=== PATIENT | male | born 1960 | race Caucasian/White ===

== ENCOUNTER → 2018-01-21 14:48 | Outpatient (CLI) | payer MEDICAID, SELFPAY ==
[2018-01-21 17:08] LABS: Absolute Lymphocyte Count 1.94 X10^3/ul (0.83-4.51); Absolute Neutrophil Count 9.3 X10^3/uL (2.0-7.7); Basophil# 0.05 X10^3/uL; Basophil% 0.4 % (0-1); Eosinophil# 0.21 X10^3/uL; Eosinophils% 1.7 % (0-5); Hematocrit 39.3 % (40-54); Hemoglobin 12.4 g/dl (13.0-16.5); Lymphocyte # 1.94 X10^3/ul (4.0); Lymphocyte % 15.5 % (19-41); Mean Corp Hgb Conc 31.6 g/gl (32-36); Mean Corpuscular Hgb 25.3 pg (27.0-32.0); Mean Corpuscular Volume 80.2 fL (80-94); Mean Platelet Vol. 8.8 fl (6.2-12.0); Monocyte# 0.94 X10^3/uL; Monocyte% 7.5 % (0-10); Neutrophil # 9.28 X10^3/uL (2.7-7.7); Neutrophil % 74.4 % (47-70); Platelet Count 360 K/mm3 (150-450); RBC Distribution Width CV 17.4 % (11.6-14.6); RBC Distribution Width SD 50.3 fl (35.1-43.9); White Blood Count 12.5 K/mm3 (4.4-11.0)
[2018-01-21 17:37] LABS: ALB/GLOB Ratio 0.6 RATIO (0.9-2.4); AST(SGOT) 20 U/L (15-37); Alanine Aminotransfer ALT/SGPT 22 U/L (16-61); Alkaline Phosphatase 111 U/L (45-117); Anion Gap 6 (5-15); BUN 19 mg/dL (7-18); BUN/Creat Ratio 19.3 RATIO (10-20); Calcium,Total 8.9 mg/dL (8.5-10.1); Chloride 101 mmol/L (98-107); Creatinine, Serum 0.99 mg/dL (0.70-1.30); EST Glomerular Filtration Rate 83 mL/min (>60); Est Glom Filt Rate - Afr Amer 100 mL/min (>60); Globulin 4.8 g/dL (2.2-4.2); Glucose 229 mg/dL (74-106); PSA,Total - Annual Screen 0.48 ng/mL (0.00-4.00); Potassium 4.3 mmol/L (3.5-5.1); Protein, Total 7.8 g/dL (6.4-8.2); Sodium Level 135 mmol/L (136-145); Thyroid Stim Hormone (TSH) 1.48 uIU/mL (0.358-3.74)
[2018-01-21 17:49] LABS: POSITIVE COUNT NO; POSITIVE DIFFERENTIAL NO; POSITIVE MORPHOLOGY NO
[2018-01-26 11:36] LABS: Hep C Antibodies <0.1 s/co ratio (0.0-0.9)
== END ==
PROVIDERS: Visit Provider Family Medicine Geriatric Medicine
DX: I10 Essential (primary) hypertension (principal); E11.9 Type 2 diabetes mellitus without complications; Z12.5 Encounter for screening for malignant neoplasm of prostate; Z13.89 Encounter for screening for other disorder
CPT/HCPCS: 36415; 80053; 84153; 84443; 85025; 86803; G0103

== ENCOUNTER → 2018-02-08 13:23 | Outpatient (CLI) | payer MEDICARE, SELFPAY ==
--- NOTE | 2018-02-08 13:30 | RAD_ITS ---
STUDY: X-RAY - CERVICAL SPINE REASON FOR EXAM: Male, 57 years old. Neck pain, chronic TECHNIQUE: 4 view(s) of the cervical spine were obtained. Limited evaluation of the lower cervical spine. COMPARISON: None FINDINGS: Normal anterior atlantoaxial articulation. Normal odontoid process. Normal cervical lordosis. There is multi-level endplate spondylosis. Normal disc space heights. The soft tissue structures are unremarkable. RAD/Cerv Spine 2 or 3 Views IMPRESSION: Mild degenerative changes Electronically Signed: Lee Pereira DO at 13:17 EDT Tel , Service support ,
== END ==
PROVIDERS: Family Provider Family Medicine Geriatric Medicine; PCP Family Medicine Geriatric Medicine; Referring Provider Anesthesiology Pain Medicine; Visit Provider Anesthesiology Pain Medicine
DX: M54.2 Cervicalgia (principal)
CPT/HCPCS: 72040

== ENCOUNTER 2018-03-08 12:51 | Outpatient (RCR) | payer MEDICARE, SELFPAY ==
[2018-03-08 14:06] VITALS: BP 133/75; PULSE 94; RESP 18; TEMP 37.2; BMI 49.1
--- NOTE | 2018-03-08 15:20 | PCM.WC.HP ---
(1) Skin ulcer of hand with fat layer exposed Status: Acute Current Visit: Yes Code(s): L98.492 - Non-pressure chronic ulcer of skin of other sites with fat layer exposed (2) Morbid obesity with BMI of 45.0-49.9, adult Status: Chronic Current Visit: Yes Code(s): E66.01 - Morbid (severe) obesity due to excess calories; Z68.42 - Body mass index (BMI) 45.0-49.9, adult (3) Diabetes mellitus Status: Chronic Current Visit: Yes Qualifiers: Diabetes mellitus type: type 2 Diabetes mellitus complication status: with neurologic complications Code(s): E11.9 - Type 2 diabetes mellitus without complications (4) Hypertension Status: Chronic Current Visit: No Code(s): I10 - Essential (primary) hypertension (5) Polyneuropathy Status: Chronic Current Visit: Yes Code(s): G62.9 - Polyneuropathy, unspecified (6) Debility Status: Chronic Current Visit: Yes Code(s): R53.81 - Other malaise (7) Hyperlipidemia Status: Chronic Current Visit: No Code(s): E78.5 - Hyperlipidemia, unspecified (8) 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 Current Visit: No Code(s): Z89.611 - Acquired absence of right leg above knee (9) Complete below knee amputation of left lower extremity Status: Chronic Current Visit: No Code(s): S88.112A - Complete traumatic amputation at level between knee and ankle, left lower leg, initial encounter (10) Burn Status: Acute Current Visit: Yes Code(s): T30.0 - Burn of unspecified body region, unspecified degree History of Present Illness Date of Service: 03/08/18 Chief Complaint: Ulcerations/wounds of the hands bilaterally History of Wound: This is a 57-year-old morbidly obese diabetic male with multiple medical problems. His pre-existing medical problems are detailed below. The patient presents with multiple wounds involving both hands. The wounds on the right hand are said to be related to pressure and friction from using his hands to mobilize his wheelchair. The wounds on the left hand are related to a recent burn sustained while cooking. The ulceration on the right hand involve the third and fourth digits. The jara on the left hand involve the fourth digit. The patient has recently been evaluated by his primary care physician, Dr. Lomeli, and has been treated with oral antibiotics, both Keflex and doxycycline, for a total of 10 days. He presents now for definitive management. Patient is limited to a wheelchair, having previously undergone a left below-knee amputation and a right above-knee amputation. He is also morbidly obese. He spends approximately 50% of his time in a motorized wheelchair, and the other 50% in his manual wheelchair, she uses primarily when at home. He typically wears a glove to protect his hands, but has developed ulcerations related to pressure/friction just within the last several weeks. 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 His history is negative for myocardial infarction, congestive heart failure, cerebrovascular accident, renal disease, pulmonary disease, and thyroid disease Surgical History: - - Patient has previously undergone tonsillectomy. A right above-knee imitation was performed in 2014 due to nonhealing and recalcitrant diabetic wounds. A left below-knee amputation was performed in 2012, also due to nonhealing and recalcitrant diabetic wounds. Allergies/Adverse Reactions: Allergies iodine Allergy (Verified 03/08/18 14:43) makes wound worse latex Allergy (Verified 03/08/18 14:43) Rash shellfish derived Allergy (Verified 03/08/18 14:43) Anaphylaxis Home Medications: Ambulatory Orders Medication Instructions Recorded Cyclobenzaprine [Flexeril] 5 mg PO TID 02/22/18 Dapagliflozin Propanediol [Farxiga] 10 mg PO DAILY 02/22/18 Gabapentin [Gralise] 600 mg PO TID 02/22/18 Ibuprofen 400 mg PO TID 02/22/18 Linagliptin [Tradjenta] 5 mg PO DAILY 02/22/18 Oxycodone [Oxyir] 5 mg PO TID 02/22/18 - Family History Paternal - - Patient's father in his 60s with a history of lung cancer. 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 His mother is alive, age 78, and suffers from diabetes mellitus and hypertension. Social History: Patient lives alone. He is single. He has retired from [employer]. He denies the use of alcohol or tobacco products. Lives: Alone Smoking Status: Never smoker Tobacco Use: Non-smoker Alcohol: None Drugs: None Review of Systems Constitutional: Denies: Chills, Fever, Weight Change Eyes: Denies: Pain, Vision Change HEENT: Denies: Difficulty Hearing, Difficulty Swallowing, Sinus Congestion Cardiovascular: Denies: Chest Pain, Palpitations Respiratory: Denies: Cough, Shortness of Breath Gastrointestinal: Denies: Diarrhea, Nausea, Vomiting Genitourinary: Denies: Dysuria, Hematuria Endocrine: Denies: Heat/ Cold Intolerance, Polydipsia, Polyuria Hematologic/ Lymphatic: Denies: Easy Bruising, Easy Bleeding - Physical Exam Vital Signs Temp Pulse Resp BP 98.9 F 94 18 133/75 H 03/08/18 14:06 03/08/18 14:06 03/08/18 14:06 03/08/18 14:06 General: Alert, Oriented x3, Cooperative, No apparent distress, Well developed, Well nourished, - - The patient is morbidly obese. HEENT: Atraumatic, PERRLA, EOMI, Normocephalic Oral: Moist Mucosa, No Gingival or Mucosal Lesions/ Ulcerations Neck: No JVD, Negative Carotid Bruits, Negative Hepatojugular Reflux, No Nodes, No Nuchal Rigidity, Trachea Midline Lungs: Clear to auscultation, Normal air movement, No rhonchi, No wheeze, No rales Cardiovascular: Regular rate, Regular Rhythm, Normal S1, Normal S2, No murmurs Abdomen: Soft, Non Tender, Non-Distended, Obese Extremities: No clubbing, No cyanosis, No edema, No Calf Tenderness, - - A left below-knee amputation is noted, as well as a right above-knee amputation. Amputation stumps are well-healed. The patient has multiple wounds and ulcerations of his hands, the locations of which are documented elsewhere, as well as the dimensions. There is no sign of infection or cellulitis. The ulcerations, particularly on the right hand, demonstrate significant callus formation. There is a moderate amount of bioburden. Skin: No rashes Wound Measurements and Assessment WC - Nurse 1 - General Ulcer Measurement Start: 03/08/18 14:06 Freq: Status: Active Protocol: Activity Type Activity Date Activity User E-Sign Co-Sign Detail Recorded Client Recorded Date Recorded By Document 03/08/18 14:06 DV [id number] 03/08/18 14:33 DV 03/08/18 14:06 Wound Center Nurse 1 [Ulcer Assessment] #4 R Ring Finger -Current Size (cm) - Length 0.5 -Current Size (cm) - Width 1 -Current Size (cm) - Depth 0.1 -Total Square Cm 0.5 -Photo Taken Yes -Classification - Thickness Full Thickness without Exposed Support Structure -Exudate Amt Small (1-33%) -Exudate Type Serosanguineous -Wound Margin Thickened -Granulation Amt Small (1-33%) -Granulation Quality [place] -Necrosis Amt Small (1-33%) -Necrotic Tissue Type Adherent Slough -Structure Exposed N/A -Texture (Negar-wound Skin Appearance) Callus Scarring -Moisture (Negar-wound Skin Appearance Maceration ) -Color (Negar-wound Skin Appearance) No Abnormality Erythema -Temperature (Negar-wound Skin No Abnormality Appearance) (Pt Warm) -Tenderness on Palpation (Negar-wound No Skin Appearance) -Ulcer Cleansing Wound Cleanser -Foul Odor after Cleansing No -Anesthetic Used 4% Lidocaine Solution #3 R Middle Finger lat -Current Size (cm) - Length 0.5 -Current Size (cm) - Width 1 -Current Size (cm) - Depth 0.1 -Total Square Cm 0.5 -Photo Taken Yes -Exudate Amt None Present (0 %) -Wound Margin Thickened -Granulation Amt Large (67-100%) -Granulation Quality Pale [place] -Necrosis Amt Small (1-33%) -Necrotic Tissue Type Adherent Slough -Structure Exposed N/A -Texture (Negar-wound Skin Appearance) Callus -Moisture (Negar-wound Skin Appearance Dry/Scaly ) -Color (Negar-wound Skin Appearance) No Abnormality -Temperature (Negar-wound Skin No Abnormality Appearance) (Pt Warm) -Tenderness on Palpation (Negar-wound No Skin Appearance) -Ulcer Cleansing Wound Cleanser -Foul Odor after Cleansing No -Anesthetic Used 4% Lidocaine Solution #2 R Middle Finger -Current Size (cm) - Length 0.2 -Current Size (cm) - Width 0.2 -Current Size (cm) - Depth 0.1 -Total Square Cm 0.04 -Photo Taken Yes -Classification - Thickness Unclassifiable (Eschar Covered ) -Exudate Amt None Present (0 %) -Wound Margin Thickened -Granulation Amt None Present (0 %) -Necrotic Tissue Type Eschar -Texture (Negar-wound Skin Appearance) Callus -Moisture (Negar-wound Skin Appearance Dry/Scaly ) -Color (Negar-wound Skin Appearance) No Abnormality -Temperature (Negar-wound Skin No Abnormality Appearance) (Pt Warm) -Tenderness on Palpation (Negar-wound No Skin Appearance) -Ulcer Cleansing Wound Cleanser -Foul Odor after Cleansing No -Anesthetic Used 4% Lidocaine Solution #1 L Hand Ring finger -Current Size (cm) - Length 0.2 -Current Size (cm) - Width 0.2 -Current Size (cm) - Depth 0.2 -Total Square Cm 0.04 -Photo Taken Yes -Classification - Thickness Unclassifiable (Eschar Covered ) -Exudate Amt None Present (0 %) -Wound Margin Distinct, Outline Attached -Granulation Amt None Present (0 %) -Necrosis Amt Small (1-33%) -Necrotic Tissue Type Eschar -Structure Exposed N/A -Texture (Negar-wound Skin Appearance) Callus Scarring -Moisture (Negar-wound Skin Appearance Dry/Scaly ) -Color (Negar-wound Skin Appearance) No Abnormality -Temperature (Negar-wound Skin No Abnormality Appearance) (Pt Warm) -Tenderness on Palpation (Negar-wound No Skin Appearance) -Ulcer Cleansing Wound Cleanser -Foul Odor after Cleansing No -Anesthetic Used 4% Lidocaine Solution WC - Nurse 2 - General Ulcer CM Notes Start: 03/08/18 14:06 Freq: Status: Active Protocol: Activity Type Activity Date Activity User E-Sign Co-Sign Detail Recorded Client Recorded Date Recorded By Document 03/08/18 14:51 DV [id number] 03/08/18 15:12 DV 03/08/18 14:51 Wound Center Nurse 2 [Procedure/Treatment] #4 R Ring Finger -Time 14:57 -Correct Patient Yes -Correct Side, Site, Position Yes -Correct Procedure Yes -Procedure Performed Yes -Type of Procedure Debridement -Clinical Debridement Subcutaneous -Post Debridement Size (cm) - Length 1.0 -Post Debridement Size (cm) - Width 1.0 -Post Debridement Size (cm) - Depth 0.2 -Total Square Cm 1.00 -Wound/Ulcer Outcome Not Healed -Ulcer Cleansing Rinsed/ Irrigated with Saline -Foul Odor after Cleansing No -Bioengineered Tissue No -Bleeding Controlled with Pressure -Treatment Response Procedure Tolerated Well #3 R Middle Finger lat -Time 15:01 -Correct Patient Yes -Correct Side, Site, Position Yes -Correct Procedure Yes -Procedure Performed Yes -Type of Procedure Debridement -Clinical Debridement Subcutaneous -Post Debridement Size (cm) - Length 0.5 -Post Debridement Size (cm) - Width 1.1 -Post Debridement Size (cm) - Depth 0.2 -Total Square Cm 0.55 -Wound/Ulcer Outcome Not Healed -Ulcer Cleansing Rinsed/ Irrigated with Saline -Foul Odor after Cleansing No -Bioengineered Tissue No -Bleeding Controlled with Pressure -Treatment Response Procedure Tolerated Well #2 R Middle Finger -Time 15:01 -Correct Patient Yes -Correct Side, Site, Position Yes -Correct Procedure Yes -Procedure Performed Yes -Type of Procedure Debridement -Clinical Debridement Subcutaneous -Post Debridement Size (cm) - Length 0.3 -Post Debridement Size (cm) - Width 0.5 -Post Debridement Size (cm) - Depth 0.1 -Total Square Cm 0.15 -Wound/Ulcer Outcome Not Healed -Ulcer Cleansing Rinsed/ Irrigated with Saline -Foul Odor after Cleansing No -Bioengineered Tissue No -Bleeding Controlled with Pressure -Treatment Response Procedure Tolerated Well #1 L Hand Ring finger -Time 15:01 -Correct Patient Yes -Correct Side, Site, Position Yes -Correct Procedure Yes -Procedure Performed Yes -Type of Procedure Debridement -Clinical Debridement Subcutaneous -Post Debridement Size (cm) - Length 0.3 -Post Debridement Size (cm) - Width 0.3 -Post Debridement Size (cm) - Depth 0.2 -Total Square Cm 0.09 -Wound/Ulcer Outcome Not Healed -Ulcer Cleansing Rinsed/ Irrigated with Saline -Foul Odor after Cleansing No -Bioengineered Tissue No -Bleeding Controlled with Pressure -Treatment Response Procedure Tolerated Well [See Physician Procedure note for Specifics] Pain Scale: 0-10 Numeric [Pain] -Is Patient Pain Free? Yes Neurological: Cranial nerves II-XII grossly intact, Neuro grossly intact Psych/Mental Status: Normal Affect, Appropriate, Alert and oriented to time, place, person, mood and affect Debridement Note Post-Debridement Measurements/Treatment WC - Nurse 2 - General Ulcer CM Notes Start: 03/08/18 14:06 Freq: Status: Active Protocol: Activity Type Activity Date Activity User E-Sign Co-Sign Detail Recorded Client Recorded Date Recorded By Document 03/08/18 14:51 DV [id number] 03/08/18 15:12 DV 03/08/18 14:51 Wound Center Nurse 2 #4 R Ring Finger -Time 14:57 -Correct Patient Yes -Correct Side, Site, Position Yes -Correct Procedure Yes -Procedure Performed Yes -Type of Procedure Debridement -Clinical Debridement Subcutaneous -Post Debridement Size (cm) - Length 1.0 -Post Debridement Size (cm) - Width 1.0 -Post Debridement Size (cm) - Depth 0.2 -Total Square Cm 1.00 -Wound/Ulcer Outcome Not Healed -Ulcer Cleansing Rinsed/ Irrigated with Saline -Foul Odor after Cleansing No -Bioengineered Tissue No -Bleeding Controlled with Pressure -Treatment Response Procedure Tolerated Well #3 R Middle Finger lat -Time 15:01 -Correct Patient Yes -Correct Side, Site, Position Yes -Correct Procedure Yes -Procedure Performed Yes -Type of Procedure Debridement -Clinical Debridement Subcutaneous -Post Debridement Size (cm) - Length 0.5 -Post Debridement Size (cm) - Width 1.1 -Post Debridement Size (cm) - Depth 0.2 -Total Square Cm 0.55 -Wound/Ulcer Outcome Not Healed -Ulcer Cleansing Rinsed/ Irrigated with Saline -Foul Odor after Cleansing No -Bioengineered Tissue No -Bleeding Controlled with Pressure -Treatment Response Procedure Tolerated Well #2 R Middle Finger -Time 15:01 -Correct Patient Yes -Correct Side, Site, Position Yes -Correct Procedure Yes -Procedure Performed Yes -Type of Procedure Debridement -Clinical Debridement Subcutaneous -Post Debridement Size (cm) - Length 0.3 -Post Debridement Size (cm) - Width 0.5 -Post Debridement Size (cm) - Depth 0.1 -Total Square Cm 0.15 -Wound/Ulcer Outcome Not Healed -Ulcer Cleansing Rinsed/ Irrigated with Saline -Foul Odor after Cleansing No -Bioengineered Tissue No -Bleeding Controlled with Pressure -Treatment Response Procedure Tolerated Well #1 L Hand Ring finger -Time 15:01 -Correct Patient Yes -Correct Side, Site, Position Yes -Correct Procedure Yes -Procedure Performed Yes -Type of Procedure Debridement -Clinical Debridement Subcutaneous -Post Debridement Size (cm) - Length 0.3 -Post Debridement Size (cm) - Width 0.3 -Post Debridement Size (cm) - Depth 0.2 -Total Square Cm 0.09 -Wound/Ulcer Outcome Not Healed -Ulcer Cleansing Rinsed/ Irrigated with Saline -Foul Odor after Cleansing No -Bioengineered Tissue No -Bleeding Controlled with Pressure -Treatment Response Procedure Tolerated Well Pain Scale: 0-10 Numeric Is Patient Pain Free? Yes Laterality: Right - Third and fourth digits Type of Debridement: Excisional debridement Anesthesia Used: 5% Lidocaine Gel Depth: Down to and including healthy tissue, in the subcutaneous layer Percentage of wound debrided: 100 Instrument Used: 7mm curette, - - 1 millimeter curette Severity: Fat Layer Exposed Amount of bleeding with debridement: Mild Bleeding Controlled with: Compression and gauze Patient tolerated procedure well - Additional Wound Laterality: Left - Fourth digit Type of Debridement: Excisional debridement Anesthesia Used: 5% Lidocaine Gel Depth: Down to and including healthy tissue, in the subcutaneous layer Percentage of wound debrided: 100 Instrument Used: 7mm curette Severity: Fat Layer Exposed Amount of bleeding with debridement: Mild Bleeding Controlled with: Compression and gauze Patient tolerated procedure: Patient tolerated procedure well Assessment/Plan Active Problems Skin ulcer of hand with fat layer exposed (Acute) Morbid obesity with BMI of 45.0-49.9, adult (Chronic) Diabetes mellitus (Chronic) Polyneuropathy (Chronic) Debility (Chronic) Burn (Acute) Assessment: This is a 57-year-old morbidly obese diabetic male with multiple wounds/ulcerations on his hands. The ulcerations on the right third and fourth digits, related to pressure and friction from contacting the wheel of his wheelchair. The wounds on the left hand appear related to recent jara he sustained while cooking. Patient has multiple medical problems, which have been detailed above. Recent laboratory results have been obtained, with results as follows: Sodium 135, potassium 4.3, chloride 101, BUN 19, creatinine 0.99, glucose 229, calcium 8.9, AST 20, ALT 22, total bilirubin 0.20, alkaline phosphatase 111, total protein 7.8, albumin 3.0, white blood count 12.5, hemoglobin 12.4, hematocrit 39.3, platelets 360,000. Despite the fact that the patient is diabetic, arterial insufficiency in the upper extremities is not likely, and assessment of arterial status is not anticipated. Plan: We are to implement the use of collagen hydrogel topically to each of the wounds on both hands. This should serve as a healing agent, and will likely soften up the the significant amount of callus which is noted involving many of the patient's ulcerations/wounds. Offloading measures are to be implemented. The patient has been advised to wear gloves to avoid the pressure and friction which he encounters while moving his wheelchair. Patient has been advised to optimize his glycemic control, and to collaborate with his primary care physician in this regard. Weight loss has been recommended. Optimizing his nutritional intake is also been advised. Patient is to return in 1 week for reassessment. Influenza vaccine was not administered today. The patient is not a smoker. Patient weighs 323 pounds. He stands 5 feet 8 inches tall. His BMI is 49.1. Weight loss has been recommended, in collaboration with his primary care physician has been advised.
== END 2018-03-12 23:59 ==
LOC: WC 12:51
PROVIDERS: Family Provider Family Medicine Geriatric Medicine; PCP Family Medicine Geriatric Medicine; Visit Provider Surgery
DX: E11.622 Type 2 diabetes mellitus with other skin ulcer (principal); L98.492 Non-pressure chronic ulcer of skin of other sites with fat layer exposed; E66.01 Morbid (severe) obesity due to excess calories; Z68.42 Body mass index [BMI] 45.0-49.9, adult; E11.42 Type 2 diabetes mellitus with diabetic polyneuropathy; I10 Essential (primary) hypertension; E78.5 Hyperlipidemia, unspecified; Z89.611 Acquired absence of right leg above knee; T23.002A Burn of unspecified degree of left hand, unspecified site, initial encounter; X08.8XXA Exposure to other specified smoke, fire and flames, initial encounter; Y93.G3 Activity, cooking and baking; Z79.899 Other long term (current) drug therapy
CPT/HCPCS: 11042; 99213; G0463

== ENCOUNTER 2018-04-12 14:00 | Outpatient (RCR) | payer MEDICARE, SELFPAY ==
[2018-03-13 02:09] VITALS: BP 133/75; PULSE 94; RESP 18; TEMP 37.2
[2018-03-15 13:33] VITALS: BP 156/73; PULSE 97; RESP 18; TEMP 36.1; BMI 49.1
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
[2018-03-22 14:24] VITALS: BP 123/72; PULSE 93; RESP 18; TEMP 35.5; BMI 49.1
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
[2018-03-29 14:49] VITALS: BP 122/72; PULSE 88; RESP 18; TEMP 37.1; BMI 49.1
[2018-03-30 11:09] VITALS: BP 128/68; PULSE 90; RESP 18; TEMP 36.4; BMI 49.1
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
[2018-04-12 13:54] VITALS: BP 123/63; PULSE 100; RESP 16; TEMP 34.9; BMI 49.1
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
== END 2018-04-12 23:59 ==
LOC: WC 14:00
PROVIDERS: Family Provider Family Medicine Geriatric Medicine; PCP Family Medicine Geriatric Medicine; Visit Provider Surgery
DX: E11.622 Type 2 diabetes mellitus with other skin ulcer (principal); T23.032A Burn of unspecified degree of multiple left fingers (nail), not including thumb, initial encounter; E11.40 Type 2 diabetes mellitus with diabetic neuropathy, unspecified; L98.492 Non-pressure chronic ulcer of skin of other sites with fat layer exposed; E66.01 Morbid (severe) obesity due to excess calories; Z68.42 Body mass index [BMI] 45.0-49.9, adult; Z71.3 Dietary counseling and surveillance; I10 Essential (primary) hypertension; E78.5 Hyperlipidemia, unspecified; Z89.611 Acquired absence of right leg above knee; Z89.512 Acquired absence of left leg below knee; X08.8XXA Exposure to other specified smoke, fire and flames, initial encounter; Y93.G3 Activity, cooking and baking; L84 Corns and callosities; L89.893 Pressure ulcer of other site, stage 3
CPT/HCPCS: 11042

== ENCOUNTER → 2018-04-27 12:05 | Outpatient (CLI) | payer MEDICARE, SELFPAY ==
[2018-04-26 14:07] VITALS: BMI 49.1
[2018-04-27 17:19] LABS: Absolute Lymphocyte Count 2.06 X10^3/ul (0.83-4.51); Absolute Neutrophil Count 7.4 X10^3/uL (2.0-7.7); Basophil# 0.04 X10^3/uL; Basophil% 0.4 % (0-1); Eosinophil# 0.16 X10^3/uL; Eosinophils% 1.6 % (0-5); Hematocrit 46.3 % (40-54); Hemoglobin 14.6 g/dl (13.0-16.5); Lymphocyte # 2.06 X10^3/ul (4.0); Mean Corp Hgb Conc 31.5 g/gl (32-36); Mean Corpuscular Hgb 26.2 pg (27.0-32.0); Mean Platelet Vol. 9.6 fl (6.2-12.0); Monocyte# 0.69 X10^3/uL; Monocyte% 6.7 % (0-10); Neutrophil # 7.35 X10^3/uL (2.7-7.7); Neutrophil % 71.1 % (47-70); Platelet Count 302 K/mm3 (150-450); RBC Distribution Width CV 17.5 % (11.6-14.6); RBC Distribution Width SD 52.4 fl (35.1-43.9); Red Blood Count 5.58 M/mm3 (4.6-6.2); White Blood Count 10.3 K/mm3 (4.4-11.0)
[2018-04-27 17:23] LABS: POSITIVE COUNT NO; POSITIVE DIFFERENTIAL NO; POSITIVE MORPHOLOGY NO
[2018-04-27 17:43] LABS: ALB/GLOB Ratio 0.8 RATIO (0.9-2.4); AST(SGOT) 17 U/L (15-37); Alanine Aminotransfer ALT/SGPT 23 U/L (16-61); Albumin, Serum 3.2 g/dL (3.2-5.0); Alkaline Phosphatase 118 U/L (45-117); Anion Gap 10 (5-15); BUN 24 mg/dL (7-18); BUN/Creat Ratio 24.6 RATIO (10-20); Calcium,Total 9.3 mg/dL (8.5-10.1); Chloride 100 mmol/L (98-107); Cholesterol 108 mg/dL (200); Creatinine, Serum 0.97 mg/dL (0.70-1.30); EST Glomerular Filtration Rate 84 mL/min (>60); Est Glom Filt Rate - Afr Amer 102 mL/min (>60); Globulin 4.1 g/dL (2.2-4.2); Glucose 297 mg/dL (74-106); High Density Lipoprotein 28 mg/dL; Potassium 4.6 mmol/L (3.5-5.1); Protein, Total 7.3 g/dL (6.4-8.2); Sodium Level 136 mmol/L (136-145); Thyroid Stim Hormone (TSH) 3.09 uIU/mL (0.358-3.74); Triglycerides 244 mg/dL; Very Low Density Lipoprotein 49 mg/dL (5-40)
== END ==
PROVIDERS: Family Provider Family Medicine Geriatric Medicine; PCP Family Medicine Geriatric Medicine; Visit Provider Family Medicine Geriatric Medicine
DX: E11.9 Type 2 diabetes mellitus without complications (principal); R53.83 Other fatigue
CPT/HCPCS: 36415; 80053; 80061; 84443; 85025

== ENCOUNTER 2018-05-11 10:00 | Outpatient (RCR) | payer MEDICARE, SELFPAY ==
[2018-04-13 01:24] VITALS: BP 123/63; PULSE 100; RESP 16; TEMP 34.9
[2018-04-19 13:47] VITALS: BP 114/70; PULSE 92; RESP 16; TEMP 36.9; BMI 49.1
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
[2018-04-26 14:07] VITALS: BP 127/69; PULSE 90; RESP 16; TEMP 35.1; BMI 49.1
[2018-05-11 09:47] VITALS: BP 123/80; PULSE 106; RESP 20; TEMP 36.1; BMI 49.1
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
== END 2018-05-13 23:59 ==
LOC: WC 10:00
PROVIDERS: Family Provider Family Medicine Geriatric Medicine; PCP Family Medicine Geriatric Medicine; Visit Provider Surgery
DX: E11.622 Type 2 diabetes mellitus with other skin ulcer (principal); L89.893 Pressure ulcer of other site, stage 3; E66.01 Morbid (severe) obesity due to excess calories; Z68.42 Body mass index [BMI] 45.0-49.9, adult; Z71.3 Dietary counseling and surveillance; E78.5 Hyperlipidemia, unspecified; Z89.611 Acquired absence of right leg above knee; I10 Essential (primary) hypertension; E11.42 Type 2 diabetes mellitus with diabetic polyneuropathy; Z79.899 Other long term (current) drug therapy
CPT/HCPCS: 11042; 99212; G0463

== ENCOUNTER 2018-06-07 14:30 | Outpatient (RCR) | payer MEDICARE, MEDICAID, SELFPAY ==
[2018-05-14 01:27] VITALS: BP 123/80; PULSE 106; RESP 20; TEMP 36.1
[2018-05-24 13:42] VITALS: BP 123/75; PULSE 70; RESP 18; TEMP 36.2; BMI 49.1
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
[2018-06-07 13:58] VITALS: BP 115/62; PULSE 90; RESP 18; TEMP 36.3; BMI 49.1
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
== END 2018-06-10 23:59 ==
LOC: WC 14:30
PROVIDERS: Family Provider Family Medicine Geriatric Medicine; PCP Family Medicine Geriatric Medicine; Visit Provider Surgery
DX: E11.622 Type 2 diabetes mellitus with other skin ulcer (principal); L89.893 Pressure ulcer of other site, stage 3; E66.01 Morbid (severe) obesity due to excess calories; Z68.42 Body mass index [BMI] 45.0-49.9, adult; Z71.3 Dietary counseling and surveillance; E78.5 Hyperlipidemia, unspecified; Z89.611 Acquired absence of right leg above knee; I10 Essential (primary) hypertension; E11.42 Type 2 diabetes mellitus with diabetic polyneuropathy; Z79.899 Other long term (current) drug therapy
CPT/HCPCS: 11042; 97597

== ENCOUNTER 2018-06-28 13:31 | Outpatient (RCR) | payer MEDICARE, SELFPAY ==
[2018-06-11 01:09] VITALS: BP 115/62; PULSE 90; RESP 18; TEMP 36.3
[2018-06-28 13:53] VITALS: BP 119/64; PULSE 84; RESP 18; TEMP 36.6; BMI 49.1
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
== END 2018-07-11 23:59 ==
LOC: WC 13:31
PROVIDERS: Family Provider Family Medicine Geriatric Medicine; PCP Family Medicine Geriatric Medicine; Visit Provider Surgery
DX: Z09 Encounter for follow-up examination after completed treatment for conditions other than malignant neoplasm (principal); E66.01 Morbid (severe) obesity due to excess calories; Z68.42 Body mass index [BMI] 45.0-49.9, adult; Z71.3 Dietary counseling and surveillance; I10 Essential (primary) hypertension; E11.42 Type 2 diabetes mellitus with diabetic polyneuropathy; E78.5 Hyperlipidemia, unspecified; Z89.611 Acquired absence of right leg above knee; Z79.899 Other long term (current) drug therapy
CPT/HCPCS: 99212; G0463

== ENCOUNTER → 2018-07-23 | Outpatient (CLI) | payer MEDICARE, SELFPAY ==
[2018-06-28 13:53] VITALS: BMI 49.1
[2018-07-23 11:36] LABS: Absolute Lymphocyte Count 1.95 X10^3/ul (0.83-4.51); Absolute Neutrophil Count 8.3 X10^3/uL (2.0-7.7); Basophil# 0.05 X10^3/uL; Basophil% 0.5 % (0-1); Eosinophil# 0.19 X10^3/uL; Eosinophils% 1.7 % (0-5); Hematocrit 45.5 % (40-54); Hemoglobin 14.5 g/dl (13.0-16.5); Lymphocyte # 1.95 X10^3/ul (4.0); Lymphocyte % 17.6 % (19-41); Mean Corp Hgb Conc 31.9 g/gl (32-36); Mean Corpuscular Hgb 27.1 pg (27.0-32.0); Mean Corpuscular Volume 84.9 fL (80-94); Mean Platelet Vol. 9.4 fl (6.2-12.0); Monocyte# 0.62 X10^3/uL; Monocyte% 5.6 % (0-10); Neutrophil # 8.25 X10^3/uL (2.7-7.7); Neutrophil % 74.2 % (47-70); POSITIVE COUNT NO; POSITIVE DIFFERENTIAL NO; POSITIVE MORPHOLOGY NO; Platelet Count 243 K/mm3 (150-450); RBC Distribution Width CV 16.4 % (11.6-14.6); RBC Distribution Width SD 51.4 fl (35.1-43.9); Red Blood Count 5.36 M/mm3 (4.6-6.2); White Blood Count 11.1 K/mm3 (4.4-11.0)
[2018-07-23 11:42] LABS: ALB/GLOB Ratio 0.8 RATIO (0.9-2.4); AST(SGOT) 19 U/L (15-37); Alanine Aminotransfer ALT/SGPT 24 U/L (16-61); Albumin, Serum 3.2 g/dL (3.2-5.0); Alkaline Phosphatase 108 U/L (45-117); Anion Gap 8 (5-15); BUN 22 mg/dL (7-18); BUN/Creat Ratio 24.4 RATIO (10-20); Calcium,Total 9.2 mg/dL (8.5-10.1); Chloride 101 mmol/L (98-107); Cholesterol 95 mg/dL (200); EST Glomerular Filtration Rate 92 mL/min (>60); Est Glom Filt Rate - Afr Amer 111 mL/min (>60); Globulin 3.9 g/dL (2.2-4.2); Glucose 247 mg/dL (74-106); High Density Lipoprotein 29 mg/dL; Potassium 4.4 mmol/L (3.5-5.1); Protein, Total 7.1 g/dL (6.4-8.2); Sodium Level 138 mmol/L (136-145); Thyroid Stim Hormone (TSH) 2.76 uIU/mL (0.358-3.74); Triglycerides 152 mg/dL; Very Low Density Lipoprotein 30 mg/dL (5-40)
== END | disposition home or self-care (01) ==
LOC: POLAB3 10:48
PROVIDERS: Family Provider Family Medicine Geriatric Medicine; PCP Family Medicine Geriatric Medicine; Visit Provider Family Medicine Geriatric Medicine
DX: E11.9 Type 2 diabetes mellitus without complications (principal); E78.5 Hyperlipidemia, unspecified; I10 Essential (primary) hypertension
CPT/HCPCS: 36415; 80053; 80061; 84443; 85025

== ENCOUNTER → 2018-10-21 | Outpatient (CLI) | payer MEDICARE, MEDICAID, SELFPAY ==
[2018-10-21 17:28] LABS: Absolute Neutrophil Count 8.7 X10^3/uL (2.0-7.7); Basophil# 0.04 X10^3/uL; Basophil% 0.4 % (0-1); Eosinophil# 0.19 X10^3/uL; Eosinophils% 1.7 % (0-5); Hematocrit 45.9 % (40-54); Hemoglobin 14.4 g/dl (13.0-16.5); Lymphocyte % 14.3 % (19-41); Mean Corp Hgb Conc 31.4 g/gl (32-36); Mean Corpuscular Hgb 26.4 pg (27.0-32.0); Mean Corpuscular Volume 84.2 fL (80-94); Mean Platelet Vol. 9.8 fl (6.2-12.0); Monocyte# 0.57 X10^3/uL; Monocyte% 5.1 % (0-10); Neutrophil # 8.72 X10^3/uL (2.7-7.7); Neutrophil % 78.1 % (47-70); Platelet Count 297 K/mm3 (150-450); RBC Distribution Width CV 16.6 % (11.6-14.6); RBC Distribution Width SD 51.2 fl (35.1-43.9); Red Blood Count 5.45 M/mm3 (4.6-6.2); White Blood Count 11.2 K/mm3 (4.4-11.0)
[2018-10-21 17:47] LABS: Vitamin D,25 Hydroxy 30.2 ng/mL (29.95-100.01)
[2018-10-21 17:54] LABS: POSITIVE COUNT NO; POSITIVE DIFFERENTIAL NO; POSITIVE MORPHOLOGY NO
[2018-10-21 18:03] LABS: ALB/GLOB Ratio 0.8 RATIO (0.9-2.4); AST(SGOT) 19 U/L (15-37); Alanine Aminotransfer ALT/SGPT 24 U/L (16-61); Albumin, Serum 3.2 g/dL (3.2-5.0); Alkaline Phosphatase 107 U/L (45-117); Anion Gap 10 (5-15); BUN 23 mg/dL (7-18); BUN/Creat Ratio 25.8 RATIO (10-20); Calcium,Total 8.9 mg/dL (8.5-10.1); Chloride 102 mmol/L (98-107); Cholesterol 110 mg/dL (200); Creatinine, Serum 0.89 mg/dL (0.70-1.30); EST Glomerular Filtration Rate 93 mL/min (>60); Est Glom Filt Rate - Afr Amer 113 mL/min (>60); Globulin 3.8 g/dL (2.2-4.2); Glucose 268 mg/dL (74-106); High Density Lipoprotein 31 mg/dL; Potassium 4.3 mmol/L (3.5-5.1); Sodium Level 138 mmol/L (136-145); Triglycerides 242 mg/dL; Very Low Density Lipoprotein 48 mg/dL (5-40)
== END | disposition home or self-care (01) ==
LOC: POLAB3 13:09
PROVIDERS: Family Provider Family Medicine Geriatric Medicine; PCP Family Medicine Geriatric Medicine; Visit Provider Family Medicine Geriatric Medicine
DX: E55.9 Vitamin D deficiency, unspecified (principal); E11.40 Type 2 diabetes mellitus with diabetic neuropathy, unspecified; E78.5 Hyperlipidemia, unspecified; I10 Essential (primary) hypertension
CPT/HCPCS: 36415; 80053; 80061; 82306; 84443; 85025

== ENCOUNTER 2019-01-09 17:45 | Emergency (ER) | payer MEDICARE, MEDICAID, SELFPAY ==
[2019-01-09 17:46] VITALS: BP 125/70; PULSE 100; RESP 17; TEMP 36.8; O2SAT 99; BMI 45.6
--- NOTE | 2019-01-09 18:40 | RAD_ITS ---
STUDY: X-RAY - LEFT FEMUR REASON FOR STUDY: Male, 58 years old. Leg pain TECHNIQUE: 4 view(s) of the femur. COMPARISON: None. FINDINGS: Normal visualized femur. Normal visualized soft tissue structure. RAD/Femur Min 2 Views IMPRESSION: Normal x-ray examination of the femur. Electronically Signed: Lee Pereira DO at 19:15 EDT Tel , Service support ,
--- NOTE | 2019-01-09 19:24 | ED.VISSUMM ---
- ER Visit Summary Date of Service: 01/09/19 Chief Complaint: Fall History of Present Illness: The patient is a 58 M who presents after a fall that occurred today. Patient was in his wheelchair and driving out to his car. Patient hit a pothole and fell out of his wheelchair. Patient landed on his left side. Patient states the pain is localized to his left thigh and left elbow. Patient denies any head injury or loss of consciousness. Patient denies any paresthesias or weakness. Patient denies any other injuries. Patient states his last tetanus is up-to-date. Physical Examination: Vital signs are stable. Patient afebrile. Patient is in no acute distress. Musculoskeletal exam revealed abrasions over the left knee and left elbow. There is no active bleeding noted. There is full range of motion of the left elbow. There is minimal tenderness. There is no bony crepitance or step-off. There is tenderness over the left mid to proximal thigh. There is no edema or ecchymosis. There is no deformity noted. There are or sensory deficits noted. Test Results: X-rays of the left femur were obtained. There is no acute fracture. These were interpreted by the radiologist and myself. Emergency Department Course and Treatment: Patient was given a dose of Parkton here. Patient was given a prescription for a short course of Parkton. Patient was instructed to use ice to the area. Patient was instructed to use bacitracin dressings to his abrasions. Patient was instructed to follow-up with his primary care physician in 3 to 5 days. Patient understood and was agreeable with the plan. All questions were answered. Disposition: Discharge home Impression: 1. Left thigh contusion 2. Multiple abrasions This note was generated with [employer] dictation software. It may contain incorrect words, spelling, and punctuation that were not noted in review of the chart prior to signing ED Disposition - Plan for ED Patient: Disposition: Home or Assisted Living Diagnosis: Contusion of left thigh, initial encounter, Multiple abrasions Instructions: CONTUSION, Lower Extremity, Abrasion Prescriptions: Hydrocodone Bitart/Apap 5-325 [Parkton 5MG-325MG] 1 tab PO Q6H PRN PRN 2 Days #5 tab PRN Reason: Pain Prescription Printed Referrals: Kelechi Lomeli Chi, MD [Primary Care Provider] - 3-5 Days
[2019-01-09 19:40] VITALS: BP 122/72; PULSE 98; RESP 18; O2SAT 97
[2019-01-09] MEDS: HYDROcodone Bitartrate/Apap 5/325 Tablet PO (19:43)
== END 2019-01-09 19:54 | disposition home or self-care (01) ==
PROVIDERS: Emergency Provider Emergency Medicine; Family Provider Family Medicine Geriatric Medicine; PCP Family Medicine Geriatric Medicine
DX: S70.12XA Contusion of left thigh, initial encounter (principal); S80.212A Abrasion, left knee, initial encounter; S50.312A Abrasion of left elbow, initial encounter; E66.9 Obesity, unspecified; E11.9 Type 2 diabetes mellitus without complications; Z99.3 Dependence on wheelchair; W05.0XXA Fall from non-moving wheelchair, initial encounter; Y93.89 Activity, other specified; Y92.008 Other place in unspecified non-institutional (private) residence as the place of occurrence of the external cause; Y99.8 Other external cause status
CPT/HCPCS: 73552; 99283

== ENCOUNTER → 2019-01-24 | Outpatient (CLI) | payer MEDICARE, MEDICAID, SELFPAY ==
[2019-01-09 17:46] VITALS: BMI 45.6
[2019-01-24 16:57] LABS: Absolute Lymphocyte Count 2.08 X10^3/uL (0.83-4.51); Absolute Neutrophil Count 7.9 X10^3/uL (2.0-7.7); Basophil# 0.07 X10^3/uL; Basophil% 0.6 % (0-1); Eosinophil# 0.25 X10^3/uL; Eosinophils% 2.2 % (0-5); Hematocrit 42.3 % (40-54); Hemoglobin 12.8 g/dL (13.0-16.5); Lymphocyte # 2.08 X10^3/ul (4.0); Lymphocyte % 18.7 % (19-41); Mean Corp Hgb Conc 30.3 g/dL (32-36); Mean Corpuscular Hgb 27.1 pg (27.0-32.0); Mean Corpuscular Volume 89.4 fL (80-94); Mean Platelet Vol. 9.1 fl (6.2-12.0); Monocyte# 0.74 X10^3/uL; Monocyte% 6.7 % (0-10); NRBC Flagged by Analyzer 0 % (0-5); Neutrophil % 71.1 % (47-70); Platelet Count 340 K/mm3 (150-450); RBC Distribution Width CV 17.3 % (11.6-14.6); RBC Distribution Width SD 55.6 fl (35.1-43.9); Red Blood Count 4.73 M/mm3 (4.6-6.2); White Blood Count 11.1 K/mm3 (4.4-11.0)
[2019-01-24 17:13] LABS: ALB/GLOB Ratio 0.8 RATIO (0.9-2.4); AST(SGOT) 22 U/L (15-37); Alanine Aminotransfer ALT/SGPT 23 U/L (16-61); Albumin, Serum 3.3 g/dL (3.2-5.0); Alkaline Phosphatase 119 U/L (45-117); Anion Gap 8 (5-15); BUN 25 mg/dL (7-18); BUN/Creat Ratio 29.2 RATIO (10-20); Calcium,Total 9.1 mg/dL (8.5-10.1); Chloride 103 mmol/L (98-107); Cholesterol 110 mg/dL (200); Creatinine, Serum 0.86 mg/dL (0.70-1.30); EST Glomerular Filtration Rate 97 mL/min (>60); Est Glom Filt Rate - Afr Amer 118 mL/min (>60); Glucose 169 mg/dL (74-106); High Density Lipoprotein 32 mg/dL; PSA,Total - Annual Screen 0.42 ng/mL (0.00-4.00); Potassium 4.6 mmol/L (3.5-5.1); Protein, Total 7.3 g/dL (6.4-8.2); Sodium Level 140 mmol/L (136-145); Thyroid Stim Hormone (TSH) 3.36 uIU/mL (0.358-3.74); Triglycerides 159 mg/dL; Very Low Density Lipoprotein 32 mg/dL (5-40)
[2019-01-24 17:27] LABS: Vitamin D,25 Hydroxy 31.8 ng/mL (29.95-100.01)
== END | disposition home or self-care (01) ==
LOC: POLAB3 13:00
PROVIDERS: Family Provider Family Medicine Geriatric Medicine; PCP Family Medicine Geriatric Medicine; Visit Provider Family Medicine Geriatric Medicine
DX: E11.40 Type 2 diabetes mellitus with diabetic neuropathy, unspecified (principal); E55.9 Vitamin D deficiency, unspecified; E78.5 Hyperlipidemia, unspecified; I10 Essential (primary) hypertension; Z12.5 Encounter for screening for malignant neoplasm of prostate
CPT/HCPCS: 80053; 80061; 82306; 84153; 84443; 85025; G0103

== ENCOUNTER → 2019-01-25 | Outpatient (CLI) | payer MEDICARE, MEDICAID, SELFPAY ==
[2019-01-09 17:46] VITALS: BMI 45.6
[2019-01-25 14:11] LABS: Microalbumin,Random Urine 33.3 mg/L (NO RANGE EST.)
== END | disposition home or self-care (01) ==
LOC: LABSPEC 13:16
PROVIDERS: Family Provider Family Medicine Geriatric Medicine; PCP Family Medicine Geriatric Medicine; Referring Provider Family Medicine Geriatric Medicine; Visit Provider Family Medicine Geriatric Medicine
DX: E11.9 Type 2 diabetes mellitus without complications (principal)
CPT/HCPCS: 82043

== ENCOUNTER → 2019-02-25 | Outpatient (CLI) | payer MEDICARE, MEDICAID, SELFPAY ==
--- NOTE | 2019-02-25 09:32 | RAD_ITS ---
STUDY: X-RAY - LEFT SHOULDER REASON FOR EXAM: Male, 58 years old. Left shoulder pain. TECHNIQUE: 4 view(s) of the shoulder. COMPARISON: None. FINDINGS: There is moderate degenerative arthrosis of the glenohumeral articulation. There is degenerative arthrosis of the acromioclavicular joint without inferior osseous spur formation. Normal acromion. Narrowing of the space between the acromion and humeral head may indicate chronic rotator cuff disease. Normal humeral head and visualized proximal humerus. The soft tissue structures are unremarkable. There is no demonstrated fracture. Normal visualized pulmonary apex. RAD/Shoulder min 2 Views IMPRESSION: Degenerative disease as described above. Electronically Signed: Kim Moses MD at 1:06 EST , Service support ,
== END | disposition home or self-care (01) ==
LOC: RAD 09:29
PROVIDERS: Family Provider Family Medicine Geriatric Medicine; PCP Family Medicine Geriatric Medicine; Referring Provider Family Medicine Geriatric Medicine; Visit Provider Family Medicine Geriatric Medicine
DX: M25.512 Pain in left shoulder (principal)
CPT/HCPCS: 73030

== ENCOUNTER 2019-07-19 13:00 | Outpatient (RCR) | payer MEDICARE, MEDICAID, SELFPAY ==
--- NOTE | 2019-06-07 13:31 | HP.PTEVAL ---
Patient's Visit Information ALIYA SANDOVAL is a 59 year old M referred to Physical Therapy by Kelechi Lomeli MD with a diagnosis of RCS. Date of Evaluation: 06/07/19 Physical Therapist: Juan Cabrera, YOGESHT, OCS, CSCS - Visit Plan Frequency: 2x /Week Duration: 4-6 Weeks Plan: 2x/week for 6 weeks for. 1. gait with wh walker including trasnfers and standing balance with decreasing support. R knee locked to start. 2. utilize gym machines for postural, upper body and core strength and work toward I in gym with list when able. Stretch hip flexors. - Subjective Findings: Had PT at home from [email or web address]. Worked with him for a year and now nothing in a couple months. Got B prosthetics refitted a year ago and has been working on walking. Wants to keep progressing. Wants to use legs more and get to the point where he does not use walker. Has power chair today. Has manual chair that he uses 50+% of time. Kenny brought him here today. 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 Had charcot in L foot and wounds just got worse adn worse 5 yrs ago. Is a diabetic and controlling it well. Has some L shoulder pain that never gets rest because his arms are his mobility. L shoulder pain 8/10 with more exertion. Mostl days have some pain 1-2/10 if not over exerting. Has been painful since December after falling out of WC hitting a pothole. X rays at the time were negative. May need an MRI if doesn't improve btu wants to avoid surgery as his arms get hime around. [facility] [place] on his own for a year and 4 months with a ramp. Live alone. Dresses and bathes and bathroom by himself. Home health aid helps him put his legs on. Wears them 2-3 days per week for a couple hours and uses WC other days. 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 Working on overall arm strength. may join gym if able. Uses slide b0ard to get in and out of car himself. Can get WC in car himself. Wants to come with legs on at least once per week for PT. Hobbies includecomputer adn reading,not employed. Has hospital bed at home. Has shower seat that he transfers himself. Does not walk on own. Working on shoulder arms back and cuff with wellness trainer at home. - Pain L shoulder Pain Intensity (Out of 10): 2 Pain Intensity Range: 2, 8 - Objective R AKA, L BKA, R knee locked today. Has walked unlockd in past but not ready currently as he has not walked in two months. Transfer to stand from Min A for balance and two UE on walker. Stand to sit with B UE on walker and tends to plop. Stand at walker mod I, Can take L arm off for 5 seconds easily but R arm is 0-3 seconds. Both arms off walker for a quick moment only as he loses balance. Ambulate with walker today with B prosthesis, short L step length 3 inches and R step length 6 inches, labored but mod I to CGA today for 16 feet then needed to sit due to fatigue. Posture is hynched over appearing to have tightness in hip flexors and feet staying in front of hips. Trasnfer to mat via stand at walker mod I, sit to supine slow but I, supine to sit with Min A, Lies flat without pain, tightness apparent in B adductors and hip flexors. Ue AROM WNL, has some pain L shoulder elevation end range. strength L shoulder elevation 4- painful, ext rotation 4- painful, R 4 , IR 4+ B without pain. Biceps and triceps 5/5 without pain. - L ext rotaion lag test, - sulcus, - HK and neer slightly on L nad tneder moderately in L supra insert. L BKA hip flexor to neutral ext only, abd to 15 degrees adn feels tight. Knee strength 4-/5 HS and quads. Pt is large and oveerweight but handles himself well functionally considering. Power WC present today and I in its use, has manual WC not present today. trasnfers via standing today. - Goals Goal 1:: Pain in L shoulder 0-3/10 at worst due to improved strength adn mobility. Goal Time Frame: 4-6 Weeks Goal 2:: Pt able to ambulate 60 feet with walker mod I consistently Goal Time Frame: 4-6 Weeks Goal 3:: Pt isra to stadn at walker without UE 30 seconds consistently and I. Goal Time Frame: 4-6 Weeks Goal 4:: Pt I in appropriate gym based exercises for posture, RC, coree strength Goal Time Frame: 4-6 Weeks - Rehabilitation Potential Physical Therapy Diagnosis: L RCS with shoulder pain and limited mobility contributing to this condition. Rehabilitation Potential: Fair - Anticipated Interventions Patient/Client Instruction: Educate patient on: Condition, Plan of Care For the Purpose of:: To decrease pain, To improve muscle performance and motor function, To increase tolerance to activity/condition/position, To improve ability of physical actions for home/community/work/leisure Therapeutic Exercise to Include: Strength training, Balance training, Postural training, Flexibilty training, Gait and locomotor training, Neuromotor development, Passive ROM, Dynamic Lumbar Stabilization For the Purpose of:: To decrease pain, To improve muscle performance and motor function, To increase tolerance to activity/condition/position, To improve ability of physical actions for home/community/work/leisure Thank you for the opportunity to evaluate your patient. For Medicare and Medicare HMO plans, please review the plan of care and approve it. It will need to be FAXED BACK to us at [phone] for Medicare purposes. For Medicare only, by signing this I certify the plan of care. Please let me know if there are questions or concerns regarding this plan of care. Physician Signature: Date:
--- NOTE | 2019-10-26 11:20 | HP.PT.NRP ---
ALIYA SANDOVAL was seen in my office for initial evaluation on 06/07/19. The following Plan of Care was established for this patient: Initial Frequency: 2x /Week Initial Duration: 4-6 Weeks Patient/Client Instruction: Educate patient on: Condition, Plan of Care For the Purpose of:: To decrease pain, To improve muscle performance and motor function, To increase tolerance to activity/condition/position, To improve ability of physical actions for home/community/work/leisure Therapeutic Exercise to Include: Strength training, Balance training, Postural training, Flexibilty training, Gait and locomotor training, Neuromotor development, Passive ROM, Dynamic Lumbar Stabilization For the Purpose of:: To decrease pain, To improve muscle performance and motor function, To increase tolerance to activity/condition/position, To improve ability of physical actions for home/community/work/leisure This patient was last seen in our office 07/19/19. Pertinent comments regarding their Physical therapy will appear below: Pt seen 7 visits of POC but neglected to schedule or attend any further visits. at this point, it has been over 3 months and I will discontinue due to nonattendance. At this point I will be discontinuing this patient from physical therapy. I would be happy to see this patient again in the future if found appropriate by the physician. Thank you! Juan Cabrera, DPT, OCS, CSCS
== END 2019-07-19 19:00 | disposition home or self-care (01) ==
LOC: PT 13:00
PROVIDERS: PCP Family Medicine Geriatric Medicine; Referring Provider Family Medicine Geriatric Medicine; Visit Provider Family Medicine Geriatric Medicine
DX: M75.100 Unspecified rotator cuff tear or rupture of unspecified shoulder, not specified as traumatic (principal)
CPT/HCPCS: 97110; 97163; 97530

== ENCOUNTER → 2019-07-26 13:34 | Outpatient (CLI) | payer MEDICARE, MEDICAID, SELFPAY ==
[2019-07-26 16:38] LABS: Absolute Lymphocyte Count 1.95 X10^3/uL (0.83-4.51); Absolute Neutrophil Count 6.8 X10^3/uL (2.0-7.7); Basophil# 0.05 X10^3/uL; Basophil% 0.5 % (0-1); Eosinophil# 0.18 X10^3/uL; Eosinophils% 1.8 % (0-5); Hematocrit 48.1 % (40-54); Hemoglobin 14.6 g/dL (13.0-16.5); Lymphocyte # 1.95 X10^3/ul (4.0); Mean Corp Hgb Conc 30.4 g/dL (32-36); Mean Corpuscular Hgb 26.6 pg (27.0-32.0); Mean Corpuscular Volume 87.8 fL (80-94); Mean Platelet Vol. 9.2 fl (6.2-12.0); Monocyte# 0.75 X10^3/uL; Monocyte% 7.7 % (0-10); NRBC Flagged by Analyzer 0 % (0-5); Neutrophil # 6.75 X10^3/uL (2.7-7.7); Neutrophil % 69.4 % (47-70); Platelet Count 280 K/mm3 (150-450); RBC Distribution Width CV 15.5 % (11.6-14.6); RBC Distribution Width SD 49.5 fl (35.1-43.9); Red Blood Count 5.48 M/mm3 (4.6-6.2); White Blood Count 9.7 K/mm3 (4.4-11.0)
[2019-07-26 16:58] LABS: Vitamin D,25 Hydroxy 30.9 ng/mL
[2019-07-26 17:03] LABS: ALB/GLOB Ratio 0.9 RATIO (0.9-2.4); AST(SGOT) 16 U/L (15-37); Alanine Aminotransfer ALT/SGPT 21 U/L (16-61); Albumin, Serum 3.3 g/dL (3.2-5.0); Alkaline Phosphatase 97 U/L (45-117); Anion Gap 8 (5-15); BUN 23 mg/dL (7-18); BUN/Creat Ratio 24.1 RATIO (10-20); Calcium,Total 8.9 mg/dL (8.5-10.1); Chloride 99 mmol/L (98-107); Cholesterol 185 mg/dL (200); Creatinine, Serum 0.96 mg/dL (0.70-1.30); EST Glomerular Filtration Rate 86 mL/min (>60); Est Glom Filt Rate - Afr Amer 104 mL/min (>60); Globulin 3.8 g/dL (2.2-4.2); Glucose 188 mg/dL (74-106); High Density Lipoprotein 34 mg/dL; Potassium 4.1 mmol/L (3.5-5.1); Protein, Total 7.1 g/dL (6.4-8.2); Sodium Level 135 mmol/L (136-145); Thyroid Stim Hormone (TSH) 2.97 uIU/mL (0.358-3.74); Triglycerides 246 mg/dL; Very Low Density Lipoprotein 49 mg/dL (5-40)
== END ==
PROVIDERS: PCP Family Medicine Geriatric Medicine; Visit Provider Family Medicine Geriatric Medicine
DX: I10 Essential (primary) hypertension (principal); E55.9 Vitamin D deficiency, unspecified; E78.5 Hyperlipidemia, unspecified
CPT/HCPCS: 36415; 80053; 80061; 82306; 84443; 85025

== ENCOUNTER → 2020-02-07 14:21 | Outpatient (CLI) | payer MEDICARE, MEDICAID, SELFPAY ==
[2020-02-07 16:21] LABS: Absolute Lymphocyte Count 1.71 X10^3/uL (0.83-4.51); Absolute Neutrophil Count 7.3 X10^3/uL (2.0-7.7); Basophil# 0.04 X10^3/uL; Basophil% 0.4 % (0-1); Eosinophil# 0.14 X10^3/uL; Eosinophils% 1.4 % (0-5); Hematocrit 45.6 % (40-54); Hemoglobin 14.2 g/dL (13.0-16.5); Lymphocyte # 1.71 X10^3/ul (4.0); Lymphocyte % 17.2 % (19-41); Mean Corp Hgb Conc 31.1 g/dL (32-36); Mean Corpuscular Volume 86.7 fL (80-94); Mean Platelet Vol. 9.7 fl (6.2-12.0); Monocyte# 0.68 X10^3/uL; Monocyte% 6.8 % (0-10); NRBC Flagged by Analyzer 0 % (0-5); Neutrophil % 73.5 % (47-70); Platelet Count 272 K/mm3 (150-450); RBC Distribution Width CV 16.2 % (11.6-14.6); Red Blood Count 5.26 M/mm3 (4.6-6.2); White Blood Count 9.9 K/mm3 (4.4-11.0)
[2020-02-07 16:37] LABS: Vitamin D,25 Hydroxy 25.4 ng/mL
[2020-02-07 16:46] LABS: ALB/GLOB Ratio 0.8 RATIO (0.9-2.4); AST(SGOT) 13 U/L (15-37); Alanine Aminotransfer ALT/SGPT 23 U/L (16-61); Alkaline Phosphatase 102 U/L (45-117); Anion Gap 8 (5-15); BUN 23 mg/dL (7-18); BUN/Creat Ratio 27.8 RATIO (10-20); Calcium,Total 9.2 mg/dL (8.5-10.1); Chloride 105 mmol/L (98-107); Creatinine, Serum 0.83 mg/dL (0.70-1.30); EST Glomerular Filtration Rate 101 mL/min (>60); Est Glom Filt Rate - Afr Amer 122 mL/min (>60); Globulin 3.9 g/dL (2.2-4.2); Glucose 200 mg/dL (74-106); PSA,Total - Annual Screen 0.44 ng/mL (0.00-4.00); Potassium 4.2 mmol/L (3.5-5.1); Protein, Total 6.9 g/dL (6.4-8.2); Sodium Level 137 mmol/L (136-145); Thyroid Stim Hormone (TSH) 1.99 uIU/mL (0.358-3.74)
== END ==
PROVIDERS: PCP Family Medicine Geriatric Medicine; Visit Provider Family Medicine Geriatric Medicine
DX: E11.9 Type 2 diabetes mellitus without complications (principal); E55.9 Vitamin D deficiency, unspecified; I10 Essential (primary) hypertension; Z12.5 Encounter for screening for malignant neoplasm of prostate
CPT/HCPCS: 36415; 80053; 82306; 84153; 84443; 85025; G0103

== ENCOUNTER → 2020-07-27 15:54 | Outpatient (CLI) | payer MEDICARE, MEDICAID, SELFPAY | PROVIDERS: PCP Family Medicine Geriatric Medicine; Referring Provider Family Medicine Geriatric Medicine; Visit Provider Family Medicine Geriatric Medicine | DX: R68.83 Chills (without fever) (principal) | CPT/HCPCS: 87635; C9803; U0002 ==

== ENCOUNTER → 2020-08-07 13:21 | Outpatient (CLI) | payer MEDICARE, MEDICAID, SELFPAY ==
[2020-08-07 15:22] LABS: Absolute Lymphocyte Count 1.92 X10^3/uL (0.83-4.51); Absolute Neutrophil Count 8.3 X10^3/uL (2.0-7.7); Basophil# 0.05 X10^3/uL; Basophil% 0.5 % (0-1); Eosinophil# 0.09 X10^3/uL; Eosinophils% 0.8 % (0-5); Hematocrit 48.1 % (40-54); Lymphocyte # 1.92 X10^3/ul (0.83-4.51); Lymphocyte % 17.5 % (19-41); Mean Corp Hgb Conc 31.2 g/dL (32-36); Mean Corpuscular Hgb 27.2 pg (27.0-32.0); Mean Corpuscular Volume 87.3 fL (80-94); Mean Platelet Vol. 9.6 fl (6.2-12.0); Monocyte# 0.59 X10^3/uL; Monocyte% 5.4 % (0-10); NRBC Flagged by Analyzer 0 % (0-5); Neutrophil # 8.28 X10^3/uL (2.7-7.7); Neutrophil % 75.3 % (47-70); Platelet Count 280 K/mm3 (150-450); RBC Distribution Width CV 17.1 % (11.6-14.6); RBC Distribution Width SD 53.9 fl (35.1-43.9); Red Blood Count 5.51 M/mm3 (4.6-6.2)
[2020-08-07 15:33] LABS: Vitamin D,25 Hydroxy 23.5 ng/mL
[2020-08-07 15:45] LABS: ALB/GLOB Ratio 0.8 RATIO (0.9-2.4); AST(SGOT) 20 U/L (15-37); Alanine Aminotransfer ALT/SGPT 27 U/L (16-61); Albumin, Serum 3.3 g/dL (3.2-5.0); Alkaline Phosphatase 78 U/L (45-117); Anion Gap 5 (5-15); BUN 25 mg/dL (7-18); BUN/Creat Ratio 25.2 RATIO (10-20); Calcium,Total 9.2 mg/dL (8.5-10.1); Chloride 105 mmol/L (98-107); Creatinine, Serum 0.99 mg/dL (0.70-1.30); EST Glomerular Filtration Rate 82 mL/min (>60); Est Glom Filt Rate - Afr Amer 99 mL/min (>60); Globulin 3.9 g/dL (2.2-4.2); Glucose 202 mg/dL (74-106); Potassium 4.3 mmol/L (3.5-5.1); Protein, Total 7.2 g/dL (6.4-8.2); Sodium Level 138 mmol/L (136-145); Thyroid Stim Hormone (TSH) 2.11 uIU/mL (0.358-3.74)
== END ==
PROVIDERS: PCP Family Medicine Geriatric Medicine; Visit Provider Family Medicine Geriatric Medicine
DX: E11.9 Type 2 diabetes mellitus without complications (principal); E55.9 Vitamin D deficiency, unspecified; I10 Essential (primary) hypertension
CPT/HCPCS: 36415; 80053; 82306; 84443; 85025

== ENCOUNTER → 2021-02-07 13:36 | Outpatient (CLI) | payer MEDICARE, MEDICAID, SELFPAY ==
[2021-02-07 16:43] LABS: Absolute Lymphocyte Count 2.02 X10^3/uL (0.83-4.51); Absolute Neutrophil Count 7.5 X10^3/uL (2.0-7.7); Basophil# 0.06 X10^3/uL; Basophil% 0.6 % (0-1); Eosinophil# 0.14 X10^3/uL; Eosinophils% 1.3 % (0-5); Hematocrit 46.5 % (40-54); Hemoglobin 14.5 g/dL (13.0-16.5); Lymphocyte # 2.02 X10^3/ul (0.83-4.51); Lymphocyte % 19.3 % (19-41); Mean Corp Hgb Conc 31.2 g/dL (32-36); Mean Corpuscular Hgb 26.8 pg (27.0-32.0); Mean Platelet Vol. 9.4 fl (6.2-12.0); Monocyte# 0.64 X10^3/uL; Monocyte% 6.1 % (0-10); NRBC Flagged by Analyzer 0 % (0-5); Neutrophil # 7.54 X10^3/uL (2.7-7.7); Neutrophil % 72.2 % (47-70); Platelet Count 311 K/mm3 (150-450); RBC Distribution Width CV 15.3 % (11.6-14.6); RBC Distribution Width SD 48.1 fl (35.1-43.9); Red Blood Count 5.41 M/mm3 (4.6-6.2); White Blood Count 10.5 K/mm3 (4.4-11.0)
[2021-02-07 17:11] LABS: AST(SGOT) 13 U/L (15-37); Alanine Aminotransfer ALT/SGPT 22 U/L (16-61); Albumin, Serum 3.2 g/dL (3.2-5.0); Alkaline Phosphatase 97 U/L (45-117); Anion Gap 7 (5-15); BUN 23 mg/dL (7-18); BUN/Creat Ratio 26.4 RATIO (10-20); Calcium,Total 9.1 mg/dL (8.5-10.1); Chloride 102 mmol/L (98-107); Creatinine, Serum 0.87 mg/dL (0.70-1.30); EST Glomerular Filtration Rate 95 mL/min (>60); Est Glom Filt Rate - Afr Amer 115 mL/min (>60); Globulin 3.3 g/dL (2.2-4.2); Glucose 120 mg/dL (74-106); PSA,Total - Annual Screen 0.53 ng/mL (0.00-4.00); Potassium 4.7 mmol/L (3.5-5.1); Protein, Total 6.5 g/dL (6.4-8.2); Sodium Level 138 mmol/L (136-145); Thyroid Stim Hormone (TSH) 2.16 uIU/mL (0.358-3.74)
== END ==
PROVIDERS: PCP Family Medicine Geriatric Medicine; Visit Provider Family Medicine Geriatric Medicine
DX: E11.9 Type 2 diabetes mellitus without complications (principal); E55.9 Vitamin D deficiency, unspecified; I10 Essential (primary) hypertension; Z12.5 Encounter for screening for malignant neoplasm of prostate
CPT/HCPCS: 36415; 80053; 82306; 84153; 84443; 85025; G0103

== ENCOUNTER → 2021-08-14 | Outpatient (CLI) | payer MEDICARE, MEDICAID, SELFPAY ==
[2021-08-14 15:45] LABS: Absolute Lymphocyte Count 1.81 X10^3/uL (0.83-4.51); Absolute Neutrophil Count 7.2 X10^3/uL (2.0-7.7); Basophil# 0.05 X10^3/uL; Basophil% 0.5 % (0-1); Eosinophil# 0.14 X10^3/uL; Eosinophils% 1.4 % (0-5); Hematocrit 41.7 % (40-54); Hemoglobin 13.5 g/dL (13.0-16.5); Lymphocyte # 1.81 X10^3/ul (0.83-4.51); Lymphocyte % 18.1 % (19-41); Mean Corp Hgb Conc 32.4 g/dL (32-36); Mean Corpuscular Hgb 28.1 pg (27.0-32.0); Mean Corpuscular Volume 86.7 fL (80-94); Mean Platelet Vol. 10.3 fl (6.2-12.0); Monocyte# 0.73 X10^3/uL; Monocyte% 7.3 % (0-10); NRBC Flagged by Analyzer 0 % (0-5); Neutrophil # 7.22 X10^3/uL (2.7-7.7); Neutrophil % 72.4 % (47-70); Platelet Count 271 K/mm3 (150-450); RBC Distribution Width CV 15.7 % (11.6-14.6); RBC Distribution Width SD 49.7 fl (35.1-43.9); Red Blood Count 4.81 M/mm3 (4.6-6.2)
[2021-08-14 16:11] LABS: Vitamin D,25 Hydroxy 29.8 ng/mL
[2021-08-14 16:19] LABS: ALB/GLOB Ratio 0.8 RATIO (0.9-2.4); AST(SGOT) 18 U/L (15-37); Alanine Aminotransfer ALT/SGPT 27 U/L (16-61); Albumin, Serum 3.1 g/dL (3.2-5.0); Alkaline Phosphatase 97 U/L (45-117); Anion Gap 5 (5-15); BUN 24 mg/dL (7-18); BUN/Creat Ratio 30.5 RATIO (10-20); Calcium,Total 9.4 mg/dL (8.5-10.1); Chloride 106 mmol/L (98-107); Creatinine, Serum 0.79 mg/dL (0.70-1.30); EST Glomerular Filtration Rate 106 mL/min (>60); Est Glom Filt Rate - Afr Amer 129 mL/min (>60); Globulin 3.7 g/dL (2.2-4.2); Glucose 142 mg/dL (74-106); Potassium 4.4 mmol/L (3.5-5.1); Protein, Total 6.8 g/dL (6.4-8.2); Sodium Level 139 mmol/L (136-145); Thyroid Stim Hormone (TSH) 2.43 uIU/mL (0.358-3.74)
== END | disposition home or self-care (01) ==
LOC: POLAB3 15:02
PROVIDERS: PCP Family Medicine Geriatric Medicine; Visit Provider Family Medicine Geriatric Medicine
DX: I10 Essential (primary) hypertension (principal); E11.9 Type 2 diabetes mellitus without complications; E55.9 Vitamin D deficiency, unspecified
CPT/HCPCS: 36415; 80053; 82306; 84443; 85025

== ENCOUNTER → 2022-02-12 | Outpatient (CLI) | payer MEDICARE, MEDICAID, SELFPAY ==
[2022-02-12 17:16] LABS: Absolute Lymphocyte Count 1.67 X10^3/uL (0.83-4.51); Absolute Neutrophil Count 8.1 X10^3/uL (2.0-7.7); Basophil# 0.05 X10^3/uL; Basophil% 0.5 % (0-1); Eosinophil# 0.16 X10^3/uL; Eosinophils% 1.5 % (0-5); Hematocrit 46.8 % (40-54); Hemoglobin 15.3 g/dL (13.0-16.5); Lymphocyte # 1.67 X10^3/ul (0.83-4.51); Lymphocyte % 15.4 % (19-41); Mean Corp Hgb Conc 32.7 g/dL (32-36); Mean Corpuscular Volume 88.6 fL (80-94); Monocyte# 0.78 X10^3/uL; Monocyte% 7.2 % (0-10); NRBC Flagged by Analyzer 0 % (0-5); Neutrophil % 74.9 % (47-70); POSITIVE COUNT YES; Platelet Count 283 K/mm3 (150-450); RBC Distribution Width CV 15.2 % (11.6-14.6); RBC Distribution Width SD 49.3 fl (35.1-43.9); Red Blood Count 5.28 M/mm3 (4.6-6.2); White Blood Count 10.8 K/mm3 (4.4-11.0)
[2022-02-12 17:21] LABS: Differential Indicated SCAN CRITERIA MET
[2022-02-12 17:26] LABS: Vitamin D,25 Hydroxy 28.9 ng/mL
[2022-02-12 17:35] LABS: Differential Comment SCANNED
[2022-02-12 17:37] LABS: ALB/GLOB Ratio 0.7 RATIO (0.9-2.4); AST(SGOT) 16 U/L (15-37); Alanine Aminotransfer ALT/SGPT 26 U/L (16-61); Albumin, Serum 3.2 g/dL (3.2-5.0); Alkaline Phosphatase 90 U/L (45-117); Anion Gap 7 (5-15); BUN 21 mg/dL (7-18); BUN/Creat Ratio 23.3 RATIO (10-20); Calcium,Total 9.4 mg/dL (8.5-10.1); Chloride 99 mmol/L (98-107); EST Glomerular Filtration Rate 91 mL/min (>60); Est Glom Filt Rate - Afr Amer 110 mL/min (>60); Globulin 4.5 g/dL (2.2-4.2); Glucose 167 mg/dL (74-106); PSA,Total - Annual Screen 0.44 ng/mL (0.00-4.00); Potassium 4.2 mmol/L (3.5-5.1); Protein, Total 7.7 g/dL (6.4-8.2); Sodium Level 136 mmol/L (136-145); Uric Acid 5.7 mg/dL (3.5-7.2)
== END | disposition home or self-care (01) ==
LOC: POLAB3 13:05
PROVIDERS: PCP Family Medicine Geriatric Medicine; Visit Provider Family Medicine Geriatric Medicine
DX: M10.9 Gout, unspecified (principal); E55.9 Vitamin D deficiency, unspecified; R53.83 Other fatigue; Z12.5 Encounter for screening for malignant neoplasm of prostate
CPT/HCPCS: 36415; 80053; 82306; 84153; 84443; 84550; 85025; G0103

== ENCOUNTER 2022-07-08 11:27 | Outpatient (RCR) | payer MEDICARE, MEDICAID, SELFPAY ==
--- NOTE | 2022-07-08 12:22 | HP.PTEVAL_ITS ---
Patient's Visit Information ALIYA SANDOVAL is a 62 year old M referred to Physical Therapy by Dr. Kelechi Lomeli MD with a diagnosis of DM. Date of Evaluation: 07/08/22 Physical Therapist: Halie Bruner DPT - Visit Plan Frequency: 1x/Week Duration: 1 Week Plan: Powered Mobility - Subjective Patient reports that he has had his current w/c over 5 years and its a power chair- has tilt in in space but not recline. He has a manual w/c that he only uses if his power chair is charging. He is able to minimally propel himself. He has been w/c bound for about 8 years. He lost his limbs secondary to an injury that got an infection on the left with Charcot with surgery and then had an amputation and then another infection with revision- then went back to work- got a prosthetic- revision it did not fit correct- then ended up having issues with the right side and lost it 6 months later. He lives alone- he does most of his ADL's- he does qualify for home health aide but does not have one currently but is looking to have someone come in. He does most of his grocery shopping in the power chair- he can drive himself in his power chair to/from the grocery store. He does not have a vehicle that his power chair goes in currently. Live s in a single story apartment with a ramp to enter. He uses a 3 in 1 for commode and shower chair. He has prosthesis for both lower extremities but does not use them. Does have sensation- does have a history of pressure sores. Does not currently have one. He has gone to wound clinic for pressure sore healing. He reports challenged with weigh shifting and w/c push ups due to his weight. He does report pain in his arms. He has OA in his neck and shoulders and neuropathy in both hands. Worst: 05/23 Agg: weather, excessive activity. Eases: laying down. Best: 04/22. Does have N/T in his hands to the wrist and laterally on bilateral shoulders. Work: does not work. Was 5'8 prior to amputation- approx 305#. He has not had any falls, He has a hospital bed at home- he uses the bed height to transfer into his chair. He uses a slide board to perform car transfers. Kitchen: normal counter height- when mixing uses the sink due to being lower- ADA accessible knobs so not reaching over hot burners- front loading washer/dryer. Hand Held shower and shower chair. Pain: Shoulder: 2/10 Equal. Hips: 3/10 Left>right. Neck: 3/10. Back: no painPMHx: DM, Left BKA 2013, Right AKA 2014 Meds: pioglitazone and trigenta - Objective Posture: FH, RS- can correct but does not maintain- no scoliosis or pelvic inequity but does report OA (no back pain). Gait: does not ambulate. ROM: Cervical Spine: WFL in all planes but does report discomfort- Right hand dominate: Left: Shoulder: WNL but does have pain above 90 degrees Elbow/Wrist/Hand: WFL, Right: WNL but does have pain above 90 degrees Elbow/Wrist/Hand: WNL with the exception of Right Trigger Finger in Ring Finger. Trunk: WFL, Hip: WFL, Left Knee: 40 degrees from neutral with ER at the hip. Right: WFL. Strength: Underwear Trimmer Strength: Left: 40/50/45 Right: 50/60/60. Elbow: 4+/5, Shoulder: Extn: 4+/5, Flexion: 4/5, Abd: 4/5, IR/ER at neutral: 4+/5 bilateral. Core: fair minus, Hip: 4+/5 throughout bilateral Left Knee: 4+/5. Sensation: Diminished in bilateral UE and LE: Right:3.84 Left Hand: nothing above 6.65 - Rehabilitation Potential Physical Therapy Diagnosis: Patient has bilateral LE amputations and requires power mobility for functional mobility Rehabilitation Potential: Good - Anticipated Interventions Thank you for the opportunity to evaluate your patient. For Medicare and Medicare HMO plans, please review the plan of care and approve it. It will need to be FAXED BACK to us at [phone] for Medicare purposes. For Medicare only, by signing this I certify the plan of care. Please let me know if there are questions or concerns regarding this plan of care. Physician Si gnature: Date:
--- NOTE | 2022-10-27 11:54 | HP.PTDCSUM ---
Discharge Summary D/C summary: It has been my pleasure to treat ALIYA SANDOVAL referred by Dr. Kelechi Lomeli MD, with the diagnosis of DM for a total of 1 visit(s). Discharge Date: Please see the following information for a summary of their discharge status. Plan Plan: Powered Mobility D/C Information d/c sentence: If there are questions or concerns regarding this patient's physical therapy, please feel free to call me at [phone]. Thank you for the referral of this patient. Sincerely, YOGESH RiversT
== END 2022-07-08 19:00 | disposition home or self-care (01) ==
LOC: PT 11:27
PROVIDERS: PCP Family Medicine Geriatric Medicine; Referring Provider Family Medicine Geriatric Medicine; Visit Provider Family Medicine Geriatric Medicine
DX: Z89.512 Acquired absence of left leg below knee (principal); Z89.611 Acquired absence of right leg above knee; E11.65 Type 2 diabetes mellitus with hyperglycemia; Z47.89 Encounter for other orthopedic aftercare
CPT/HCPCS: 97162

== ENCOUNTER → 2022-08-20 | Outpatient (CLI) | payer MEDICARE, MEDICAID, SELFPAY ==
[2022-08-20 17:26] LABS: Absolute Lymphocyte Count 1.65 X10^3/uL (0.83-4.51); Absolute Neutrophil Count 7.9 X10^3/uL (2.0-7.7); Basophil# 0.07 X10^3/uL; Basophil% 0.7 % (0-1); Eosinophil# 0.13 X10^3/uL; Eosinophils% 1.2 % (0-5); Hematocrit 47.5 % (40-54); Hemoglobin 14.6 g/dL (13.0-16.5); Lymphocyte # 1.65 X10^3/ul (0.83-4.51); Lymphocyte % 15.7 % (19-41); Mean Corp Hgb Conc 30.7 g/dL (32-36); Mean Corpuscular Hgb 27.8 pg (27.0-32.0); Mean Corpuscular Volume 90.3 fL (80-94); Monocyte# 0.76 X10^3/uL; Monocyte% 7.2 % (0-10); NRBC Flagged by Analyzer 0 % (0-5); Neutrophil # 7.85 X10^3/uL (2.7-7.7); Neutrophil % 74.6 % (47-70); Platelet Count 266 K/mm3 (150-450); Red Blood Count 5.26 M/mm3 (4.6-6.2); White Blood Count 10.5 K/mm3 (4.4-11.0)
[2022-08-20 17:59] LABS: ALB/GLOB Ratio 0.9 RATIO (0.9-2.4); AST(SGOT) 13 U/L (15-37); Alanine Aminotransfer ALT/SGPT 21 U/L (16-61); Albumin, Serum 3.1 g/dL (3.2-5.0); Alkaline Phosphatase 79 U/L (45-117); Anion Gap 7 (5-15); BUN 29 mg/dL (7-18); BUN/Creat Ratio 36.7 RATIO (10-20); Chloride 107 mmol/L (98-107); Cholesterol 172 mg/dL (200); Creatinine, Serum 0.79 mg/dL (0.70-1.30); EST Glomerular Filtration Rate 106 mL/min (>60); Est Glom Filt Rate - Afr Amer 128 mL/min (>60); Globulin 3.5 g/dL (2.2-4.2); Glucose 252 mg/dL (74-106); High Density Lipoprotein 32 mg/dL; Potassium 4.4 mmol/L (3.5-5.1); Protein, Total 6.6 g/dL (6.4-8.2); Sodium Level 140 mmol/L (136-145); Thyroid Stim Hormone (TSH) 2.97 uIU/mL (0.358-3.74); Triglycerides 194 mg/dL; Very Low Density Lipoprotein 39 mg/dL (5-40)
== END | disposition home or self-care (01) ==
LOC: POLAB3 13:41
PROVIDERS: PCP Family Medicine Geriatric Medicine; Visit Provider Family Medicine Geriatric Medicine
DX: E11.65 Type 2 diabetes mellitus with hyperglycemia (principal); I10 Essential (primary) hypertension
CPT/HCPCS: 36415; 80053; 80061; 84443; 85025

== ENCOUNTER → 2023-02-18 | Outpatient (CLI) | payer MEDICARE, MEDICAID, SELFPAY ==
[2023-02-18 13:35] LABS: Mucous, Urine 0 SEEN /hpf (<or=2+); Squamous Epithelial Cells - UA 0 SEEN /hpf (0-5)
[2023-02-18 13:49] LABS: Absolute Neutrophil Count 6.3 X10^3/uL (2.0-7.7); Basophil# 0.07 X10^3/uL; Basophil% 0.8 % (0-1); Eosinophil# 0.16 X10^3/uL; Eosinophils% 1.8 % (0-5); Hematocrit 47.5 % (40-54); Hemoglobin 14.7 g/dL (13.0-16.5); Lymphocyte % 19.9 % (19-41); Mean Corp Hgb Conc 30.9 g/dL (32-36); Mean Corpuscular Hgb 27.6 pg (27.0-32.0); Mean Corpuscular Volume 89.3 fL (80-94); Mean Platelet Vol. 9.6 fl (6.2-12.0); Monocyte# 0.66 X10^3/uL; Monocyte% 7.3 % (0-10); NRBC Flagged by Analyzer 0 % (0-5); Neutrophil # 6.31 X10^3/uL (2.7-7.7); Neutrophil % 69.8 % (47-70); Platelet Count 277 K/mm3 (150-450); RBC Distribution Width CV 15.8 % (11.6-14.6); RBC Distribution Width SD 51.3 fl (35.1-43.9); Red Blood Count 5.32 M/mm3 (4.6-6.2)
[2023-02-18 13:59] LABS: Color, Urine Yellow (Yellow); Glucose, Dipstick 1000 mg/dl (Normal); Ketone-Dipstick Negative (Negative); Leukocyte Esterase-Dipstick 500 /ul (Negative); Nitrite-Dipstick Positive (Negative); Occult Blood-Urine 50 /ul (Negative); Protein-Dipstick 100 mg/dl (Negative); Specific Gravity, Urine 1.015 (1.002-1.030); Urine Bilirubin Dipstick Negative (Negative); Urine Clarity Cloudy (Clear); Urine Urobilinogen Normal (Normal)
[2023-02-18 14:12] LABS: Bacteria 2+ /hpf (None Seen); Red Blood Cells-Urine 0-5 SEEN /hpf (0-5); White Blood Cells >100 SEEN /hpf (0-5)
[2023-02-18 14:23] LABS: Microalbumin,Random Urine 73.6 mg/L (NO RANGE EST.)
[2023-02-18 14:33] LABS: ALB/GLOB Ratio 0.9 RATIO (0.9-2.4); AST(SGOT) 12 U/L (15-37); Alanine Aminotransfer ALT/SGPT 19 U/L (16-61); Albumin, Serum 3.2 g/dL (3.2-5.0); Alkaline Phosphatase 84 U/L (45-117); Anion Gap 4 (5-15); BUN 18 mg/dL (7-18); BUN/Creat Ratio 21.2 RATIO (10-20); Calcium,Total 9.2 mg/dL (8.5-10.1); Chloride 101 mmol/L (98-107); Cholesterol 195 mg/dL (200); Creatinine, Serum 0.85 mg/dL (0.70-1.30); EST Glomerular Filtration Rate 97 mL/min (>60); Est Glom Filt Rate - Afr Amer 117 mL/min (>60); Globulin 3.7 g/dL (2.2-4.2); Glucose 235 mg/dL (74-106); High Density Lipoprotein 39 mg/dL; Potassium 4.3 mmol/L (3.5-5.1); Protein, Total 6.9 g/dL (6.4-8.2); Sodium Level 135 mmol/L (136-145); Thyroid Stim Hormone (TSH) 2.67 uIU/mL (0.358-3.74); Triglycerides 223 mg/dL; Very Low Density Lipoprotein 45 mg/dL (5-40)
[2023-02-18 14:41] LABS: Hemoglobin A1c 9.5 % (3.8-5.6)
== END | disposition home or self-care (01) ==
LOC: POLAB3 12:58
PROVIDERS: PCP Family Medicine Geriatric Medicine; Visit Provider Family Medicine Geriatric Medicine
DX: E11.65 Type 2 diabetes mellitus with hyperglycemia (principal); I10 Essential (primary) hypertension; E78.5 Hyperlipidemia, unspecified; N39.0 Urinary tract infection, site not specified; Z12.5 Encounter for screening for malignant neoplasm of prostate
CPT/HCPCS: 36415; 80053; 80061; 81001; 82043; 83036; 84153; 84443; 85025; 87077; 87086; 87088; 87186; G0103

== ENCOUNTER → 2023-02-25 | Outpatient (CLI) | payer MEDICARE, MEDICAID, SELFPAY ==
--- NOTE | 2023-02-25 11:51 | US_ITS ---
STUDY: SUPERFICIAL ULTRASOUND - SCALP REASON FOR EXAM: Male, 62 years old. follicular cyst of the skin and subq tissue, head TECHNIQUE: A superficial ultrasound was performed with real-time and static shah-scale imaging. COMPARISON: None. FINDINGS: Multiple longitudinal and transverse ultrasound images of the metal slitter films demonstrate a discrete solid or cystic mass or lymphadenopathy. US/Head/Neck Soft Tissue IMPRESSION: Normal scalp. Electronically Signed: Burak Hauser MD at 22:53 EST ,
== END | disposition home or self-care (01) ==
LOC: US 11:48
PROVIDERS: PCP Family Medicine Geriatric Medicine; Referring Provider Family Medicine Geriatric Medicine; Visit Provider Family Medicine Geriatric Medicine
DX: L72.9 Follicular cyst of the skin and subcutaneous tissue, unspecified (principal)
CPT/HCPCS: 76536

== ENCOUNTER → 2023-05-27 | Outpatient (CLI) | payer MEDICARE, MEDICAID, SELFPAY ==
--- OUTSIDE RECORDS SUMMARY | 2023-05-27 12:46 | XMS RPT_ITS | CCD ---
Author Name Unknown Address [address] [place] [address] Organization [facility] Care Team Providers Care Wool Hat Flanger Name Role Phone MUSA DU Unavailable Unavailable Juan Daniel, Yulissa Unavailable Unavailable Juan Daniel, Yulissa Unavailable Unavailable PROVIDER, UNKNOWN Unavailable Unavailable Juan Daniel, Encinal Unavailable Unavailable Juan Daniel, Yulissa Unavailable Unavailable Juan Daniel, Encinal Unavailable Unavailable PROVIDER, UNKNOWN Unavailable Unavailable Juan Daniel, Yulissa Unavailable Unavailable Juan Daniel, Encinal Unavailable Unavailable PROVIDER, UNKNOWN Unavailable Unavailable Juan Daniel, Encinal Unavailable Unavailable Andra, Matt Unavailable Unavailable Juan Daniel, Encinal Unavailable Unavailable Juan Daniel, Yulissa Unavailable Unavailable Andra, Matt Unavailable Unavailable Juan Daniel, Yulissa Unavailable Unavailable Juan Daniel, Yulissa Unavailable Unavailable Problems Active Problems Problem Classification Problem Date Documented Da te Episodic/Chronic Diabetes mellitus with complications (2 sources) Type 2 diabetes mellitus with diabetic neuropathy, unspecified; Translations: [Type 2 diabetes mellitus with diabetic neuropathy, unsp] Onset: 03-04-2017 Diabetes mellitus without complication (2 sources) Type 2 diabetes mellitus without complications; Translations: [Type 2 diabetes mellitus without complications] Onset: 04-28-2017 Chronic Osteoarthritis (4 sources) Unspecified osteoarthritis, unspecified site; Translations: [Unilateral primary osteoarthritis, left knee] Onset: 03-04-2017 Chronic Other bone disease and musculoskeletal deformities (6 sources) Acquired absence of left leg below knee; Translations: [Acquired absence of right leg below knee] Onset: 03-04-2017 Chronic Other nervous system disorders (2 sources) Chronic pain syndrome; Translations: [Chronic pain syndrome] Onset: 04-28-2017 Chronic Other nutritional; endocrine; and metabolic disorders (2 sources) Obesity, unspecified; Translations: [Obesity, unspecified] Onset: 04-28-2017 Chronic Unclassified (2 sources) Body mass index (BMI) 50-59.9 , adult; Translations: [Body mass index (BMI) 50-59.9 , adult] Onset: 04-28-2017 Chronic Unclassified (2 sources) Drug induced constipation; Translations: [Drug induced constipation] Onset: 04-28-2017 Past or Other Problems Problem Classification Problem Date Documented Da te Episodic/Chronic Allergic reactions (8 sources) Allergy to seafood; Translations: [Latex allergy status] Onset: 04-28-2017 Episodic Complications of surgical procedures or medical care (2 sources) Dehiscence of amputation stump; Translations: [Dehiscence of amputation stump] Onset: 04-28-2017 Episodic Deficiency and other anemia (2 sources) Anemia, unspecified; Translations: [Anemia, unspecified] Onset: 04-28-2017 Episodic Joint disorders and dislocations; trauma-related (2 sources) Other tear of medial meniscus, current injury, left knee, initial encounter; Translations: [Oth tear of medial meniscus, current injury, left knee, init] Onset: 03-04-2017 Episodic Open wounds of extremities (2 sources) Unspecified open wound, left lower leg, initial encounter; Translations: [Unspecified open wound, left lower leg, initial encounter] Onset: 03-04-2017 Episodic Results Test Name Value Interpretation Reference Range Facil ity Encounters Encounter Date Encounter Type Care Provider Facility Start: 04-28-2017 Ambulatory [facility] Start: 04-23-2017 Ambulatory [facility]USA [facility] Start: 04-21-2017 Ambulatory [facility] Start: 03-04-2017 Ambulatory Matt Silverman [facility] Start: 03-02-2017 Ambulatory [facility] Start: 02-27-2017 Ambulatory Matt Silverman [facility] Payers Date Payer Category Payer Policy ID Medicare Private Health Insurance Summary Purpose Family History No Family History Records FoundNo Family History Records FoundNo Family History Records Found Advance Directives No Advanced Directives Records FoundNo Advanced Directives Records FoundNo Advanced Directives Records Found Additional Source Comments (unrecognized sect ion and content) No Status Records FoundNo Status Records FoundNo Status Records Found INFORMATION SOURCE (unrecogn ized section and content) DATE CREATED AUTHOR AUTHOR'S ORGANIZ ATION 10/06/2017 [facility] DATE CREATED AUTHOR AUTHOR'S ORGANIZ ATION 03/08/2019 [facility] veronique [place] FOR RECORDS PERTAINING TO PATIENTS WHO ARE OR HAVE BEEN ENROLLED IN A CHEMICAL DEPENDENCY/SUBSTANCEABUSE PROGRAM, SOME INFORMATION MAY BE OMITTED. This clinical summary was aggregated from multiple sources. Caution should be exercised in using it in the provision of clinical care. This summary normalizes information from multiple sources, and as a consequence, information in this document may materially change the coding, format and clinical context of patient data. In addition, data may be omitted in some cases. CLINICAL DECISIONS SHOULD BE BASED ON THE PRIMARY CLINICAL RECORDS. [facility] [employer] [facility]. provides no warranty or guarantee of the accuracy or completeness of information in this document.
[2023-05-27 13:12] LABS: Absolute Lymphocyte Count 1.82 X10^3/uL (0.83-4.51); Absolute Neutrophil Count 7.9 X10^3/uL (2.0-7.7); Basophil# 0.07 X10^3/uL; Basophil% 0.7 % (0-1); Eosinophils% 1.9 % (0-5); Hematocrit 47.9 % (40-54); Lymphocyte # 1.82 X10^3/ul (0.83-4.51); Lymphocyte % 16.9 % (19-41); Mean Corp Hgb Conc 31.3 g/dL (32-36); Mean Corpuscular Hgb 27.6 pg (27.0-32.0); Mean Corpuscular Volume 88.2 fL (80-94); Monocyte# 0.68 X10^3/uL; Monocyte% 6.3 % (0-10); NRBC Flagged by Analyzer 0 % (0-5); Neutrophil # 7.91 X10^3/uL (2.7-7.7); Neutrophil % 73.6 % (47-70); Platelet Count 279 K/mm3 (150-450); RBC Distribution Width CV 14.9 % (11.6-14.6); Red Blood Count 5.43 M/mm3 (4.6-6.2); White Blood Count 10.7 K/mm3 (4.4-11.0)
[2023-05-27 13:55] LABS: ALB/GLOB Ratio 0.8 RATIO (0.9-2.4); AST(SGOT) 22 U/L (15-37); Alanine Aminotransfer ALT/SGPT 24 U/L (16-61); Albumin, Serum 3.1 g/dL (3.2-5.0); Alkaline Phosphatase 89 U/L (45-117); Anion Gap 5 (5-15); BUN 19 mg/dL (7-18); BUN/Creat Ratio 22.4 RATIO (10-20); Calcium,Total 9.3 mg/dL (8.5-10.1); Chloride 103 mmol/L (98-107); Cholesterol 183 mg/dL (200); Creatinine, Serum 0.85 mg/dL (0.70-1.30); EST Glomerular Filtration Rate 97 mL/min (>60); Est Glom Filt Rate - Afr Amer 117 mL/min (>60); Globulin 3.7 g/dL (2.2-4.2); Glucose 274 mg/dL (74-106); High Density Lipoprotein 37 mg/dL; Potassium 4.5 mmol/L (3.5-5.1); Protein, Total 6.8 g/dL (6.4-8.2); Sodium Level 138 mmol/L (136-145); Thyroid Stim Hormone (TSH) 2.87 uIU/mL (0.358-3.74); Triglycerides 252 mg/dL; Very Low Density Lipoprotein 50 mg/dL (5-40)
[2023-05-27 17:22] LABS: Hemoglobin A1c 9.9 % (3.8-5.6)
== END | disposition home or self-care (01) ==
LOC: LAB 12:34
PROVIDERS: PCP Family Medicine Geriatric Medicine; Referring Provider Family Medicine Geriatric Medicine; Visit Provider Family Medicine Geriatric Medicine
DX: E11.65 Type 2 diabetes mellitus with hyperglycemia (principal); I10 Essential (primary) hypertension; E78.5 Hyperlipidemia, unspecified
CPT/HCPCS: 36415; 80053; 80061; 83036; 84443; 85025

== ENCOUNTER → 2023-08-17 | Outpatient (CLI) | payer MEDICARE, MEDICAID, SELFPAY ==
[2023-08-17 16:54] LABS: Absolute Lymphocyte Count 2.09 X10^3/uL (0.83-4.51); Absolute Neutrophil Count 8.8 X10^3/uL (2.0-7.7); Basophil# 0.07 X10^3/uL; Basophil% 0.6 % (0-1); Eosinophil# 0.18 X10^3/uL; Eosinophils% 1.5 % (0-5); Hemoglobin 15.4 g/dL (13.0-16.5); Lymphocyte # 2.09 X10^3/ul (0.83-4.51); Lymphocyte % 17.5 % (19-41); Mean Corp Hgb Conc 32.1 g/dL (32-36); Mean Corpuscular Hgb 27.2 pg (27.0-32.0); Mean Corpuscular Volume 84.8 fL (80-94); Mean Platelet Vol. 9.3 fl (6.2-12.0); Monocyte# 0.78 X10^3/uL; Monocyte% 6.5 % (0-10); NRBC Flagged by Analyzer 0 % (0-5); Neutrophil # 8.79 X10^3/uL (2.7-7.7); Neutrophil % 73.4 % (47-70); Platelet Count 255 K/mm3 (150-450); RBC Distribution Width CV 14.4 % (11.6-14.6); RBC Distribution Width SD 44.5 fl (35.1-43.9); Red Blood Count 5.66 M/mm3 (4.6-6.2)
[2023-08-17 17:25] LABS: Hemoglobin A1c 9.7 % (3.8-5.6)
[2023-08-17 17:27] LABS: ALB/GLOB Ratio 0.9 RATIO (0.9-2.4); AST(SGOT) 14 U/L (15-37); Alanine Aminotransfer ALT/SGPT 23 U/L (16-61); Albumin, Serum 3.2 g/dL (3.2-5.0); Alkaline Phosphatase 95 U/L (45-117); Anion Gap 6 (5-15); BUN 19 mg/dL (7-18); BUN/Creat Ratio 26.1 RATIO (10-20); Calcium,Total 9.3 mg/dL (8.5-10.1); Chloride 100 mmol/L (98-107); Cholesterol 190 mg/dL (200); Creatinine, Serum 0.73 mg/dL (0.70-1.30); EST Glomerular Filtration Rate 116 mL/min (>60); Est Glom Filt Rate - Afr Amer 140 mL/min (>60); Globulin 3.6 g/dL (2.2-4.2); Glucose 306 mg/dL (74-106); High Density Lipoprotein 38 mg/dL; Potassium 4.2 mmol/L (3.5-5.1); Protein, Total 6.8 g/dL (6.4-8.2); Sodium Level 132 mmol/L (136-145); Thyroid Stim Hormone (TSH) 2.47 uIU/mL (0.358-3.74); Triglycerides 208 mg/dL; Very Low Density Lipoprotein 42 mg/dL (5-40)
== END | disposition home or self-care (01) ==
LOC: LAB 16:09
PROVIDERS: PCP Family Medicine Geriatric Medicine; Referring Provider Family Medicine Geriatric Medicine; Visit Provider Family Medicine Geriatric Medicine
DX: E78.5 Hyperlipidemia, unspecified (principal); E11.65 Type 2 diabetes mellitus with hyperglycemia; I10 Essential (primary) hypertension
CPT/HCPCS: 36415; 80053; 80061; 83036; 84443; 85025

== ENCOUNTER → 2023-08-28 | Outpatient (CLI) | payer MEDICARE, MEDICAID, SELFPAY ==
--- NOTE | 2023-08-28 12:39 | CT_ITS ---
STUDY: CT ABDOMEN AND PELVIS WITH CONTRAST REASON FOR EXAM: Male, 63 years old. ABDOMINAL PAIN. Diarrhea and constipation. RADIATION DOSAGE (If Supplied By Facility): CTDIvol = ( 22.28 ) mGy, DLP = ( 2038.18 ) mGycm TECHNIQUE: Transaxial images were obtained from the dome of the diaphragm to the symphysis pubis with oral contrast. Oral and amp;amp; IV Readi-CAT and amp;amp; 100mL Isovue-300 was administered. Sagittal and coronal images were reconstructed. Individualized dose optimization techniques were used for this CT. COMPARISON: None. FINDINGS: Elevation of the left hemidiaphragm. Coronary artery calcification. Normal liver. Multiple small gallstones are seen along the dependent portion of the gallbladder lumen. Normal spleen. Normal pancreas. Normal bilateral adrenal glands. Nonobstructive bilateral intrarenal calculi. One centimeters cyst in the posterior midportion of the left kidney. Normal visualized stomach. Normal small intestine. There are scattered colonic diverticula consistent with diverticulosis. The appendix is visualized and appears normal. There is scattered atherosclerotic calcification of the abdominal aorta, without a demonstrated aneurysm. Normal inferior vena cava. Normal retroperitoneum. Normal urinary bladder. Small bilateral benign-appearing inguinal lymph nodes. There are diffuse degenerative changes of the visualized lumbar spine. CT/Abdomen/Pelvis WITH Contrast IMPRESSION: Multiple small gallstones layering in the dependent portion of the gallbladder lumen. Nonobstructive bilateral intrarenal calculi. Electronically Signed: Brandan Norton MD at 14:34 EDT ,
== END | disposition home or self-care (01) ==
PROVIDERS: PCP Family Medicine Geriatric Medicine; Referring Provider Family Medicine Geriatric Medicine; Visit Provider Family Medicine Geriatric Medicine
DX: R10.9 Unspecified abdominal pain (principal)
CPT/HCPCS: 74177; Q9967

== ENCOUNTER → 2023-11-10 | Outpatient (CLI) | payer MEDICARE, MEDICAID, SELFPAY ==
[2023-11-10 12:12] LABS: Absolute Neutrophil Count 7.4 X10^3/uL (2.0-7.7); Basophil# 0.08 X10^3/uL; Basophil% 0.8 % (0-1); Eosinophil# 0.14 X10^3/uL; Eosinophils% 1.4 % (0-5); Hematocrit 48.2 % (40-54); Hemoglobin 15.3 g/dL (13.0-16.5); Lymphocyte % 19.3 % (19-41); Mean Corp Hgb Conc 31.7 g/dL (32-36); Mean Corpuscular Hgb 26.7 pg (27.0-32.0); Mean Corpuscular Volume 84.1 fL (80-94); Mean Platelet Vol. 9.2 fl (6.2-12.0); Monocyte# 0.67 X10^3/uL; Monocyte% 6.5 % (0-10); NRBC Flagged by Analyzer 0 % (0-5); Neutrophil # 7.41 X10^3/uL (2.7-7.7); Neutrophil % 71.3 % (47-70); Platelet Count 298 K/mm3 (150-450); RBC Distribution Width CV 14.4 % (11.6-14.6); RBC Distribution Width SD 43.8 fl (35.1-43.9); Red Blood Count 5.73 M/mm3 (4.6-6.2); White Blood Count 10.4 K/mm3 (4.4-11.0)
[2023-11-10 12:46] LABS: ALB/GLOB Ratio 0.8 RATIO (0.9-2.4); AST(SGOT) 14 U/L (15-37); Alanine Aminotransfer ALT/SGPT 15 U/L (16-61); Alkaline Phosphatase 94 U/L (45-117); Anion Gap 7 (5-15); BUN 15 mg/dL (7-18); BUN/Creat Ratio 16.1 RATIO (10-20); Calcium,Total 9.3 mg/dL (8.5-10.1); Chloride 97 mmol/L (98-107); Cholesterol 189 mg/dL (200); Creatinine, Serum 0.93 mg/dL (0.70-1.30); EST Glomerular Filtration Rate 87 mL/min (>60); Est Glom Filt Rate - Afr Amer 105 mL/min (>60); Globulin 3.7 g/dL (2.2-4.2); Glucose 341 mg/dL (74-106); High Density Lipoprotein 37 mg/dL; Potassium 4.3 mmol/L (3.5-5.1); Protein, Total 6.7 g/dL (6.4-8.2); Sodium Level 134 mmol/L (136-145); Thyroid Stim Hormone (TSH) 2.12 uIU/mL (0.358-3.74); Triglycerides 185 mg/dL; Very Low Density Lipoprotein 37 mg/dL (5-40)
[2023-11-10 13:51] LABS: Hemoglobin A1c 11.6 % (3.8-5.6)
== END | disposition home or self-care (01) ==
LOC: POLAB3 11:26
PROVIDERS: PCP Family Medicine Geriatric Medicine; Visit Provider Family Medicine Geriatric Medicine
DX: I10 Essential (primary) hypertension (principal); E11.65 Type 2 diabetes mellitus with hyperglycemia; E78.5 Hyperlipidemia, unspecified
CPT/HCPCS: 36415; 80053; 80061; 83036; 84443; 85025

== ENCOUNTER 2024-02-22 10:16 | Outpatient (CLI) | payer MEDICARE, MEDICAID, SELFPAY ==
[2024-02-22 10:19] LABS: Mucous, Urine 0 SEEN /hpf (<or=2+); Red Blood Cells-Urine 0 SEEN /hpf (0-5); Squamous Epithelial Cells - UA 0 SEEN /hpf (0-5); White Blood Cells 0 SEEN /hpf (0-5)
[2024-02-22 11:09] LABS: Color, Urine Yellow (Yellow); Glucose, Dipstick 1000 mg/dl (Normal); Ketone-Dipstick Negative (Negative); Leukocyte Esterase-Dipstick Negative /ul (Negative); Nitrite-Dipstick Negative (Negative); Occult Blood-Urine Negative /ul (Negative); Protein-Dipstick Negative (Negative); Specific Gravity, Urine 1.015 (1.002-1.030); Urine Bilirubin Dipstick Negative (Negative); Urine Clarity Clear (Clear); Urine Urobilinogen Normal (Normal)
[2024-02-22 11:14] LABS: Bacteria 3+ /hpf (None Seen)
[2024-02-22 16:51] LABS: Microalbumin,Random Urine 10.3 mg/L (NO RANGE EST.)
[2024-02-22 17:23] LABS: ALB/GLOB Ratio 0.9 RATIO (0.9-2.4); AST(SGOT) 14 U/L (15-37); Alanine Aminotransfer ALT/SGPT 15 U/L (16-61); Albumin, Serum 3.2 g/dL (3.2-5.0); Alkaline Phosphatase 94 U/L (45-117); Anion Gap 9 (5-15); BUN 15 mg/dL (7-18); BUN/Creat Ratio 19.9 RATIO (10-20); Calcium,Total 9.5 mg/dL (8.5-10.1); Chloride 99 mmol/L (98-107); Cholesterol 198 mg/dL (200); Creatinine, Serum 0.76 mg/dL (0.70-1.30); EST Glomerular Filtration Rate 111 mL/min (>60); Est Glom Filt Rate - Afr Amer 134 mL/min (>60); Globulin 3.7 g/dL (2.2-4.2); Glucose 287 mg/dL (74-106); High Density Lipoprotein 36 mg/dL; Potassium 4.7 mmol/L (3.5-5.1); Protein, Total 6.9 g/dL (6.4-8.2); Sodium Level 134 mmol/L (136-145); Triglycerides 183 mg/dL; Very Low Density Lipoprotein 37 mg/dL (5-40)
== END 2024-02-22 23:59 | disposition home or self-care (01) ==
LOC: POLAB3 10:17
PROVIDERS: PCP Family Medicine Geriatric Medicine; Visit Provider Family Medicine Geriatric Medicine
DX: N39.0 Urinary tract infection, site not specified (principal); E11.65 Type 2 diabetes mellitus with hyperglycemia; Z12.5 Encounter for screening for malignant neoplasm of prostate; E78.5 Hyperlipidemia, unspecified; I10 Essential (primary) hypertension
CPT/HCPCS: 36415; 80053; 80061; 81001; 82043; 84153; 84443; 87077; 87086; 87088; 87186; G0103

== ENCOUNTER → 2024-02-23 | Outpatient (CLI) | payer MEDICARE, MEDICAID, SELFPAY ==
[2024-02-23 15:06] LABS: Absolute Neutrophil Count 7.5 X10^3/uL (2.0-7.7); Basophil# 0.08 X10^3/uL; Basophil% 0.7 % (0-1); Eosinophil# 0.09 X10^3/uL; Eosinophils% 0.8 % (0-5); Hemoglobin 15.6 g/dL (13.0-16.5); Lymphocyte % 20.4 % (19-41); Mean Corp Hgb Conc 32.5 g/dL (32-36); Mean Corpuscular Hgb 27.2 pg (27.0-32.0); Mean Corpuscular Volume 83.8 fL (80-94); Mean Platelet Vol. 9.1 fl (6.2-12.0); Monocyte# 0.82 X10^3/uL; Monocyte% 7.6 % (0-10); NRBC Flagged by Analyzer 0 % (0-5); Neutrophil # 7.54 X10^3/uL (2.7-7.7); Platelet Count 294 K/mm3 (150-450); RBC Distribution Width CV 14.6 % (11.6-14.6); RBC Distribution Width SD 44.3 fl (35.1-43.9); Red Blood Count 5.73 M/mm3 (4.6-6.2); White Blood Count 10.8 K/mm3 (4.4-11.0)
[2024-02-23 17:29] LABS: Hemoglobin A1c 11.4 % (3.8-5.6)
== END | disposition home or self-care (01) ==
LOC: POLAB3 14:32
PROVIDERS: PCP Family Medicine Geriatric Medicine; Visit Provider Family Medicine Geriatric Medicine
DX: E11.65 Type 2 diabetes mellitus with hyperglycemia (principal); I10 Essential (primary) hypertension; E78.5 Hyperlipidemia, unspecified
CPT/HCPCS: 83036; 85025

== ENCOUNTER → 2024-06-06 | Outpatient (CLI) | payer MEDICARE, MEDICAID, SELFPAY | END | disposition home or self-care (01) | PROVIDERS: PCP Family Medicine Geriatric Medicine; Referring Provider Family Medicine Geriatric Medicine; Visit Provider Family Medicine Geriatric Medicine | DX: E11.65 Type 2 diabetes mellitus with hyperglycemia (principal); E03.9 Hypothyroidism, unspecified | CPT/HCPCS: 36415; 82533; 84443 ==

== ENCOUNTER → 2024-07-07 | Outpatient (CLI) | payer MEDICARE, MEDICAID, SELFPAY ==
[2024-07-07 09:52] LABS: Absolute Lymphocyte Count 1.63 X10^3/uL (0.83-4.51); Absolute Neutrophil Count 7.2 X10^3/uL (2.0-7.7); Basophil# 0.06 X10^3/uL; Basophil% 0.6 % (0-1); Eosinophil# 0.04 X10^3/uL; Eosinophils% 0.4 % (0-5); Hematocrit 48.3 % (40-54); Hemoglobin 16.1 g/dL (13.0-16.5); Lymphocyte # 1.63 X10^3/ul (0.83-4.51); Lymphocyte % 17.5 % (19-41); Mean Corp Hgb Conc 33.3 g/dL (32-36); Mean Corpuscular Hgb 27.7 pg (27.0-32.0); Mean Corpuscular Volume 83.1 fL (80-94); Mean Platelet Vol. 9.1 fl (6.2-12.0); Monocyte# 0.34 X10^3/uL; Monocyte% 3.6 % (0-10); NRBC Flagged by Analyzer 0 % (0-5); Neutrophil % 77.3 % (47-70); Platelet Count 295 K/mm3 (150-450); RBC Distribution Width CV 14.6 % (11.6-14.6); RBC Distribution Width SD 44.4 fl (35.1-43.9); Red Blood Count 5.81 M/mm3 (4.6-6.2); White Blood Count 9.3 K/mm3 (4.4-11.0)
[2024-07-07 10:26] LABS: CORTISOL AM 2.13 ug/dL (6.02-18.40); Cholesterol 211 mg/dL (<=200); High Density Lipoprotein 40 mg/dL; Low Density Lipoprotein Calc. 139 mg/dL; Triglycerides 161 mg/dL; Very Low Density Lipoprotein 32 mg/dL (5-40); cholesterol:hdl ratio screen 5.25
[2024-07-07 10:56] LABS: Hemoglobin A1c 11.6 % (<=5.6)
[2024-07-07 21:00] LABS: ALB/GLOB Ratio 1.5 RATIO (0.9-2.4); AST(SGOT) 15 U/L (<=37); Alanine Aminotransfer ALT/SGPT 12 U/L (<=46); Alkaline Phosphatase 100 U/L (40-129); Anion Gap 12 (5-15); BUN 15 mg/dL (4-19); BUN/Creat Ratio 17.2 RATIO (10-20); Calcium,Total 9.6 mg/dL (7.6-11.0); Carbon Dioxide 25.4 mmol/L (21.0-32.0); Chloride 97 mmol/L (98-108); Creatinine, Serum 0.84 mg/dL (0.70-1.20); EST Glomerular Filtration Rate 97 (>60); Globulin 2.8 g/dL (2.2-4.2); Glucose 340 mg/dL (70-99); Potassium 4.7 mmol/L (3.3-5.1); Protein, Total 6.7 g/dL (5.9-8.4); Sodium Level 134 mmol/L (133-145); Total Bilirubin 0.36 mg/dL (0.00-1.30)
== END | disposition home or self-care (01) ==
LOC: POLAB3 09:04
PROVIDERS: PCP Family Medicine Geriatric Medicine; Visit Provider Family Medicine Geriatric Medicine
DX: I10 Essential (primary) hypertension (principal); E11.65 Type 2 diabetes mellitus with hyperglycemia; E78.5 Hyperlipidemia, unspecified
CPT/HCPCS: 36415; 80053; 80061; 82533; 83036; 84443; 85025

== ENCOUNTER → 2024-07-15 | Outpatient (CLI) | payer MEDICARE, MEDICAID, SELFPAY ==
[2024-07-15 10:24] LABS: CORTISOL AM 1.18 ug/dL (6.02-18.40)
[2024-07-17 14:07] LABS: Adrenocorticotropic Hormone 5.8 pg/mL (7.2-63.3); DHEA Sulfate 73.3 ug/dL (48.9-344.2)
== END | disposition home or self-care (01) ==
PROVIDERS: PCP Family Medicine Geriatric Medicine; Referring Provider Family Medicine Geriatric Medicine; Visit Provider Family Medicine Geriatric Medicine
DX: E24.9 Cushing's syndrome, unspecified (principal)
CPT/HCPCS: 36415; 82024; 82533; 82627; 82626

== ENCOUNTER → 2024-08-24 | Outpatient (CLI) | payer MEDICARE, MEDICAID, SELFPAY ==
--- NOTE | 2024-08-24 10:00 | MRI_ITS ---
PROCEDURE: MRI ABD WITH AND W/O CONTRAST 08/24/2024 REASON FOR EXAM: BILAT ADRENAL ADENOMAS TECHNIQUE: MRI of the upper abdomen without and with intravenous gadolinium-based contrast. Multiplanar and multisequence images were obtained. CONTRAST: Clariscan 28 mL IV. COMPARISON: CT abdomen and pelvis August 28, 2023 FINDINGS: Liver: Liver is normal morphology and signal intensity. Normal enhancement. Hepatic vasculature is patent. Biliary: Normal gallbladder and bile ducts. Pancreas: Normal. Main pancreatic duct is normal. Spleen: Normal. Adrenals: Adrenal glands are very thin bilaterally consistent with atrophy. Unchanged appearance from last year's CT. No nodules are identified. Kidneys: Small 13 mm posterior left renal cortical cyst, benign. Kidneys are otherwise unremarkable. Peritoneum / Retroperitoneum: Unremarkable. Lymph Nodes: No adenopathy Major Vessels: Retroaortic left renal vein, normal variation. Normal abdominal aorta and IVC. Bones: Mild chronic L2 vertebral fracture, unchanged. No focal marrow lesion. MRI/MRI Abd WITH and W/O Contrast IMPRESSION: No adrenal nodule/mass. Mild adrenal atrophy bilaterally, unchanged from 2023. Reading Location: [facility]
== END | disposition home or self-care (01) ==
LOC: MRI 09:42
PROVIDERS: PCP Family Medicine Geriatric Medicine; Referring Provider Family Medicine Geriatric Medicine; Visit Provider Family Medicine Geriatric Medicine
DX: D35.01 Benign neoplasm of right adrenal gland (principal)
CPT/HCPCS: 74183; A9575; A4216

== ENCOUNTER → 2024-09-07 | Outpatient (CLI) | payer MEDICARE, MEDICAID, SELFPAY ==
[2024-09-07 13:39] LABS: Anion Gap 12 (5-15); BUN 18 mg/dL (4-19); BUN/Creat Ratio 21.9 RATIO (10-20); Calcium,Total 9.5 mg/dL (7.6-11.0); Carbon Dioxide 27.4 mmol/L (21.0-32.0); Chloride 97 mmol/L (98-108); EST Glomerular Filtration Rate 99 (>60); Glucose 275 mg/dL (70-99); Potassium 4.7 mmol/L (3.3-5.1); Sodium Level 136 mmol/L (133-145)
== END | disposition home or self-care (01) ==
LOC: LAB 10:59
PROVIDERS: PCP Family Medicine Geriatric Medicine; Referring Provider Family Medicine Geriatric Medicine; Visit Provider Family Medicine Geriatric Medicine
DX: I10 Essential (primary) hypertension (principal)
CPT/HCPCS: 36415; 80048

== ENCOUNTER → 2024-10-03 | Outpatient (CLI) | payer MEDICARE, MEDICAID, SELFPAY ==
[2024-10-03 10:14] LABS: Absolute Lymphocyte Count 1.99 X10^3/uL (0.83-4.51); Absolute Neutrophil Count 4.3 X10^3/uL (2.0-7.7); Basophil# 0.06 X10^3/uL; Basophil% 0.8 % (0-1); Eosinophils% 2.8 % (0-5); Hematocrit 48.6 % (40-54); Hemoglobin 15.7 g/dL (13.0-16.5); Lymphocyte # 1.99 X10^3/ul (0.83-4.51); Lymphocyte % 27.7 % (19-41); Mean Corp Hgb Conc 32.3 g/dL (32-36); Mean Corpuscular Hgb 28.6 pg (27.0-32.0); Mean Corpuscular Volume 88.5 fL (80-94); Mean Platelet Vol. 10.1 fl (6.2-12.0); Monocyte# 0.57 X10^3/uL; Monocyte% 7.9 % (0-10); NRBC Flagged by Analyzer 0 % (0-5); Neutrophil # 4.33 X10^3/uL (2.7-7.7); Neutrophil % 60.4 % (47-70); Platelet Count 274 K/mm3 (150-450); RBC Distribution Width CV 15.6 % (11.6-14.6); RBC Distribution Width SD 50.6 fl (35.1-43.9); Red Blood Count 5.49 M/mm3 (4.6-6.2); White Blood Count 7.2 K/mm3 (4.4-11.0)
[2024-10-03 11:10] LABS: ALB/GLOB Ratio 1.4 RATIO (0.9-2.4); AST(SGOT) 13 U/L (<=37); Alanine Aminotransfer ALT/SGPT 11 U/L (<=46); Albumin, Serum 3.7 g/dL (3.4-4.8); Alkaline Phosphatase 70 U/L (40-129); Anion Gap 10 (5-15); BUN 21 mg/dL (4-19); BUN/Creat Ratio 25.7 RATIO (10-20); Calcium,Total 9.4 mg/dL (7.6-11.0); Chloride 99 mmol/L (98-108); Cholesterol 195 mg/dL (<=200); Creatinine, Serum 0.81 mg/dL (0.70-1.20); EST Glomerular Filtration Rate 98 (>60); Globulin 2.7 g/dL (2.2-4.2); Glucose 254 mg/dL (70-99); High Density Lipoprotein 30 mg/dL; Low Density Lipoprotein Calc. 127 mg/dL; Potassium 4.8 mmol/L (3.3-5.1); Protein, Total 6.4 g/dL (5.9-8.4); Sodium Level 137 mmol/L (133-145); Total Bilirubin 0.41 mg/dL (0.00-1.30); Triglycerides 193 mg/dL; Very Low Density Lipoprotein 39 mg/dL (5-40); cholesterol:hdl ratio screen 6.59
[2024-10-03 11:16] LABS: Hemoglobin A1c 11.1 % (<=5.6)
--- OUTSIDE RECORDS SUMMARY | 2024-10-03 19:48 | XMS RPT_ITS | CCD ---
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 [address] [place], [place], [address] Calculated very low density lipoprotein (VLDL) cholesterol measurementOrdered By: Kelechi Lomeli on 07-07-2024 Calculated very low density lipoprotein (VLDL) cholesterol measurement 32 mg/dL - [facility] VLDL Cholesterol 32 mg/dL [facility] Carbon dioxide, total [Moles /volume] in Central venous bloodOrdered By: Kelechi Lomeli on 07-07-2024 CO2 [Moles/Vol] 25.4 mmol/L Normal 21.0-32.0 [facility] Comment on above: Performed By: #### L 509.6001, L3300.1000, L3410.9998, L3300.1500 #### [facility] [address] [place], [place], [address] Chloride assayOrdered By: Balaji Lomeli on 07-07-2024 Chloride [Moles/Vol] 97 mmol/L Low 98-108 [facility] Comment on above: Performed By: #### L 509.6001, L3300.1000, L3410.9998, L3300.1500 #### [facility] [address] [place], [address] Comprehensive Metabolic Prof ilon 07-07-2024 ALK PHOS 100 U/L Normal 40-129 [facility] Comment on above: Performed By: #### L 509.6001, L3300.1000, L3410.9998, L3300.1500 #### [facility] [address] [place], [address] BUN/CRE 17.2 RATIO Normal 10-20 [facility] Comment on above: Performed By: #### L 509.6001, L3300.1000, L3410.9998, L3300.1500 #### [facility] [address] [place], [address] GAP 12 Normal 5-15 [facility] Comment on above: Performed By: #### L 509.6001, L3300.1000, L3410.9998, L3300.1500 #### [facility] [address] [place], [place], [id number] T PROT 6.7 g/dL Normal 5.9-8.4 [facility] Comment on above: Performed By: #### L 509.6001, L3300.1000, L3410.9998, L3300.1500 #### [facility] [address] [place], [address] Comprehensive Metabolic Prof ilOrdered By: Kelechi Lomeli on 07-07-2024 AST [Catalytic activity/Vol] 15 U/L Normal <=37 [facility] Comment on above: Performed By: #### L 509.6001, L3300.1000, L3410.9998, L3300.1500 #### [facility] [address] [place], [address] Eosinophil percentageOrdered By: Keelchi Lomeli on 07-07-2024 Eosinophils/100 WBC (Bld) 0.4 % 0-5 [facility] Erythrocyte distribution wid th ratioOrdered By: Kelechi Lomeli on 07-07-2024 Erythrocyte distribution width (RBC) [Ratio] 14.6 % 11.6-14.6 [facility] Erythrocyte distribution wid th standard deviationOrdered By: Kelechi Lomeli on 07-07-2024 Erythrocyte distribution width (RBC) [Entitic vol] 44.4 fL High 35.1-43.9 [facility] Erythrocyte distribution width (RBC) [Ratio] 44.4 fl High 35.1-43.9 [facility] GFR/1.73 sq M.predicted oliver g non-blacks MDRD (S/P/Bld) [Vol rate/Area]Ordered By: Kelechi Lomeli on 07-07-2024 Estimated GFR (MDRD) Non-Af Amer 97 >60 [facility] Comment on above: mL/min/1.73m2 CKD-EP I Creatinine Equation (2020) Glomerular filtration rate ( GFR) estimation/1.73 sq m using serum, plasma, or whole bOrdered By: Kelechi Lomeli on 07-07-2024 GFR/1.73 sq M.predicted among non-blacks MDRD (S/P/Bld) [Vol rate/Area] 97 mL/min/{1.73_m2} Normal >60 [facility] Comment on above: mL/min/1.73m2 CKD-EP I Creatinine Equation (2020) Result Comment: mL/m in/1.73m2 CKD-EPI Creatinine Equation (2020) Performed By: #### L 509.6001, L3300.1000, L3410.9998, L3300.1500 #### [facility] [address] [place], [address] Hematocrit Auto (Bld) [Volum e fraction]Ordered By: Kelechi Lomeli on 07-07-2024 Hematocrit (Bld) [Volume fraction] 48.3 % 40-54 [facility] Hemoglobin A1con 07-07-2024 HbA1c (Bld) [Mass fraction] 11.6 % Normal <=5.6 [facility] Comment on above: Performed By: #### L 509.6001, L3300.1000, L3410.9998, L3300.1500 #### [facility] [address] [place], [address] Hemoglobin A1c percentageOrd ered By: Kelechi Lomeli on 07-07-2024 HbA1c (Bld) [Mass fraction] 11.6 % >5.7 [facility] Hemoglobin measurementOrdere d By: Kelechi Lomeli on 07-07-2024 Hemoglobin (Bld) [Mass/Vol] 16.1 g/dL 13.0-16.5 [facility] Immature granulocytes/100 WB C Auto (Bld)Ordered By: Kelechi Lomeli on 07-07-2024 Immature granulocytes/100 WBC (Bld) 0.600 % 0.0-0.9 [facility] Comment on above: IG% - Immature Granu locytes (promyelocytes, myelocytes and metamyelocytes) > 1% indicates that a LEFT SHIFT is Present. L509.6001on 07-07-2024 CORTISOL 2.13 ug/dL Low 6.02-18.40 [facility] Comment on above: Performed By: #### L 509.6001, L3300.1000, L3410.9998, L3300.1500 #### [facility] [address] [place], [place], [address] LDL calc ser/plasOrdered By: Kelechi Lomeli on 07-07-2024 Cholesterol in LDL [Mass/Vol] 139 mg/dL [facility] Comment on above: Cdiyywneoa=800-461 m g/dL & Higher Ssiq=727 mg/dL or greater LDL Cholesterol, Calculated 139 mg/dL [facility] Comment on above: Cjwjjfgngl=377-659 m g/dL & Higher Wsot=934 mg/dL or greater Lipid Profileon 07-07-2024 CHOL:HDL 5.25 Normal [facility] Comment on above: Performed By: #### L 509.6001, L3300.1000, L3410.9998, L3300.1500 #### [facility] [address] [place], [place], [address] Cholesterol [Mass/Vol] 211 mg/dL High <=200 [facility] Comment on above: Result Comment: Chol esterol level, Desirable <200 mg/dL Borderline high cholesterol 200-239 mg/dL High cholesterol >=240 mg/dL Recommendations of the NCEP Adult Treatment Panel for the following risk-cutoff thresholds for the [place] population. Performed By: #### L 509.6001, L3300.1000, L3410.9998, L3300.1500 #### [facility] [address] [place], [place], [address] Cholesterol in HDL [Mass/Vol] 40 mg/dL Normal [facility] Comment on above: Result Comment: Deandra onal Cholesterol Education Program (NCEP) guidelines: <40 mg/dL: Low HDL-cholesterol (major risk factor for CHD) >= 60 mg/dL: High HDL-cholesterol (negative risk factor for CHD) HDL-cholesterol is affected by a number of factors, e.g. smoking, exercise, hormones, sex and age. Performed By: #### L 509.6001, L3300.1000, L3410.9998, L3300.1500 #### [facility] [address] [place], [address] Cholesterol in LDL [Mass/Vol] 139 mg/dL Normal [facility] Comment on above: Result Comment: Bord tyzvfq=120-457 mg/dL Higher Jnnk=170 mg/dL or greater Performed By: #### L 509.6001, L3300.1000, L3410.9998, L3300.1500 #### [facility] [address] [place], [address] Cholesterol in VLDL [Mass/Vol] 32 mg/dL Normal 5-40 [facility] Comment on above: Performed By: #### L 509.6001, L3300.1000, L3410.9998, L3300.1500 #### [facility] [address] [place], [address] Triglyceride [Mass/Vol] 161 mg/dL Normal [facility] Comment on above: Result Comment: The drugs N-Acetylcysteine and Metamizole may falsely depress this assay. Normal range: <150 mg/dL Borderline High: 150-199 mg/dL High: 200-499 mg/dL Very High: >500 mg/dL Performed By: #### L 509.6001, L3300.1000, L3410.9998, L3300.1500 #### [facility] [address] [place], [address] Lymphocytes Auto (Unsp spec) [#/Vol]Ordered By: Kelechi Lomeli on 07-07-2024 Lymphocytes (Bld) [#/Vol] 1.63 10*3/uL 0.83-4.5 1 [facility] Lymphocytes/100 WBC Auto (Un sp spec)Ordered By: Kelechi Lomeli on 07-07-2024 Lymphocytes/100 WBC (Bld) 17.5 % Low 19-41 [facility] MCV (mean corpuscular volume ) determinationOrdered By: Kelechi Lomeli on 07-07-2024 MCV (RBC) [Entitic vol] 83.1 fL 80-94 [facility] Mean corpuscular hemoglobin (MCH) determinationOrdered By: Kelechi Lomeli on 07-07-2024 MCH (RBC) [Entitic mass] 27.7 pg 27.0-32.0 [facility] Mean corpuscular hemoglobin concentration (MCHC) determinationOrdered By: Kelechi Lomeli on 07-07-2024 MCHC (RBC) [Mass/Vol] 33.3 g/dL 32-36 [facility] Mean platelet volume determi nationOrdered By: Kelechi Lomeli on 07-07-2024 Platelet mean volume (Bld) [Entitic vol] 9.1 fL 6.2-12.0 [facility] Monocyte percentageOrdered B y: Kelechi Lomeli on 07-07-2024 Monocytes/100 WBC (Bld) 3.6 % 0-10 [facility] Neutrophil percentageOrdered By: Kelechi Lomeli on 07-07-2024 Neutrophils/100 WBC (Bld) 77.3 % High 47-70 [facility] No Panel InformationOrdered By: Kelechi Lomeli on 07-07-2024 Cortisol AM Sample 2.13 ug/dL Low 6.02-18.40 [facility] Nucleated red blood cell per centageOrdered By: Kelechi Lomeli on 07-07-2024 Nucleated RBC/100 WBC (Bld) [Ratio] 0 % 0-5 [facility] Platelet countOrdered By: Balaji Lomeli on 07-07-2024 Platelets (Bld) [#/Vol] 295 10*3/uL 150-450 [facility] Potassium measurement (mass/ volume)Ordered By: Kelechi Lomeli on 07-07-2024 Potassium (Unsp spec) [Mass/Vol] 4.7 mmol/L 3.3-5.1 [facility] Potassium [Moles/Vol] 4.7 mmol/L Normal 3.3-5.1 [facility] Comment on above: Performed By: #### L 509.6001, L3300.1000, L3410.9998, L3300.1500 #### [facility] [address] [place], [address] RBC Auto (Bld) [#/Vol]Ordere d By: Kelechi Lomeli on 07-07-2024 RBC (Bld) [#/Vol] 5.81 10*6/uL 4.6-6.2 [facility] Screening total cholesterol/ high density lipoprotein (HDL) cholesterol ratioOrdered By: Kelechi Lomeli on 07-07-2024 Cholesterol.total/Choleste rol in HDL [Mass ratio] 5.25 {ratio} [facility] Serum creatinine measurement (mass/volume)Ordered By: Kelechi Lomeli on 07-07-2024 Creatinine [Mass/Vol] 0.84 mg/dL Normal 0.70-1.20 [facility] Comment on above: Performed By: #### L 509.6001, L3300.1000, L3410.9998, L3300.1500 #### [facility] [address] [place], [address] Serum globulin measurementOr dered By: Kelechi Lomeil on 07-07-2024 Globulin (S) [Mass/Vol] 2.8 g/dL Normal 2.2-4.2 [facility] Comment on above: Performed By: #### L 509.6001, L3300.1000, L3410.9998, L3300.1500 #### [facility] [address] [place], [address] Serum glucose measurement (m ass/volume)Ordered By: Kelechi Lomeli on 07-07-2024 Glucose [Mass/Vol] 340 mg/dL High 70-99 [facility] Comment on above: Performed By: #### L 509.6001, L3300.1000, L3410.9998, L3300.1500 #### [facility] [address] [place], [address] Serum or plasma alanine peres otransferase (ALT) measurementOrdered By: Kelechi Lomeli on 07-07-2024 ALT [Catalytic activity/Vol] 12 U/L Normal <=46 [facility] Comment on above: Performed By: #### L 509.6001, L3300.1000, L3410.9998, L3300.1500 #### [facility] [address] [place], [place], [id number] (444) Serum or plasma albumin rosibel urement (mass/volume)Ordered By: Kelechi Lomeli on 07-07-2024 Albumin [Mass/Vol] 4.0 g/dL Normal 3.4-4.8 [facility] Comment on above: Performed By: #### L 509.6001, L3300.1000, L3410.9998, L3300.1500 #### [facility] [address] [place], [address] Serum or plasma albumin/glob ulin mass ratioOrdered By: Kelechi Lomeli on 07-07-2024 Albumin/Globulin [Mass ratio] 1.5 {ratio} Normal 0.9-2.4 [facility] Comment on above: Performed By: #### L 509.6001, L3300.1000, L3410.9998, L3300.1500 #### [facility] [address] [place], [address] Serum or plasma alkaline shoshana sphatase measurementOrdered By: Kelechi Lomeli on 07-07-2024 ALP [Catalytic activity/Vol] 100 U/L 40-129 [facility] Serum or plasma calcium rosibel urement (mass/volume)Ordered By: Kelechi Lomeli on 07-07-2024 Calcium [Mass/Vol] 9.6 mg/dL Normal 7.6-11.0 [facility] Comment on above: Performed By: #### L 509.6001, L3300.1000, L3410.9998, L3300.1500 #### [facility] [address] [place], [place], [id number] (240) Serum or plasma cholesterol in HDL measurement (mass/volume)Ordered By: Kelechi Lomeli on 07-07-2024 Cholesterol in HDL [Mass/Vol] 40 mg/dL >40 [facility] Comment on above: National Cholesterol Education Program (NCEP) guidelines:<40 mg/dL: Low HDL-cholesterol (major risk factor for CHD)>= 60 mg/dL: High HDL-cholesterol (negative risk factor for CHD)HDL-cholesterol is affected by a number of factors, e.g. smoking, exercise, hormones, sex and age. Serum or plasma cholesterol measurement (mass/volume)Ordered By: Kelechi Lomeli on 07-07-2024 Cholesterol [Mass/Vol] 211 mg/dL High <201 [facility] Comment on above: Cholesterol level, D esirable <200 mg/dLBorderline high cholesterol 200-239 mg/dLHigh cholesterol >=240 mg/dLRecommendations of the NCEP Adult Treatment Panel for the following risk-cutoff thresholds for the [place] population. Serum or plasma urea nitroge n measurement (mass/volume)Ordered By: Kelechi Lomeli on 07-07-2024 Urea nitrogen [Mass/Vol] 15 mg/dL Normal 4-19 [facility] Comment on above: Performed By: #### L 509.6001, L3300.1000, L3410.9998, L3300.1500 #### [facility] [address] [place], [place], [id number] Sodium levelOrdered By: Kelechi Lomeli on 07-07-2024 Sodium [Moles/Vol] 134 mmol/L Normal 133-145 [facility] Comment on above: Performed By: #### L 509.6001, L3300.1000, L3410.9998, L3300.1500 #### [facility] [address] [place], [place], [address] TSH DL <= 0.005 mIU/L QnOrde red By: Kelechi Lomeli on 07-07-2024 Thyroid Stimulating Hormone (TSH) 2.860 uIU/mL 0.300-4.200 [facility] TSH Qn 2.860 uIU/mL 0.300-4.200 [facility] Thyroid Stim Hormone (TSH)on 07-07-2024 TSH 2.860 uIU/mL Normal 0.300-4.200 [facility] Comment on above: Performed By: #### L 509.6001, L3300.1000, L3410.9998, L3300.1500 #### [facility] [address] [place], [place], [address] Total proteinOrdered By: Kelechi Lomeli on 07-07-2024 Protein [Mass/Vol] 6.7 g/dL 5.9-8.4 [facility] Triglycerides measurementOrd ered By: Kelechi Lomeli on 07-07-2024 Triglyceride [Mass/Vol] 161 mg/dL <199 [facility] Comment on above: The drugs N-Acetylcy steine and Metamizole may falsely depress this assay. Normal range: <150 mg/dLBorderline High: 150-199 mg/dLHigh: 200-499 mg/dLVery High: >500 mg/dL White blood cell (WBC) count Ordered By: Kelechi Lomeli on 07-07-2024 WBC (Bld) [#/Vol] 9.3 10*3/uL 4.4-11.0 [facility] CORTISOL SERUMon 06-06-2024 CORTISOL 1.70 ug/dL Low 3.44-22.45 [facility] Comment on above: Result Comment: Adul t (AM) 5.27 - 22.45 ug/dL Adult (PM) 3.44 - 16.76 ug/dL Performed By: #### L 509.6001, L3300.1000, L3410.9998, L3300.1500 #### [facility] [address] [place], [place], [address] Cortisol [Mass/Vol]Ordered B y: Kelechi Lomeli on 06-06-2024 Cortisol 1.70 ug/dL Low 3.44-22.45 [facility] Comment on above: Adult (AM) 5.27 - 22 .45 ug/dL Adult (PM) 3.44 - 16.76 ug/dL Serum or plasma cortisol loli surement (mass/volume)Ordered By: Kelechi Lomeli on 06-06-2024 Cortisol [Mass/Vol] 1.70 ug/dL Low 3.44-22.45 [facility] Comment on above: Adult (AM) 5.27 - 22 .45 ug/dL Adult (PM) 3.44 - 16.76 ug/dL Serum or plasma thyroid stim ulating hormone (TSH) measurement (units/volume)Ordered By: Kelechi Lomeli on 06-06-2024 TSH Qn 2.550 uIU/mL 0.358-3.740 [facility] TSH QnOrdered By: Kelechi Lomeli o n 06-06-2024 Thyroid Stimulating Hormone (TSH) 2.550 uIU/mL 0.358-3.740 [facility] Thyroid Stim Hormone (TSH)on 06-06-2024 TSH 2.550 uIU/mL Normal 0.358-3.740 [facility] Comment on above: Performed By: #### L 509.6001, L3300.1000, L3410.9998, L3300.1500 #### [facility] [address] [place], [address] Urine Cultureon 02-24-2024 [facility] Enterobacter cloacae complex [place] Count >100,000 Klebsiella oxytoca Klebsiella oxytoca Enterobacter cloacae complex: REACTION ceFAZolin Islt BRETT >=64 R Cefepime Islt BRETT <=0.12 Ciprofloxacin Islt BRETT <=0.25 S Gentamicin Islt BRETT <=1 S Imipenem Islt BRETT 0.5 S levoFLOXacin Islt BRETT 1 I Nitrofurantoin Islt BRETT 32 S Tobramycin Islt BRETT <=1 S TMP SMX Islt BRETT <=20 S Klebsiella oxytoca: REACTION Ampicillin Islt BRETT >=32 R Ampicillin+Sulbac Islt BRETT 8 ceFAZolin Islt BRETT >=64 R Cefepime Islt BRETT <=0.12 S Ciprofloxacin Islt BRETT <=0.25 S B-Lactamase Extended Susc Islt NEG Gentamicin Islt BRETT <=1 S Imipenem Islt BRETT <=0.25 S levoFLOXacin Islt BRETT 0.25 S Nitrofurantoin Islt BRETT 64 I Tobramycin Islt BRETT <=1 S TMP SMX Islt BRETT <=20 S Normal [facility] Comment on above: Performed By: #### L 509.6001, L3300.1000, L3410.9998, L3300.1500 #### [facility] [address] [place], [address] Absolute neutrophil countOrd ered By: Kelechi Lomeli on 02-23-2024 Neutrophils (Bld) [#/Vol] 7.5 10*3/uL 2.0-7.7 [facility] Basophil percentageOrdered B y: Kelechi Lomeli on 02-23-2024 Basophils/100 WBC (Bld) 0.7 % 0-1 [facility] CBC W/Diff, Automatedon 02-11-2023 Absolute Lymph 2.20 X10 3/uL Normal 0.83-4.51 [facility] Comment on above: Performed By: #### L 509.6001, L3300.1000, L3410.9998, L3300.1500 #### [facility] [address] [place], [address] Absolute Neut 7.5 X10 3/uL Normal 2.0-7.7 [facility] Comment on above: Performed By: #### L 509.6001, L3300.1000, L3410.9998, L3300.1500 #### [facility] [address] [place], [address] Basophils/100 WBC (Bld) 0.7 % Normal 0-1 [facility] Comment on above: Performed By: #### L 509.6001, L3300.1000, L3410.9998, L3300.1500 #### [facility] [address] [place], [address] Eosinophils/100 WBC (Bld) 0.8 % Normal 0-5 [facility] Comment on above: Performed By: #### L 509.6001, L3300.1000, L3410.9998, L3300.1500 #### [facility] [address] [place], [address] Erythrocyte distribution width (RBC) [Ratio] 14.6 % Normal 11.6-14.6 [facility] Comment on above: Performed By: #### L 509.6001, L3300.1000, L3410.9998, L3300.1500 #### [facility] [address] [place], [address] Hematocrit (Bld) [Volume fraction] 48.0 % Normal 40-54 [facility] Comment on above: Performed By: #### L 509.6001, L3300.1000, L3410.9998, L3300.1500 #### [facility] [address] [place], [address] Hemoglobin (Bld) [Mass/Vol] 15.6 g/dL Normal 13.0-16.5 [facility] Comment on above: Performed By: #### L 509.6001, L3300.1000, L3410.9998, L3300.1500 #### [facility] [address] [place], [address] IG% 0.500 Normal 0.0-0.9 [facility] Comment on above: Result Comment: IG% - Immature Granulocytes (promyelocytes, myelocytes and metamyelocytes) > 1% indicates that a LEFT SHIFT is Present. Performed By: #### L 509.6001, L3300.1000, L3410.9998, L3300.1500 #### [facility] [address] [place], [address] Lymphocytes/100 WBC (Bld) 20.4 % Normal 19-41 [facility] Comment on above: Performed By: #### L 509.6001, L3300.1000, L3410.9998, L3300.1500 #### [facility] [address] [place], [address] MCH (RBC) [Entitic mass] 27.2 pg Normal 27.0-32.0 [facility] Comment on above: Performed By: #### L 509.6001, L3300.1000, L3410.9998, L3300.1500 #### [facility] [address] [place], [address] MCHC (RBC) [Mass/Vol] 32.5 g/dL Normal 32-36 [facility] Comment on above: Performed By: #### L 509.6001, L3300.1000, L3410.9998, L3300.1500 #### [facility] [address] [place], [address] MCV (RBC) [Entitic vol] 83.8 fL Normal 80-94 [facility] Comment on above: Performed By: #### L 509.6001, L3300.1000, L3410.9998, L3300.1500 #### [facility] [address] [place], [address] Monocytes/100 WBC (Bld) 7.6 % Normal 0-10 [facility] Comment on above: Performed By: #### L 509.6001, L3300.1000, L3410.9998, L3300.1500 #### [facility] [address] [place], [address] Neutrophils/100 WBC (Bld) 70.0 % Normal 47-70 [facility] Comment on above: Performed By: #### L 509.6001, L3300.1000, L3410.9998, L3300.1500 #### [facility] [address] [place], [address] Nucleated RBC (Bld) [#/Vol] 0 10*3/uL Normal 0-5 [facility] Comment on above: Performed By: #### L 509.6001, L3300.1000, L3410.9998, L3300.1500 #### [facility] [address] [place], [address] Platelet mean volume (Bld) [Entitic vol] 9.1 fL Normal 6.2-12.0 [facility] Comment on above: Performed By: #### L 509.6001, L3300.1000, L3410.9998, L3300.1500 #### [facility] [address] [place], [address] Platelets (Bld) [#/Vol] 294 10*3/uL Normal 150-450 [facility] Comment on above: Performed By: #### L 509.6001, L3300.1000, L3410.9998, L3300.1500 #### [facility] [address] [place], [address] RBC (Bld) [#/Vol] 5.73 10*6/uL Normal 4.6-6.2 [facility] Comment on above: Performed By: #### L 509.6001, L3300.1000, L3410.9998, L3300.1500 #### [facility] [address] [place], [address] RDW SD 44.3 fl High 35.1-43.9 [facility] Comment on above: Performed By: #### L 509.6001, L3300.1000, L3410.9998, L3300.1500 #### [facility] [address] [place], [address] WBC (Bld) [#/Vol] 10.8 10*3/uL Normal 4.4-11.0 [facility] Comment on above: Performed By: #### L 509.6001, L3300.1000, L3410.9998, L3300.1500 #### [facility] [address] [place], [address] Eosinophil percentageOrdered By: Kelechi Lomeli on 02-23-2024 Eosinophils/100 WBC (Bld) 0.8 % 0-5 [facility] Erythrocyte distribution wid th ratioOrdered By: Kelechi Lomeli on 02-23-2024 Erythrocyte distribution width (RBC) [Ratio] 14.6 % 11.6-14.6 [facility] Erythrocyte distribution wid th standard deviationOrdered By: Kelechi Lomeli on 02-23-2024 Erythrocyte distribution width (RBC) [Entitic vol] 44.3 fL High 35.1-43.9 [facility] Hematocrit Auto (Bld) [Volum e fraction]Ordered By: Kelechi Lomeli on 02-23-2024 Hematocrit (Bld) [Volume fraction] 48.0 % 40-54 [facility] Hemoglobin A1con 02-23-2024 HbA1c (Bld) [Mass fraction] 11.4 % High 3.8-5.6 [facility] Comment on above: Result Comment: Norm al < 5.7 % Prediabetic 5.7 - 6.4 % Diabetic >or= 6.5 % Please note range changes. Performed By: #### L 509.6001, L3300.1000, L3410.9998, L3300.1500 #### [facility] [address] [place], [address] Hemoglobin A1c percentageOrd ered By: Kelechi Lomeli on 02-23-2024 HbA1c (Bld) [Mass fraction] 11.4 % High 3.8-5.6 [facility] Comment on above: Normal < 5.7 % Predi abetic 5.7 - 6.4 % Diabetic >or= 6.5 % Please note range changes. Hemoglobin measurementOrdere d By: Kelechi Lomeli on 02-23-2024 Hemoglobin (Bld) [Mass/Vol] 15.6 g/dL 13.0-16.5 [facility] Immature granulocytes/100 WB C Auto (Bld)Ordered By: Kelechi Lomeli on 02-23-2024 Immature granulocytes/100 WBC (Bld) 0.500 % 0.0-0.9 [facility] Comment on above: IG% - Immature Granu locytes (promyelocytes, myelocytes and metamyelocytes) > 1% indicates that a LEFT SHIFT is Present. Lymphocytes Auto (Unsp spec) [#/Vol]Ordered By: Kelechi Lomeli on 02-23-2024 Lymphocytes (Bld) [#/Vol] 2.20 10*3/uL 0.83-4.5 1 [facility] Lymphocytes/100 WBC Auto (Un sp spec)Ordered By: Kelechi Lomeli on 02-23-2024 Lymphocytes/100 WBC (Bld) 20.4 % 19-41 [facility] MCV (mean corpuscular volume ) determinationOrdered By: Kelechi Lomeli on 02-23-2024 MCV (RBC) [Entitic vol] 83.8 fL 80-94 [facility] Mean corpuscular hemoglobin (MCH) determinationOrdered By: Kelechi Lomeli on 02-23-2024 MCH (RBC) [Entitic mass] 27.2 pg 27.0-32.0 [facility] Mean corpuscular hemoglobin concentration (MCHC) determinationOrdered By: Kelechi Lomeli on 02-23-2024 MCHC (RBC) [Mass/Vol] 32.5 g/dL 32-36 [facility] Mean platelet volume determi nationOrdered By: Kelechi Lomeli on 02-23-2024 Platelet mean volume (Bld) [Entitic vol] 9.1 fL 6.2-12.0 [facility] Monocyte percentageOrdered B y: Kelechi Lomeli on 02-23-2024 Monocytes/100 WBC (Bld) 7.6 % 0-10 [facility] Neutrophil percentageOrdered By: Kelechi Lomeli on 02-23-2024 Neutrophils/100 WBC (Bld) 70.0 % 47-70 [facility] Nucleated red blood cell per centageOrdered By: Kelechi Lomeli on 02-23-2024 Nucleated RBC/100 WBC (Bld) [Ratio] 0 % 0-5 [facility] Platelet countOrdered By: Balaji Lomeli on 02-23-2024 Platelets (Bld) [#/Vol] 294 10*3/uL 150-450 [facility] RBC Auto (Bld) [#/Vol]Ordere d By: Kelechi Lomeli on 02-23-2024 RBC (Bld) [#/Vol] 5.73 10*6/uL 4.6-6.2 [facility] White blood cell (WBC) count Ordered By: Kelechi Lomeli on 02-23-2024 WBC (Bld) [#/Vol] 10.8 10*3/uL 4.4-11.0 [facility] Albumin to globulin ratioOrd ered By: Kelechi Lomeli on 02-22-2024 Albumin/Globulin [Mass ratio] 0.9 {ratio} 0.9-2.4 [facility] Bilirubin Test strip Ql (U)O rdered By: Kelechi Lomeli on 02-22-2024 Bilirubin Ql (U) Negative Negative [facility] Bilirubin, totalOrdered By: Kelechi Lomeli on 02-22-2024 Bilirubin [Mass/Vol] 0.40 mg/dL 0.20-1.00 [facility] Comment on above: For patients on eltr ombopag therapy, use of Dimension [place] TBIL is not recommended. Blood urea nitrogen (BUN)/cr eatinine ratioOrdered By: Kelechi Lomeli on 02-22-2024 Urea nitrogen/Creatinine [Mass ratio] 19.9 mg/mg 10-20 [facility] Carbon dioxide measurementOr dered By: Kelechi Lomeli on 02-22-2024 CO2 [Moles/Vol] 27.0 mmol/L 21.0-32.0 [facility] Chloride measurementOrdered By: Kelechi Lomeli on 02-22-2024 Chloride [Moles/Vol] 99 mmol/L 98-107 [facility] Comprehensive Metabolic Prof ilon 02-22-2024 Albumin [Mass/Vol] 3.2 g/dL Normal 3.2-5.0 [facility] Comment on above: Performed By: #### L 509.6001, L3300.1000, L3410.9998, L3300.1500 #### [facility] [address] [place], [address] Albumin/Globulin [Mass ratio] 0.9 {ratio} Normal 0.9-2.4 [facility] Comment on above: Performed By: #### L 509.6001, L3300.1000, L3410.9998, L3300.1500 #### [facility] [address] [place], [address] ALK P 94 U/L Normal 45-117 [facility] Comment on above: Performed By: #### L 509.6001, L3300.1000, L3410.9998, L3300.1500 #### [facility] [address] [place], [address] ALT [Catalytic activity/Vol] 15 U/L Low 16-61 [facility] Comment on above: Performed By: #### L 509.6001, L3300.1000, L3410.9998, L3300.1500 #### [facility] [address] [place], [address] AST [Catalytic activity/Vol] 14 U/L Low 15-37 [facility] Comment on above: Performed By: #### L 509.6001, L3300.1000, L3410.9998, L3300.1500 #### [facility] [address] [place], [address] Bilirubin [Mass/Vol] 0.40 mg/dL Normal 0.20-1.00 [facility] Comment on above: Result Comment: For patients on eltrombopag therapy, use of Dim[place] TBIL is not recommended. Performed By: #### L 509.6001, L3300.1000, L3410.9998, L3300.1500 #### [facility] [address] [place], [address] BUN/CRE 19.9 RATIO Normal 10-20 [facility] Comment on above: Performed By: #### L 509.6001, L3300.1000, L3410.9998, L3300.1500 #### [facility] [address] [place], [address] CA,Total 9.5 mg/dL Normal 8.5-10.1 [facility] Comment on above: Performed By: #### L 509.6001, L3300.1000, L3410.9998, L3300.1500 #### [facility] [address] [place], [address] Chloride [Moles/Vol] 99 mmol/L Normal 98-107 [facility] Comment on above: Performed By: #### L 509.6001, L3300.1000, L3410.9998, L3300.1500 #### [facility] [address] [place], [address] CO2 [Moles/Vol] 27.0 mmol/L Normal 21.0-32.0 [facility] Comment on above: Performed By: #### L 509.6001, L3300.1000, L3410.9998, L3300.1500 #### [facility] [address] [place], [address] Creatinine [Mass/Vol] 0.76 mg/dL Normal 0.70-1.30 [facility] Comment on above: Result Comment: The validity of the calculated GFR GFRAA in patients over 70 years has not been determined. Clinical correlation is essential. Performed By: #### L 509.6001, L3300.1000, L3410.9998, L3300.1500 #### [facility] [address] [place], [address] EST GFR - AA 134 mL/min Normal >60 [facility] Comment on above: Result Comment: Afri can Vincentian GFR Calc Performed By: #### L 509.6001, L3300.1000, L3410.9998, L3300.1500 #### [facility] [address] [place], [address] GAP 9 Normal 5-15 [facility] Comment on above: Performed By: #### L 509.6001, L3300.1000, L3410.9998, L3300.1500 #### [facility] [address] [place], [address] GFR/1.73 sq M.predicted among non-blacks MDRD (S/P/Bld) [Vol rate/Area] 111 mL/min/{1.73_m2} Normal >60 [facility] Comment on above: Result Comment: Non- GFR Calc Performed By: #### L 509.6001, L3300.1000, L3410.9998, L3300.1500 #### [facility] [address] [place], [address] Globulin (S) [Mass/Vol] 3.7 g/dL Normal 2.2-4.2 [facility] Comment on above: Performed By: #### L 509.6001, L3300.1000, L3410.9998, L3300.1500 #### [facility] [address] [place], [address] Glucose [Mass/Vol] 287 mg/dL High 74-106 [facility] Comment on above: Result Comment: Gluc ose result greater than or equal to 200 mg/dL suggests DIABETES MELLITUS per A.D.A. criteria. Performed By: #### L 509.6001, L3300.1000, L3410.9998, L3300.1500 #### [facility] [address] [place], [address] Potassium [Moles/Vol] 4.7 mmol/L Normal 3.5-5.1 [facility] Comment on above: Performed By: #### L 509.6001, L3300.1000, L3410.9998, L3300.1500 #### [facility] [address] [place], [address] Sodium [Moles/Vol] 134 mmol/L Low 136-145 [facility] Comment on above: Performed By: #### L 509.6001, L3300.1000, L3410.9998, L3300.1500 #### [facility] [address] [place], [address] T PROT 6.9 g/dL Normal 6.4-8.2 [facility] Comment on above: Performed By: #### L 509.6001, L3300.1000, L3410.9998, L3300.1500 #### [facility] [address] [place], [address] Urea nitrogen [Mass/Vol] 15 mg/dL Normal 7-18 [facility] Comment on above: Performed By: #### L 509.6001, L3300.1000, L3410.9998, L3300.1500 #### [facility] [address] [place], [address] Epithelial cells.squamous LM Ql (Urine sed)Ordered By: Kelechi Lomeli on 02-22-2024 Epithelial cells.squamous LM.HPF (Urine sed) [#/Area] 0 /[HPF] 0-5 [facility] Estimated glomerular filtrat ion rate (GFR) AmericanOrdered By: Kelechi Lomeli on 02-22-2024 Estimated GFR (MDRD) Amer 134 mL/min >60 [facility] Comment on above: GFR Calc Glomerular filtration rate ( GFR) estimationOrdered By: Kelechi Lomeli on 02-22-2024 Estimated GFR (MDRD) Non-Af Amer 111 mL/min >60 [facility] Comment on above: Non- GFR Calc Glucose Ql (U)Ordered By: Balaji Lomeli on 02-22-2024 Glucose (U) [Mass/Vol] 1000 mg/dL High Normal [facility] Glucose measurementOrdered B y: Kelechi Lomeli on 02-22-2024 Glucose [Mass/Vol] 287 mg/dL High 74-106 [facility] Comment on above: Glucose result great er than or equal to 200 mg/dLsuggests DIABETES MELLITUS per A.D.A. criteria. High density lipoprotein (HD L) measurementOrdered By: Kelechi Lomeli on 02-22-2024 Cholesterol in HDL [Mass/Vol] 36 mg/dL Low >40 [facility] Comment on above: The drugs N-Acetylcy steine and Metamizole may falsely depress this assay. Reference Range HDL <40 mg/dL Low HDL Cholesterol HDL >or= 60 mg/dL High HDL Cholesterol Ketones Test strip Ql (U)Ord ered By: Kelechi Lomeli on 02-22-2024 Ketones Ql (U) Negative Negative [facility] - Chemistry and C hemistry - challengeOrdered By: Kelechi Lomeli on 02-22-2024 AST [Catalytic activity/Vol] 14 U/L Low 15-37 [facility] Lipid Profileon 02-22-2024 Cholesterol [Mass/Vol] 198 mg/dL Normal 200 [facility] Comment on above: Result Comment: <200 mg/dL Desirable 200-240 mg/dL Borderline >240 mg/dL High Risk Performed By: #### L 509.6001, L3300.1000, L3410.9998, L3300.1500 #### [facility] [address] [place], [address] Cholesterol in HDL [Mass/Vol] 36 mg/dL Low [facility] Comment on above: Result Comment: The drugs N-Acetylcysteine and Metamizole may falsely depress this assay. Reference Range HDL <40 mg/dL Low HDL Cholesterol HDL >or= 60 mg/dL High HDL Cholesterol Performed By: #### L 509.6001, L3300.1000, L3410.9998, L3300.1500 #### [facility] [address] [place], [address] Cholesterol in LDL [Mass/Vol] 125 mg/dL Normal 0-130 [facility] Comment on above: Performed By: #### L 509.6001, L3300.1000, L3410.9998, L3300.1500 #### [facility] [address] [place], [address] Cholesterol in VLDL [Mass/Vol] 37 mg/dL Normal 5-40 [facility] Comment on above: Performed By: #### L 509.6001, L3300.1000, L3410.9998, L3300.1500 #### [facility] [address] [place], [address] Triglyceride [Mass/Vol] 183 mg/dL Normal [facility] Comment on above: Result Comment: The drugs N-Acetylcysteine and Metamizole may falsely depress this assay. Serum Triglycerides Reference Interval Normal <150 mg/dL Borderline high 150 - 199 mg/dL High 200 - 499 mg/dL Very High > or = 500 mg/dL Performed By: #### L 509.6001, L3300.1000, L3410.9998, L3300.1500 #### [facility] [address] [place], [address] Low density lipoprotein (LDL ) cholesterol measurementOrdered By: Kelechi Lomeli on 02-22-2024 Cholesterol in LDL [Mass/Vol] 125 mg/dL 0-130 [facility] Microalbumin,Random Urineon 02-22-2024 MICROALBUMIN,UR 10.3 mg/L Normal NO RANGE EST. [facility] Comment on above: Order Comment: N Performed By: #### L 509.6001, L3300.1000, L3410.9998, L3300.1500 #### [facility] [address] [place], [place], [address] Microscopic analysis of urin e for red blood cells (RBC)Ordered By: Kelechi Lomeli on 02-22-2024 Urine RBC 0 SEEN /hpf 0-5 [facility] Mucus LM Ql (Urine sed)Order ed By: Kelechi Lomeli on 02-22-2024 Mucus Ql (Urine sed) 0 SEEN /hpf [facility] Nitrite Test strip Ql (U)Ord ered By: Kelechi Lomeli on 02-22-2024 Nitrite Ql (U) Negative Negative [facility] PSA,Total - Annual Screenon 02-22-2024 PSA,TOT SCREEN 0.30 ng/mL Normal 0.00-4.00 [facility] Comment on above: Result Comment: This test was performed using the TPSA assay method for the [employer] chemistry system. Values obtained with different assay methods cannot be used interchangably. When changing PSA assays in the course of monitoring a patient, additional sequential testing should be carried out to confirm baseline values. Performed By: #### L 509.6001, L3300.1000, L3410.9998, L3300.1500 #### [facility] [address] [place], [place], [address] Potassium measurementOrdered By: Kelechi Lomeli on 02-22-2024 Potassium [Moles/Vol] 4.7 mmol/L 3.5-5.1 [facility] Protein Test strip Ql (U)Ord ered By: Kelechi Lomeli on 02-22-2024 Protein Ql (U) Negative Negative [facility] Random urine microalbumin me asurementOrdered By: Kelechi Lomeli on 02-22-2024 Urine Random Microalbumin 10.3 mg/L NO RANGE EST. [facility] Screening prostate specific antigen (PSA) measurementOrdered By: Kelechi Lomeli on 02-22-2024 Prostate Specific Antigen Screen 0.30 ng/mL 0.00-4.00 [facility] Comment on above: This test was perfor med using the TPSA assay method for the[employer] chemistry system. Values obtained with differentassay methods cannot be used interchangably.When changing PSA assays in the course of monitoring apatient, additional sequential testing should be carriedout to confirm baseline values. Serum anion gap measurementO rdered By: Kelechi Lomeli on 02-22-2024 Anion gap [Moles/Vol] 9 mmol/L 5-15 [facility] Serum globulin measurementOr dered By: Kelechi Lomeli 02-22-2024 Globulin (S) [Mass/Vol] 3.7 g/dL 2.2-4.2 [facility] Serum or plasma alanine peres otransferase (ALT) measurementOrdered By: Kelechi Lomeli 02-22-2024 ALT [Catalytic activity/Vol] 15 U/L Low 16-61 [facility] Serum or plasma albumin rosibel urement (mass/volume)Ordered By: Kelechi Lomeli 02-22-2024 Albumin [Mass/Vol] 3.2 g/dL 3.2-5.0 [facility] Serum or plasma alkaline shoshana sphatase measurementOrdered By: Kelechi Lomeli 02-22-2024 ALP [Catalytic activity/Vol] 94 U/L 45-117 [facility] Serum or plasma calcium rosibel urement (mass/volume)Ordered By: Kelechi Lomeli 02-22-2024 Calcium [Mass/Vol] 9.5 mg/dL 8.5-10.1 [facility] Serum or plasma cholesterol measurement (mass/volume)Ordered By: Kelechi Loemli 02-22-2024 Cholesterol [Mass/Vol] 198 mg/dL <200 [facility] Comment on above: <200 mg/dL Desirable 200-240 mg/dL Borderline >240 mg/dL High Risk Serum or plasma creatinine m easurement (mass/volume)Ordered By: Kelechi Lomeli 02-22-2024 Creatinine [Mass/Vol] 0.76 mg/dL 0.70-1.30 [facility] Comment on above: The validity of the calculated GFR & GFRAA in patients over 70 years has not been determined. Clinical correlation is essential. Serum or plasma urea nitroge n measurement (mass/volume)Ordered By: Kelechi Lomeli on 02-22-2024 Urea nitrogen [Mass/Vol] 15 mg/dL 7-18 [facility] Sodium levelOrdered By: Kelechi Lomeli on 02-22-2024 Sodium [Moles/Vol] 134 mmol/L Low 136-145 [facility] TSH QnOrdered By: Kelechi Lomeli o n 02-22-2024 Thyroid Stimulating Hormone (TSH) 3.750 uIU/mL High 0.358-3.740 [facility] Thyroid Stim Hormone (TSH)on 02-22-2024 TSH 3.750 uIU/mL High 0.358-3.740 [facility] Comment on above: Performed By: #### L 509.6001, L3300.1000, L3410.9998, L3300.1500 #### [facility] [address] [place], [address] Total proteinOrdered By: Kelechi Lomeli on 02-22-2024 Protein [Mass/Vol] 6.9 g/dL 6.4-8.2 [facility] Triglycerides measurementOrd ered By: Kelechi Lomeli on 02-22-2024 Triglyceride [Mass/Vol] 183 mg/dL <199 [facility] Comment on above: The drugs N-Acetylcy steine and Metamizole may falsely depress this assay.Serum Triglycerides Reference Interval Normal <150 mg/dL Borderline high 150 - 199 mg/dL High 200 - 499 mg/dL Very High > or = 500 mg/dL Urinalysis, Completeon 02-21 BACTERIA 3+ /hpf Normal None Seen [facility] Comment on above: Order Comment: Urine , Random Performed By: #### L 509.6001, L3300.1000, L3410.9998, L3300.1500 #### [facility] [address] [place], [address] EPI,SQUAMOUS 0 SEEN Normal 0-5 [facility] Comment on above: Order Comment: Urine , Random Performed By: #### L 509.6001, L3300.1000, L3410.9998, L3300.1500 #### [facility] [address] [place], [address] Mucus Ql (Urine sed) 0 SEEN Normal [facility] Comment on above: Order Comment: Urine , Random Performed By: #### L 509.6001, L3300.1000, L3410.9998, L3300.1500 #### [facility] [address] [place], [address] RBC 0 SEEN Normal 0-5 [facility] Comment on above: Order Comment: Urine , Random Performed By: #### L 509.6001, L3300.1000, L3410.9998, L3300.1500 #### [facility] [address] [place], [address] WBC 0 SEEN Normal 0-5 [facility] Comment on above: Order Comment: Urine , Random Performed By: #### L 509.6001, L3300.1000, L3410.9998, L3300.1500 #### [facility] [address] [place], [address] Urine blood detectionOrdered By: Kelechi Lomeli on 02-22-2024 Urine Occult Blood Negative Negative [facility] Urine clarityOrdered By: Kelechi Lomeli on 02-22-2024 Clarity (U) Clear Clear [facility] Urine color determinationOrd ered By: Kelechi Lomeli on 02-22-2024 Color (U) Yellow Yellow [facility] Urine cultureOrdered By: Kelechi Lomeli on 02-22-2024 Bacteria identified Cx Nom (U) Enterobacter cloacae complex Abnormal [facility] Bacteria identified Cx Nom (U) Klebsiella oxytoca Abnormal [facility] Urine leukocyte esterase det ection by dipstickOrdered By: Kelechi Lomeli on 02-22-2024 Leukocyte esterase Test strip Ql (U) Negative Negative [facility] Urine pHOrdered By: Kelechi Lomeli on 02-22-2024 pH (U) 6.0 [pH] 5.0 - 8.0 [facility] Urine sediment bacteria coun t by microscopy (number/high power field)Ordered By: Kelechi Lomeli on 02-22-2024 Bacteria LM.HPF (Urine sed) [#/Area] 3 /[HPF] None Seen [facility] Urine specific gravity measu rementOrdered By: Kelechi Lomeli on 02-22-2024 Specific gravity (U) [Rel density] 1.015 1.002-1.030 [facility] Urobilinogen Ql (U)Ordered B y: Kelechi Lomeli on 02-22-2024 Urine Urobilinogen Normal mg/dl Normal [facility] Very low density lipoprotein (VLDL) cholesterol measurementOrdered By: Kelechi Bakerok on 02-22-2024 VLDL Cholesterol 37 mg/dL 5-40 [facility] White blood cell countOrdere d By: Kelechi Lomeli on 02-22-2024 Urine WBC 0 SEEN /hpf 0-5 [facility] CBC W/Diff, Automatedon 07-3 Absolute Lymph 2.00 X10 3/uL Normal 0.83-4.51 [facility] Comment on above: Performed By: #### L 501.9985, L100.0100, L501.9520, L500.4050, L500.4100 #### [facility] [address] [facility] [address] Absolute Neut 7.4 X10 3/uL Normal 2.0-7.7 [facility] Comment on above: Performed By: #### L 501.9985, L100.0100, L501.9520, L500.4050, L500.4100 #### [facility] [address] [place], [address] Basophils/100 WBC (Bld) 0.8 % Normal 0-1 [facility] Comment on above: Performed By: #### L 501.9985, L100.0100, L501.9520, L500.4050, L500.4100 #### [facility] [address] [place], [address] Eosinophils/100 WBC (Bld) 1.4 % Normal 0-5 [facility] Comment on above: Performed By: #### L 501.9985, L100.0100, L501.9520, L500.4050, L500.4100 #### [facility] [address] [place], [address] Erythrocyte distribution width (RBC) [Ratio] 14.4 % Normal 11.6-14.6 [facility] Comment on above: Performed By: #### L 501.9985, L100.0100, L501.9520, L500.4050, L500.4100 #### [facility] [address] [place], [address] Hematocrit (Bld) [Volume fraction] 48.2 % Normal 40-54 [facility] Comment on above: Performed By: #### L 501.9985, L100.0100, L501.9520, L500.4050, L500.4100 #### [facility] [address] [place], [address] Hemoglobin (Bld) [Mass/Vol] 15.3 g/dL Normal 13.0-16.5 [facility] Comment on above: Performed By: #### L 501.9985, L100.0100, L501.9520, L500.4050, L500.4100 #### [facility] [address] [place], [address] IG% 0.700 Normal 0.0-0.9 [facility] Comment on above: Result Comment: IG% - Immature Granulocytes (promyelocytes, myelocytes and metamyelocytes) > 1% indicates that a LEFT SHIFT is Present. Performed By: #### L 501.9985, L100.0100, L501.9520, L500.4050, L500.4100 #### [facility] [address] [place], [address] Lymphocytes/100 WBC (Bld) 19.3 % Normal 19-41 [facility] Comment on above: Performed By: #### L 501.9985, L100.0100, L501.9520, L500.4050, L500.4100 #### [facility] [address] [place], [address] MCH (RBC) [Entitic mass] 26.7 pg Low 27.0-32.0 [facility] Comment on above: Performed By: #### L 501.9985, L100.0100, L501.9520, L500.4050, L500.4100 #### [facility] [address] [place], [address] MCHC (RBC) [Mass/Vol] 31.7 g/dL Low 32-36 [facility] Comment on above: Performed By: #### L 501.9985, L100.0100, L501.9520, L500.4050, L500.4100 #### [facility] [address] [place], [address] MCV (RBC) [Entitic vol] 84.1 fL Normal 80-94 [facility] Comment on above: Performed By: #### L 501.9985, L100.0100, L501.9520, L500.4050, L500.4100 #### [facility] [address] [place], [address] Monocytes/100 WBC (Bld) 6.5 % Normal 0-10 [facility] Comment on above: Performed By: #### L 501.9985, L100.0100, L501.9520, L500.4050, L500.4100 #### [facility] [address] [place], [address] Neutrophils/100 WBC (Bld) 71.3 % High 47-70 [facility] Comment on above: Performed By: #### L 501.9985, L100.0100, L501.9520, L500.4050, L500.4100 #### [facility] [address] [place], [address] Nucleated RBC (Bld) [#/Vol] 0 10*3/uL Normal 0-5 [facility] Comment on above: Performed By: #### L 501.9985, L100.0100, L501.9520, L500.4050, L500.4100 #### [facility] [address] [place], [address] Platelet mean volume (Bld) [Entitic vol] 9.2 fL Normal 6.2-12.0 [facility] Comment on above: Performed By: #### L 501.9985, L100.0100, L501.9520, L500.4050, L500.4100 #### [facility] [address] [place], [address] Platelets (Bld) [#/Vol] 298 10*3/uL Normal 150-450 [facility] Comment on above: Performed By: #### L 501.9985, L100.0100, L501.9520, L500.4050, L500.4100 #### [facility] [address] [place], [address] RBC (Bld) [#/Vol] 5.73 10*6/uL Normal 4.6-6.2 [facility] Comment on above: Performed By: #### L [id number], L100.0100, L501.9520, L500.4050, L500.4100 #### [facility] [address] [place], [address] RDW SD 43.8 fl Normal 35.1-43.9 [facility] Comment on above: Performed By: #### L [id number], L100.0100, L501.9520, L500.4050, L500.4100 #### [facility] [address] [place], [address] WBC (Bld) [#/Vol] 10.4 10*3/uL Normal 4.4-11.0 [facility] Comment on above: Performed By: #### L [id number], L100.0100, L501.9520, L500.4050, L500.4100 #### [facility] [address] [place], [address] Comprehensive Metabolic Prof ilon 11-10-2023 Albumin [Mass/Vol] 3.0 g/dL Low 3.2-5.0 [facility] Comment on above: Performed By: #### L [id number], L100.0100, L501.9520, L500.4050, L500.4100 #### [facility] [address] [place], [address] Albumin/Globulin [Mass ratio] 0.8 {ratio} Low 0.9-2.4 [facility] Comment on above: Performed By: #### L 501.9985, L100.0100, L501.9520, L500.4050, L500.4100 #### [facility] [address] [place], [address] ALK P 94 U/L Normal 45-117 [facility] Comment on above: Performed By: #### L [id number], L100.0100, L501.9520, L500.4050, L500.4100 #### [facility] [address] [place], [address] ALT [Catalytic activity/Vol] 15 U/L Low 16-61 [facility] Comment on above: Performed By: #### L [id number], L100.0100, L501.9520, L500.4050, L500.4100 #### [facility] [address] [place], [address] AST [Catalytic activity/Vol] 14 U/L Low 15-37 [facility] Comment on above: Performed By: #### L 501.9985, L100.0100, L501.9520, L500.4050, L500.4100 #### [facility] [address] [place], [address] Bilirubin [Mass/Vol] 0.50 mg/dL Normal 0.20-1.00 [facility] Comment on above: Result Comment: For patients on eltrombopag therapy, use of Dimension [place] TBIL is not recommended. Performed By: #### L 501.9985, L100.0100, L501.9520, L500.4050, L500.4100 #### [facility] [address] [place], [address] BUN/CRE 16.1 RATIO Normal 10-20 [facility] Comment on above: Performed By: #### L 501.9985, L100.0100, L501.9520, L500.4050, L500.4100 #### [facility] [address] [place], [address] CA,Total 9.3 mg/dL Normal 8.5-10.1 [facility] Comment on above: Performed By: #### L 501.9985, L100.0100, L501.9520, L500.4050, L500.4100 #### [facility] [address] [place], [address] Chloride [Moles/Vol] 97 mmol/L Low 98-107 [facility] Comment on above: Performed By: #### L [id number], L100.0100, L501.9520, L500.4050, L500.4100 #### [facility] [address] [place], [address] CO2 [Moles/Vol] 30.0 mmol/L Normal 21.0-32.0 [facility] Comment on above: Performed By: #### L [id number], L100.0100, L501.9520, L500.4050, L500.4100 #### [facility] [address] [place], [address] Creatinine [Mass/Vol] 0.93 mg/dL Normal 0.70-1.30 [facility] Comment on above: Result Comment: The validity of the calculated GFR GFRAA in patients over 70 years has not been determined. Clinical correlation is essential. Performed By: #### L 501.9985, L100.0100, L501.9520, L500.4050, L500.4100 #### [facility] [address] [place], [address] EST GFR - AA 105 mL/min Normal >60 [facility] Comment on above: Result Comment: Afri can Vincentian GFR Calc Performed By: #### L [id number], L100.0100, L501.9520, L500.4050, L500.4100 #### [facility] [address] [place], [address] GAP 7 Normal 5-15 [facility] Comment on above: Performed By: #### L 501.9985, L100.0100, L501.9520, L500.4050, L500.4100 #### [facility] [address] [place], [address] GFR/1.73 sq M.predicted among non-blacks MDRD (S/P/Bld) [Vol rate/Area] 87 mL/min/{1.73_m2} Normal >60 [facility] Comment on above: Result Comment: Non- GFR Calc Performed By: #### L 501.9985, L100.0100, L501.9520, L500.4050, L500.4100 #### [facility] [address] [place], [address] Globulin (S) [Mass/Vol] 3.7 g/dL Normal 2.2-4.2 [facility] Comment on above: Performed By: #### L [id number], L100.0100, L501.9520, L500.4050, L500.4100 #### [facility] [address] [place], [address] Glucose [Mass/Vol] 341 mg/dL High 74-106 [facility] Comment on above: Result Comment: Gluc ose result greater than or equal to 200 mg/dL suggests DIABETES MELLITUS per A.D.A. criteria. Performed By: #### L 501.9985, L100.0100, L501.9520, L500.4050, L500.4100 #### [facility] [address] [place], [address] Potassium [Moles/Vol] 4.3 mmol/L Normal 3.5-5.1 [facility] Comment on above: Performed By: #### L 501.9985, L100.0100, L501.9520, L500.4050, L500.4100 #### [facility] [address] [place], [address] Sodium [Moles/Vol] 134 mmol/L Low 136-145 [facility] Comment on above: Performed By: #### L [id number], L100.0100, L501.9520, L500.4050, L500.4100 #### [facility] [address] [place], [address] T PROT 6.7 g/dL Normal 6.4-8.2 [facility] Comment on above: Performed By: #### L 501.9985, L100.0100, L501.9520, L500.4050, L500.4100 #### [facility] [address] [place], [address] Urea nitrogen [Mass/Vol] 15 mg/dL Normal 7-18 [facility] Comment on above: Performed By: #### L 501.9985, L100.0100, L501.9520, L500.4050, L500.4100 #### [facility] [address] [place], [address] Hemoglobin A1con 11-10-2023 HbA1c (Bld) [Mass fraction] 11.6 % High 3.8-5.6 [facility] Comment on above: Result Comment: Norm al < 5.7 % Prediabetic 5.7 - 6.4 % Diabetic >or= 6.5 % Please note range changes. Performed By: #### L 501.9985, L100.0100, L501.9520, L500.4050, L500.4100 #### [facility] [address] [place], [address] Lipid Profileon 11-10-2023 Cholesterol [Mass/Vol] 189 mg/dL Normal 200 [facility] Comment on above: Result Comment: <200 mg/dL Desirable 200-240 mg/dL Borderline >240 mg/dL High Risk Performed By: #### L 501.9985, L100.0100, L501.9520, L500.4050, L500.4100 #### [facility] [address] [place], [address] Cholesterol in HDL [Mass/Vol] 37 mg/dL Low [facility] Comment on above: Result Comment: The drugs N-Acetylcysteine and Metamizole may falsely depress this assay. Reference Range HDL <40 mg/dL Low HDL Cholesterol HDL >or= 60 mg/dL High HDL Cholesterol Performed By: #### L [id number], L100.0100, L501.9520, L500.4050, L500.4100 #### [facility] [address] [place], [address] Cholesterol in LDL [Mass/Vol] 115 mg/dL Normal 0-130 [facility] Comment on above: Performed By: #### L [id number], L100.0100, L501.9520, L500.4050, L500.4100 #### [facility] [address] [place], [address] Cholesterol in VLDL [Mass/Vol] 37 mg/dL Normal 5-40 [facility] Comment on above: Performed By: #### L [id number], L100.0100, L501.9520, L500.4050, L500.4100 #### [facility] [address] [place], [address] Triglyceride [Mass/Vol] 185 mg/dL Normal [facility] Comment on above: Result Comment: The drugs N-Acetylcysteine and Metamizole may falsely depress this assay. Serum Triglycerides Reference Interval Normal <150 mg/dL Borderline high 150 - 199 mg/dL High 200 - 499 mg/dL Very High > or = 500 mg/dL Performed By: #### L [id number], L100.0100, L501.9520, L500.4050, L500.4100 #### [facility] [address] [place], [address] Thyroid Stim Hormone (TSH)on 11-10-2023 TSH 2.12 uIU/mL Normal 0.358-3.74 [facility] Comment on above: Performed By: #### L [id number], L100.0100, L501.9520, L500.4050, L500.4100 #### [facility] [address] [place], [address] Absolute lymphocyte countOrd ered By: Kelechi Lomeli on 08-17-2023 Lymphocytes Auto (Unsp spec) [#/Vol] 2.09 10*3/uL 0.83-4.51 [facility] Automated lymphocyte count a s percentage of total leukocytesOrdered By: Kelechi Lomeli on 08-17-2023 Lymphocytes/100 WBC Auto (Unsp spec) 17.5 % 19-41 [facility] Basophil percentageOrdered B y: Kelechi Lomeli on 08-17-2023 Basophils/100 WBC (Bld) 0.6 % 0-1 [facility] Bilirubin [Mass/Vol] 0.30 mg/dL 0.20-1.00 [facility] Comment on above: For patients on eltr ombopag therapy, use of Dimension [place] TBIL is not recommended. Chloride [Moles/Vol] 100 mmol/L 98-107 [facility] Cholesterol [Mass/Vol] 190 mg/dL <200 [facility] Comment on above: <200 mg/dL Desirable 200-240 mg/dL Borderline >240 mg/dL High Risk Eosinophils/100 WBC (Bld) 1.5 % 0-5 [facility] Glucose [Mass/Vol] 306 mg/dL 74-106 [facility] Comment on above: Glucose result great er than or equal to 200 mg/dLsuggests DIABETES MELLITUS per A.D.A. criteria. Hemoglobin (Bld) [Mass/Vol] 15.4 g/dL 13.0-16.5 [facility] Monocytes/100 WBC (Bld) 6.5 % 0-10 [facility] Neutrophils (Bld) [#/Vol] 8.8 10*3/uL 2.0-7.7 [facility] Neutrophils/100 WBC (Bld) 73.4 % 47-70 [facility] Potassium [Moles/Vol] 4.2 mmol/L 3.5-5.1 [facility] Protein [Mass/Vol] 6.8 g/dL 6.4-8.2 [facility] Sodium [Moles/Vol] 132 mmol/L 136-145 [facility] Triglyceride [Mass/Vol] 208 mg/dL <199 [facility] Comment on above: The drugs N-Acetylcy steine and Metamizole may falsely depress this assay.Serum Triglycerides Reference Interval Normal <150 mg/dL Borderline high 150 - 199 mg/dL High 200 - 499 mg/dL Very High > or = 500 mg/dL WBC (Bld) [#/Vol] 12.0 10*3/uL 4.4-11.0 [facility] Determination of erythrocyte mean corpuscular volume (MCV)Ordered By: Kelechi Armani on 08-17-2023 MCV (RBC) [Entitic vol] 84.8 fL 80-94 [facility] Erythrocyte distribution wid th ratioOrdered By: [facility] on 08-17-2023 Erythrocyte distribution width (RBC) [Ratio] 14.4 % 11.6-14.6 [facility] Erythrocyte distribution wid th standard deviationOrdered By: [facility] on 08-17-2023 Erythrocyte distribution width (RBC) [Entitic vol] 44.5 fL 35.1-43.9 [facility] Hematocrit Auto (Bld) [Volum e fraction]Ordered By: [facility] on 08-17-2023 Hematocrit (Bld) [Volume fraction] 48.0 % 40-54 [facility] Immature granulocytes/100 WB C Auto (Bld)Ordered By: [facility] on 08-17-2023 Immature granulocytes/100 WBC (Bld) 0.500 % 0.0-0.9 [facility] Comment on above: IG% - Immature Granu locytes (promyelocytes, myelocytes and metamyelocytes) > 1% indicates that a LEFT SHIFT is Present. Laboratory - Chemistry and C hemistry - challengeOrdered By: [facility] on 08-17-2023 Albumin/Globulin [Mass ratio] 0.9 {ratio} 0.9-2.4 [facility] ALP [Catalytic activity/Vol] 95 U/L 45-117 [facility] ALT [Catalytic activity/Vol] 23 U/L 16-61 [facility] Cholesterol in HDL [Mass/Vol] 38 mg/dL >40 [facility] Comment on above: The drugs N-Acetylcy steine and Metamizole may falsely depress this assay. Reference Range HDL <40 mg/dL Low HDL Cholesterol HDL >or= 60 mg/dL High HDL Cholesterol Cholesterol in LDL [Mass/Vol] 110 mg/dL 0-130 [facility] CO2 [Moles/Vol] 26.0 mmol/L 21.0-32.0 [facility] Globulin (S) [Mass/Vol] 3.6 g/dL 2.2-4.2 [facility] Urea nitrogen/Creatinine [Mass ratio] 26.1 mg/mg 10-20 [facility] - Hematology and Cell countsOrdered By: Kelechi Lomeli on 08-17-2023 MCH (RBC) [Entitic mass] 27.2 pg 27.0-32.0 [facility] MCHC (RBC) [Mass/Vol] 32.1 g/dL 32-36 [facility] Nucleated RBC/100 WBC (Bld) [Ratio] 0 % 0-5 [facility] Platelet mean volume (Bld) [Entitic vol] 9.3 fL 6.2-12.0 [facility] Platelets (Bld) [#/Vol] 255 10*3/uL 150-450 [facility] No Panel InformationOrdered By: Kelechi Lomeli on 08-17-2023 Estimated GFR (MDRD) Amer 140 mL/min >60 [facility] Comment on above: GFR Calc Estimated GFR (MDRD) Non-Af Amer 116 mL/min >60 [facility] Comment on above: Non- GFR Calc VLDL Cholesterol 42 mg/dL 5-40 [facility] RBC Auto (Bld) [#/Vol]Ordere d By: Kelechi Lomeli on 08-17-2023 RBC (Bld) [#/Vol] 5.66 10*6/uL 4.6-6.2 [facility] Serum or plasma calcium rosibel urement (mass/volume)Ordered By: Kelechi Lomeli on 08-17-2023 Calcium [Mass/Vol] 9.3 mg/dL 8.5-10.1 [facility] Serum or plasma creatinine m easurement (mass/volume)Ordered By: Kelechi Lomeli on 08-17-2023 Creatinine [Mass/Vol] 0.73 mg/dL 0.70-1.30 [facility] Comment on above: The validity of the calculated GFR & GFRAA in patients over 70 years has not been determined. Clinical correlation is essential. Serum or plasma thyroid stim ulating hormone (TSH) measurement (units/volume)Ordered By: Kelechi Lomeli on 08-17-2023 TSH Qn 2.47 uIU/mL 0.358-3.74 [facility] Serum or plasma urea nitroge n measurement (mass/volume)Ordered By: Kelechi Lomeli on 08-17-2023 Urea nitrogen [Mass/Vol] 19 mg/dL 7-18 [facility] Thin prep Papanicolaou smear with manual screeningOrdered By: Kelechi Lomeli on 08-17-2023 Thin prep Papanicolaou smear with manual screening 3.2 g/dL 3.2-5.0 [facility] Thin prep Papanicolaou smear with manual screening 14 U/L 15-37 [facility] Thin prep Papanicolaou smear with manual screening 6 5-15 [facility] Whole blood hemoglobin A1c/t otal hemoglobin ratio (mass fraction)Ordered By: Kelechi Lomeli on 08-17-2023 HbA1c (Bld) [Mass fraction] 9.7 % 3.8-5.6 [facility] Comment on above: Normal < 5.7 % Predi abetic 5.7 - 6.4 % Diabetic >or= 6.5 % Please note range changes. Absolute lymphocyte countOrd ered By: Kelechi Lomeli on 05-27-2023 Lymphocytes Auto (Unsp spec) [#/Vol] 1.82 10*3/uL 0.83-4.51 [facility] Automated lymphocyte count a s percentage of total leukocytesOrdered By: Kelechi Lomeli on 05-27-2023 Lymphocytes/100 WBC Auto (Unsp spec) 16.9 % 19-41 [facility] Basophil percentageOrdered B y: Kelechi Armani on 05-27-2023 Basophils/100 WBC (Bld) 0.7 % 0-1 [facility] Bilirubin [Mass/Vol] 0.30 mg/dL 0.20-1.00 [facility] Comment on above: For patients on eltr ombopag therapy, use of Dimension [place] TBIL is not recommended. Chloride [Moles/Vol] 103 mmol/L 98-107 [facility] Cholesterol [Mass/Vol] 183 mg/dL <200 [facility] Comment on above: <200 mg/dL Desirable 200-240 mg/dL Borderline >240 mg/dL High Risk Eosinophils/100 WBC (Bld) 1.9 % 0-5 [facility] Glucose [Mass/Vol] 274 mg/dL 74-106 [facility] Comment on above: Glucose result great er than or equal to 200 mg/dLsuggests DIABETES MELLITUS per A.D.A. criteria. Hemoglobin (Bld) [Mass/Vol] 15.0 g/dL 13.0-16.5 [facility] Monocytes/100 WBC (Bld) 6.3 % 0-10 [facility] Neutrophils (Bld) [#/Vol] 7.9 10*3/uL 2.0-7.7 [facility] Neutrophils/100 WBC (Bld) 73.6 % 47-70 [facility] Potassium [Moles/Vol] 4.5 mmol/L 3.5-5.1 [facility] Protein [Mass/Vol] 6.8 g/dL 6.4-8.2 [facility] Sodium [Moles/Vol] 138 mmol/L 136-145 [facility] Triglyceride [Mass/Vol] 252 mg/dL <199 [facility] Comment on above: The drugs N-Acetylcy steine and Metamizole may falsely depress this assay.Serum Triglycerides Reference Interval Normal <150 mg/dL Borderline high 150 - 199 mg/dL High 200 - 499 mg/dL Very High > or = 500 mg/dL WBC (Bld) [#/Vol] 10.7 10*3/uL 4.4-11.0 [facility] Determination of erythrocyte mean corpuscular volume (MCV)Ordered By: Kelechi Lomeli on 05-27-2023 MCV (RBC) [Entitic vol] 88.2 fL 80-94 [facility] Erythrocyte distribution wid th ratioOrdered By: Kelechi Armani on 05-27-2023 Erythrocyte distribution width (RBC) [Ratio] 14.9 % 11.6-14.6 [facility] Erythrocyte distribution wid th standard deviationOrdered By: Kelechi Lomeli on 05-27-2023 Erythrocyte distribution width (RBC) [Entitic vol] 48.0 fL 35.1-43.9 [facility] Hematocrit Auto (Bld) [Volum e fraction]Ordered By: Kelechi Lomeli on 05-27-2023 Hematocrit (Bld) [Volume fraction] 47.9 % 40-54 [facility] Immature granulocytes/100 WB C Auto (Bld)Ordered By: Kelechi Lomeli on 05-27-2023 Immature granulocytes/100 WBC (Bld) 0.600 % 0.0-0.9 [facility] Comment on above: IG% - Immature Granu locytes (promyelocytes, myelocytes and metamyelocytes) > 1% indicates that a LEFT SHIFT is Present. Laboratory - Chemistry and C hemistry - challengeOrdered By: Kelechi Lomeli on 05-27-2023 Albumin/Globulin [Mass ratio] 0.8 {ratio} 0.9-2.4 [facility] ALP [Catalytic activity/Vol] 89 U/L 45-117 [facility] ALT [Catalytic activity/Vol] 24 U/L 16-61 [facility] Cholesterol in HDL [Mass/Vol] 37 mg/dL >40 [facility] Comment on above: The drugs N-Acetylcy steine and Metamizole may falsely depress this assay. Reference Range HDL <40 mg/dL Low HDL Cholesterol HDL >or= 60 mg/dL High HDL Cholesterol Cholesterol in LDL [Mass/Vol] 96 mg/dL 0-130 [facility] CO2 [Moles/Vol] 30.0 mmol/L 21.0-32.0 [facility] Globulin (S) [Mass/Vol] 3.7 g/dL 2.2-4.2 [facility] Urea nitrogen/Creatinine [Mass ratio] 22.4 mg/mg 10-20 [facility] - Hematology and Cell countsOrdered By: Kelechi Lomeli on 05-27-2023 MCH (RBC) [Entitic mass] 27.6 pg 27.0-32.0 [facility] MCHC (RBC) [Mass/Vol] 31.3 g/dL 32-36 [facility] Nucleated RBC/100 WBC (Bld) [Ratio] 0 % 0-5 [facility] Platelet mean volume (Bld) [Entitic vol] 9.0 fL 6.2-12.0 [facility] Platelets (Bld) [#/Vol] 279 10*3/uL 150-450 [facility] No Panel InformationOrdered By: Kelechi Lomeli on 05-27-2023 Estimated GFR (MDRD) Amer 117 mL/min >60 [facility] Comment on above: GFR Calc Estimated GFR (MDRD) Non-Af Amer 97 mL/min >60 [facility] Comment on above: Non- GFR Calc VLDL Cholesterol 50 mg/dL 5-40 [facility] RBC Auto (Bld) [#/Vol]Ordere d By: Kelechi Lomeli on 05-27-2023 RBC (Bld) [#/Vol] 5.43 10*6/uL 4.6-6.2 [facility] Serum or plasma calcium rosibel urement (mass/volume)Ordered By: Kelechi Lomeli on 05-27-2023 Calcium [Mass/Vol] 9.3 mg/dL 8.5-10.1 [facility] Serum or plasma creatinine m easurement (mass/volume)Ordered By: Kelechi Lomeli on 05-27-2023 Creatinine [Mass/Vol] 0.85 mg/dL 0.70-1.30 [facility] Comment on above: The validity of the calculated GFR & GFRAA in patients over 70 years has not been determined. Clinical correlation is essential. Serum or plasma thyroid stim ulating hormone (TSH) measurement (units/volume)Ordered By: Kelechi Lomeli on 05-27-2023 TSH Qn 2.87 uIU/mL 0.358-3.74 [facility] Serum or plasma urea nitroge n measurement (mass/volume)Ordered By: Kelechi Lomeli on 05-27-2023 Urea nitrogen [Mass/Vol] 19 mg/dL 7-18 [facility] Thin prep Papanicolaou smear with manual screeningOrdered By: Kelechi Lomeli on 05-27-2023 Thin prep Papanicolaou smear with manual screening 3.1 g/dL 3.2-5.0 [facility] Thin prep Papanicolaou smear with manual screening 22 U/L 15-37 [facility] Thin prep Papanicolaou smear with manual screening 5 5-15 [facility] Whole blood hemoglobin A1c/t otal hemoglobin ratio (mass fraction)Ordered By: Kelechi Lomeli on 05-27-2023 HbA1c (Bld) [Mass fraction] 9.9 % 3.8-5.6 [facility] Comment on above: Normal < 5.7 % Predi abetic 5.7 - 6.4 % Diabetic >or= 6.5 % Please note range changes. Absolute lymphocyte countOrd ered By: Kelechi Lomeli on 02-18-2023 Lymphocytes Auto (Unsp spec) [#/Vol] 1.80 10*3/uL 0.83-4.51 [facility] Basophil percentageOrdered B y: Kelechi Lomeli on 02-18-2023 Basophil percentage >100 SEEN /hpf 0-5 [facility] Comment on above: Microscopic field is filled. Other elements may be obscured. Basophils/100 WBC (Bld) 0.8 % 0-1 [facility] Bilirubin [Mass/Vol] 0.30 mg/dL 0.20-1.00 [facility] Comment on above: For patients on eltr ombopag therapy, use of Dimension [place] TBIL is not recommended. Chloride [Moles/Vol] 101 mmol/L 98-107 [facility] Cholesterol [Mass/Vol] 195 mg/dL <200 [facility] Comment on above: <200 mg/dL Desirable 200-240 mg/dL Borderline >240 mg/dL High Risk Eosinophils/100 WBC (Bld) 1.8 % 0-5 [facility] Glucose [Mass/Vol] 235 mg/dL 74-106 [facility] Comment on above: Glucose result great er than or equal to 200 mg/dLsuggests DIABETES MELLITUS per A.D.A. criteria. Neutrophils (Bld) [#/Vol] 6.3 10*3/uL 2.0-7.7 [facility] Neutrophils/100 WBC (Bld) 69.8 % 47-70 [facility] Potassium [Moles/Vol] 4.3 mmol/L 3.5-5.1 [facility] Protein [Mass/Vol] 6.9 g/dL 6.4-8.2 [facility] Sodium [Moles/Vol] 135 mmol/L 136-145 [facility] Triglyceride [Mass/Vol] 223 mg/dL <199 [facility] Comment on above: The drugs N-Acetylcy steine and Metamizole may falsely depress this assay.Serum Triglycerides Reference Interval Normal <150 mg/dL Borderline high 150 - 199 mg/dL High 200 - 499 mg/dL Very High > or = 500 mg/dL WBC (Bld) [#/Vol] 9.0 10*3/uL 4.4-11.0 [facility] Bilirubin Test strip Ql (U)O rdered By: Kelechi Lomeli on 02-18-2023 Bilirubin Ql (U) Negative Negative [facility] Blood erythrocytes count (nu mber/volume)Ordered By: Kelechi Lomeli on 02-18-2023 RBC (Bld) [#/Vol] 5.32 10*6/uL 4.6-6.2 [facility] Blood hemoglobin measurement (mass/volume)Ordered By: Kelechi Lomeli on 02-18-2023 Hemoglobin (Bld) [Mass/Vol] 14.7 g/dL 13.0-16.5 [facility] Blood lymphocytes/100 leukoc ytesOrdered By: Kelechi Lomeli on 02-18-2023 Lymphocytes/100 WBC (Bld) 19.9 % 19-41 [facility] Blood monocytes/100 leukocyt esOrdered By: Kelechi Lomeli on 02-18-2023 Monocytes/100 WBC (Bld) 7.3 % 0-10 [facility] Blood platelet mean volumeOr dered By: Kelechi Lomeli on 02-18-2023 Platelet mean volume (Bld) [Entitic vol] 9.6 fL 6.2-12.0 [facility] Culture, urineOrdered By: Balaji Lomeli on 02-18-2023 Bacteria identified Cx Nom (U) Escherichia coli [facility] Determination of erythrocyte mean corpuscular volume (MCV)Ordered By: Kelechi Lomeli on 02-18-2023 MCV (RBC) [Entitic vol] 89.3 fL 80-94 [facility] Hematocrit Auto (Bld) [Volum e fraction]Ordered By: Kelechi Lomeli on 02-18-2023 Hematocrit (Bld) [Volume fraction] 47.5 % 40-54 [facility] Ketones Test strip Ql (U)Ord ered By: Kelechi Lomeli on 02-18-2023 Ketones Ql (U) Negative Negative [facility] - Chemistry and C hemistry - challengeOrdered By: Kelechi Lomeli on 02-18-2023 ALP [Catalytic activity/Vol] 84 U/L 45-117 [facility] ALT [Catalytic activity/Vol] 19 U/L 16-61 [facility] CO2 [Moles/Vol] 30.0 mmol/L 21.0-32.0 [facility] Globulin (S) [Mass/Vol] 3.7 g/dL 2.2-4.2 [facility] Urea nitrogen/Creatinine [Mass ratio] 21.2 mg/mg 10-20 [facility] - Hematology and Cell countsOrdered By: Kelechi Lomeli on 02-18-2023 Erythrocyte distribution width (RBC) [Entitic vol] 51.3 fL 35.1-43.9 [facility] Erythrocyte distribution width (RBC) [Ratio] 15.8 % 11.6-14.6 [facility] Immature granulocytes/100 WBC (Bld) 0.400 % 0.0-0.9 [facility] Comment on above: IG% - Immature Granu locytes (promyelocytes, myelocytes and metamyelocytes) > 1% indicates that a LEFT SHIFT is Present. MCH (RBC) [Entitic mass] 27.6 pg 27.0-32.0 [facility] Nucleated RBC/100 WBC (Bld) [Ratio] 0 % 0-5 [facility] MCHC Auto (RBC) [Mass/Vol]Or dered By: Kelechi Lomeli on 02-18-2023 MCHC (RBC) [Mass/Vol] 30.9 g/dL 32-36 [facility] Mucus LM Ql (Urine sed)Order ed By: Kelechi Lomeli on 02-18-2023 Mucus Ql (Urine sed) 0 SEEN /hpf [facility] Nitrite Test strip Ql (U)Ord ered By: Kelechi Lomeli 02-18-2023 Nitrite Ql (U) Positive Negative [facility] No Panel InformationOrdered By: Kelechi Lomeli on 02-18-2023 Estimated GFR (MDRD) Amer 117 mL/min >60 [facility] Comment on above: GFR Calc Estimated GFR (MDRD) Non-Af Amer 97 mL/min >60 [facility] Comment on above: Non- GFR Calc Prostate Specific Antigen Screen 0.80 ng/mL 0.00-4.00 [facility] Comment on above: This test was perfor med using the TPSA assay method for the[employer] chemistry system. Values obtained with differentassay methods cannot be used interchangably.When changing PSA assays in the course of monitoring apatient, additional sequential testing should be carriedout to confirm baseline values. Thyroid Stimulating Hormone (TSH) 2.67 uIU/mL 0.358-3.74 [facility] Platelets bldOrdered By: Kelechi Lomeli on 02-18-2023 Platelets (Bld) [#/Vol] 277 10*3/uL 150-450 [facility] Protein Test strip Ql (U)Ord ered By: Kelechi Lomeli on 02-18-2023 Protein Ql (U) 100 mg/dl Negative [facility] Serum or plasma albumin rosibel urement (mass/volume)Ordered By: Kelechi Lomeli on 02-18-2023 Albumin [Mass/Vol] 3.2 g/dL 3.2-5.0 [facility] Serum or plasma albumin/glob ulin mass ratioOrdered By: Kelechi Lomeli on 02-18-2023 Albumin/Globulin [Mass ratio] 0.9 {ratio} 0.9-2.4 [facility] Serum or plasma calcium rosibel urement (mass/volume)Ordered By: eKlechi Lomeli 02-18-2023 Calcium [Mass/Vol] 9.2 mg/dL 8.5-10.1 [facility] Serum or plasma cholesterol in HDL measurement (mass/volume)Ordered By: Kelechi Lomeli 02-18-2023 Cholesterol in HDL [Mass/Vol] 39 mg/dL >40 [facility] Comment on above: The drugs N-Acetylcy steine and Metamizole may falsely depress this assay. Reference Range HDL <40 mg/dL Low HDL Cholesterol HDL >or= 60 mg/dL High HDL Cholesterol Serum or plasma cholesterol in VLDL measurement (mass/volume)Ordered By: Kelechi Lomeli 02-18-2023 Cholesterol in VLDL [Mass/Vol] 45 mg/dL 5-40 [facility] Serum or plasma creatinine m easurement (mass/volume)Ordered By: Kelechi Lomeli 02-18-2023 Creatinine [Mass/Vol] 0.85 mg/dL 0.70-1.30 [facility] Comment on above: The validity of the calculated GFR & GFRAA in patients over 70 years has not been determined. Clinical correlation is essential. Serum or plasma low density lipoprotein (LDL) cholesterol measurement (mass/volume)Ordered By: Kelechi Lomeli 02-18-2023 Cholesterol in LDL [Mass/Vol] 111 mg/dL 0-130 [facility] Serum or plasma urea nitroge n measurement (mass/volume)Ordered By: Kelechi Lomeli 02-18-2023 Urea nitrogen [Mass/Vol] 18 mg/dL 7-18 [facility] Squamous epithelial cells de tection in urine sediment by light microscopyOrdered By: Kelechi Lomeli on 02-18-2023 Epithelial cells.squamous LM Ql (Urine sed) 0 SEEN /hpf 0-5 [facility] Thin prep Papanicolaou smear with manual screeningOrdered By: Kelechi Lomeli on 02-18-2023 Thin prep Papanicolaou smear with manual screening 12 U/L 15-37 [facility] Thin prep Papanicolaou smear with manual screening 4 5-15 [facility] Thin prep Papanicolaou smear with manual screening 73.6 mg/L NO RANGE EST. [facility] Urine blood detectionOrdered By: Kelechi Lomeli on 02-18-2023 RBC Ql (U) 50 /ul Negative [facility] RBC Ql (U) 0-5 SEEN /hpf 0-5 [facility] Urine clarityOrdered By: Kelechi Lomeli on 02-18-2023 Clarity (U) Cloudy Clear [facility] Urine color determinationOrd ered By: Kelechi Lomeli on 02-18-2023 Color (U) Yellow Yellow [facility] Urine glucose detectionOrder ed By: Kelechi Lomeli on 02-18-2023 Glucose Ql (U) 1000 mg/dl Normal [facility] Urine leukocyte esterase det ection by dipstickOrdered By: Kelechi Lomeli on 02-18-2023 Leukocyte esterase Test strip Ql (U) 500 /ul Negative [facility] Urine pHOrdered By: Kelechi Lomeli on 02-18-2023 pH (U) 6.0 [pH] 5.0 - 8.0 [facility] Urine sediment bacteria coun t by microscopy (number/high power field)Ordered By: Kelechi Lomeli on 02-18-2023 Bacteria LM.HPF (Urine sed) [#/Area] 2 /[HPF] None Seen [facility] Urine specific gravity measu rementOrdered By: Kelechi Lomeli on 02-18-2023 Specific gravity (U) [Rel density] 1.015 1.002-1.030 [facility] Urobilinogen Auto test strip Ql (U)Ordered By: Kelechi Lomeli on 02-18-2023 Urobilinogen Ql (U) Normal mg/dl Normal [facility] Whole blood hemoglobin A1c/t otal hemoglobin ratio (mass fraction)Ordered By: Kelechi Lomeli on 02-18-2023 HbA1c (Bld) [Mass fraction] 9.5 % 3.8-5.6 [facility] Comment on above: Normal < 5.7 % Predi abetic 5.7 - 6.4 % Diabetic >or= 6.5 % Please note range changes. Absolute lymphocyte countOrd ered By: Dr. Lomeli on 08-20-2022 Lymphocytes Auto (Unsp spec) [#/Vol] 1.65 10*3/uL 0.83-4.51 [facility] Basophil percentageOrdered B y: Dr. Lomeli on 08-20-2022 Basophils/100 WBC (Bld) 0.7 % 0-1 [facility] Bilirubin [Mass/Vol] 0.20 mg/dL 0.20-1.00 [facility] Comment on above: For patients on eltr ombopag therapy, use of Dimension [place] TBIL is not recommended. Chloride [Moles/Vol] 107 mmol/L 98-107 [facility] Cholesterol [Mass/Vol] 172 mg/dL <200 [facility] Comment on above: <200 mg/dL Desirable 200-240 mg/dL Borderline >240 mg/dL High Risk Eosinophils/100 WBC (Bld) 1.2 % 0-5 [facility] Glucose [Mass/Vol] 252 mg/dL 74-106 [facility] Comment on above: Glucose result great er than or equal to 200 mg/dLsuggests DIABETES MELLITUS per A.D.A. criteria. Neutrophils (Bld) [#/Vol] 7.9 10*3/uL 2.0-7.7 [facility] Neutrophils/100 WBC (Bld) 74.6 % 47-70 [facility] Potassium [Moles/Vol] 4.4 mmol/L 3.5-5.1 [facility] Protein [Mass/Vol] 6.6 g/dL 6.4-8.2 [facility] Sodium [Moles/Vol] 140 mmol/L 136-145 [facility] Triglyceride [Mass/Vol] 194 mg/dL <199 [facility] Comment on above: The drugs N-Acetylcy steine and Metamizole may falsely depress this assay.Serum Triglycerides Reference Interval Normal <150 mg/dL Borderline high 150 - 199 mg/dL High 200 - 499 mg/dL Very High > or = 500 mg/dL WBC (Bld) [#/Vol] 10.5 10*3/uL 4.4-11.0 [facility] Blood erythrocytes count (nu mber/volume)Ordered By: Dr. Lomeli on 08-20-2022 RBC (Bld) [#/Vol] 5.26 10*6/uL 4.6-6.2 [facility] Blood hemoglobin measurement (mass/volume)Ordered By: Dr. Lomeli on 08-20-2022 Hemoglobin (Bld) [Mass/Vol] 14.6 g/dL 13.0-16.5 [facility] Blood lymphocytes/100 leukoc ytesOrdered By: Dr. Lomeli on 08-20-2022 Lymphocytes/100 WBC (Bld) 15.7 % 19-41 [facility] Blood monocytes/100 leukocyt esOrdered By: Dr. Lomeli on 08-20-2022 Monocytes/100 WBC (Bld) 7.2 % 0-10 [facility] Blood platelet mean volumeOr dered By: Dr. Lomeli on 08-20-2022 Platelet mean volume (Bld) [Entitic vol] 10.0 fL 6.2-12.0 [facility] Determination of erythrocyte mean corpuscular volume (MCV)Ordered By: Dr. Lomeli on 08-20-2022 MCV (RBC) [Entitic vol] 90.3 fL 80-94 [facility] Hematocrit Auto (Bld) [Volum e fraction]Ordered By: Dr. Lomeli on 08-20-2022 Hematocrit (Bld) [Volume fraction] 47.5 % 40-54 [facility] Laboratory - Chemistry and C hemistry - challengeOrdered By: Dr. Lomeli on 08-20-2022 ALP [Catalytic activity/Vol] 79 U/L 45-117 [facility] ALT [Catalytic activity/Vol] 21 U/L 16-61 [facility] CO2 [Moles/Vol] 26.0 mmol/L 21.0-32.0 [facility] Globulin (S) [Mass/Vol] 3.5 g/dL 2.2-4.2 [facility] Urea nitrogen/Creatinine [Mass ratio] 36.7 mg/mg 10-20 [facility] Laboratory - Hematology and Cell countsOrdered By: Dr. Lomeli on 08-20-2022 Erythrocyte distribution width (RBC) [Entitic vol] 50.0 fL 35.1-43.9 [facility] Erythrocyte distribution width (RBC) [Ratio] 15.0 % 11.6-14.6 [facility] Immature granulocytes/100 WBC (Bld) 0.600 % 0.0-0.9 [facility] Comment on above: IG% - Immature Granu locytes (promyelocytes, myelocytes and metamyelocytes) > 1% indicates that a LEFT SHIFT is Present. MCH (RBC) [Entitic mass] 27.8 pg 27.0-32.0 [facility] Nucleated RBC/100 WBC (Bld) [Ratio] 0 % 0-5 [facility] MCHC Auto (RBC) [Mass/Vol]Or dered By: Dr. Lomeli on 08-20-2022 MCHC (RBC) [Mass/Vol] 30.7 g/dL 32-36 [facility] No Panel InformationOrdered By: Dr. Lomeli on 08-20-2022 Estimated GFR (MDRD) Amer 128 mL/min >60 [facility] Comment on above: GFR Calc Estimated GFR (MDRD) Non-Af Amer 106 mL/min >60 [facility] Comment on above: Non- GFR Calc Thyroid Stimulating Hormone (TSH) 2.97 uIU/mL 0.358-3.74 [facility] Platelets bldOrdered By: Dr. Lomeli on 08-20-2022 Platelets (Bld) [#/Vol] 266 10*3/uL 150-450 [facility] Serum or plasma albumin rosibel urement (mass/volume)Ordered By: Dr. Lomeli on 08-20-2022 Albumin [Mass/Vol] 3.1 g/dL 3.2-5.0 [facility] Serum or plasma albumin/glob ulin mass ratioOrdered By: Dr. Lomeli on 08-20-2022 Albumin/Globulin [Mass ratio] 0.9 {ratio} 0.9-2.4 [facility] Serum or plasma calcium rosibel urement (mass/volume)Ordered By: Dr. Lomeli on 08-20-2022 Calcium [Mass/Vol] 9.0 mg/dL 8.5-10.1 [facility] Serum or plasma cholesterol in HDL measurement (mass/volume)Ordered By: Dr. Lomeli on 08-20-2022 Cholesterol in HDL [Mass/Vol] 32 mg/dL >40 [facility] Comment on above: The drugs N-Acetylcy steine and Metamizole may falsely depress this assay. Reference Range HDL <40 mg/dL Low HDL Cholesterol HDL >or= 60 mg/dL High HDL Cholesterol Serum or plasma cholesterol in VLDL measurement (mass/volume)Ordered By: Dr. Lomeli on 08-20-2022 Cholesterol in VLDL [Mass/Vol] 39 mg/dL 5-40 [facility] Serum or plasma creatinine m easurement (mass/volume)Ordered By: Dr. Lomeli on 08-20-2022 Creatinine [Mass/Vol] 0.79 mg/dL 0.70-1.30 [facility] Comment on above: The validity of the calculated GFR & GFRAA in patients over 70 years has not been determined. Clinical correlation is essential. Serum or plasma low density lipoprotein (LDL) cholesterol measurement (mass/volume)Ordered By: Dr. Lomeli on 08-20-2022 Cholesterol in LDL [Mass/Vol] 101 mg/dL 0-130 [facility] Serum or plasma urea nitroge n measurement (mass/volume)Ordered By: Dr. Lomeli on 08-20-2022 Urea nitrogen [Mass/Vol] 29 mg/dL 7-18 [facility] Thin prep Papanicolaou smear with manual screeningOrdered By: Dr. Lomeli on 08-20-2022 Thin prep Papanicolaou smear with manual screening 13 U/L 15-37 [facility] Thin prep Papanicolaou smear with manual screening 7 5-15 [facility] Absolute lymphocyte counton 02-12-2022 Lymphocytes Auto (Unsp spec) [#/Vol] 1.67 10*3/uL 0.83-4.51 [facility] Work Phone: Basophil percentageon 2021 Basophils/100 WBC (Bld) 0.5 % 0-1 [facility] Work Phone: Bilirubin [Mass/Vol] 0.40 mg/dL 0.20-1.00 [facility] Work Phone: Comment on above: For patients on eltr ombopag therapy, use of Dim[employer] [place] TBIL is not recommended. Chloride [Moles/Vol] 99 mmol/L 98-107 [facility] Work Phone: Eosinophils/100 WBC (Bld) 1.5 % 0-5 [facility] Work Phone: Glucose [Mass/Vol] 167 mg/dL 74-106 [facility] Work Phone: Comment on above: Fasting Glucose resu lt greater than or equal to 126 mg/dL suggests DIABETES MELLITUS per A.D.A. criteria. Neutrophils (Bld) [#/Vol] 8.1 10*3/uL 2.0-7.7 [facility] Work Phone: Neutrophils/100 WBC (Bld) 74.9 % 47-70 [facility] Work Phone: Potassium [Moles/Vol] 4.2 mmol/L 3.5-5.1 [facility] Work Phone: Protein [Mass/Vol] 7.7 g/dL 6.4-8.2 [facility] Work Phone: Sodium [Moles/Vol] 136 mmol/L 136-145 [facility] Work Phone: WBC (Bld) [#/Vol] 10.8 10*3/uL 4.4-11.0 [facility] Work Phone: Blood erythrocytes count (nu mber/volume)on 02-12-2022 RBC (Bld) [#/Vol] 5.28 10*6/uL 4.6-6.2 [facility] Work Phone: Blood hemoglobin measurement (mass/volume)on 02-12-2022 Hemoglobin (Bld) [Mass/Vol] 15.3 g/dL 13.0-16.5 [facility] Work Phone: Blood lymphocytes/100 leukoc yteson 02-12-2022 Lymphocytes/100 WBC (Bld) 15.4 % 19-41 [facility] Work Phone: Blood manual differential co mment interpretation (narrative result)on 02-12-2022 Manual differential comment Jorge (Bld) [Interp] [facility] Work [facility]: [phone] Blood monocytes/100 leukocyt eson 02-12-2022 Monocytes/100 WBC (Bld) 7.2 % 0-10 [facility] Work Phone: Blood platelet mean volumeon 02-12-2022 Platelet mean volume (Bld) [Entitic vol] 10.0 fL 6.2-12.0 [facility] Work Phone: Determination of erythrocyte mean corpuscular volume (MCV)on 02-12-2022 MCV (RBC) [Entitic vol] 88.6 fL 80-94 [facility] Work Phone: Hematocrit Auto (Bld) [Volum e fraction]on 02-12-2022 Hematocrit (Bld) [Volume fraction] 46.8 % 40-54 [facility] Work Phone: Laboratory - Chemistry and C hemistry - challengeon 02-12-2022 ALP [Catalytic activity/Vol] 90 U/L 45-117 [facility] Work Phone: ALT [Catalytic activity/Vol] 26 U/L 16-61 [facility] Work Phone: CO2 [Moles/Vol] 30.0 mmol/L 21.0-32.0 [facility] Work Phone: Globulin (S) [Mass/Vol] 4.5 g/dL 2.2-4.2 [facility] Work Phone: Urea nitrogen/Creatinine [Mass ratio] 23.3 mg/mg 10-20 [facility] Work Phone: Laboratory - Hematology and Cell countson 02-12-2022 Erythrocyte distribution width (RBC) [Entitic vol] 49.3 fL 35.1-43.9 [facility] Work Phone: Erythrocyte distribution width (RBC) [Ratio] 15.2 % 11.6-14.6 [facility] Work Phone: [phone] Immature granulocytes/100 WBC (Bld) 0.500 % 0.0-0.9 [facility] Work Phone: Comment on above: IG% - Immature Granu locytes (promyelocytes, myelocytes and metamyelocytes) > 1% indicates that a LEFT SHIFT is Present. MCH (RBC) [Entitic mass] 29.0 pg 27.0-32.0 [facility] Work Phone: Nucleated RBC/100 WBC (Bld) [Ratio] 0 % 0-5 [facility] Work Phone: [phone] MCHC Auto (RBC) [Mass/Vol]on 02-12-2022 MCHC (RBC) [Mass/Vol] 32.7 g/dL 32-36 [facility] Work Phone: No Panel Informationon 02-12 Estimated GFR (MDRD) Amer 110 mL/min >60 [facility] Work Phone: [phone] Comment on above: GFR Calc Estimated GFR (MDRD) Non-Af Amer 91 mL/min >60 [facility] Work Phone: Comment on above: Non- GFR Calc Prostate Specific Antigen Screen 0.44 ng/mL 0.00-4.00 [facility] Work Phone: [phone] Comment on above: This test was perfor med using the TPSA assay method for the[employer] [facility] [employer] system. Values obtained with differentassay methods cannot be used interchangably.When changing PSA assays in the course of monitoring apatient, additional sequential testing should be carriedout to confirm baseline values. Thyroid Stimulating Hormone (TSH) 3.60 uIU/mL 0.358-3.74 [facility] Work Phone: Vitamin D 25-Hydroxy 28.9 ng/mL [facility] Work Phone: [phone] Comment on above: Vitamin D 25(OH) Sta tus Range Deficiency <20 ng/mL (50nmol/L) Insufficiency 20 - 30 ng/mL (50 - 75 nmol/L) Sufficiency 30 - 100 ng/mL (75 - 250 nmol/L) Toxicity >100 ng/mL (>250 nmol/L) Platelets bldon 02-12-2022 Platelets (Bld) [#/Vol] 283 10*3/uL 150-450 [facility] Work Phone: Serum or plasma albumin rosibel urement (mass/volume)on 02-12-2022 Albumin [Mass/Vol] 3.2 g/dL 3.2-5.0 [facility] Work Phone: Serum or plasma albumin/glob ulin mass ratioon 02-12-2022 Albumin/Globulin [Mass ratio] 0.7 {ratio} 0.9-2.4 [facility] Work Phone: Serum or plasma calcium rosibel urement (mass/volume)on 02-12-2022 Calcium [Mass/Vol] 9.4 mg/dL 8.5-10.1 [facility] Work Phone: Serum or plasma creatinine m easurement (mass/volume)on 02-12-2022 Creatinine [Mass/Vol] 0.90 mg/dL 0.70-1.30 [facility] Work Phone: Comment on above: The validity of the calculated GFR & GFRAA in patients over 70 years has not been determined. Clinical correlation is essential. Serum or plasma urea nitroge n measurement (mass/volume)on 02-12-2022 Urea nitrogen [Mass/Vol] 21 mg/dL 7-18 [facility] Work Phone: Serum or plasma uric acid me asurement (mass/volume)on 02-12-2022 Urate [Mass/Vol] 5.7 mg/dL 3.5-7.2 [facility] Work Phone: Comment on above: The drugs N-Acetylcy steine and Metamizole may falsely depress this assay. Thin prep Papanicolaou smear with manual screeningon 02-12-2022 Thin prep Papanicolaou smear with manual screening 16 U/L 15-37 [facility] Work Phone: Thin prep Papanicolaou smear with manual screening 7 5-15 [facility] Work Phone: Absolute lymphocyte counton 08-14-2021 Lymphocytes Auto (Unsp spec) [#/Vol] 1.81 10*3/uL 0.83-4.51 [facility] Work Phone: Basophil percentageon 2021 Basophils/100 WBC (Bld) 0.5 % 0-1 [facility] Work Phone: Bilirubin [Mass/Vol] 0.30 mg/dL 0.20-1.00 [facility] Work Phone: Comment on above: For patients on eltr ombopag therapy, use of [employer] [place] TBIL is not recommended. Chloride [Moles/Vol] 106 mmol/L 98-107 [facility] Work Phone: Eosinophils/100 WBC (Bld) 1.4 % 0-5 [facility] Work Phone: Glucose [Mass/Vol] 142 mg/dL 74-106 [facility] Work Phone: Comment on above: Fasting Glucose resu lt greater than or equal to 126 mg/dL suggests DIABETES MELLITUS per A.D.A. criteria. Neutrophils (Bld) [#/Vol] 7.2 10*3/uL 2.0-7.7 [facility] Work Phone: Neutrophils/100 WBC (Bld) 72.4 % 47-70 [facility] Work Phone: Potassium [Moles/Vol] 4.4 mmol/L 3.5-5.1 [facility] Work Phone: Comment on above: Slight Hemolysis, Re sult may be falsely increased. Protein [Mass/Vol] 6.8 g/dL 6.4-8.2 [facility] Work Phone: Sodium [Moles/Vol] 139 mmol/L 136-145 [facility] Work Phone: WBC (Bld) [#/Vol] 10.0 10*3/uL 4.4-11.0 [facility] Work Phone: [phone] Blood erythrocytes count (nu mber/volume)on 08-14-2021 RBC (Bld) [#/Vol] 4.81 10*6/uL 4.6-6.2 [facility] Work Phone: [phone] Blood hemoglobin measurement (mass/volume)on 08-14-2021 Hemoglobin (Bld) [Mass/Vol] 13.5 g/dL 13.0-16.5 [facility] Work Phone: Blood lymphocytes/100 leukoc yteson 08-14-2021 Lymphocytes/100 WBC (Bld) 18.1 % 19-41 [facility] Work Phone: [phone] Blood monocytes/100 leukocyt eson 08-14-2021 Monocytes/100 WBC (Bld) 7.3 % 0-10 [facility] Work Phone: [phone] Blood platelet mean volumeon 08-14-2021 Platelet mean volume (Bld) [Entitic vol] 10.3 fL 6.2-12.0 [facility] Work Phone: Determination of erythrocyte mean corpuscular volume (MCV)on 08-14-2021 MCV (RBC) [Entitic vol] 86.7 fL 80-94 [facility] Work Phone: [phone] Hematocrit Auto (Bld) [Volum e fraction]on 08-14-2021 Hematocrit (Bld) [Volume fraction] 41.7 % 40-54 [facility] Work Phone: Laboratory - Chemistry and C hemistry - challengeon 08-14-2021 ALP [Catalytic activity/Vol] 97 U/L 45-117 [facility] Work Phone: ALT [Catalytic activity/Vol] 27 U/L 16-61 [facility] Work Phone: [phone] CO2 [Moles/Vol] 28.0 mmol/L 21.0-32.0 [facility] Work Phone: [phone] Globulin (S) [Mass/Vol] 3.7 g/dL 2.2-4.2 [facility] Work Phone: [phone] Urea nitrogen/Creatinine [Mass ratio] 30.5 mg/mg 10-20 [facility] Work Phone: [phone] Laboratory - Hematology and Cell countson 08-14-2021 Erythrocyte distribution width (RBC) [Entitic vol] 49.7 fL 35.1-43.9 [facility] Work Phone: [phone] Erythrocyte distribution width (RBC) [Ratio] 15.7 % 11.6-14.6 [facility] Work Phone: [phone] Immature granulocytes/100 WBC (Bld) 0.300 % 0.0-0.9 [facility] Work Phone: [phone] Comment on above: IG% - Immature Granu locytes (promyelocytes, myelocytes and metamyelocytes) > 1% indicates that a LEFT SHIFT is Present. MCH (RBC) [Entitic mass] 28.1 pg 27.0-32.0 [facility] Work Phone: [phone] Nucleated RBC/100 WBC (Bld) [Ratio] 0 % 0-5 [facility] Work Phone: [phone] MCHC Auto (RBC) [Mass/Vol]on 08-14-2021 MCHC (RBC) [Mass/Vol] 32.4 g/dL 32-36 [facility] Work Phone: [phone] Panel Informationon 08-14 Estimated GFR (MDRD) Amer 129 mL/min >60 [facility] Work Phone: [phone] Comment on above: GFR Calc Estimated GFR (MDRD) Non-Af Amer 106 mL/min >60 [facility] Work Phone: [phone] Comment on above: Non- GFR Calc Thyroid Stimulating Hormone (TSH) 2.43 uIU/mL 0.358-3.74 [facility] Work Phone: [phone] Vitamin D 25-Hydroxy 29.8 ng/mL [facility] Work Phone: Comment on above: Vitamin D 25(OH) Sta tus Range Deficiency <20 ng/mL (50nmol/L) Insufficiency 20 - 30 ng/mL (50 - 75 nmol/L) Sufficiency 30 - 100 ng/mL (75 - 250 nmol/L) Toxicity >100 ng/mL (>250 nmol/L) Platelets bldon 08-14-2021 Platelets (Bld) [#/Vol] 271 10*3/uL 150-450 [facility] Work Phone: Serum or plasma albumin rosibel urement (mass/volume)on 08-14-2021 Albumin [Mass/Vol] 3.1 g/dL 3.2-5.0 [facility] Work Phone: Serum or plasma albumin/glob ulin mass ratioon 08-14-2021 Albumin/Globulin [Mass ratio] 0.8 {ratio} 0.9-2.4 [facility] Work Phone: Serum or plasma calcium rosibel urement (mass/volume)on 08-14-2021 Calcium [Mass/Vol] 9.4 mg/dL 8.5-10.1 [facility] Work Phone: Serum or plasma creatinine m easurement (mass/volume)on 08-14-2021 Creatinine [Mass/Vol] 0.79 mg/dL 0.70-1.30 [facility] Work Phone: Comment on above: The validity of the calculated GFR & GFRAA in patients over 70 years has not been determined. Clinical correlation is essential. Serum or plasma urea nitroge n measurement (mass/volume)on 08-14-2021 Urea nitrogen [Mass/Vol] 24 mg/dL 7-18 [facility] Work Phone: Thin prep Papanicolaou smear with manual screeningon 08-14-2021 Thin prep Papanicolaou smear with manual screening 18 U/L 15-37 [facility] Work Phone: Comment on above: Slight Hemolysis, Re sult may be falsely increased. Thin prep Papanicolaou smear with manual screening 5 5-15 [facility] Work Phone: OTARon 02-21-2019 [facility] Occupational Therapy On the Road Driving Assessment Therapy Diagnosis: Rank Code Description Date of Onset 1 E11.40 Type 2 diabetes mellitus with diabetic 02/28/2019 neuropathy, unspecified 2 Z89.611 Acquired absence of right leg above knee 02/28/2019 3 Z89.512 Acquired absence of left leg below knee 02/28/2019 4 R26.8 Other abnormalities of gait and mobility 02/28/2019 Initial Evaluation Date: 02/17/19 Evaluators: Cosnuelo Fernandez, OT/L, CDRS, CDI/PD Type of Vehicle: [employer]. Assistive Equipment: Sure Pre Press Manager push/rock hand controls mounted for use with LUE; spinner knob steering device mounted at about 2 o'clock for use with RUE (his vehicle will likely require gas/brake pedal block due to requiring fully mechanical hand controls due to the age of his vehicle) Route: Heavy Traffic (40-45mph, multi lanes ). Did minimal driving in multiple robin area due to first time he had driven with hand controls for a total of [address] Conditions: clear Weather Conditions: cloudy Medical Diagnosis: TYPE 2 DIABETES MELLITUS WITH DIABETIC NEUROPATHY, R AKA, L BKA Demographics: Age: 58Y Gender: Male OBJECTIVE / OCCUPATIONAL PERFORMANCE Stationary Assessment - Driving Range Ratings Skills Transfer In and Out Average Load Mobility Device Not tested Fasten Seatbelt Average Secondary Controls Average Primary Controls Average Accel/Decelerate Average Braking Average Backing up Not tested Serpentine Curves Average Figure 8 Not tested Maneuverability Not tested [facility] PATIENT NAME: ALIYA SANDOVAL [address] MEDICAL REC #: [id number] [place] [address] ADMIT DATE: SERVICE DATE: 02/21/19 Occupational Therapy Assessment ATTENDING KEYLA: Kristen Lomeli He was able to transfer into the cement truck driver evaluation vehicle and later out of the same with minimal assist for sliding board placement although while in power wheelchair this date and would be using manual wheelchair that he has if driving on own. He was able to fasten the seat belt on his own but did mention he may need to get seat belt affiliate marketing manager for own vehicle. Light (25mph) - Moderate Traffic(35mph) Ratings Skills Straight Aways Average Right Turns Average Left Turns Average Uses Turn Signals Average Stopsigns/Right away Average Speed Control Average 3 Point Turn/Backing Not tested Signs/Markings Average Curves/[place] Average Un/Protected Traffic Lights LTurn Average On Red Lights Traffic Lights RTurn Average Following Distance Average Yielding R Away Average VisualScan/Mirrors Average Driving/Parking Shopping Parking Lot Average Pulling into Traffic Average no problems observed while he was able to demonstrate appropriate use of hand controls while using them for the first time while no significant concerns observed Heavy Traffic (40 - 45 mph Multi-lanes) Ratings Skills Speed Control Average Robin Usage Average Changing Lanes Average Checking Blind Spots Average Space Cushion Average L Turns Above Challenge Average did minimal driving in heavy traffic areas but no concerns observed with same Highway (55 mph) [facility] PATIENT NAME: ALIYA SANDOVAL [address] MEDICAL REC #: [id number] [place] [address] ADMIT DATE: SERVICE DATE: 02/21/19 Occupational Therapy Assessment ATTENDING KEYLA: Kristen Lomeli did not complete General Analysis Ratings Skills Follow Directions Average Atten/Concentration Average Anticipation Average Road Courtesy Average Safety Awareness Average Judgment Average Confidence Average he was able to follow demonstrated and verbal instructions well while having not problems doing novice driving using hand controls for first time Perception of Driving Performance: He indicated that he feels that he can eventually gain comfort and confidence using the hand controls with ongoing practice. Psychosocial: Within normal limits Interventions: Cloth Packer Training: refer to information in this report Education: The patient's preferred learning method is: Explanation, Demonstration Barriers to Learning: Mobility Learning Needs: Plan of care. Safety. Functional activities/mobility. Equipment. Education Provided: Plan of care. Safety issues and interventions. Use of adaptive devices. Supervision requirements. Car transfers. Driving. Safety. Equipment. Home exercise/activity plan. Audience: Patient. Mode: Explanation. Printed material provided. Response: Applied knowledge. Verbalized understanding. Demonstrated skill. Needs practice. ASSESSMENT Support Structure: Support structure is fair. Friend and family members willing to assist patient. Indicated that he does have a friend who would be willing to assist him with supervised driving. Response to Evaluation: The session was tolerated well, as evidenced by: no complaints or concerns observed or reported [facility] PATIENT NAME: ALIYA SANDOVAL [address] MEDICAL REC #: [id number] [place] [address] ADMIT DATE: SERVICE DATE: 02/21/19 Occupational Therapy Assessment ATTENDING KEYLA: Kristen Lomeli PLAN Necessity: Patient does not require outpatient therapy in order to return to premorbid environment (or reside in new living environment). Patient does not require outpatient therapy in order to reduce Activities of Daily Living or Instrumental Activities of Daily Living assistance to a premorbid level. This therapist is recommending that Gilberto can pursue obtainining his adaptive driving equipment and begin supervised practice to work towards his license exam as must demonstrate competency using [facility] for [facility]. Will need to get current license transferred to [place] from [facility]. The patient has been instructed to contact the clinic if any questions or problems should arise. Visit Number: Today's visit is number 1 Services: Total Billed: 45 minutes (Timed: 45, Untimed: 0) 45.00 Timed: [68030] Cloth Packer Training EA 15 min. 0.00 Untimed: [77829] OT-EVALUATION MOD COMPLEX Annotated by: CONSUELO FERNANDEZ: Date of service was 02/21/19 and not 02/17/19. Signed by: CONSUELO JIM, OT/L, CDRS, CDI/PD 02/28/2019 08:31:01 [facility] PATIENT NAME: ALIYA SANDOVAL [address] MEDICAL REC #: [id number] [place] [address] ADMIT DATE: SERVICE DATE: 02/21/19 Occupational Therapy Assessment ATTENDING PHY: Kristen Lomeli [facility] OT Assessment Report [facility] OTAR Occupational Therapy Performance Skills Evaluation Therapy Diagnosis: Rank Code Description Date of Onset 1 E11.40 Type 2 diabetes mellitus with diabetic 02/28/2019 neuropathy, unspecified 2 Z89.611 Acquired absence of right leg above knee 02/28/2019 3 Z89.512 Acquired absence of left leg below knee 02/28/2019 4 R26.8 Other abnormalities of gait and mobility 02/28/2019 Initial Evaluation Date: 02/17/19 Referring Clinician: Kristen Lomeli Medical Diagnosis: TYPE 2 DIABETES MELLITUS WITH DIABETIC NEUROPATHY, R AKA, L BKA Date of Onset: L BKA 2012 with revision 04/30; 07/26/14 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 Past Medical History: type 2 diabetes mellitus, elevated cholesterol, obesity Current Medications: Gabapentin, ibuprofen, Farxiga, Pioglitazone, Trajenta, Atorvastatin Demographics: Age: 58Y Gender: Male Primary Language: Slovak Preferred Language: Slovak OCCUPATIONAL PROFILE AND HISTORY Basic ADLs: he is able to complete all self care on his own Instrumental ADLs: he does have home health aide 2x/week to help with home management tasks while he is able to do day to day tasks on his own with additional time and adjustment to wheelchair issues as not functionally ambulating at this time; manages own finances and medications Work/Leisure/Educati on: he completed college and 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 Time Since Last Driven: 07/26/14 Cloth Packer's License Expiration Date: 05/25/21 State of: [place]; no restrictions while needs to get licensed transferred as [place] resident now Type of Vehicle: 2000 [employer] Type of Insurance: [employer] Type of Driving Anticipated: Local Daytime [facility] PATIENT NAME: ALIYA SANDOVAL [address] MEDICAL REC #: [id number] [place] [address] ADMIT DATE: SERVICE DATE: 02/21/19 Occupational Therapy Assessment ATTENDING KEYLA: Kristen Lomeli Nighttime Hightway Reason for Driving is: [place] Work Social/Leisure Home management History of Accidents: Patient does not have a history of accidents. Traffic Violations: Patient has traffic violations. speeding ticket about 10 years ago Patient Report: Gilberto is looking forward to being able to return to driving in the future while has been practicing the transfer into/out of his vehicle using sliding board and taking apart/putting his manual wheelchair in/out car. Patient/Caregiver Goals: Patient's functional goals: to be able to provide for own transportation needs Pain: Patient currently without complaints of pain. Social History: Marital Status: single Children: Patient has no children. Employment Status: disability Recreational Activities/Hobbies: did not discuss same Self-reported Quality of Life: At present time, patient reports having a very good quality of life/health status. OBJECTIVE / OCCUPATIONAL PERFORMANCE General Observation: Gilberto was pleasant and cooperative throughout session while appearing to have very appropriate insight and awareness into his current level of function and obstacles. He shared that he is continuing to have PT 2x/week at home while working on donning BLE prosthesis which he is still unable to do on his own in addition to walking while able to do about 35 feet on own with walker and PT nearby. He is hoping that he will be able to do more functional walking in the future but aware that this may not always be achievable so insightful about needing to use wheelchair in the community. Visual/Perceptual Screening: Correctve Lenses: Patient wears corrective lenses. Date of Last Eye Exam: 2 months ago with new glasses orders while current glasses about 1 year old (goes yearly for eye exam) Reading Skills: Higher level. Stereo - Optical Test: Far Acuity: 20/ 30 (with glasses on) Glare far acuity R-20/20-1, L-20/50; functional for R eye contrast sensitivity while L eye just under normal range; functional for color and stereo depth perception, B peripheral/nasal visual campos (he indicated L eye deficits related to diabetes as well as has the start of cataracts in B eyes) Oculomotor Skills: LEFT EYE RANGE OF MOTION: Left eye has full range of motion RIGHT EYE RANGE OF MOTION: Right eye has full range of motion BOTH EYE RANGE OF MOTION: Both eyes have full range of motion [facility] PATIENT NAME: ALIYA SANDOVAL [address] MEDICAL REC #: [id number] [place] [address] ADMIT DATE: SERVICE DATE: 02/21/19 Occupational Therapy Assessment ATTENDING PHY: Kristen Lomeli DIPLOPIA ON GAZE TO: Superior CONVERGENCE: Normal (6-8) LEFT FIELD SACCADES: Direct Fixation RIGHT FIELD SACCADES: Direct Fixation PURSUITS: Sustained Fixation VISUAL SCANNING: . Motor Free Visual Perception Test: Raw Score: 32 /36. Processing Time: 2.7 seconds. Norms: 50 - 69, 3.0 - 5.4 sec. COGNITION Screening Orientation: No impairment detected (5/5 correct orientation reponses). Attention: [place] making test Part B: 53 seconds - intact attention. Safety/Judgment/Prob esha Solving: No impairment detected (identifies 3/3 appropriate solutions for emergency responses). Memory: score of 2 on Short Blessed Cognitive screen which is in normal to minimally impaired range Also noted during the evaluation: Only able to recall 4 digits forward for auditory attention skills Physical Assessment Range of Motion: Within functional limits. Other than as limited by BLE amputations; also has contracture of R middle digit due to arthritis. Strength: Within functional limits. 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 Sensation: Impaired. Reports numbness in L hand as well as phantom pain and neuropathy in BLE's Coordination: Impaired. Limited due to BLE amputations in addition to for fine motor skills as related to B hand atrophy Rapid Alternating Movement: Impaired. Unable to do with BLE's Sitting Balance: Within functional limits. Head/Neck Control: Within functional limits. Endurance: Within functional limits. He indicated that he feels he has adequate endurance related to being at wheelchair level while remains limited for ambulation endurance. Mobility: Within functional limits. Independent with mobility from wheelchair level including when in power wheelchair which he brought this date and per his report using manual wheelchair which is lightweight and that he can take apart/put together. Hand Dominance: Right. Handicap Placard: Patient does not have a handicap placard. Is interested in obtaining one. [facility] PATIENT NAME: ALIYA SANDOVAL [address] MEDICAL REC #: [id number] [place] [address] ADMIT DATE: SERVICE DATE: 02/21/19 Occupational Therapy Assessment ATTENDING PHY: Kristen Lomeli Road Sign Recognition/Rules of Driving: Not Tested. No need to complete same based on his level of function. Simulated Reaction - Braking Distance (Norms 60 ft): Reaction Distance: Average = N/A ft. Not tested. Did not test due to not having access to the hand controls expected for him for simulator. Projected Adaptive Equipment Needs: Sure Pre Press Manager push/rock hand controls for L hand use and spinner knob for R hand use. Psychosocial: Within normal limits Interventions: Evaluation HIGH Complexity Self Care/Home Management: refer to details in this report Pain Reassessment: No pain at onset or during treatment, which does not warrant reassessment. Education: The patient's preferred learning method is: Explanation Barriers to Learning: Mobility Learning Needs: Plan of care. Safety. Functional activities/mobility. Equipment. Education Provided: Plan of care. Safety issues and interventions. Use of adaptive devices. Car transfers. Driving. Safety. Audience: Patient. Mode: Explanation. Response: Applied knowledge. Verbalized understanding. Demonstrated skill. ASSESSMENT Support Structure: Support structure is fair. Friend and family members willing to assist patient. Has his parents who live in [place] [facility] and brother in [place] however limited in support they can provide. Does also have some friends he feel will assist with supervised driving practice. Response to Evaluation: The session was tolerated well, as evidenced by: no complaints or concerns observed or reported PLAN Necessity: Patient requires outpatient therapy in order to reduce Activities of Daily Living or Instrumental Activities of Daily Living assistance to a premorbid level. Patient requires occupational therapy plan in order to function in community. In order to complete the functional task portion of this assessment. [facility] PATIENT NAME: ALIYA SANDOVAL [address] MEDICAL REC #: [id number] [place] [address] ADMIT DATE: SERVICE DATE: 02/21/19 Occupational Therapy Assessment ATTENDING KEYLA: Kristen Lomeli The patient has been instructed to contact the clinic if any questions or problems should arise. Visit Number: Today's visit is number 1 Services: Total Billed: 90 minutes (Timed: 30, Untimed: 60) 30.00 Timed: [18756] ADL-HOME MANAGEMENT EA 15 MIN 60.00 Untimed: [99137] OT-EVALUATION HIGH COMPLEX Annotated by: CONSUELO FERNANDEZ: Date of service was 02/21/19 and not 02/17/19. Signed by: CONSUELO FERNANDEZ, OT/Lester, CDRS, CDI/PD 02/28/2019 07:53:45 [facility] PATIENT NAME: ALIYA SANDOVAL [address] MEDICAL REC #: [id number] [place] [address] ADMIT DATE: SERVICE DATE: 02/21/19 Occupational Therapy Assessment ATTENDING KEYLA: Kristen Lomeli [facility] NICHOLAS Occupational Therapy Community Mobility and IADL Report Performance Skills Evaluation Date: 02/21/[address] D[address] Assessment: 02/21/19 Demographics: Age: 58Y Gender: Male Summary of Results: (see attached report(s) for details) Strengths: Gilberto is able to complete all self care on his own and has home PT as well as home health aide 2x/week to assist with therapy gains and home management tasks respectively; he is very motivated to gain his independence with functional community mobility skills in an effort to enable him to participate in additional activities on his own while obtaining vehicle recently that he has been practicing getting into/out of including with his manual wheelchair; he has a good driving history; clinically he demonstrated functional vision while improved with glasses on despite his current license not indicating they are necessary, oculomotor skills, visual perceptual skills, cognition other than as noted below, physical skills needed for driving using adaptive equipment (i.e. mechanical hand controls); during the behind the wheel portion, he demonstrated functional performance while driving with hand controls for the first time including on public road ways and demonstrated excellent potential to gain competence using the same. 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 with this beginning 07/26/14 which is when he drove last due to the various rehab he had to undergo; he is currently unable to jc prostheses on his own although is working on the same for eventual maximal independence with doing this to achieve independence with functional ambulation; he has not gotten his [place] license transferred to [place] which is necessary before any of the process can be started regarding medical case section/self reporting need for hand controls/taking license exam to prove competence with same; clinically he demonstrated decreased L eye glare far acuity while he self reported issues related to diabetes and vision, decreased auditory attention skills, 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 Recommendations: On the road driving assessment. Gilberto will be required to take and pass the [facility] license exam using mechanical hand controls in the future in order to show competence and gain restriction on his license. Patient may resume driving with the following recommendations: Physician approval. Dr. Lomeli should continue to monitor Gilberto's overall medical status and assure that he maintains his current level of function for ongoing [facility] PATIENT NAME: ALIYA SANDOVAL [address] MEDICAL REC #: [id number] [place] [address] ADMIT DATE: SERVICE DATE: 02/21/19 Occupational Therapy Assessment ATTENDING KEYLA: Kristen Lomeli pursuit of safe operation of motor vehicle. If future concerns arise, recommend that he be seen at that time for reassessment of his skills. Restrictions. 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 must maintain monitoring of blood glucose levels as appropriate and indicated by physician); avoid driving when extreme weather conditions. Practice. Supervised practice should be completed once he obtains his mechanical hand controls for a minimum of 20 hours prior to license exam so that he can gain confidence and competence in preparation for exam. He indicated that he has a friend who is willing and able to provide this supervision. This therapist will provide him with information regarding safe driving skills, crash avoidance, and tips for monitoring his driving skills for reference. Vehicle and Equipment Needs: 1.) Sure Pre Press Manager push/rock hand controls (mechanical version) mounted for use with L hand including for easy access to turn signal indicator and with auto lock feature to allow for other drivers; 2.) Spinner knob steering device mounted at about 2 o'clock for use with R hand; 3.) Gas/brake pedal block which is removable to allow for other drivers (this will be necessary if he eventually would be ambulatory and driving when he has his prosthesis on). Additional Comments: Based on Gilberto's overall performance on this assessment, this therapist feels confident that he is ready to pursue obtaining the adaptive equipment indicated in this report, begin supervised practice using the same to get ready for his license exam using the same. This therapist will provide ongoing support and assist as needed including letting [facility] know of his need for driving adaptation once he has practice with his hand controls for some time as well as after he gets his [place] drivers licensed formally transferred to [place]. Date: 02/28/19 Occupational Therapist/Cloth Packer Bulk System Operator signature Please Note: The results and recommendations included in the Cloth Packer Evaluation Report are based on the patient's performance during the period of the evaluation and should not be relied on as absolute predictors of future performance. The conclusions and recommendations in this report are based, in part, upon the medical information available at the time. 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 If the patient's physical and mental status remains the same as during the evaluation period, the recommendations in the report should be considered valid for 6 months. Beyond that time, a re - evaluation may be necessary. [facility] PATIENT NAME: ALIYA SANDOVAL [address] MEDICAL REC #: [id number] [place] [address] ADMIT DATE: SERVICE DATE: 02/21/19 Occupational Therapy Assessment ATTENDING PHY: Kristen Lomeli Signed by: NATANAEL MCLAUGHLIN CDRS, MAMI/PD 02/28/2019 09:01:59 [facility] PATIENT NAME: ALIYA SANDOVAL [address] MEDICAL REC #: [id number] [place] [address] ADMIT DATE: SERVICE DATE: 02/21/19 Occupational Therapy Assessment ATTENDING PHY: Kristen Lomeli Normal [facility] JOSÉ MIGUELwilliams 02-17-2019 OT Occupational Therapy Outpatient Missed Visit Note The patient did not attend the therapy appointment on 02/17/19 at 1300. Reason: Personal transportation issue Future Appointment: The patient has additional appointments. Signed by: NATANAEL MCLAUGHLIN CDRS, MAMI02/17/2019 14:36:13 [facility] PATIENT NAME: ALIYA SANDOVAL [address] MEDICAL REC #: [id number] [place] [address] ADMIT DATE: SERVICE DATE: 02/17/19 Occupational Therapy Progress Note ATTENDING PHY: Kristen Lomeli [facility] OT Progress Note [facility] OTPN Occupational Therapy Outpatient Missed Visit Note The patient did not attend the therapy appointment on 02/17/19 at 1500. Reason: Personal transportation issue Future Appointment: The patient has additional appointments. Signed by: CONSUELO FERNANDEZ, OT/Lester, CDRS, CDI/PD 02/17/2019 14:36:55 [facility] PATIENT NAME: ALIYA SANDOVAL [address] MEDICAL REC #: [id number] [place] [address] ADMIT DATE: SERVICE DATE: 02/17/19 Occupational Therapy Progress Note ATTENDING PHY: Kristen Lomeli [facility] MRI Low Ext Non Jt w/ + w/o Contraston 03-04-2017 MRI Low Ext Non Jt w/ + w/o Contrast Patient Name: ALIYA SANDOVAL MRI Exam Date/Time 03/04/2017 09:36:45 EST Exam MRI Low Ext Non Jt w/ + w/o Contrast Ordering Physician DELGADO CROFT Accession Number [id number] CPT4 Codes 78441 () Reason For Exam abcess of leg left, wound, s81.802a,neuropahty, type 2 diabetis Report Exam Type: MRI Low Ext Non Jt w/ + w/o Contrast Exam Date and Time: 03/04/2017 9:36 AM EST Demographics: Gender: Male; Age: 56 years Indication: An abscess left leg, wound, diabetes; Comparison: None available TECHNIQUE: MRI of the left leg was performed with and without intravenous gadolinium contrast in multiple planes (20 mL MultiHance) FINDINGS: There are surgical changes related to amputation of the left proximal tibial and fibular diaphyses. There is susceptibility from multiple maria esther at the amputation stump. There is no evidence of marrow edema or T1 marrow replacement to suggest underlying osteomyelitis near the stump. Susceptibility from skin maria esther causes artifact within the bone marrow. There is skin thickening at this stump compatible with scarring. Within the limitations of artifact from the skin maria esther, there is no rim-enhancing fluid collection at the stomach. No remains a fluid collection elsewhere within the left thigh or maintain leg. No evidence of muscular strain. The neurovascular bundle is within normal limits. There is expected atrophy of the remaining posterior and anterior compartments of the left leg. There is atrophy of muscle bulk in the quadriceps compartment and normal muscle bulk of the hamstrings. Oblique undersurface tear of the body and posterior horn of the medial meniscus. Moderate extrusion. Tricompartmental osteoarthritis. IMPRESSION: 1. Surgical changes of below the knee amputation. No evidence of osteomyelitis or fluid collection at the surgical stump. 2. Expected atrophy of the musculature in the remaining left leg and in the distal quadriceps of the left thigh. 3. Oblique undersurface tear of the body and posterior horn of the medial meniscus. 4. Tricompartmental osteoarthritis of the left knee. Report Dictated on Final Dictated: 03/04/2017 10:26 am Dictating Physician: MD FREDERICK NEIL Signed Date and Time: 03/04/2017 10:38 am Signed by: MD FREDERICK NEIL Transcribed Date and Time: 03/04/2017 10:26 Normal [facility] Encounters Encounter Date Encounter Type Care Provider Facility Start: 09-07-2024 End: 09-07-[address] Kelechi Lomeli MD Work Phone: [facility] Work Phone: Start: 09-07-2024 End: 09-07-[address] Kelechi Lomeli MD -Laboratory Work Phone: Start: 09-07-2024 End: 09-07-2024 ambulatory Kelechi Lomeli Facility:[facility] Start: 08-24-2024 End: 08-24-[address] Kelechi Lomeli MD Work Phone: [facility] Work Phone: Start: 08-24-2024 End: 08-24-[address] Kelechi Lomeli MD -[facility] Work Phone: Start: 08-24-2024 End: 08-24-2024 ambulatory Kelechi Gordy Lomeli Facility:[facility] Start: 07-15-2024 End: 07-15-[address] Kelechi Lomeli MD Work Phone: [facility] Work Phone: Start: 07-15-2024 End: 07-15-[address] Kelechi Lomeli MD -Laboratory, Specimen Work Phone: Start: 07-15-2024 End: 07-15-2024 ambulatory Kelechi Gordy Bakerok Facility:[facility] Start: 07-07-2024 End: 07-07-[address] Kelechi Lomeli MD Work Phone: [facility] Work Phone: Start: 07-07-2024 End: 07-07-[address] Kelechi Lomeli MD -Laboratory, Phy Office 3rd Flr Start: 07-07-2024 End: 07-07-2024 ambulatory Kelechi Bakerok Facility:[facility] Start: 06-06-2024 End: 06-06-[address] Kelechi Lomeli MD Work Phone: [facility] Work Phone: Start: 06-06-2024 End: 06-06-[address] Kelechi Lomeli MD -Laboratory Work Phone: Start: 06-06-2024 End: 06-06-2024 ambulatory Kelechi Lomeli Facility:[facility] Start: 02-23-2024 End: 02-23-[address] Kelechi Lomeli MD -Laboratory, Phy Office 3rd Flr Start: 02-22-2024 End: 02-22-[address] Kelechi Lomeli MD -Laboratory, Phy Office 3rd Flr Start: 02-22-2024 End: 02-23-2024 ambulatory [facility] Facility:[facility] Start: 11-10-2023 End: 11-10-2023 ambulatory [facility] Facility:[facility] Start: 08-17-2023 End: 08-17-2023 ambulatory [facility] Work Phone: Start: 08-17-2023 End: 08-17-2023 Patient encounter procedure [facility]-Laboratory Work Phone: Start: 05-27-2023 End: 05-27-2023 ambulatory [facility] Work Phone: Start: 05-27-2023 End: 05-27-2023 Patient encounter procedure [facility]-Laboratory Work Phone: Start: 02-25-2023 End: 02-25-2023 Patient encounter procedure [facility]-Ultrasound, [facility] Work Phone: Start: 02-18-2023 End: 02-18-2023 ambulatory [facility] Work Phone: Start: 02-18-2023 End: 02-18-2023 Patient encounter procedure [facility]-Laboratory, Phy Office 3rd Flr Start: 08-20-2022 End: 08-20-2022 ambulatory [facility] Work Phone: Start: 08-20-2022 End: 08-20-2022 Patient encounter procedure [facility]-Laboratory, Phy Office 3rd Flr Start: 07-08-2022 End: 07-08-2022 ambulatory [facility] Work Phone: Start: 07-08-2022 End: 07-08-2022 Discharged Recurring [facility]-Physical Therapy Work Phone: Start: 07-08-2022 Registered Rec[facility]ring [facility]-Physical Therapy Start: 02-12-2022 End: 02-12-2022 ambulatory [facility] Work Phone: Start: 02-12-2022 End: 02-12-2022 Patient encounter procedure [facility]-Laboratory, Phy Office 3rd Flr Start: 08-14-2021 End: 08-14-2021 Patient encounter procedure [facility]-Laboratory, Phy Office 3rd Flr Start: 04-28-2017 Ambulatory [facility] Start: 04-23-2017 Ambulatory [facility] Start: 04-21-2017 Ambulatory [facility] Start: 03-04-2017 Ambulatory [facility] Start: 03-02-2017 Ambulatory UNKNOWN PROVIDER [facility] Start: 02-27-2017 Ambulatory Del[facility] Croft [facility] Procedures Date Procedure Procedure Detail Performing Clinician Start: 08-24-2024 MRI of abdomen with contrast Dr. Kelechi Lomeli MD Work Phone: Start: 07-15-[address] Kelechi Lomeli MD Work Phone: Comment on above: ACTH reference inter kun for samples collected between 7 and10 AM.Performed at: [id number] Director: Jong Metcalf PhD, Phone: [phone] Start: 07-15-2024 Dehydroepiand[address]ero ne sulfate level Dr. Kelechi Lomeli MD Work Phone: Start: 02-22-[address] Kelechi chaves MD Work Phone: Start: 02-25-2023 Ultrasonography of t hyroid and parathyroid Start: 02-18-2023 Urine culture Plan of Treatment Date Care Activity Detail Author Start: 08-24-2024 MR Abdomen WO and W contrast IV [facility] Start: 08-24-2024 MRI of abdomen with contrast MRI [place] WITH and W[place]rast [facility] [place] Payer Category Payer Unknown [id number] 2023 Self-pay [id number] Unknown [id number] 2023 Unknown [id number] Medicare Medicare [id number] Medicare [id number] Private Health Insurance Unknown [id number] 2.16.8 [id number] Unknown [id number] 2.16.8 [id number] Unknown [id number] 2.16.8 [id number] Unknown [id number] 2.16.8 [id number] Unknown [id number] 2.16.8 [id number] Unknown [id number] 2.16.8 [id number] Unknown [id number] 2.16.8 [id number] Unknown [id number] 2.16.8 [id number] Social History Date Type Detail Facility Start: 01-09-2019 End: 01-09-2019 Tobacco smoking status NHIS Unknown if ever smoked [facility] Start: 03-08-2018 None [facility] Start: 03-08-2018 Alone [facility] Start: 06-28-2018 Non-smoker [facility] Start: 1960 Sex Assigned At Male [facility] Start: 01-09-2019 End: 01-09-2019 Tobacco smoking status NHIS Never smoked tobacco (finding) [facility] Start: 06-16-2024 End: 07-19-2024 Sex Male (finding) [facility] Discharge summary 07-17-2023 Note Date & Type Note Facility 10-27-2022 Discharge summary Note Date/Time October 27, 2022 11:55am [facility] Physical Therapy [facility] [address] [place] [address] / REHABILITATION SERVICES DISCHARGE SUMMARY MR#: [id number] Acct: [id number] Name: ALIYA SANDOVAL Rep #: [id number] : 1960 62 From: Halie ZUÑIGA T Referring Dr.: Dr. Kelechi Lomeli MD Status: REG RCR Insurance: [facility] *IN NETWORK [facility] COMM[facility]ITY PLAN Discharge Summary D/C summary: It has been my pleasure to treat ALIYA SANDOVAL referred by Dr. Kelechi Lomeli MD, with the diagnosis of DM for a total of 1 visit(s). Discharge Date: Please see the following information for a summary of their discharge status. Plan Plan: [employer] D/C Information d/c sentence: If there are questions or concerns regarding this patient's physical therapy, please feel free to call me at [phone]. Thank you for the referral of thispatient. Sincerely, Halie Bruner DPT <Electronically signed by Halie Bruner DPT> 10/27/22 1154 CC: Dr. Kelechi Lomeli MD ~ ELR Signed [facility] Work Phone: Evaluation note Note Date & Type Note Facility Evaluation note No assessment information availa ble [facility] Work Phone: Reason for referral (narrative) Note Date & Type Note Facility Reason for referral (narrative) No reason for referral information available [facility] Work Phone: Summary Purpose Family History No Family History Records Found Relationship Condition Age at Onset Recorded Date/T hamida Unknown Family History?- Unknown March 082017 4:41pm Family History?- Unknown June 28, 2018 2:36pm Relationship Condition Age at Onset Recorded Date/T hamida Unknown Family History?- Unknown March 082017 3:41pm Family History?- Unknown June 28, 2018 1:36pm Advance Directives No Advanced Directives Records Found Advance Directive Response Recorded Date/ Time Living Will No January 09, 2019 6:00pm Power of Material Yard Clerk No December 6:00pm Advance Directive Response Recorded Date/ Time Living Will No January 09, 2019 5:00pm Power of Material Yard Clerk No December 5:00pm Chief Complaint and Reason for Visit Chief Complaint 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 RX HERE Chief Complaint Follicular cyst of t he skin and subcutaneous tissu Chief Complaint Admit Date NO DRAW FEE PLEASE. MISSED A1C AND CBCD February 23, 2024 2:31pm Chief Complaint Admit Date BILATERAL ADRENAL ADENOMAS August 24 9:40am Chief Complaint Admit Date BILATERAL ADRENAL ADENOMAS August 24 9:40am LABS September 07, 2024 10:57 am Additional Source Comments (unrecognized sect ion and content) No Status Records FoundNo Status Records FoundNo Status Records FoundNo Status Records Found INFORMATION SOURCE (unrecogn ized section and content) DATE CREATED AUTHOR 10/05/2017 [employer] DATE CREATED AUTHOR AUTHOR'S ORGANIZ ATION 10/06/2017 [employer] DATE CREATED AUTHOR AUTHOR'S ORGANIZ ATION 03/08/2019 [facility] DATE CREATED AUTHOR AUTHOR'S ORGANIZ ATION 09/13/2024 [facility] Goals (unrecognized section and content) Goals may be documented in a n alternate sectionGoals may be documented in an alternate sectionGoals may be documented in an alternate sectionGoals may be documented in an alternate sectionGoals may be documented in an alternate sectionGoals may be documented in an alternate sectionGoals may be documented in an alternate sectionGoals may be documented in an alternate sectionGoals may be documented in an alternate sectionGoals may be documented in an alternate sectionGoals may be documented in an alternate sectionGoals may be documented in an alternate section Care Teams (unrecognized sec tion and content) Team Status: Active Member Role Status Dates Dr. Kelechi Lomeli MD Family Provider Active Dr. Kelechi Lomeli MD Primary Care Provider Active Team Status: Active Member Role Status Dates Dr. Kelechi Lomeli MD Primary Care Provi cristhian, Attending Provider, Referring Provider Active Team Status: Inactive Member Role Status Dates Dr. Kelechi Lomeli MD Primary Care Provider, Attending Provider Active Team Status: Inactive Member Role Status Dates Dr. Kelechi Lomeli MD Primary Care Provi cristhian, Attending Provider, Referring Provider Active Team Status: Active Member Role Status Dates Dr. Kelechi Lomeli MD Primary Care Provider Active Team Status: Inactive Member Role Status Dates Dr. Kelechi Lomeli MD Primary Care Provider Active Start: February 22, 2024 End: February 22, 2024 Dr. Kelechi Lomeli MD Attending Provider Active Start: February 22, 2024 End: February 22, 2024 Team Status: Inactive Member Role Status Dates Dr. Kelechi Lomeli MD Primary Care Provider Active Start: February 23, 2024 End: February 23, 2024 Dr. Kelechi Lomeli MD Attending Provider Active Start: February 23, 2024 End: February 23, 2024 Team Status: Inactive Member Role Status Dates Dr. Kelechi Lomeli MD Primary Care Provider Active Start: June 06, 2024 End: June 06, 2024 Dr. Kelechi Lomeli MD Attending Provider Active Start: June 06, 2024 End: June 06, 2024 Dr. Kelechi Lomeli MD Referring Provider Active Start: June 06, 2024 End: June 06, 2024 Team Status: Inactive Member Role Status Dates Dr. Kelechi Lomeli MD Primary Care Provider Active Start: July 07, 2024 End: July 07, 2024 Dr. Kelechi Lomeli MD Attending Provider Active Start: July 07, 2024 End: July 07, 2024 Team Status: Inactive Member Role Status Dates Dr. Kelechi Lomeli MD Primary Care Provider Active Start: July 15, 2024 End: July 15, 2024 Dr. Kelechi Lomeli MD Attending Provider Active Start: July 15, 2024 End: July 15, 2024 Dr. Kelechi Lomeli MD Referring Provider Active Start: July 15, 2024 End: July 15, 2024 Team Status: Inactive Member Role Status Dates Dr. Kelechi Lomeli MD Primary Care Provider Active Start: August 24, 2024 End: August 24, 2024 Dr. Kelechi Lomeli MD Attending Provider Active Start: August 24, 2024 End: August 24, 2024 Dr. Kelechi Lomeli MD Referring Provider Active Start: August 24, 2024 End: August 24, 2024 Team Status: Inactive Member Role Status Dates Dr. Kelechi Lomeli MD Primary Care Provider Active Start: September 07, 2024 End: September 07, 2024 Dr. Kelechi Lomeli MD Attending Provider Active Start: September 07, 2024 End: September 07, 2024 Dr. Kelechi Lomeli MD Referring Provider Active Start: September 07, 2024 End: September 07, 2024 FOR RECORDS PERTAINING TO PATIENTS WHO ARE [...] BE BASED ON THE PRIMARY CLINICAL RECORDS. [employer] provides no warranty or guarantee of the accuracy or completeness of information in this document.
== END | disposition home or self-care (01) ==
LOC: LAB 08:49
PROVIDERS: PCP Family Medicine Geriatric Medicine; Referring Provider Family Medicine Geriatric Medicine; Visit Provider Family Medicine Geriatric Medicine
DX: E78.5 Hyperlipidemia, unspecified (principal); E11.65 Type 2 diabetes mellitus with hyperglycemia; I10 Essential (primary) hypertension
CPT/HCPCS: 36415; 80053; 80061; 83036; 84443; 85025

== ENCOUNTER → 2024-10-17 | Outpatient (CLI) | payer MEDICARE, MEDICAID, SELFPAY ==
[2024-10-17 11:04] LABS: Anion Gap 11 (5-15); BUN 18 mg/dL (4-19); BUN/Creat Ratio 23.2 RATIO (10-20); Calcium,Total 9.1 mg/dL (7.6-11.0); Carbon Dioxide 24.6 mmol/L (21.0-32.0); Chloride 103 mmol/L (98-108); Glucose 223 mg/dL (70-99); Potassium 4.2 mmol/L (3.3-5.1)
== END | disposition home or self-care (01) ==
LOC: LAB.FUTURE 09:30 → LAB 09:47
PROVIDERS: PCP Family Medicine Geriatric Medicine; Visit Provider Family Medicine Geriatric Medicine
DX: I10 Essential (primary) hypertension (principal); E03.9 Hypothyroidism, unspecified
CPT/HCPCS: 36415; 80048; 84443

== ENCOUNTER → 2025-01-02 | Outpatient (CLI) | payer MEDICARE, MEDICAID, SELFPAY ==
[2025-01-02 10:44] LABS: Hematocrit 49.4 % (40-54); Hemoglobin 16.5 g/dL (13.0-16.5); Immature Granulocytes Count 0.040 X10^3/uL (0.0-0.0); Mean Corp Hgb Conc 33.4 g/dL (32-36); Mean Corpuscular Volume 87.3 fL (80-94); Mean Platelet Vol. 9.3 fl (6.2-12.0); NRBC Flagged by Analyzer 0 % (0-5); Platelet Count 275 K/mm3 (150-450); RBC Distribution Width CV 14.0 % (11.6-14.6); RBC Distribution Width SD 45.1 fl (35.1-43.9); Red Blood Count 5.66 M/mm3 (4.6-6.2); White Blood Count 9.9 K/mm3 (4.4-11.0)
--- OUTSIDE RECORDS SUMMARY | 2025-01-02 11:06 | XMS RPT_ITS | CCD ---
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 hemoglobin concentration (MCHC) determinationOrdered By: Kelechi Lomeli on 10-03-2024 MCHC (RBC) [Mass/Vol] 32.3 g/dL 32-36 [facility] Mean platelet volume determi nationOrdered By: Kelechi Lomeli on 10-03-2024 Platelet mean volume (Bld) [Entitic vol] 10.1 fL 6.2-12.0 [facility] Monocyte percentageOrdered B y: Kelechi Lomeli on 10-03-2024 Monocytes/100 WBC (Bld) 7.9 % 0-[address] [facility] Neutrophil percentageOrdered By: Kelechi Lomeli on 10-03-2024 Neutrophils/100 WBC (Bld) 60.4 % 47-70 [facility] Nucleated red blood cell per centageOrdered By: Kelechi Lomeli on 10-03-2024 Nucleated RBC/100 WBC (Bld) [Ratio] 0 % 0-5 [facility] Platelet countOrdered By: Balaji Lomeli on 10-03-2024 Platelets (Bld) [#/Vol] 274 10*3/uL 150-450 [facility] Potassium measurement (mass/ volume)Ordered By: Kelechi Lomeli on 10-03-2024 Potassium (Unsp spec) [Mass/Vol] 4.8 mmol/L 3.3-5.1 [facility] RBC Auto (Bld) [#/Vol]Ordere d By: Kelechi Lomeli on 10-03-2024 RBC (Bld) [#/Vol] 5.49 10*6/uL 4.6-6.2 [facility] Screening total cholesterol/ high density lipoprotein (HDL) cholesterol ratioOrdered By: Kelechi Lomeli on 10-03-2024 Cholesterol.total/Choleste rol in HDL [Mass ratio] 6.59 {ratio} [facility] Serum creatinine measurement (mass/volume)Ordered By: Kelechi Lomeli on 10-03-2024 Creatinine [Mass/Vol] 0.81 mg/dL 0.70-1.20 [facility] Serum globulin measurementOr dered By: Kelechi Lomeli on 10-03-2024 Globulin (S) [Mass/Vol] 2.7 g/dL 2.2-4.[address] [facility] Serum glucose measurement (m ass/volume)Ordered By: Kelechi Lomeli on 10-03-2024 Glucose [Mass/Vol] 254 mg/dL High 70-99 [facility] Serum or plasma alanine peres otransferase (ALT) measurementOrdered By: Kelechi Lomeli on 10-03-2024 ALT [Catalytic activity/Vol] 11 U/L <47 [facility] Serum or plasma albumin rosibel urement (mass/volume)Ordered By: Kelechi Lomeli 10-03-2024 Albumin [Mass/Vol] 3.7 g/dL 3.4-4.8 [facility] Serum or plasma albumin/glob ulin mass ratioOrdered By: Kelechi Lomeli 10-03-2024 Albumin/Globulin [Mass ratio] 1.4 {ratio} 0.9-2.4 [facility] Serum or plasma alkaline shoshana sphatase measurementOrdered By: Kelechi Lomeli 10-03-2024 ALP [Catalytic activity/Vol] 70 U/L 40-129 [facility] Serum or plasma calcium rosibel urement (mass/volume)Ordered By: Kelechi Lomeli 10-03-2024 Calcium [Mass/Vol] 9.4 mg/dL 7.6-11.0 [facility] Serum or plasma cholesterol in HDL measurement (mass/volume)Ordered By: Kelechi Armani 10-03-2024 Cholesterol in HDL [Mass/Vol] 30 mg/dL Low >40 [facility] Comment on above: National Cholesterol Education Program (NCEP) guidelines:<40 mg/dL: Low HDL-cholesterol (major risk factor for CHD)>= 60 mg/dL: High HDL-cholesterol (negative risk factor for CHD)HDL-cholesterol is affected by a number of factors, e.g. smoking, exercise, hormones, sex and age. Serum or plasma cholesterol measurement (mass/volume)Ordered By: Kelechi Lomeli 10-03-2024 Cholesterol [Mass/Vol] 195 mg/dL <201 [facility] Comment on above: Cholesterol level, D esirable <200 mg/dLBorderline high cholesterol 200-239 mg/dLHigh cholesterol >=240 mg/dLRecommendations of the NCEP Adult Treatment Panel for the following risk-cutoff thresholds for the [place] Citizen population. Serum or plasma urea nitroge n measurement (mass/volume)Ordered By: Kelechi Lomeli on 10-03-2024 Urea nitrogen [Mass/Vol] 21 mg/dL High 4-19 [facility] Sodium levelOrdered By: Kelechi Lomeli on 10-03-2024 Sodium [Moles/Vol] 137 mmol/L 133-145 [facility] TSH DL <= 0.005 mIU/L QnOrde red By: Kelechi Lomeli on 10-03-2024 TSH Qn 9.850 uIU/mL High 0.300-4.200 [facility] Thyroid Stim Hormone (TSH)on 10-03-2024 TSH 9.850 uIU/mL High 0.300-4.200 [facility] Comment on above: Performed By: #### L 3300.1500, L509.6001, L3300.1000, L3410.9998 #### [facility] [address] [place], [address] Total proteinOrdered By: Kelechi Lomeli on 10-03-2024 Protein [Mass/Vol] 6.4 g/dL 5.9-8.4 [facility] Triglycerides measurementOrd ered By: Kelechi Lomeli on 10-03-2024 Triglyceride [Mass/Vol] 193 mg/dL <199 [facility] Comment on above: The drugs N-Acetylcy steine and Metamizole may falsely depress this assay. Normal range: <150 mg/dLBorderline High: 150-199 mg/dLHigh: 200-499 mg/dLVery High: >500 mg/dL White blood cell (WBC) count Ordered By: Kelechi Lomeli on 10-03-2024 WBC (Bld) [#/Vol] 7.2 10*3/uL 4.4-11.0 [facility] Anion gap in Serum or Plasma Ordered By: Kelechi Lomeli on 09-07-2024 Anion gap [Moles/Vol] 12 mmol/L 5-15 [facility] BUN/creatinine ratioOrdered By: Kelechi Lomeli 09-07-2024 Urea nitrogen/Creatinine [Mass ratio] 21.9 mg/mg High 10-20 [facility] Basic Metabolic Profile (BMP )on 09-07-2024 BUN/CRE 21.9 RATIO High 10-20 [facility] Comment on above: Performed By: #### L 3300.1500, L509.6001, L3300.1000, L3410.9998 #### [facility] [address] [place], [address] Calcium [Mass/Vol] 9.5 mg/dL Normal 7.6-11.0 [facility] Comment on above: Performed By: #### L 3300.1500, L509.6001, L3300.1000, L3410.9998 #### [facility] [address] [place], [address] Chloride [Moles/Vol] 97 mmol/L Low 98-108 [facility] Comment on above: Performed By: #### L 3300.1500, L509.6001, L3300.1000, L3410.9998 #### [facility] [address] [place], [address] CO2 [Moles/Vol] 27.4 mmol/L Normal 21.0-32.0 [facility] Comment on above: Performed By: #### L 3300.1500, L509.6001, L3300.1000, L3410.9998 #### [facility] [address] [place], [address] Creatinine [Mass/Vol] 0.80 mg/dL Normal 0.70-1.20 [facility] Comment on above: Performed By: #### L 3300.1500, L509.6001, L3300.1000, L3410.9998 #### [facility] [address] [place], [address] GAP 12 Normal 5-15 [facility] Comment on above: Performed By: #### L 3300.1500, L509.6001, L3300.1000, L3410.9998 #### [facility] [address] [place], [address] GFR/1.73 sq M.predicted among non-blacks MDRD (S/P/Bld) [Vol rate/Area] 99 mL/min/{1.73_m2} Normal >60 [facility] Comment on above: Result Comment: mL/m in/1.73m2 CKD-EPI Creatinine Equation (2020) Performed By: #### L 3300.1500, L509.6001, L3300.1000, L3410.9998 #### [facility] [address] [place], [address] Glucose [Mass/Vol] 275 mg/dL High 70-99 [facility] Comment on above: Performed By: #### L 3300.1500, L509.6001, L3300.1000, L3410.9998 #### [facility] [address] [place], [address] Potassium [Moles/Vol] 4.7 mmol/L Normal 3.3-5.1 [facility] Comment on above: Performed By: #### L 3300.1500, L509.6001, L3300.1000, L3410.9998 #### [facility] [address] [place], [address] Sodium [Moles/Vol] 136 mmol/L Normal 133-145 [facility] Comment on above: Performed By: #### L 3300.1500, L509.6001, L3300.1000, L3410.9998 #### [facility] [address] [place], [address] Urea nitrogen [Mass/Vol] 18 mg/dL Normal 4-19 [facility] Comment on above: Performed By: #### L 3300.1500, L509.6001, L3300.1000, L3410.9998 #### [facility] [address] [place], [address] Carbon dioxide, total [Moles /volume] in Central venous bloodOrdered By: Kelechi Lomeli on 09-07-2024 CO2 [Moles/Vol] 27.4 mmol/L 21.0-32.0 [facility] Chloride assayOrdered By: Balaji Lomeli on 09-07-2024 Chloride [Moles/Vol] 97 mmol/L Low 98-108 [facility] Glomerular filtration rate ( GFR) estimation/1.73 sq m using serum, plasma, or whole bOrdered By: Kelechi Lomeli on 09-07-2024 GFR/1.73 sq M.predicted among non-blacks MDRD (S/P/Bld) [Vol rate/Area] 99 mL/min/{1.73_m2} >60 [facility] Comment on above: mL/min/1.73m2 CKD-EP I Creatinine Equation (2020) Potassium measurement (mass/ volume)Ordered By: Kelechi Lomeli on 09-07-2024 Potassium (Unsp spec) [Mass/Vol] 4.7 mmol/L 3.3-5.1 [facility] Serum creatinine measurement (mass/volume)Ordered By: Kelechi Lomeli on 09-07-2024 Creatinine [Mass/Vol] 0.80 mg/dL 0.70-1.20 [facility] Serum glucose measurement (m ass/volume)Ordered By: Kelechi Lomeli on 09-07-2024 Glucose [Mass/Vol] 275 mg/dL High 70-99 [facility] Serum or plasma calcium rosibel urement (mass/volume)Ordered By: Kelechi Lomeli 09-07-2024 Calcium [Mass/Vol] 9.5 mg/dL 7.6-11.0 [facility] Serum or plasma urea nitroge n measurement (mass/volume)Ordered By: Kelechi Lomeli on 09-07-2024 Urea nitrogen [Mass/Vol] 18 mg/dL 4-19 [facility] Sodium levelOrdered By: Kelechi Lomeli 09-07-2024 Sodium [Moles/Vol] 136 mmol/L 133-145 [facility] MRI Abd WITH and W/O Contras ton 08-24-2024 MRI Abd WITH and W/O Contrast [facility] Imaging Services [facility] [place] [address] MRI Abd WITH and W/O Contrast MR#: [id number] Acct: [id number] Name: ALIYA SANDOVAL Rep #: [id number] : 1960 M 64 From: Cesar Faustin DO PCP: Dr. Kelechi Lomeli MD Status: DEP CLI Study: MRI Abd WITH and W/O Contrast Date of Exam: Exam# [id number] Ordering Dr: Kelechi Lomeli MD PROCEDURE: MRI [...] atrophy bilaterally, unchanged from 2023. Reading Location: [facility] CC: Dr. 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 COM[facility] Normal . [facility] Comment on above: Order Comment: [id number] SALIVARY CORTISOL Result Comment: Test Ordered: [id number] Salivary Cortisol,MS Salivary Cortisol, MS 0.061 ug/dL ES Reference Range: . This test was developed and its performance characteristics determined by [facility]. It has not been cleared or approved by the Food and Drug Administration. Reference Range: Children and Adults: 8:00a.m.: 0.025 - 0.600 Noon: <0.010 - 0.330 4:00p.m.: 0.010 - 0.200 Bedtime (9:00p.m.-Midnight): <0.010 - 0.090 Performed at: [employer] [address] [place] [id number] Cracker Off: Angel Lunsford MD, Phone: [phone] Performed at: [address] [id number] Cracker Off: Jong Metcalf PhD, Phone: [phone] Performed By: #### L 3398.9999 #### [facility] [address] [facility] [place], [place], [address] [facility].on 07-22-2024 [facility]. COMMENT Normal . [facility] Comment on above: Order Comment: [id number] 9SALIVARY MARY Result Comment: Test Ordered: [id number] Salivary Cortisol,MS Salivary Cortisol, MS 0.053 ug/dL ES Reference Range: . This test was developed and its performance characteristics determined by [employer] [facility]. It has not been cleared or approved by the Food and Drug Administration. Reference Range: Children and Adults: 8:00a.m.: 0.025 - 0.600 Noon: <0.010 - 0.330 4:00p.m.: 0.010 - 0.200 Bedtime (9:00p.m.-Midnight): <0.010 - 0.090 Performed at: [employer] [address] [place] [id number] Cracker Off: Angel Lunsford MD, Phone: [phone] Performed at: [address] [id number] Cracker Off: Jong Metcalf PhD, Phone: [phone] Performed By: #### L 3300.1500, L509.6001, L3300.1000, L3410.9998 #### [facility] [address] [facility] [place], [place], [id number] [facility] Misc.on 07-21-2024 [facility] Misc. COMMENT Normal . [facility] Comment on above: Order Comment: [id number] DEXAMETHASONE RED FRZ Result Comment: Test Ordered: [id number] Dexamethasone, Serum Dexamethasone, Serum 349 ng/dL ES Reference Range: . This test was developed and its performance characteristics determined by [facility]. It has not been cleared or approved by the Food and Drug Administration. Reference Range: Adults baseline: <30 8:00 AM following 1 mg dexamethasone previous evenin - 295 8:00 AM following 8 mg dexamethasone (4 x 2 mg doses) previous day: 1600 - 2850 Performed at: [employer] [address] [place] [id number] Cracker Off: Angel Lunsford MD, Phone: [phone] Performed at: [address] [id number] Cracker Off: Jong Metcalf PhD, Phone: [phone] Performed By: #### L 3300.1500, L5096001, L3300.1000, L3410.9997 #### [facility] [address] [place], [address] Adrenocorticotropic Hormoneo n 07-17-2024 ACTH 5.8 pg/mL Low 7.2-63.3 [facility] Comment on above: Order Comment: N Result Comment: ACTH reference interval for samples collected between 7 and 10 AM. Performed at: [address] [id number] Cracker Off: Jong Metcalf PhD, Phone: [phone] Performed By: #### L 3300.1500, L509.6001, L3300.1000, L3410.9996 #### [facility] [address] [place], [address] DHEA Sulfateon 07-17-2024 DHEA SULFATE 73.3 ug/dL Normal 48.9-344.2 [facility] Comment on above: Order Comment: N Performed By: #### L 3300.1500, L509.6001, L3300.1000, L3410.9998 #### [facility] [address] [place], [place], [address] Adrenocorticotropic hormone (ACTH) measurementOrdered By: Kelechi Lomeli on 07-15-2024 Adrenocorticotropic Hormone 5.8 pg/mL Low 7.2-63.3 [facility] Comment on above: ACTH reference inter kun for samples collected between 7 and10 AM.Performed at: [facility] [employer] [id number] Director: Jong Metcalf PhD, Phone: [phone] Dehydroepiandrosterone sulfa te (DHEA-S) measurementOrdered By: Kelechi Lomeli on 07-15-2024 Dehydroepiandrosterone Sulfate 73.3 ug/dL 48.9-344.2 [facility] L509.6001on 07-15-2024 CORTISOL 1.18 ug/dL Low 6.02-18.40 [facility] Comment on above: Performed By: #### L 3300.1500, L509.6001, L3300.1000, L3410.9998 #### [facility] [address] [place], [place], [id number] No Panel InformationOrdered By: Kelechi Lomeli on 07-15-2024 Cortisol AM Sample 1.18 ug/dL Low 6.02-18.40 [facility] L3410.9998on 07-12-2024 [facility] Misc. COMMENT Normal . [facility] Comment on above: Order Comment: no se rum sent to [facility]. PT TO BE REDRAWN IF STILL [id number] Result Comment: no s alicia sent to [facility]. PT TO BE REDRAWN IF STILL NEEDED Test Ordered: [id number] Dexamethasone, Serum Dexamethasone, Serum ng/dL ES Reference Range: . Test not performed. No serum received. CONTACTED YOUR FACILITY VIA EMAIL ON 07-08-2024 Performed at: [facility] [employer] [facility] [id number] Cracker Off: Jong Metcalf PhD, Phone: [phone] Performed at: [employer] [address] [place] [id number] Cracker Off: Angel Lunsford MD, Phone: [phone] Performed By: #### L 3300.1500, L509.6001, L3300.1000, L3410.9998 #### [facility] [address] [place], [place], [id number] Absolute lymphocyte countOrd ered By: Kelechi Lomeli on 07-07-2024 Lymphocytes Auto (Unsp spec) [#/Vol] 1.63 10*3/uL 0.83-4.51 [facility] Absolute neutrophil countOrd ered By: Kelechi Armani on 07-07-2024 Neutrophils (Bld) [#/Vol] 7.2 10*3/uL 2.0-7.7 [facility] Anion gap in Serum or Plasma Ordered By: Kelechi Lomeli on 07-07-2024 Anion gap [Moles/Vol] 12 mmol/L 5-15 [facility] Automated lymphocyte count a s percentage of total leukocytesOrdered By: Kelechi Lomeli on 07-07-2024 Lymphocytes/100 WBC Auto (Unsp spec) 17.5 % Low 19-41 [facility] BUN/creatinine ratioOrdered By: [facility] Urea nitrogen/Creatinine [Mass ratio] 17.2 mg/mg 10-20 [facility] Basophil percentageOrdered B y: Kelechi Lomeli on 07-07-2024 Basophils/100 WBC (Bld) 0.6 % 0-[address] [facility] Bilirubin, totalOrdered By: Kelechi Lomeli on 07-07-2024 Bilirubin [Mass/Vol] 0.36 mg/dL Normal 0.00-1.30 [facility] Comment on above: Performed By: #### L 3300.1500, L509.6001, L3300.1000, L3410.9998 #### [facility] [address] [place], [place], [id number] CBC W/Diff, Automatedon 06-12 Absolute Lymph 1.63 X10 3/uL Normal 0.83-4.51 [facility] Comment on above: Performed By: #### L 3300.1500, L509.6001, L3300.1000, L3410.9998 #### [facility] [address] [place], [address] Absolute Neut 7.2 X10 3/uL Normal 2.0-7.7 [facility] Comment on above: Performed By: #### L 3300.1500, L509.6001, L3300.1000, L3410.9998 #### [facility] [address] [place], [address] Basophils/100 WBC (Bld) 0.6 % Normal 0-[address] [facility] Comment on above: Performed By: #### L 3300.1500, L509.6001, L3300.1000, L3410.9998 #### [facility] [address] [place], [address] Eosinophils/100 WBC (Bld) 0.4 % Normal 0-5 [facility] Comment on above: Performed By: #### L 3300.1500, L509.6001, L3300.1000, L3410.9998 #### [facility] [address] [place], [address] Erythrocyte distribution width (RBC) [Ratio] 14.6 % Normal 11.6-14.6 [facility] Comment on above: Performed By: #### L 3300.1500, L509.6001, L3300.1000, L3410.9998 #### [facility] [address] [place], [address] Hematocrit (Bld) [Volume fraction] 48.3 % Normal 40-54 [facility] Comment on above: Performed By: #### L 3300.1500, L509.6001, L3300.1000, L3410.9998 #### [facility] [address] [place], [address] Hemoglobin (Bld) [Mass/Vol] 16.1 g/dL Normal 13.0-16.5 [facility] Comment on above: Performed By: #### L 3300.1500, L509.6001, L3300.1000, L3410.9998 #### [facility] [address] [place], [address] IG% 0.600 Normal 0.0-0.9 [facility] Comment on above: Result Comment: IG% - Immature Granulocytes (promyelocytes, myelocytes and metamyelocytes) > 1% indicates that a LEFT SHIFT is Present. Performed By: #### L 3300.1500, L509.6001, L3300.1000, L3410.9998 #### [facility] [address] [place], [address] Lymphocytes/100 WBC (Bld) 17.5 % Low 19-41 [facility] Comment on above: Performed By: #### L 3300.1500, L509.6001, L3300.1000, L3410.9998 #### [facility] [address] [place], [address] MCH (RBC) [Entitic mass] 27.7 pg Normal 27.0-32.0 [facility] Comment on above: Performed By: #### L 3300.1500, L509.6001, L3300.1000, L3410.9998 #### [facility] [address] [place], [address] MCHC (RBC) [Mass/Vol] 33.3 g/dL Normal 32-36 [facility] Comment on above: Performed By: #### L 3300.1500, L509.6001, L3300.1000, L3410.9998 #### [facility] [address] [place], [address] MCV (RBC) [Entitic vol] 83.1 fL Normal 80-[address] [facility] Comment on above: Performed By: #### L 3300.1500, L509.6001, L3300.1000, L3410.9998 #### [facility] [address] [place], [address] Monocytes/100 WBC (Bld) 3.6 % Normal 0-[address] [facility] Comment on above: Performed By: #### L 3300.1500, L509.6001, L3300.1000, L3410.9998 #### [facility] [address] [place], [address] Neutrophils/100 WBC (Bld) 77.3 % High 47-70 [facility] Comment on above: Performed By: #### L 3300.1500, L509.6001, L3300.1000, L3410.9998 #### [facility] [address] [place], [address] Nucleated RBC (Bld) [#/Vol] 0 10*3/uL Normal 0-5 [facility] Comment on above: Performed By: #### L 3300.1500, L509.6001, L3300.1000, L3410.9998 #### [facility] [address] [place], [address] Platelet mean volume (Bld) [Entitic vol] 9.1 fL Normal 6.2-12.0 [facility] Comment on above: Performed By: #### L 3300.1500, L509.6001, L3300.1000, L3410.9998 #### [facility] [address] [place], [address] Platelets (Bld) [#/Vol] 295 10*3/uL Normal 150-450 [facility] Comment on above: Performed By: #### L 3300.1500, L509.6001, L3300.1000, L3410.9998 #### [facility] [address] [place], [address] RBC (Bld) [#/Vol] 5.81 10*6/uL Normal 4.6-6.2 [facility] Comment on above: Performed By: #### L 3300.1500, L509.6001, L3300.1000, L3410.9998 #### [facility] [address] [place], [address] RDW SD 44.4 fl High 35.1-43.9 [facility] Comment on above: Performed By: #### L 3300.1500, L509.6001, L3300.1000, L3410.9998 #### [facility] [address] [place], [address] WBC (Bld) [#/Vol] 9.3 10*3/uL Normal 4.4-11.0 [facility] Comment on above: Performed By: #### L 3300.1500, L509.6001, L3300.1000, L3410.9998 #### [facility] [address] [place], [address] Calculated very low density lipoprotein (VLDL) cholesterol measurementOrdered By: Kelechi Lomeli on 07-07-2024 Calculated very low density lipoprotein (VLDL) cholesterol measurement 32 mg/dL 5-40 [facility] VLDL Cholesterol 32 mg/dL 5-40 [facility] Carbon dioxide, total [Moles /volume] in Central venous bloodOrdered By: Kelechi Lomeli on 07-07-2024 CO2 [Moles/Vol] 25.4 mmol/L Normal 21.0-32.0 [facility] Comment on above: Performed By: #### L 3300.1500, L509.6001, L3300.1000, L3410.9998 #### [facility] [address] [place], [address] Chloride assayOrdered By: Balaji Lomeli on 07-07-2024 Chloride [Moles/Vol] 97 mmol/L Low 98-108 [facility] Comment on above: Performed By: #### L 3300.1500, L509.6001, L3300.1000, L3410.9998 #### [facility] [address] [place], [address] Comprehensive Metabolic Prof ilon 07-07-2024 ALK PHOS 100 U/L Normal 40-129 [facility] Comment on above: Performed By: #### L 3300.1500, L509.6001, L3300.1000, L3410.9998 #### [facility] [address] [place], [address] BUN/CRE 17.2 RATIO Normal 10-20 [facility] Comment on above: Performed By: #### L 3300.1500, L509.6001, L3300.1000, L3410.9998 #### [facility] [address] [place], [address] GAP 12 Normal 5-15 [facility] Comment on above: Performed By: #### L 3300.1500, L509.6001, L3300.1000, L3410.9998 #### [facility] [address] [place], [address] T PROT 6.7 g/dL Normal 5.9-8.4 [facility] Comment on above: Performed By: #### L 3300.1500, L509.6001, L3300.1000, L3410.9998 #### [facility] [address] [place], [address] Comprehensive Metabolic Prof ilOrdered By: Kelechi Lomeli on 07-07-2024 AST [Catalytic activity/Vol] 15 U/L Normal <=37 [facility] Comment on above: Performed By: #### L 3300.1500, L509.6001, L3300.1000, L3410.9998 #### [facility] [address] [place], [address] Eosinophil percentageOrdered By: Kelechi Lomeli on 07-07-2024 Eosinophils/100 WBC (Bld) 0.4 % 0-5 [facility] Erythrocyte distribution wid th ratioOrdered By: Kelechi Lomeli on 07-07-2024 Erythrocyte distribution width (RBC) [Ratio] 14.6 % 11.6-14.6 [facility] Erythrocyte distribution wid th standard deviationOrdered By: Kelechi Lomeli on 07-07-2024 Erythrocyte distribution width (RBC) [Entitic vol] 44.4 fL High 35.1-43.9 [facility] Erythrocyte distribution width (RBC) [Ratio] 44.4 fl High 35.1-43.9 [facility] GFR/1.73 sq M.predicted oliver g non-blacks MDRD (S/P/Bld) [Vol rate/Area]Ordered By: Kelechi Lomeli on 07-07-2024 Estimated GFR (MDRD) Non-Af Amer 97 >60 [facility] Comment on above: mL/min/1.73m2 CKD-EP I Creatinine Equation (2020) Glomerular filtration rate ( GFR) estimation/1.73 sq m using serum, plasma, or whole bOrdered By: Kelechi Lomeli on 07-07-2024 GFR/1.73 sq M.predicted among non-blacks MDRD (S/P/Bld) [Vol rate/Area] 97 mL/min/{1.73_m2} Normal >60 [facility] Comment on above: mL/min/1.73m2 CKD-EP I Creatinine Equation (2020) Result Comment: mL/m in/1.73m2 CKD-EPI Creatinine Equation (2020) Performed By: #### L 3300.1500, L509.6001, L3300.1000, L3410.9998 #### [facility] [address] [facility] [place], [place], [id number] Hematocrit Auto (Bld) [Volum e fraction]Ordered By: Kelechi Lomeli on 07-07-2024 Hematocrit (Bld) [Volume fraction] 48.3 % 40-54 [facility] Hemoglobin A1con 07-07-2024 HbA1c (Bld) [Mass fraction] 11.6 % Normal <=5.6 [facility] Comment on above: Performed By: #### L 3300.1500, L509.6001, L3300.1000, L3410.9998 #### [facility] [address] [place], [place], [id number] Hemoglobin A1c percentageOrd ered By: Kelechi Armani on 07-07-2024 HbA1c (Bld) [Mass fraction] 11.6 % >5.7 [facility] Hemoglobin measurementOrdere d By: Kelechi Lomeli on 07-07-2024 Hemoglobin (Bld) [Mass/Vol] 16.1 g/dL 13.0-16.5 [facility] Immature granulocytes/100 WB C Auto (Bld)Ordered By: Kelechi Bakerok on 07-07-2024 Immature granulocytes/100 WBC (Bld) 0.600 % 0.0-0.9 [facility] Comment on above: IG% - Immature Granu locytes (promyelocytes, myelocytes and metamyelocytes) > 1% indicates that a LEFT SHIFT is Present. L509.6001on 07-07-2024 CORTISOL 2.13 ug/dL Low 6.02-18.40 [facility] Comment on above: Performed By: #### L 3300.1500, L509.6001, L3300.1000, L3410.9998 #### [facility] [address] [place], [address] LDL calc ser/plasOrdered By: Kelechi Armani on 07-07-2024 Cholesterol in LDL [Mass/Vol] 139 mg/dL [facility] Comment on above: Lenpzzfoco=624-489 m g/dL & Higher Whyb=656 mg/dL or greater LDL Cholesterol, Calculated 139 mg/dL [facility] Comment on above: Wpvambddkg=302-118 m g/dL & Higher Gshd=735 mg/dL or greater Lipid Profileon 07-07-2024 CHOL:HDL 5.25 Normal [facility] Comment on above: Performed By: #### L 3300.1500, L509.6001, L3300.1000, L3410.9998 #### [facility] [address] [place], [place], [id number] Cholesterol [Mass/Vol] 211 mg/dL High <=200 [facility] Comment on above: Result Comment: Chol esterol level, Desirable <200 mg/dL Borderline high cholesterol 200-239 mg/dL High cholesterol >=240 mg/dL Recommendations of the NCEP Adult Treatment Panel for the following risk-cutoff thresholds for the [place] Citizen population. Performed By: #### L 3300.1500, L509.6001, L3300.1000, L3410.9998 #### [facility] [address] [place], [address] Cholesterol in HDL [Mass/Vol] 40 mg/dL Normal [facility] Comment on above: Result Comment: Deandra onal Cholesterol Education Program (NCEP) guidelines: <40 mg/dL: Low HDL-cholesterol (major risk factor for CHD) >= 60 mg/dL: High HDL-cholesterol (negative risk factor for CHD) HDL-cholesterol is affected by a number of factors, e.g. smoking, exercise, hormones, sex and age. Performed By: #### L 3300.1500, L509.6001, L3300.1000, L3410.9998 #### [facility] [address] [place], [address] Cholesterol in LDL [Mass/Vol] 139 mg/dL Normal [facility] Comment on above: Result Comment: Bord ubyyat=388-346 mg/dL Higher Leoa=247 mg/dL or greater Performed By: #### L 3300.1500, L509.6001, L3300.1000, L3410.9998 #### [facility] [address] [place], [address] Cholesterol in VLDL [Mass/Vol] 32 mg/dL Normal 5-40 [facility] Comment on above: Performed By: #### L 3300.1500, L509.6001, L3300.1000, L3410.9998 #### [facility] [address] [place], [address] Triglyceride [Mass/Vol] 161 mg/dL Normal [facility] Comment on above: Result Comment: The drugs N-Acetylcysteine and Metamizole may falsely depress this assay. Normal range: <150 mg/dL Borderline High: 150-199 mg/dL High: 200-499 mg/dL Very High: >500 mg/dL Performed By: #### L 3300.1500, L509.6001, L3300.1000, L3410.9998 #### [facility] [address] [place], [address] Lymphocytes Auto (Unsp spec) [#/Vol]Ordered By: Kelechi Lomeli on 07-07-2024 Lymphocytes (Bld) [#/Vol] 1.63 10*3/uL 0.83-4.5 1 [facility] Lymphocytes/100 WBC Auto (Un sp spec)Ordered By: Kelechi Lomeli on 07-07-2024 Lymphocytes/100 WBC (Bld) 17.5 % Low 19-41 [facility] MCV (mean corpuscular volume ) determinationOrdered By: Kelechi Lomeli on 07-07-2024 MCV (RBC) [Entitic vol] 83.1 fL 80-94 [facility] Mean corpuscular hemoglobin (MCH) determinationOrdered By: Kelechi Lomeli on 07-07-2024 MCH (RBC) [Entitic mass] 27.7 pg 27.0-32.0 [facility] Mean corpuscular hemoglobin concentration (MCHC) determinationOrdered By: Kelechi Lomeli on 07-07-2024 MCHC (RBC) [Mass/Vol] 33.3 g/dL 32-36 [facility] Mean platelet volume determi nationOrdered By: Kelechi Lomeli on 07-07-2024 Platelet mean volume (Bld) [Entitic vol] 9.1 fL 6.2-12.0 [facility] Monocyte percentageOrdered B y: Kelechi Lomeli on 07-07-2024 Monocytes/100 WBC (Bld) 3.6 % 0-[address] [facility] Neutrophil percentageOrdered By: Kelechi Lomeli on 07-07-2024 Neutrophils/100 WBC (Bld) 77.3 % High 47-70 [facility] No Panel InformationOrdered By: Kelechi Lomeli on 07-07-2024 Cortisol AM Sample 2.13 ug/dL Low 6.02-18.40 [facility] Nucleated red blood cell per centageOrdered By: Kelechi Lomeli on 07-07-2024 Nucleated RBC/100 WBC (Bld) [Ratio] 0 % 0-5 [facility] Platelet countOrdered By: Balaji Lomeli on 07-07-2024 Platelets (Bld) [#/Vol] 295 10*3/uL 150-450 [facility] Potassium measurement (mass/ volume)Ordered By: Kelechi Lomeli on 07-07-2024 Potassium (Unsp spec) [Mass/Vol] 4.7 mmol/L 3.3-5.1 [facility] Potassium [Moles/Vol] 4.7 mmol/L Normal 3.3-5.1 [facility] Comment on above: Performed By: #### L 3300.1500, L509.6001, L3300.1000, L3410.9998 #### [facility] [address] [place], [place], [id number] RBC Auto (Bld) [#/Vol]Ordere d By: Kelechi Lomeli on 07-07-2024 RBC (Bld) [#/Vol] 5.81 10*6/uL 4.6-6.2 [facility] Screening total cholesterol/ high density lipoprotein (HDL) cholesterol ratioOrdered By: Kelechi Lomeli on 07-07-2024 Cholesterol.total/Choleste rol in HDL [Mass ratio] 5.25 {ratio} [facility] Serum creatinine measurement (mass/volume)Ordered By: Kelechi Lomeli on 07-07-2024 Creatinine [Mass/Vol] 0.84 mg/dL Normal 0.70-1.20 [facility] Comment on above: Performed By: #### L 3300.1500, L509.6001, L3300.1000, L3410.9998 #### [facility] [address] [place], [place], [address] Serum globulin measurementOr dered By: Kelechi Lomeli on 07-07-2024 Globulin (S) [Mass/Vol] 2.8 g/dL Normal 2.2-4.2 [facility] Comment on above: Performed By: #### L 3300.1500, L509.6001, L3300.1000, L3410.9998 #### [facility] [address] [place], [address] Serum glucose measurement (m ass/volume)Ordered By: Kelechi Lomeli on 07-07-2024 Glucose [Mass/Vol] 340 mg/dL High 70-99 [facility] Comment on above: Performed By: #### L 3300.1500, L509.6001, L3300.1000, L3410.9998 #### [facility] [address] [place], [address] Serum or plasma alanine peres otransferase (ALT) measurementOrdered By: Kelechi Lomeli on 07-07-2024 ALT [Catalytic activity/Vol] 12 U/L Normal <=46 [facility] Comment on above: Performed By: #### L 3300.1500, L509.6001, L3300.1000, L3410.9998 #### [facility] [address] [place], [address] Serum or plasma albumin rosibel urement (mass/volume)Ordered By: Kelechi Lomeli on 07-07-2024 Albumin [Mass/Vol] 4.0 g/dL Normal 3.4-4.8 [facility] Comment on above: Performed By: #### L 3300.1500, L509.6001, L3300.1000, L3410.9998 #### [facility] [address] [place], [address] Serum or plasma albumin/glob ulin mass ratioOrdered By: Kelechi Lomeli on 07-07-2024 Albumin/Globulin [Mass ratio] 1.5 {ratio} Normal 0.9-2.4 [facility] Comment on above: Performed By: #### L 3300.1500, L509.6001, L3300.1000, L3410.9998 #### [facility] [address] [place], [address] Serum or plasma alkaline shoshana sphatase measurementOrdered By: Kelechi Armani on 07-07-2024 ALP [Catalytic activity/Vol] 100 U/L 40-129 [facility] Serum or plasma calcium rosibel urement (mass/volume)Ordered By: Kelechi Lomeli on 07-07-2024 Calcium [Mass/Vol] 9.6 mg/dL Normal 7.6-11.0 [facility] Comment on above: Performed By: #### L 3300.1500, L509.6001, L3300.1000, L3410.9998 #### [facility] [address] [place], [place], [id number] Serum or plasma cholesterol in HDL measurement (mass/volume)Ordered By: Kelechi Armani 07-07-2024 Cholesterol in HDL [Mass/Vol] 40 mg/dL >40 [facility] Comment on above: National Cholesterol Education Program (NCEP) guidelines:<40 mg/dL: Low HDL-cholesterol (major risk factor for CHD)>= 60 mg/dL: High HDL-cholesterol (negative risk factor for CHD)HDL-cholesterol is affected by a number of factors, e.g. smoking, exercise, hormones, sex and age. Serum or plasma cholesterol measurement (mass/volume)Ordered By: Kelechi Armani 07-07-2024 Cholesterol [Mass/Vol] 211 mg/dL High <201 [facility] Comment on above: Cholesterol level, D esirable <200 mg/dLBorderline high cholesterol 200-239 mg/dLHigh cholesterol >=240 mg/dLRecommendations of the NCEP Adult Treatment Panel for the following risk-cutoff thresholds for the [place] Citizen population. Serum or plasma urea nitroge n measurement (mass/volume)Ordered By: Kelechi Armani on 07-07-2024 Urea nitrogen [Mass/Vol] 15 mg/dL Normal 4-19 [facility] Comment on above: Performed By: #### L 3300.1500, L509.6001, L3300.1000, L3410.9998 #### [facility] [address] [place], [place], [id number] Sodium levelOrdered By: Kelechi Lomeli 07-07-2024 Sodium [Moles/Vol] 134 mmol/L Normal 133-145 [facility] Comment on above: Performed By: #### L 3300.1500, L509.6001, L3300.1000, L3410.9998 #### [facility] [address] [place], [place], [id number] TSH DL <= 0.005 mIU/L QnOrde red By: Kelechi Lomeli on 07-07-2024 Thyroid Stimulating Hormone (TSH) 2.860 uIU/mL 0.300-4.200 [facility] TSH Qn 2.860 uIU/mL 0.300-4.200 [facility] Thyroid Stim Hormone (TSH)on 07-07-2024 TSH 2.860 uIU/mL Normal 0.300-4.200 [facility] Comment on above: Performed By: #### L 3300.1500, L509.6001, L3300.1000, L3410.9998 #### [facility] [address] [place], [place], [address] Total proteinOrdered By: Kelechi Lomeli on 07-07-2024 Protein [Mass/Vol] 6.7 g/dL 5.9-8.4 [facility] Triglycerides measurementOrd ered By: Kelechi Lomeli on 07-07-2024 Triglyceride [Mass/Vol] 161 mg/dL <[address] [facility] Comment on above: The drugs N-Acetylcy steine and Metamizole may falsely depress this assay. Normal range: <150 mg/dLBorderline High: 150-199 mg/dLHigh: 200-499 mg/dLVery High: >500 mg/dL White blood cell (WBC) count Ordered By: Kelechi Lomeli on 07-07-2024 WBC (Bld) [#/Vol] 9.3 10*3/uL 4.4-11.0 [facility] CORTISOL SERUMon 06-06-2024 CORTISOL 1.70 ug/dL Low 3.44-22.45 [facility] Comment on above: Result Comment: Adul t (AM) 5.27 - 22.45 ug/dL Adult (PM) 3.44 - 16.76 ug/dL Performed By: #### L 3300.1500, L509.6001, L3300.1000, L3410.9998 #### [facility] [address] [place], [place], [address] Cortisol [Mass/Vol]Ordered B y: Kelechi Lomeli on 06-06-2024 Cortisol 1.70 ug/dL Low 3.44-22.45 [facility] Comment on above: Adult (AM) 5.27 - 22 .45 ug/dL Adult (PM) 3.44 - 16.76 ug/dL Serum or plasma cortisol loli surement (mass/volume)Ordered By: Kelechi Lomeli on 06-06-2024 Cortisol [Mass/Vol] 1.70 ug/dL Low 3.44-22.45 [facility] Comment on above: Adult (AM) 5.27 - 22 .45 ug/dL Adult (PM) 3.44 - 16.76 ug/dL Serum or plasma thyroid stim ulating hormone (TSH) measurement (units/volume)Ordered By: Kelechi Lomeli on 06-06-2024 TSH Qn 2.550 uIU/mL 0.358-3.740 [facility] TSH QnOrdered By: Kelechi Bakerok o n 06-06-2024 Thyroid Stimulating Hormone (TSH) 2.550 uIU/mL 0.358-3.740 [facility] Thyroid Stim Hormone (TSH)on 06-06-2024 TSH 2.550 uIU/mL Normal 0.358-3.740 [facility] Comment on above: Performed By: #### L 3300.1500, L509.6001, L3300.1000, L3410.9998 #### [facility] [address] [place], [address] Urine Cultureon 02-24-2024 [facility] Enterobacter cloacae complex Pride Count >100,000 Klebsiella oxytoca Klebsiella oxytoca Enterobacter [...] Nitrofurantoin Islt BRETT 64 I Tobramycin Islt BRTET <=1 S TMP SMX Islt BRETT <=20 S Normal [facility] Comment on above: Performed By: #### L 3300.1500, L509.6001, L3300.1000, L3410.9998 #### [facility] [address] [place], [address] Absolute neutrophil countOrd ered By: Kelechi Bakerok on 02-23-2024 Neutrophils (Bld) [#/Vol] 7.5 10*3/uL 2.0-7.7 [facility] Basophil percentageOrdered B y: Kelechi Lomeli on 02-23-2024 Basophils/100 WBC (Bld) 0.7 % 0-[address] [facility] CBC W/Diff, Automatedon 02-11 Absolute Lymph 2.20 X10 3/uL Normal 0.83-4.51 [facility] Comment on above: Performed By: #### L 3300.1500, L509.6001, L3300.1000, L3410.9998 #### [facility] [address] [place], [address] Absolute Neut 7.5 X10 3/uL Normal 2.0-7.7 [facility] Comment on above: Performed By: #### L 3300.1500, L509.6001, L3300.1000, L3410.9998 #### [facility] [address] [place], [address] Basophils/100 WBC (Bld) 0.7 % Normal 0-[address] [facility] Comment on above: Performed By: #### L 3300.1500, L509.6001, L3300.1000, L3410.9998 #### [facility] [address] [place], [address] Eosinophils/100 WBC (Bld) 0.8 % Normal 0-5 [facility] Comment on above: Performed By: #### L 3300.1500, L509.6001, L3300.1000, L3410.9998 #### [facility] [address] [place], [address] Erythrocyte distribution width (RBC) [Ratio] 14.6 % Normal 11.6-14.6 [facility] Comment on above: Performed By: #### L 3300.1500, L509.6001, L3300.1000, L3410.9998 #### [facility] [address] [place], [address] Hematocrit (Bld) [Volume fraction] 48.0 % Normal 40-54 [facility] Comment on above: Performed By: #### L 3300.1500, L509.6001, L3300.1000, L3410.9998 #### [facility] [address] [place], [address] Hemoglobin (Bld) [Mass/Vol] 15.6 g/dL Normal 13.0-16.5 [facility] Comment on above: Performed By: #### L 3300.1500, L509.6001, L3300.1000, L3410.9998 #### [facility] [address] [place], [address] IG% 0.500 Normal 0.0-0.9 [facility] Comment on above: Result Comment: IG% - Immature Granulocytes (promyelocytes, myelocytes and metamyelocytes) > 1% indicates that a LEFT SHIFT is Present. Performed By: #### L 3300.1500, L509.6001, L3300.1000, L3410.9998 #### [facility] [address] [place], [address] Lymphocytes/100 WBC (Bld) 20.4 % Normal 19-41 [facility] Comment on above: Performed By: #### L 3300.1500, L509.6001, L3300.1000, L3410.9998 #### [facility] [address] [place], [address] MCH (RBC) [Entitic mass] 27.2 pg Normal 27.0-32.0 [facility] Comment on above: Performed By: #### L 3300.1500, L509.6001, L3300.1000, L3410.9998 #### [facility] [address] [place], [address] MCHC (RBC) [Mass/Vol] 32.5 g/dL Normal 32-36 [facility] Comment on above: Performed By: #### L 3300.1500, L509.6001, L3300.1000, L3410.9998 #### [facility] [address] [place], [address] MCV (RBC) [Entitic vol] 83.8 fL Normal 80-[address] [facility] Comment on above: Performed By: #### L 3300.1500, L509.6001, L3300.1000, L3410.9998 #### [facility] [address] [place], [address] Monocytes/100 WBC (Bld) 7.6 % Normal 0-[address] [facility] Comment on above: Performed By: #### L 3300.1500, L509.6001, L3300.1000, L3410.9998 #### [facility] [address] [place], [address] Neutrophils/100 WBC (Bld) 70.0 % Normal 47-70 [facility] Comment on above: Performed By: #### L 3300.1500, L509.6001, L3300.1000, L3410.9998 #### [facility] [address] [place], [address] Nucleated RBC (Bld) [#/Vol] 0 10*3/uL Normal 0-5 [facility] Comment on above: Performed By: #### L 3300.1500, L509.6001, L3300.1000, L3410.9998 #### [facility] [address] [place], [address] Platelet mean volume (Bld) [Entitic vol] 9.1 fL Normal 6.2-12.0 [facility] Comment on above: Performed By: #### L 3300.1500, L509.6001, L3300.1000, L3410.9998 #### [facility] [address] [place], [address] Platelets (Bld) [#/Vol] 294 10*3/uL Normal 150-450 [facility] Comment on above: Performed By: #### L 3300.1500, L509.6001, L3300.1000, L3410.9998 #### [facility] [address] [place], [address] RBC (Bld) [#/Vol] 5.73 10*6/uL Normal 4.6-6.2 [facility] Comment on above: Performed By: #### L 3300.1500, L509.6001, L3300.1000, L3410.9998 #### [facility] [address] [place], [address] RDW SD 44.3 fl High 35.1-43.9 [facility] Comment on above: Performed By: #### L 3300.1500, L509.6001, L3300.1000, L3410.9998 #### [facility] [address] [place], [address] WBC (Bld) [#/Vol] 10.8 10*3/uL Normal 4.4-11.0 [facility] Comment on above: Performed By: #### L 3300.1500, L509.6001, L3300.1000, L3410.9998 #### [facility] [address] [place], [address] Eosinophil percentageOrdered By: Kelechi Lomeli on 02-23-2024 Eosinophils/100 WBC (Bld) 0.8 % 0-5 [facility] Erythrocyte distribution wid th ratioOrdered By: [facility] 02-[facility]24 Erythrocyte distribution width (RBC) [Ratio] 14.6 % 11.6-14.6 [facility] Erythrocyte distribution wid th standard deviationOrdered By: Kelechi Armani on 02-23-2024 Erythrocyte distribution width (RBC) [Entitic vol] 44.3 fL High 35.1-43.9 [facility] Hematocrit Auto (Bld) [Volum e fraction]Ordered By: Kelechi Lomeli on 02-23-2024 Hematocrit (Bld) [Volume fraction] 48.0 % 40-54 [facility] Hemoglobin A1con 02-23-2024 HbA1c (Bld) [Mass fraction] 11.4 % High 3.8-5.6 [facility] Comment on above: Result Comment: Norm al < 5.7 % Prediabetic 5.7 - 6.4 % Diabetic >or= 6.5 % Please note range changes. Performed By: #### L 3300.1500, L509.6001, L3300.1000, L3410.9998 #### [facility] [address] [place], [address] Hemoglobin A1c percentageOrd ered By: Kelechi Armani on 02-23-2024 HbA1c (Bld) [Mass fraction] 11.4 % High 3.8-5.6 [facility] Comment on above: Normal < 5.7 % Predi abetic 5.7 - 6.4 % Diabetic >or= 6.5 % Please note range changes. Hemoglobin measurementOrdere d By: Kelechi Lomeli on 02-23-2024 Hemoglobin (Bld) [Mass/Vol] 15.6 g/dL 13.0-16.5 [facility] Immature granulocytes/100 WB C Auto (Bld)Ordered By: Kelechi Lomeli on 02-23-2024 Immature granulocytes/100 WBC (Bld) 0.500 % 0.0-0.9 [facility] Comment on above: IG% - Immature Granu locytes (promyelocytes, myelocytes and metamyelocytes) > 1% indicates that a LEFT SHIFT is Present. Lymphocytes Auto (Unsp spec) [#/Vol]Ordered By: Kelechi Bakerok on 02-23-2024 Lymphocytes (Bld) [#/Vol] 2.20 10*3/uL 0.83-4.5 1 [facility] Lymphocytes/100 WBC Auto (Un sp spec)Ordered By: Kelechi Bakerok on 02-23-2024 Lymphocytes/100 WBC (Bld) 20.4 % 19-41 [facility] MCV (mean corpuscular volume ) determinationOrdered By: Kelechi Lomeli on 02-23-2024 MCV (RBC) [Entitic vol] 83.8 fL 80-94 [facility] Mean corpuscular hemoglobin (MCH) determinationOrdered By: Kelechi Armani on 02-23-2024 MCH (RBC) [Entitic mass] 27.2 pg 27.0-32.0 [facility] Mean corpuscular hemoglobin concentration (MCHC) determinationOrdered By: Kelechi Armani on 02-23-2024 MCHC (RBC) [Mass/Vol] 32.5 g/dL 32-36 [facility] Mean platelet volume determi nationOrdered By: Kelechi Armani on 02-23-2024 Platelet mean volume (Bld) [Entitic vol] 9.1 fL 6.2-12.0 [facility] Monocyte percentageOrdered B y: Kelechi Lomeli on 02-23-2024 Monocytes/100 WBC (Bld) 7.6 % 0-[address] [facility] Neutrophil percentageOrdered By: Keelchi Armani on 02-23-2024 Neutrophils/100 WBC (Bld) 70.0 % 47-70 [facility] Nucleated red blood cell per centageOrdered By: Kelechi Lomeli on 02-23-2024 Nucleated RBC/100 WBC (Bld) [Ratio] 0 % 0-5 [facility] Platelet countOrdered By: Balaji Lomeli on 02-23-2024 Platelets (Bld) [#/Vol] 294 10*3/uL 150-450 [facility] RBC Auto (Bld) [#/Vol]Ordere d By: Kelechi Lomeli on 02-23-2024 RBC (Bld) [#/Vol] 5.73 10*6/uL 4.6-6.2 [facility] White blood cell (WBC) count Ordered By: Kelechi Lomeli on 02-23-2024 WBC (Bld) [#/Vol] 10.8 10*3/uL 4.4-11.0 [facility] Albumin to globulin ratioOrd ered By: Kelechi Lomeli on 02-22-2024 Albumin/Globulin [Mass ratio] 0.9 {ratio} 0.9-2.4 [facility] Bilirubin Test strip Ql (U)O rdered By: Kelechi Lomeli on 02-22-2024 Bilirubin Ql (U) Negative Negative [facility] Bilirubin, totalOrdered By: Kelechi Lomeli on 02-22-2024 Bilirubin [Mass/Vol] 0.40 mg/dL 0.20-1.00 [facility] Comment on above: For patients on eltr ombopag therapy, use of Dimension [place] TBIL is not recommended. Blood urea nitrogen (BUN)/cr eatinine ratioOrdered By: Kelechi Lomeli on 02-22-2024 Urea nitrogen/Creatinine [Mass ratio] 19.9 mg/mg 10-20 [facility] Carbon dioxide measurementOr dered By: Kelechi Lomeli on 02-22-2024 CO2 [Moles/Vol] 27.0 mmol/L 21.0-32.0 [facility] Chloride measurementOrdered By: Kelechi Lomeli on 02-22-2024 Chloride [Moles/Vol] 99 mmol/L 98-107 [facility] Comprehensive Metabolic Prof ilon 02-22-2024 Albumin [Mass/Vol] 3.2 g/dL Normal 3.2-5.0 [facility] Comment on above: Performed By: #### L 3300.1500, L509.6001, L3300.1000, L3410.9998 #### [facility] [address] [place], [address] Albumin/Globulin [Mass ratio] 0.9 {ratio} Normal 0.9-2.4 [facility] Comment on above: Performed By: #### L 3300.1500, L509.6001, L3300.1000, L3410.9998 #### [facility] [address] [place], [address] ALK P 94 U/L Normal 45-117 [facility] Comment on above: Performed By: #### L 3300.1500, L509.6001, L3300.1000, L3410.9998 #### [facility] [address] [place], [address] ALT [Catalytic activity/Vol] 15 U/L Low 16-61 [facility] Comment on above: Performed By: #### L 3300.1500, L509.6001, L3300.1000, L3410.9998 #### [facility] [address] [place], [address] AST [Catalytic activity/Vol] 14 U/L Low 15-37 [facility] Comment on above: Performed By: #### L 3300.1500, L509.6001, L3300.1000, L3410.9998 #### [facility] [address] [place], [address] Bilirubin [Mass/Vol] 0.40 mg/dL Normal 0.20-1.00 [facility] Comment on above: Result Comment: For patients on eltrombopag therapy, use of Dimension [place] TBIL is not recommended. Performed By: #### L 3300.1500, L509.6001, L3300.1000, L3410.9998 #### [facility] [address] [place], [address] BUN/CRE 19.9 RATIO Normal 10-20 [facility] Comment on above: Performed By: #### L 3300.1500, L509.6001, L3300.1000, L3410.9998 #### [facility] [address] [place], [address] CA,Total 9.5 mg/dL Normal 8.5-10.1 [facility] Comment on above: Performed By: #### L 3300.1500, L509.6001, L3300.1000, L3410.9998 #### [facility] [address] [place], [address] Chloride [Moles/Vol] 99 mmol/L Normal 98-107 [facility] Comment on above: Performed By: #### L 3300.1500, L509.6001, L3300.1000, L3410.9998 #### [facility] [address] [place], [address] CO2 [Moles/Vol] 27.0 mmol/L Normal 21.0-32.0 [facility] Comment on above: Performed By: #### L 3300.1500, L509.6001, L3300.1000, L3410.9998 #### [facility] [address] [place], [address] Creatinine [Mass/Vol] 0.76 mg/dL Normal 0.70-1.30 [facility] Comment on above: Result Comment: The validity of the calculated GFR GFRAA in patients over 70 years has not been determined. Clinical correlation is essential. Performed By: #### L 3300.1500, L509.6001, L3300.1000, L3410.9998 #### [facility] [address] [place], [address] EST GFR - AA 134 mL/min Normal >60 [facility] Comment on above: Result Comment: Afri can [place] Citizen GFR Calc Performed By: #### L 3300.1500, L509.6001, L3300.1000, L3410.9998 #### [facility] [address] [place], [address] GAP 9 Normal 5-15 [facility] Comment on above: Performed By: #### L 3300.1500, L509.6001, L3300.1000, L3410.9998 #### [facility] [address] [place], [address] GFR/1.73 sq M.predicted among non-blacks MDRD (S/P/Bld) [Vol rate/Area] 111 mL/min/{1.73_m2} Normal >[address] [facility] Comment on above: Result Comment: Non- GFR Calc Performed By: #### L 3300.1500, L509.6001, L3300.1000, L3410.9998 #### [facility] [address] [place], [address] Globulin (S) [Mass/Vol] 3.7 g/dL Normal 2.2-4.2 [facility] Comment on above: Performed By: #### L 3300.1500, L509.6001, L3300.1000, L3410.9998 #### [facility] [address] [place], [address] Glucose [Mass/Vol] 287 mg/dL High 74-106 [facility] Comment on above: Result Comment: Gluc ose result greater than or equal to 200 mg/dL suggests DIABETES MELLITUS per A.D.A. criteria. Performed By: #### L 3300.1500, L509.6001, L3300.1000, L3410.9998 #### [facility] [address] [place], [address] Potassium [Moles/Vol] 4.7 mmol/L Normal 3.5-5.1 [facility] Comment on above: Performed By: #### L 3300.1500, L509.6001, L3300.1000, L3410.9998 #### [facility] [address] [place], [address] Sodium [Moles/Vol] 134 mmol/L Low 136-145 [facility] Comment on above: Performed By: #### L 3300.1500, L509.6001, L3300.1000, L3410.9998 #### [facility] [address] [place], [address] T PROT 6.9 g/dL Normal 6.4-8.2 [facility] Comment on above: Performed By: #### L 3300.1500, L509.6001, L3300.1000, L3410.9998 #### [facility] [address] [place], [address] Urea nitrogen [Mass/Vol] 15 mg/dL Normal 7-18 [facility] Comment on above: Performed By: #### L 3300.1500, L509.6001, L3300.1000, L3410.9998 #### [facility] [address] [place], [address] Epithelial cells.squamous LM Ql (Urine sed)Ordered By: Kelechi Lomeli on 02-22-2024 Epithelial cells.squamous LM.HPF (Urine sed) [#/Area] 0 /[HPF] 0-5 [facility] Estimated glomerular filtrat ion rate (GFR) AmericanOrdered By: Kelechi Lomeli on 02-22-2024 Estimated GFR (MDRD) Amer 134 mL/min >60 [facility] Comment on above: GFR Calc Glomerular filtration rate ( GFR) estimationOrdered By: Kelechi Lomeli on 02-22-2024 Estimated GFR (MDRD) Non-Af Amer 111 mL/min >60 [facility] Comment on above: Non- GFR Calc Glucose Ql (U)Ordered By: Balaji Lomeli on 02-22-2024 Glucose (U) [Mass/Vol] 1000 mg/dL High Normal [facility] Glucose measurementOrdered B y: Kelechi Lomeli on 02-22-2024 Glucose [Mass/Vol] 287 mg/dL High 74-106 [facility] Comment on above: Glucose result great er than or equal to 200 mg/dLsuggests DIABETES MELLITUS per A.D.A. criteria. High density lipoprotein (HD L) measurementOrdered By: Kelechi Lomeli on 02-22-2024 Cholesterol in HDL [Mass/Vol] 36 mg/dL Low >40 [facility] Comment on above: The drugs N-Acetylcy steine and Metamizole may falsely depress this assay. Reference Range HDL <40 mg/dL Low HDL Cholesterol HDL >or= 60 mg/dL High HDL Cholesterol Ketones Test strip Ql (U)Ord ered By: eKlechi Lomeli on 02-22-2024 Ketones Ql (U) Negative Negative [facility] Laboratory - Chemistry and C hemistry - challengeOrdered By: Kelechi Lomeli on 02-22-2024 AST [Catalytic activity/Vol] 14 U/L Low 15-37 [facility] Lipid Profileon 02-22-2024 Cholesterol [Mass/Vol] 198 mg/dL Normal 200 [facility] Comment on above: Result Comment: <200 mg/dL Desirable 200-240 mg/dL Borderline >240 mg/dL High Risk Performed By: #### L 3300.1500, L509.6001, L3300.1000, L3410.9998 #### [facility] [address] [place], [address] Cholesterol in HDL [Mass/Vol] 36 mg/dL Low [facility] Comment on above: Result Comment: The drugs N-Acetylcysteine and Metamizole may falsely depress this assay. Reference Range HDL <40 mg/dL Low HDL Cholesterol HDL >or= 60 mg/dL High HDL Cholesterol Performed By: #### L 3300.1500, L509.6001, L3300.1000, L3410.9998 #### [facility] [address] [place], [address] Cholesterol in LDL [Mass/Vol] 125 mg/dL Normal 0-130 [facility] Comment on above: Performed By: #### L 3300.1500, L509.6001, L3300.1000, L3410.9998 #### [facility] [address] [place], [place], [address] Cholesterol in VLDL [Mass/Vol] 37 mg/dL Normal 5-40 [facility] Comment on above: Performed By: #### L 3300.1500, L509.6001, L3300.1000, L3410.9998 #### [facility] [address] [place], [place], [address] Triglyceride [Mass/Vol] 183 mg/dL Normal [facility] Comment on above: Result Comment: The drugs N-Acetylcysteine and Metamizole may falsely depress this assay. Serum Triglycerides Reference Interval Normal <150 mg/dL Borderline high 150 - 199 mg/dL High 200 - 499 mg/dL Very High > or = 500 mg/dL Performed By: #### L 3300.1500, L509.6001, L3300.1000, L3410.9998 #### [facility] [address] [place], [place], [address] Low density lipoprotein (LDL ) cholesterol measurementOrdered By: Kelechi Lomeli on 02-22-2024 Cholesterol in LDL [Mass/Vol] 125 mg/dL 0-130 [facility] Microalbumin,Random Urineon 02-22-2024 MICROALBUMIN,UR 10.3 mg/L Normal NO RANGE EST. [facility] Comment on above: Order Comment: N Performed By: #### L 3300.1500, L509.6001, L3300.1000, L3410.9998 #### [facility] [address] [place], [place], [address] Microscopic analysis of urin e for red blood cells (RBC)Ordered By: Kelechi Lomeli on 02-22-2024 Urine RBC 0 SEEN /hpf 0-5 [facility] Mucus LM Ql (Urine sed)Order ed By: Kelechi Lomeli on 02-22-2024 Mucus Ql (Urine sed) 0 SEEN /hpf [facility] Nitrite Test strip Ql (U)Ord ered By: Kelechi Lomeli on 02-22-2024 Nitrite Ql (U) Negative Negative [facility] PSA,Total - Annual Screenon 02-22-2024 PSA,TOT SCREEN 0.30 ng/mL Normal 0.00-4.00 [facility] Comment on above: Result Comment: This test was performed using the TPSA assay method for the [employer] chemistry system. Values obtained with different assay methods cannot be used interchangably. When changing PSA assays in the course of monitoring a patient, additional sequential testing should be carried out to confirm baseline values. Performed By: #### L 3300.1500, L509.6001, L3300.1000, L3410.9998 #### [facility] [address] [place], [address] Potassium measurementOrdered By: Kelechi Lomeli on 02-22-2024 Potassium [Moles/Vol] 4.7 mmol/L 3.5-5.1 [facility] Protein Test strip Ql (U)Ord ered By: Kelechi Loemli on 02-22-2024 Protein Ql (U) Negative Negative [facility] Random urine microalbumin me asurementOrdered By: Kelechi Lomeli on 02-22-2024 Urine Random Microalbumin 10.3 mg/L NO RANGE EST. [facility] Screening prostate specific antigen (PSA) measurementOrdered By: Kelechi Lomeli on 02-22-2024 Prostate Specific Antigen Screen 0.30 ng/mL 0.00-4.00 [facility] Comment on above: This test was perfor med using the TPSA assay method for [employer] chemistry system. Values obtained with differentassay methods cannot be used interchangably.When changing PSA assays in the course of monitoring apatient, additional sequential testing should be carriedout to confirm baseline values. Serum anion gap measurementO rdered By: Kelechi Lomeli on 02-22-2024 Anion gap [Moles/Vol] 9 mmol/L 5-15 [facility] Serum globulin measurementOr dered By: Kelechi Lomeli 02-22-2024 Globulin (S) [Mass/Vol] 3.7 g/dL 2.2-4.[address] [facility] Serum or plasma alanine peres otransferase (ALT) measurementOrdered By: Kelechi Lomeli 02-22-2024 ALT [Catalytic activity/Vol] 15 U/L Low 16-61 [facility] Serum or plasma albumin rosibel urement (mass/volume)Ordered By: Kelechi Lomeli on 02-22-2024 Albumin [Mass/Vol] 3.2 g/dL 3.2-5.0 [facility] Serum or plasma alkaline shoshana sphatase measurementOrdered By: Kelechi Lomeli on 02-22-2024 ALP [Catalytic activity/Vol] 94 U/L 45-117 [facility] Serum or plasma calcium rosibel urement (mass/volume)Ordered By: Kelechi Lomeli on 02-22-2024 Calcium [Mass/Vol] 9.5 mg/dL 8.5-10.1 [facility] Serum or plasma cholesterol measurement (mass/volume)Ordered By: Kelechi Lomeli 02-22-2024 Cholesterol [Mass/Vol] 198 mg/dL <200 [facility] Comment on above: <200 mg/dL Desirable 200-240 mg/dL Borderline >240 mg/dL High Risk Serum or plasma creatinine m easurement (mass/volume)Ordered By: Kelechi Lomeli on 02-22-2024 Creatinine [Mass/Vol] 0.76 mg/dL 0.70-1.30 [facility] Comment on above: The validity of the calculated GFR & GFRAA in patients over 70 years has not been determined. Clinical correlation is essential. Serum or plasma urea nitroge n measurement (mass/volume)Ordered By: Kelechi Lomeli on 02-22-2024 Urea nitrogen [Mass/Vol] 15 mg/dL 7-18 [facility] Sodium levelOrdered By: Kelechi Lomeli 02-22-2024 Sodium [Moles/Vol] 134 mmol/L Low 136-145 [facility] TSH QnOrdered By: Kelechi Lomeli o n 02-22-2024 Thyroid Stimulating Hormone (TSH) 3.750 uIU/mL High 0.358-3.740 [facility] Thyroid Stim Hormone (TSH)on 02-22-2024 TSH 3.750 uIU/mL High 0.358-3.740 [facility] Comment on above: Performed By: #### L 3300.1500, L509.6001, L3300.1000, L3410.9998 #### [facility] Laboratory [facility] [address] [place], [place], [address] Total proteinOrdered By: Kelechi Lomeli on 02-22-2024 Protein [Mass/Vol] 6.9 g/dL 6.4-8.2 [facility] Triglycerides measurementOrd ered By: Kelechi Armani on 02-22-2024 Triglyceride [Mass/Vol] 183 mg/dL <[address] [facility] Comment on above: The drugs N-Acetylcy steine and Metamizole may falsely depress this assay.Serum Triglycerides Reference Interval Normal <150 mg/dL Borderline high 150 - 199 mg/dL High 200 - 499 mg/dL Very High > or = 500 mg/dL Urinalysis, Completeon 02-21 BACTERIA 3+ /hpf Normal None Seen [facility] Comment on above: Order Comment: Urine , Random Performed By: #### L 3300.1500, L509.6001, L3300.1000, L3410.9998 #### [facility] Laboratory [address] [place], [address] EPI,SQUAMOUS 0 SEEN Normal [address] [place] [address] Comment on above: Order Comment: Urine , Random Performed By: #### L 3300.1500, L509.6001, L3300.1000, L3410.9998 #### [facility] Laboratory [address] [place], [address] Mucus Ql (Urine sed) 0 SEEN Normal [facility] Comment on above: Order Comment: Urine , Random Performed By: #### L 3300.1500, L509.6001, L3300.1000, L3410.9998 #### [facility] Laboratory [address] [place], [address] RBC 0 SEEN Normal 0-[address] [place] [address] Comment on above: Order Comment: Urine , Random Performed By: #### L 3300.1500, L509.6001, L3300.1000, L3410.9998 #### [facility] Laboratory [address] [place], [address] WBC 0 SEEN Normal 0-[address] [place] [address] Comment on above: Order Comment: Urine , Random Performed By: #### L 3300.1500, L509.6001, L3300.1000, L3410.9998 #### [facility] Laboratory [place], [address] Urine blood detectionOrdered By: Kelechi Lomeli on 02-22-2024 Urine Occult Blood Negative Negative [facility] Urine clarityOrdered By: Kelechi Lomeli on 02-22-2024 Clarity (U) Clear Clear [facility] Urine color determinationOrd ered By: Kelechi Lomeli on 02-22-2024 Color (U) Yellow Yellow [facility] Urine cultureOrdered By: Kelechi Lomeli on 02-22-2024 Bacteria identified Cx Nom (U) Enterobacter cloacae complex Abnormal [facility] Bacteria identified Cx Nom (U) Klebsiella oxytoca Abnormal [facility] Urine leukocyte esterase det ection by dipstickOrdered By: Kelechi Lomeli on 02-22-2024 Leukocyte esterase Test strip Ql (U) Negative Negative [facility] Urine pHOrdered By: Kelechi Lomeli on 02-22-2024 pH (U) 6.0 [pH] 5.0 - 8.0 [facility] Urine sediment bacteria coun t by microscopy (number/high power field)Ordered By: Kelechi Lomeli on 02-22-2024 Bacteria LM.HPF (Urine sed) [#/Area] 3 /[HPF] None Seen [facility] Urine specific gravity measu rementOrdered By: Kelecih Lomeli on 02-22-2024 Specific gravity (U) [Rel density] 1.015 1.002-1.030 [facility] Urobilinogen Ql (U)Ordered B y: Kelechi Lomeli on 02-22-2024 Urine Urobilinogen Normal mg/dl Normal [facility] Very low density lipoprotein (VLDL) cholesterol measurementOrdered By: Kelechi Lomeli on 02-22-2024 VLDL Cholesterol 37 mg/dL 5-40 [facility] White blood cell countOrdere d By: Kelechi Lomeli on 02-22-2024 Urine WBC 0 SEEN /hpf 0-5 [facility] CBC W/Diff, Automatedon 07-3 Absolute Lymph 2.00 X10 3/uL Normal 0.83-4.51 [facility] Comment on above: Performed By: #### L 501.9520, L500.4050, L501.9985, L100.0100, L500.4100 #### [facility] Laboratory [address] [place], [address] Absolute Neut 7.4 X10 3/uL Normal 2.0-7.7 [facility] Comment on above: Performed By: #### L 501.9520, L500.4050, L501.9985, L100.0100, L500.4100 #### [facility] Laboratory [address] [place], [address] Basophils/100 WBC (Bld) 0.8 % Normal 0-[address] [facility] Comment on above: Performed By: #### L 501.9520, L500.4050, L501.9985, L100.0100, L500.4100 #### [facility] Laboratory [address] [place], [address] Eosinophils/100 WBC (Bld) 1.4 % Normal 0-5 [facility] Comment on above: Performed By: #### L 501.9520, L500.4050, L501.9985, L100.0100, L500.4100 #### [facility] Laboratory [address] [place], [address] Erythrocyte distribution width (RBC) [Ratio] 14.4 % Normal 11.6-14.6 [facility] Comment on above: Performed By: #### L 501.9520, L500.4050, L501.9985, L100.0100, L500.4100 #### [facility] Laboratory [address] [place], [address] Hematocrit (Bld) [Volume fraction] 48.2 % Normal 40-54 [facility] Comment on above: Performed By: #### L 501.9520, L500.4050, L501.9985, L100.0100, L500.4100 #### [facility] Laboratory [address] [place], [address] Hemoglobin (Bld) [Mass/Vol] 15.3 g/dL Normal 13.0-16.5 [facility] Comment on above: Performed By: #### L 501.9520, L500.4050, L501.9985, L100.0100, L500.4100 #### [facility] Laboratory [address] [place], [address] IG% 0.700 Normal 0.0-0.9 [facility] Comment on above: Result Comment: IG% - Immature Granulocytes (promyelocytes, myelocytes and metamyelocytes) > 1% indicates that a LEFT SHIFT is Present. Performed By: #### L 501.9520, L500.4050, L501.9985, L100.0100, L500.4100 #### [facility] Laboratory [address] [place], [address] Lymphocytes/100 WBC (Bld) 19.3 % Normal 19-41 [facility] Comment on above: Performed By: #### L 501.9520, L500.4050, L501.9985, L100.0100, L500.4100 #### [facility] Laboratory [address] [place], [address] MCH (RBC) [Entitic mass] 26.7 pg Low 27.0-32.0 [facility] Comment on above: Performed By: #### L 501.9520, L500.4050, L501.9985, L100.0100, L500.4100 #### [facility] Laboratory [address] [place], [address] MCHC (RBC) [Mass/Vol] 31.7 g/dL Low 32-36 [facility] Comment on above: Performed By: #### L 501.9520, L500.4050, L501.9985, L100.0100, L500.4100 #### [facility] Laboratory [address] [place], [address] MCV (RBC) [Entitic vol] 84.1 fL Normal 80-[address] [facility] Comment on above: Performed By: #### L 501.9520, L500.4050, L501.9985, L100.0100, L500.4100 #### [facility] Laboratory [address] [place], [address] Monocytes/100 WBC (Bld) 6.5 % Normal 0-[address] [facility] Comment on above: Performed By: #### L 501.9520, L500.4050, L501.9985, L100.0100, L500.4100 #### [facility] Laboratory [address] [place], [address] Neutrophils/100 WBC (Bld) 71.3 % High 47-70 [facility] Comment on above: Performed By: #### L 501.9520, L500.4050, L501.9985, L100.0100, L500.4100 #### [facility] Laboratory [address] [place], [address] Nucleated RBC (Bld) [#/Vol] 0 10*3/uL Normal 0-5 [facility] Comment on above: Performed By: #### L 501.9520, L500.4050, L501.9985, L100.0100, L500.4100 #### [facility] Laboratory [address] [place], [address] Platelet mean volume (Bld) [Entitic vol] 9.2 fL Normal 6.2-12.0 [facility] Comment on above: Performed By: #### L 501.9520, L500.4050, L501.9985, L100.0100, L500.4100 #### [facility] Laboratory [address] [place], [address] Platelets (Bld) [#/Vol] 298 10*3/uL Normal 150-450 [facility] Comment on above: Performed By: #### L 501.9520, L500.4050, L501.9985, L100.0100, L500.4100 #### [facility] Laboratory [address] [place], [address] RBC (Bld) [#/Vol] 5.73 10*6/uL Normal 4.6-6.2 [facility] Comment on above: Performed By: #### L 501.9520, L500.4050, L501.9985, L100.0100, L500.4100 #### [facility] Laboratory [address] [place], [address] RDW SD 43.8 fl Normal 35.1-43.9 [facility] Comment on above: Performed By: #### L 501.9520, L500.4050, L501.9985, L100.0100, L500.4100 #### [facility] Laboratory [address] [place], [address] WBC (Bld) [#/Vol] 10.4 10*3/uL Normal 4.4-11.0 [facility] Comment on above: Performed By: #### L 501.9520, L500.4050, L501.9985, L100.0100, L500.4100 #### [facility] Laboratory [address] [place], [address] Comprehensive Metabolic Prof [facility] 11-10-2023 Albumin [Mass/Vol] 3.0 g/dL Low 3.2-5.0 [facility] Comment on above: Performed By: #### L 501.9520, L500.4050, L501.9985, L100.0100, L500.4100 #### [facility] Laboratory [address] [place], [address] Albumin/Globulin [Mass ratio] 0.8 {ratio} Low 0.9-2.4 [facility] Comment on above: Performed By: #### L 501.9520, L500.4050, L501.9985, L100.0100, L500.4100 #### [facility] Laboratory [address] [place], [address] ALK P 94 U/L Normal 45-117 [facility] Comment on above: Performed By: #### L 501.9520, L500.4050, L501.9985, L100.0100, L500.4100 #### [facility] Laboratory [address] [place], [address] ALT [Catalytic activity/Vol] 15 U/L Low 16-61 [facility] Comment on above: Performed By: #### L 501.9520, L500.4050, L501.9985, L100.0100, L500.4100 #### [facility] Laboratory [address] [place], [address] AST [Catalytic activity/Vol] 14 U/L Low 15-37 [facility] Comment on above: Performed By: #### L 501.9520, L500.4050, L501.9985, L100.0100, L500.4100 #### [facility] Laboratory [address] [place], [address] Bilirubin [Mass/Vol] 0.50 mg/dL Normal 0.20-1.00 [facility] Comment on above: Result Comment: For patients on eltrombopag therapy, use of Dimension [place] TBIL is not recommended. Performed By: #### L 501.9520, L500.4050, L501.9985, L100.0100, L500.4100 #### [facility] Laboratory [address] [place], [address] BUN/CRE 16.1 RATIO Normal 10-20 [facility] Comment on above: Performed By: #### L 501.9520, L500.4050, L501.9985, L100.0100, L500.4100 #### [facility] Laboratory [address] [place], [address] CA,Total 9.3 mg/dL Normal 8.5-10.1 [facility] Comment on above: Performed By: #### L 501.9520, L500.4050, L501.9985, L100.0100, L500.4100 #### [facility] Laboratory [address] [place], [address] Chloride [Moles/Vol] 97 mmol/L Low 98-107 [facility] Comment on above: Performed By: #### L 501.9520, L500.4050, L501.9985, L100.0100, L500.4100 #### [facility] Laboratory [address] [place], [address] CO2 [Moles/Vol] 30.0 mmol/L Normal 21.0-32.0 [facility] Comment on above: Performed By: #### L 501.9520, L500.4050, L501.9985, L100.0100, L500.4100 #### [facility] Laboratory [address] [place], [address] Creatinine [Mass/Vol] 0.93 mg/dL Normal 0.70-1.30 [facility] Comment on above: Result Comment: The validity of the calculated GFR GFRAA in patients over 70 years has not been determined. Clinical correlation is essential. Performed By: #### L 501.9520, L500.4050, L501.9985, L100.0100, L500.4100 #### [facility] Laboratory [address] [place], [address] EST GFR - AA 105 mL/min Normal >60 [facility] Comment on above: Result Comment: Afri can [place] Citizen GFR Calc Performed By: #### L 501.9520, L500.4050, L501.9985, L100.0100, L500.4100 #### [facility] Laboratory [address] [place], [address] GAP 7 Normal 5-15 [facility] Comment on above: Performed By: #### L 501.9520, L500.4050, L501.9985, L100.0100, L500.4100 #### [facility] Laboratory [address] [place], [address] GFR/1.73 sq M.predicted among non-blacks MDRD (S/P/Bld) [Vol rate/Area] 87 mL/min/{1.73_m2} Normal >60 [facility] Comment on above: Result Comment: Non- GFR Calc Performed By: #### L 501.9520, L500.4050, L501.9985, L100.0100, L500.4100 #### [facility] Laboratory [address] [place], [address] Globulin (S) [Mass/Vol] 3.7 g/dL Normal 2.2-4.2 [facility] Comment on above: Performed By: #### L 501.9520, L500.4050, L501.9985, L100.0100, L500.4100 #### [facility] Laboratory [address] [place], [address] Glucose [Mass/Vol] 341 mg/dL High 74-106 [facility] Comment on above: Result Comment: Gluc ose result greater than or equal to 200 mg/dL suggests DIABETES MELLITUS per A.D.A. criteria. Performed By: #### L 501.9520, L500.4050, L501.9985, L100.0100, L500.4100 #### [facility] Laboratory [address] [place], [address] Potassium [Moles/Vol] 4.3 mmol/L Normal 3.5-5.1 [facility] Comment on above: Performed By: #### L 501.9520, L500.4050, L501.9985, L100.0100, L500.4100 #### [facility] Laboratory [address] [place], [address] Sodium [Moles/Vol] 134 mmol/L Low 136-145 [facility] Comment on above: Performed By: #### L 501.9520, L500.4050, L501.9985, L100.0100, L500.4100 #### [facility] Laboratory [address] [place], [address] T PROT 6.7 g/dL Normal 6.4-8.2 [facility] Comment on above: Performed By: #### L 501.9520, L500.4050, L501.9985, L100.0100, L500.4100 #### [facility] Laboratory [address] [place], [address] Urea nitrogen [Mass/Vol] 15 mg/dL Normal 7-18 [facility] Comment on above: Performed By: #### L 501.9520, L500.4050, L501.9985, L100.0100, L500.4100 #### [facility] Laboratory [address] [place], [address] Hemoglobin A1con 11-10-2023 HbA1c (Bld) [Mass fraction] 11.6 % High 3.8-5.6 [facility] Comment on above: Result Comment: Norm al < 5.7 % Prediabetic 5.7 - 6.4 % Diabetic >or= 6.5 % Please note range changes. Performed By: #### L 3300.1500, L509.6001, L3300.1000, L3410.9998 #### [facility] Laboratory [address] [place], [address] Lipid Profileon 11-10-2023 Cholesterol [Mass/Vol] 189 mg/dL Normal 200 [facility] Comment on above: Result Comment: <200 mg/dL Desirable 200-240 mg/dL Borderline >240 mg/dL High Risk Performed By: #### L 501.9520, L500.4050, L501.9985, L100.0100, L500.4100 #### [facility] Laboratory [address] [place], [address] Cholesterol in HDL [Mass/Vol] 37 mg/dL Low [facility] Comment on above: Result Comment: The drugs N-Acetylcysteine and Metamizole may falsely depress this assay. Reference Range HDL <40 mg/dL Low HDL Cholesterol HDL >or= 60 mg/dL High HDL Cholesterol Performed By: #### L 501.9520, L500.4050, L501.9985, L100.0100, L500.4100 #### [facility] Laboratory [address] [place], [address] Cholesterol in LDL [Mass/Vol] 115 mg/dL Normal 0-130 [facility] Comment on above: Performed By: #### L 501.9520, L500.4050, L501.9985, L100.0100, L500.4100 #### [facility] Laboratory [address] [place], [address] Cholesterol in VLDL [Mass/Vol] 37 mg/dL Normal 5-40 [facility] Comment on above: Performed By: #### L 501.9520, L500.4050, L501.9985, L100.0100, L500.4100 #### [facility] Laboratory [address] [place], [address] Triglyceride [Mass/Vol] 185 mg/dL Normal [facility] Comment on above: Result Comment: The drugs N-Acetylcysteine and Metamizole may falsely depress this assay. Serum Triglycerides Reference Interval Normal <150 mg/dL Borderline high 150 - 199 mg/dL High 200 - 499 mg/dL Very High > or = 500 mg/dL Performed By: #### L 501.9520, L500.4050, L501.9985, L100.0100, L500.4100 #### [facility] Laboratory [address] [place], [place], [address] Thyroid Stim Hormone (TSH)on 11-10-2023 TSH 2.12 uIU/mL Normal 0.358-3.74 [facility] Comment on above: Performed By: #### L 501.9520, L500.4050, L501.9985, L100.0100, L500.4100 #### [facility] Laboratory [address] [place], [address] Absolute lymphocyte countOrd ered By: Kelechi Lomeli on 08-17-2023 Lymphocytes Auto (Unsp spec) [#/Vol] 2.09 10*3/uL 0.83-4.51 [facility] Automated lymphocyte count a s percentage of total leukocytesOrdered By: Kelechi Lomeli on 08-17-2023 Lymphocytes/100 WBC Auto (Unsp spec) 17.5 % 19-41 [facility] Basophil percentageOrdered B y: Kelechi Lomeli on 08-17-2023 Basophils/100 WBC (Bld) 0.6 % 0-1 [facility] Bilirubin [Mass/Vol] 0.30 mg/dL 0.20-1.00 [facility] Comment on above: For patients on eltr ombopag therapy, use of Dimension [place] TBIL is not recommended. Chloride [Moles/Vol] 100 mmol/L 98-107 [facility] Cholesterol [Mass/Vol] 190 mg/dL <200 [facility] Comment on above: <200 mg/dL Desirable 200-240 mg/dL Borderline >240 mg/dL High Risk Eosinophils/100 WBC (Bld) 1.5 % 0-5 [facility] Glucose [Mass/Vol] 306 mg/dL 74-106 [facility] Comment on above: Glucose result great er than or equal to 200 mg/dLsuggests DIABETES MELLITUS per A.D.A. criteria. Hemoglobin (Bld) [Mass/Vol] 15.4 g/dL 13.0-16.5 [facility] Monocytes/100 WBC (Bld) 6.5 % 0-[address] [facility] Neutrophils (Bld) [#/Vol] 8.8 10*3/uL 2.0-7.7 [facility] Neutrophils/100 WBC (Bld) 73.4 % 47-70 [facility] Potassium [Moles/Vol] 4.2 mmol/L 3.5-5.1 [facility] Protein [Mass/Vol] 6.8 g/dL 6.4-8.2 [facility] Sodium [Moles/Vol] 132 mmol/L 136-145 [facility] Triglyceride [Mass/Vol] 208 mg/dL <[address] [facility] Comment on above: The drugs N-Acetylcy steine and Metamizole may falsely depress this assay.Serum Triglycerides Reference Interval Normal <150 mg/dL Borderline high 150 - 199 mg/dL High 200 - 499 mg/dL Very High > or = 500 mg/dL WBC (Bld) [#/Vol] 12.0 10*3/uL 4.4-11.0 [facility] Determination of erythrocyte mean corpuscular volume (MCV)Ordered By: Kelechi Lomeli on 08-17-2023 MCV (RBC) [Entitic vol] 84.8 fL 80-[address] [facility] Erythrocyte distribution wid th ratioOrdered By: Kelechi Armani on 08-17-2023 Erythrocyte distribution width (RBC) [Ratio] 14.4 % 11.6-14.6 [facility] Erythrocyte distribution wid th standard deviationOrdered By: Kelechi Lomeli on 08-17-2023 Erythrocyte distribution width (RBC) [Entitic vol] 44.5 fL 35.1-43.9 [facility] Hematocrit Auto (Bld) [Volum e fraction]Ordered By: Kelechi Armani on 08-17-2023 Hematocrit (Bld) [Volume fraction] 48.0 % 40-54 [facility] Immature granulocytes/100 WB C Auto (Bld)Ordered By: Kelechi Lomeli on 08-17-2023 Immature granulocytes/100 WBC (Bld) 0.500 % 0.0-0.9 [facility] Comment on above: IG% - Immature Granu locytes (promyelocytes, myelocytes and metamyelocytes) > 1% indicates that a LEFT SHIFT is Present. Laboratory - Chemistry and C hemistry - challengeOrdered By: Kelechi Lomeli on 08-17-2023 Albumin/Globulin [Mass ratio] 0.9 {ratio} 0.9-2.4 [facility] ALP [Catalytic activity/Vol] 95 U/L 45-117 [facility] ALT [Catalytic activity/Vol] 23 U/L 16-61 [facility] Cholesterol in HDL [Mass/Vol] 38 mg/dL >40 [facility] Comment on above: The drugs N-Acetylcy steine and Metamizole may falsely depress this assay. Reference Range HDL <40 mg/dL Low HDL Cholesterol HDL >or= 60 mg/dL High HDL Cholesterol Cholesterol in LDL [Mass/Vol] 110 mg/dL 0-130 [facility] CO2 [Moles/Vol] 26.0 mmol/L 21.0-32.0 [facility] Globulin (S) [Mass/Vol] 3.6 g/dL 2.2-4.2 [facility] Urea nitrogen/Creatinine [Mass ratio] 26.1 mg/mg 10-20 [facility] Laboratory - Hematology and Cell countsOrdered By: Kelechi Lomeli on 08-17-2023 MCH (RBC) [Entitic mass] 27.2 pg 27.0-32.0 [facility] MCHC (RBC) [Mass/Vol] 32.1 g/dL 32-36 [facility] Nucleated RBC/100 WBC (Bld) [Ratio] 0 % 0-5 [facility] Platelet mean volume (Bld) [Entitic vol] 9.3 fL 6.2-12.0 [facility] Platelets (Bld) [#/Vol] 255 10*3/uL 150-450 [facility] No Panel InformationOrdered By: Kelechi Lomeli on 08-17-2023 Estimated GFR (MDRD) Amer 140 mL/min >60 [facility] Comment on above: GFR Calc Estimated GFR (MDRD) Non-Af Amer 116 mL/min >60 [facility] Comment on above: Non- GFR Calc VLDL Cholesterol 42 mg/dL 5-40 [facility] RBC Auto (Bld) [#/Vol]Ordere d By: Kelechi Lomeli on 08-17-2023 RBC (Bld) [#/Vol] 5.66 10*6/uL 4.6-6.2 [facility] Serum or plasma calcium rosibel urement (mass/volume)Ordered By: Kelechi Lomeli on 08-17-2023 Calcium [Mass/Vol] 9.3 mg/dL 8.5-10.1 [facility] Serum or plasma creatinine m easurement (mass/volume)Ordered By: Kelechi Lomeli on 08-17-2023 Creatinine [Mass/Vol] 0.73 mg/dL 0.70-1.30 [facility] Comment on above: The validity of the calculated GFR & GFRAA in patients over 70 years has not been determined. Clinical correlation is essential. Serum or plasma thyroid stim ulating hormone (TSH) measurement (units/volume)Ordered By: Kelechi Lomeli on 08-17-2023 TSH Qn 2.47 uIU/mL 0.358-3.74 [facility] Serum or plasma urea nitroge n measurement (mass/volume)Ordered By: Kelechi Lomeli on 08-17-2023 Urea nitrogen [Mass/Vol] 19 mg/dL 7-18 [facility] Thin prep Papanicolaou smear with manual screeningOrdered By: Kelechi Lomeli on 08-17-2023 Thin prep Papanicolaou smear with manual screening 3.2 g/dL 3.2-5.0 [facility] Thin prep Papanicolaou smear with manual screening 14 U/L 15-37 [facility] Thin prep Papanicolaou smear with manual screening 6 5-15 [facility] Whole blood hemoglobin A1c/t otal hemoglobin ratio (mass fraction)Ordered By: Kelechi Lomeli on 08-17-2023 HbA1c (Bld) [Mass fraction] 9.7 % 3.8-5.6 [facility] Comment on above: Normal < 5.7 % Predi abetic 5.7 - 6.4 % Diabetic >or= 6.5 % Please note range changes. Absolute lymphocyte countOrd ered By: Kelechi Lomeli on 05-27-2023 Lymphocytes Auto (Unsp spec) [#/Vol] 1.82 10*3/uL 0.83-4.51 [facility] Automated lymphocyte count a s percentage of total leukocytesOrdered By: Kelechi Lomeli on 05-27-2023 Lymphocytes/100 WBC Auto (Unsp spec) 16.9 % 19-41 [facility] Basophil percentageOrdered B y: Kelechi Lomeli on 05-27-2023 Basophils/100 WBC (Bld) 0.7 % 0-[address] [facility] Bilirubin [Mass/Vol] 0.30 mg/dL 0.20-1.00 [facility] Comment on above: For patients on eltr ombopag therapy, use of Dimension [place] TBIL is not recommended. Chloride [Moles/Vol] 103 mmol/L 98-107 [facility] Cholesterol [Mass/Vol] 183 mg/dL <200 [facility] Comment on above: <200 mg/dL Desirable 200-240 mg/dL Borderline >240 mg/dL High Risk Eosinophils/100 WBC (Bld) 1.9 % 0-5 [facility] Glucose [Mass/Vol] 274 mg/dL 74-106 [facility] Comment on above: Glucose result great er than or equal to 200 mg/dLsuggests DIABETES MELLITUS per A.D.A. criteria. Hemoglobin (Bld) [Mass/Vol] 15.0 g/dL 13.0-16.5 [facility] Monocytes/100 WBC (Bld) 6.3 % 0-[address] [facility] Neutrophils (Bld) [#/Vol] 7.9 10*3/uL 2.0-7.7 [facility] Neutrophils/100 WBC (Bld) 73.6 % 47-70 [facility] Potassium [Moles/Vol] 4.5 mmol/L 3.5-5.1 [facility] Protein [Mass/Vol] 6.8 g/dL 6.4-8.2 [facility] Sodium [Moles/Vol] 138 mmol/L 136-145 [facility] Triglyceride [Mass/Vol] 252 mg/dL <[address] [facility] Comment on above: The drugs N-Acetylcy steine and Metamizole may falsely depress this assay.Serum Triglycerides Reference Interval Normal <150 mg/dL Borderline high 150 - 199 mg/dL High 200 - 499 mg/dL Very High > or = 500 mg/dL WBC (Bld) [#/Vol] 10.7 10*3/uL 4.4-11.0 [facility] Determination of erythrocyte mean corpuscular volume (MCV)Ordered By: [facility] on 05-27-2023 MCV (RBC) [Entitic vol] 88.2 fL 80-94 [facility] Erythrocyte distribution wid th ratioOrdered By: [facility] on 05-27-2023 Erythrocyte distribution width (RBC) [Ratio] 14.9 % 11.6-14.6 [facility] Erythrocyte distribution wid th standard deviationOrdered By: [facility] on 05-27-2023 Erythrocyte distribution width (RBC) [Entitic vol] 48.0 fL 35.1-43.9 [facility] Hematocrit Auto (Bld) [Volum e fraction]Ordered By: [facility] on 05-27-2023 Hematocrit (Bld) [Volume fraction] 47.9 % 40-54 [facility] Immature granulocytes/100 WB C Auto (Bld)Ordered By: [facility] 05-27-2023 Immature granulocytes/100 WBC (Bld) 0.600 % 0.0-0.9 [facility] Comment on above: IG% - Immature Granu locytes (promyelocytes, myelocytes and metamyelocytes) > 1% indicates that a LEFT SHIFT is Present. Laboratory - Chemistry and C hemistry - challengeOrdered By: [facility] on 05-27-2023 Albumin/Globulin [Mass ratio] 0.8 {ratio} 0.9-2.4 [facility] ALP [Catalytic activity/Vol] 89 U/L 45-117 [facility] ALT [Catalytic activity/Vol] 24 U/L 16-61 [facility] Cholesterol in HDL [Mass/Vol] 37 mg/dL >40 [facility] Comment on above: The drugs N-Acetylcy steine and Metamizole may falsely depress this assay. Reference Range HDL <40 mg/dL Low HDL Cholesterol HDL >or= 60 mg/dL High HDL Cholesterol Cholesterol in LDL [Mass/Vol] 96 mg/dL 0-130 [facility] CO2 [Moles/Vol] 30.0 mmol/L 21.0-32.0 [facility] Globulin (S) [Mass/Vol] 3.7 g/dL 2.2-4.2 [facility] Urea nitrogen/Creatinine [Mass ratio] 22.4 mg/mg 10-20 [facility] Laboratory - Hematology and Cell countsOrdered By: Kelechi Lomeli on 05-27-2023 MCH (RBC) [Entitic mass] 27.6 pg 27.0-32.0 [facility] MCHC (RBC) [Mass/Vol] 31.3 g/dL 32-36 [facility] Nucleated RBC/100 WBC (Bld) [Ratio] 0 % 0-5 [facility] Platelet mean volume (Bld) [Entitic vol] 9.0 fL 6.2-12.0 [facility] Platelets (Bld) [#/Vol] 279 10*3/uL 150-450 [facility] No Panel InformationOrdered By: Kelechi Lomeli on 05-27-2023 Estimated GFR (MDRD) Amer 117 mL/min >60 [facility] Comment on above: GFR Calc Estimated GFR (MDRD) Non-Af Amer 97 mL/min >60 [facility] Comment on above: Non- GFR Calc VLDL Cholesterol 50 mg/dL 5-40 [facility] RBC Auto (Bld) [#/Vol]Ordere d By: Kelechi Lomeli on 05-27-2023 RBC (Bld) [#/Vol] 5.43 10*6/uL 4.6-6.2 [facility] Serum or plasma calcium rosibel urement (mass/volume)Ordered By: Kelechi Lomeli 05-27-2023 Calcium [Mass/Vol] 9.3 mg/dL 8.5-10.1 [facility] Serum or plasma creatinine m easurement (mass/volume)Ordered By: Kelechi Lomeli 05-27-2023 Creatinine [Mass/Vol] 0.85 mg/dL 0.70-1.30 [facility] Comment on above: The validity of the calculated GFR & GFRAA in patients over 70 years has not been determined. Clinical correlation is essential. Serum or plasma thyroid stim ulating hormone (TSH) measurement (units/volume)Ordered By: Kelechi Lomeli on 05-27-2023 TSH Qn 2.87 uIU/mL 0.358-3.74 [facility] Serum or plasma urea nitroge n measurement (mass/volume)Ordered By: Kelechi Lomeli 05-27-2023 Urea nitrogen [Mass/Vol] 19 mg/dL 7-18 [facility] Thin prep Papanicolaou smear with manual screeningOrdered By: Kelechi Armani on 05-27-2023 Thin prep Papanicolaou smear with manual screening 3.1 g/dL 3.2-5.0 [facility] Thin prep Papanicolaou smear with manual screening 22 U/L 15-37 [facility] Thin prep Papanicolaou smear with manual screening 5 5-15 [facility] Whole blood hemoglobin A1c/t otal hemoglobin ratio (mass fraction)Ordered By: Kelechi Lomeli on 05-27-2023 HbA1c (Bld) [Mass fraction] 9.9 % 3.8-5.6 [facility] Comment on above: Normal < 5.7 % Predi abetic 5.7 - 6.4 % Diabetic >or= 6.5 % Please note range changes. Absolute lymphocyte countOrd ered By: Kelechi Armani on 02-18-2023 Lymphocytes Auto (Unsp spec) [#/Vol] 1.80 10*3/uL 0.83-4.51 [facility] Basophil percentageOrdered B y: Kelechi Lomeli on 02-18-2023 Basophil percentage >100 SEEN /hpf 0-[address] [facility] Comment on above: Microscopic field is filled. Other elements may be obscured. Basophils/100 WBC (Bld) 0.8 % 0-[address] [facility] Bilirubin [Mass/Vol] 0.30 mg/dL 0.20-1.00 [facility] Comment on above: For patients on eltr ombopag therapy, use of Dimension [place] TBIL is not recommended. Chloride [Moles/Vol] 101 mmol/L 98-107 [facility] Cholesterol [Mass/Vol] 195 mg/dL <200 [facility] Comment on above: <200 mg/dL Desirable 200-240 mg/dL Borderline >240 mg/dL High Risk Eosinophils/100 WBC (Bld) 1.8 % 0-5 [facility] Glucose [Mass/Vol] 235 mg/dL 74-106 [facility] Comment on above: Glucose result great er than or equal to 200 mg/dLsuggests DIABETES MELLITUS per A.D.A. criteria. Neutrophils (Bld) [#/Vol] 6.3 10*3/uL 2.0-7.7 [facility] Neutrophils/100 WBC (Bld) 69.8 % 47-70 [facility] Potassium [Moles/Vol] 4.3 mmol/L 3.5-5.1 [facility] Protein [Mass/Vol] 6.9 g/dL 6.4-8.2 [facility] Sodium [Moles/Vol] 135 mmol/L 136-145 [facility] Triglyceride [Mass/Vol] 223 mg/dL <[address] [facility] Comment on above: The drugs N-Acetylcy steine and Metamizole may falsely depress this assay.Serum Triglycerides Reference Interval Normal <150 mg/dL Borderline high 150 - 199 mg/dL High 200 - 499 mg/dL Very High > or = 500 mg/dL WBC (Bld) [#/Vol] 9.0 10*3/uL 4.4-11.0 [facility] Bilirubin Test strip Ql (U)O rdered By: Kelechi Lomeli on 02-18-2023 Bilirubin Ql (U) Negative Negative [facility] Blood erythrocytes count (nu mber/volume)Ordered By: Kelechi Lomeli on 02-18-2023 RBC (Bld) [#/Vol] 5.32 10*6/uL 4.6-6.2 [facility] Blood hemoglobin measurement (mass/volume)Ordered By: Kelechi Lomeli on 02-18-2023 Hemoglobin (Bld) [Mass/Vol] 14.7 g/dL 13.0-16.5 [facility] Blood lymphocytes/100 leukoc ytesOrdered By: Kelechi Lomeli on 02-18-2023 Lymphocytes/100 WBC (Bld) 19.9 % 19-41 [facility] Blood monocytes/100 leukocyt esOrdered By: Kelechi Lomeli on 02-18-2023 Monocytes/100 WBC (Bld) 7.3 % 0-[address] [facility] Blood platelet mean volumeOr dered By: Kelechi Lomeli on 02-18-2023 Platelet mean volume (Bld) [Entitic vol] 9.6 fL 6.2-12.0 [facility] Culture, urineOrdered By: Balaji Lomeli on 02-18-2023 Bacteria identified Cx Nom (U) Escherichia coli [facility] Determination of erythrocyte mean corpuscular volume (MCV)Ordered By: Kelechi Lomeli on 02-18-2023 MCV (RBC) [Entitic vol] 89.3 fL 80-[address] [facility] Hematocrit Auto (Bld) [Volum e fraction]Ordered By: Kelechi Lomeli on 02-18-2023 Hematocrit (Bld) [Volume fraction] 47.5 % 40-54 [facility] Ketones Test strip Ql (U)Ord ered By: Kelechi Lomeli on 02-18-2023 Ketones Ql (U) Negative Negative [facility] Laboratory - Chemistry and C hemistry - challengeOrdered By: Kelechi Lomeli on 02-18-2023 ALP [Catalytic activity/Vol] 84 U/L 45-117 [facility] ALT [Catalytic activity/Vol] 19 U/L 16-61 [facility] CO2 [Moles/Vol] 30.0 mmol/L 21.0-32.0 [facility] Globulin (S) [Mass/Vol] 3.7 g/dL 2.2-4.[address] [facility] Urea nitrogen/Creatinine [Mass ratio] 21.2 mg/mg 10-20 [facility] Laboratory - Hematology and Cell countsOrdered By: Kelechi Lomeli on 02-18-2023 Erythrocyte distribution width (RBC) [Entitic vol] 51.3 fL 35.1-43.9 [facility] Erythrocyte distribution width (RBC) [Ratio] 15.8 % 11.6-14.6 [facility] Immature granulocytes/100 WBC (Bld) 0.400 % 0.0-0.9 [facility] Comment on above: IG% - Immature Granu locytes (promyelocytes, myelocytes and metamyelocytes) > 1% indicates that a LEFT SHIFT is Present. MCH (RBC) [Entitic mass] 27.6 pg 27.0-32.0 [facility] Nucleated RBC/100 WBC (Bld) [Ratio] 0 % 0-5 [facility] MCHC Auto (RBC) [Mass/Vol]Or dered By: Kelechi Lomeli on 02-18-2023 MCHC (RBC) [Mass/Vol] 30.9 g/dL 32-36 [facility] Mucus LM Ql (Urine sed)Order ed By: Kelechi Lomeli on 02-18-2023 Mucus Ql (Urine sed) 0 SEEN /hpf [facility] Nitrite Test strip Ql (U)Ord ered By: Kelechi Lomeli on 02-18-2023 Nitrite Ql (U) Positive Negative [facility] No Panel InformationOrdered By: Kelechi Lomeli on 02-18-2023 Estimated GFR (MDRD) Amer 117 mL/min >60 [facility] Comment on above: GFR Calc Estimated GFR (MDRD) Non-Af Amer 97 mL/min >60 [facility] Comment on above: Non- GFR Calc Prostate Specific Antigen Screen 0.80 ng/mL 0.00-4.00 [facility] Comment on above: This test was perfor med using the TPSA assay method for [employer] chemistry system. Values obtained with differentassay methods cannot be used interchangably.When changing PSA assays in the course of monitoring apatient, additional sequential testing should be carriedout to confirm baseline values. Thyroid Stimulating Hormone (TSH) 2.67 uIU/mL 0.358-3.74 [facility] Platelets bldOrdered By: Kelechi Lomeli on 02-18-2023 Platelets (Bld) [#/Vol] 277 10*3/uL 150-450 [facility] Protein Test strip Ql (U)Ord ered By: Kelechi Lomeli on 02-18-2023 Protein Ql (U) 100 mg/dl Negative [facility] Serum or plasma albumin rosibel urement (mass/volume)Ordered By: Kelechi Lomeli on 02-18-2023 Albumin [Mass/Vol] 3.2 g/dL 3.2-5.0 [facility] Serum or plasma albumin/glob ulin mass ratioOrdered By: Kelechi Lomeli 02-18-2023 Albumin/Globulin [Mass ratio] 0.9 {ratio} 0.9-2.4 [facility] Serum or plasma calcium rosibel urement (mass/volume)Ordered By: Kelechi Lomeli on 02-18-2023 Calcium [Mass/Vol] 9.2 mg/dL 8.5-10.1 [facility] Serum or plasma cholesterol in HDL measurement (mass/volume)Ordered By: Kelechi Lomeli on 02-18-2023 Cholesterol in HDL [Mass/Vol] 39 mg/dL >40 [facility] Comment on above: The drugs N-Acetylcy steine and Metamizole may falsely depress this assay. Reference Range HDL <40 mg/dL Low HDL Cholesterol HDL >or= 60 mg/dL High HDL Cholesterol Serum or plasma cholesterol in VLDL measurement (mass/volume)Ordered By: Kelechi Lomeli on 02-18-2023 Cholesterol in VLDL [Mass/Vol] 45 mg/dL 5-40 [facility] Serum or plasma creatinine m easurement (mass/volume)Ordered By: Kelechi Lomeli on 02-18-2023 Creatinine [Mass/Vol] 0.85 mg/dL 0.70-1.30 [facility] Comment on above: The validity of the calculated GFR & GFRAA in patients over 70 years has not been determined. Clinical correlation is essential. Serum or plasma low density lipoprotein (LDL) cholesterol measurement (mass/volume)Ordered By: Kelechi Lomeli on 02-18-2023 Cholesterol in LDL [Mass/Vol] 111 mg/dL 0-130 [facility] Serum or plasma urea nitroge n measurement (mass/volume)Ordered By: Kelechi Lomeli 02-18-2023 Urea nitrogen [Mass/Vol] 18 mg/dL 7-18 [facility] Squamous epithelial cells de tection in urine sediment by light microscopyOrdered By: Kelechi Lomeli 02-18-2023 Epithelial cells.squamous LM Ql (Urine sed) 0 SEEN /hpf 0-5 [facility] Thin prep Papanicolaou smear with manual screeningOrdered By: Kelechi Lomeli 02-18-2023 Thin prep Papanicolaou smear with manual screening 12 U/L 15-37 [facility] Thin prep Papanicolaou smear with manual screening 4 5-15 [facility] Thin prep Papanicolaou smear with manual screening 73.6 mg/L NO RANGE EST. [facility] Urine blood detectionOrdered By: Kelechi Lomeli on 02-18-2023 RBC Ql (U) 50 /ul Negative [facility] RBC Ql (U) 0-5 SEEN /hpf 0-5 [facility] Urine clarityOrdered By: Kelechi Lomeli on 02-18-2023 Clarity (U) Cloudy Clear [facility] Urine color determinationOrd ered By: Kelehci Lomeli on 02-18-2023 Color (U) Yellow Yellow [facility] Urine glucose detectionOrder ed By: Kelechi Lomeli 02-18-2023 Glucose Ql (U) 1000 mg/dl Normal [facility] Urine leukocyte esterase det ection by dipstickOrdered By: Kelechi Lomeli on 02-18-2023 Leukocyte esterase Test strip Ql (U) 500 /ul Negative [facility] Urine pHOrdered By: Kelechi Lomeli on 02-18-2023 pH (U) 6.0 [pH] 5.0 - 8.0 [facility] Urine sediment bacteria coun t by microscopy (number/high power field)Ordered By: Kelechi Lomeli on 02-18-2023 Bacteria LM.HPF (Urine sed) [#/Area] 2 /[HPF] None Seen [facility] Urine specific gravity measu rementOrdered By: Kelechi Lomeli on 02-18-2023 Specific gravity (U) [Rel density] 1.015 1.002-1.030 [facility] Urobilinogen Auto test strip Ql (U)Ordered By: Kelechi Lomeli on 02-18-2023 Urobilinogen Ql (U) Normal mg/dl Normal [facility] Whole blood hemoglobin A1c/t otal hemoglobin ratio (mass fraction)Ordered By: Kelechi Lomeli on 02-18-2023 HbA1c (Bld) [Mass fraction] 9.5 % 3.8-5.6 [facility] Comment on above: Normal < 5.7 % Predi abetic 5.7 - 6.4 % Diabetic >or= 6.5 % Please note range changes. Absolute lymphocyte countOrd ered By: Dr. Lomeli on 08-20-2022 Lymphocytes Auto (Unsp spec) [#/Vol] 1.65 10*3/uL 0.83-4.51 [facility] Basophil percentageOrdered B y: Dr. Lomeli on 08-20-2022 Basophils/100 WBC (Bld) 0.7 % 0-[address] [facility] Bilirubin [Mass/Vol] 0.20 mg/dL 0.20-1.00 [facility] Comment on above: For patients on eltr ombopag therapy, use of Dimension [place] TBIL is not recommended. Chloride [Moles/Vol] 107 mmol/L 98-107 [facility] Cholesterol [Mass/Vol] 172 mg/dL <200 [facility] Comment on above: <200 mg/dL Desirable 200-240 mg/dL Borderline >240 mg/dL High Risk Eosinophils/100 WBC (Bld) 1.2 % 0-5 [facility] Glucose [Mass/Vol] 252 mg/dL 74-106 [facility] Comment on above: Glucose result great er than or equal to 200 mg/dLsuggests DIABETES MELLITUS per A.D.A. criteria. Neutrophils (Bld) [#/Vol] 7.9 10*3/uL 2.0-7.7 [facility] Neutrophils/100 WBC (Bld) 74.6 % 47-70 [facility] Potassium [Moles/Vol] 4.4 mmol/L 3.5-5.1 [facility] Protein [Mass/Vol] 6.6 g/dL 6.4-8.2 [facility] Sodium [Moles/Vol] 140 mmol/L 136-145 [facility] Triglyceride [Mass/Vol] 194 mg/dL <199 [facility] Comment on above: The drugs N-Acetylcy steine and Metamizole may falsely depress this assay.Serum Triglycerides Reference Interval Normal <150 mg/dL Borderline high 150 - 199 mg/dL High 200 - 499 mg/dL Very High > or = 500 mg/dL WBC (Bld) [#/Vol] 10.5 10*3/uL 4.4-11.0 [facility] Blood erythrocytes count (nu mber/volume)Ordered By: Dr. Lomeli on 08-20-2022 RBC (Bld) [#/Vol] 5.26 10*6/uL 4.6-6.2 [facility] Blood hemoglobin measurement (mass/volume)Ordered By: Dr. Lomeli on 08-20-2022 Hemoglobin (Bld) [Mass/Vol] 14.6 g/dL 13.0-16.5 [facility] Blood lymphocytes/100 leukoc ytesOrdered By: Dr. Lomeli on 08-20-2022 Lymphocytes/100 WBC (Bld) 15.7 % 19-41 [facility] Blood monocytes/100 leukocyt esOrdered By: Dr. Lomeli on 08-20-2022 Monocytes/100 WBC (Bld) 7.2 % 0-10 [facility] Blood platelet mean volumeOr dered By: Dr. Lomeli on 08-20-2022 Platelet mean volume (Bld) [Entitic vol] 10.0 fL 6.2-12.0 [facility] Determination of erythrocyte mean corpuscular volume (MCV)Ordered By: Dr. Lomeli on 08-20-2022 MCV (RBC) [Entitic vol] 90.3 fL 80-[address] [facility] Hematocrit Auto (Bld) [Volum e fraction]Ordered By: Dr. Lomeli on 08-20-2022 Hematocrit (Bld) [Volume fraction] 47.5 % 40-54 [facility] Laboratory - Chemistry and C hemistry - challengeOrdered By: Dr. Lomeli on 08-20-2022 ALP [Catalytic activity/Vol] 79 U/L 45-117 [facility] ALT [Catalytic activity/Vol] 21 U/L 16-61 [facility] CO2 [Moles/Vol] 26.0 mmol/L 21.0-32.0 [facility] Globulin (S) [Mass/Vol] 3.5 g/dL 2.2-4.[address] [facility] Urea nitrogen/Creatinine [Mass ratio] 36.7 mg/mg 10-20 [facility] Laboratory - Hematology and Cell countsOrdered By: Dr. Lomeli on 08-20-2022 Erythrocyte distribution width (RBC) [Entitic vol] 50.0 fL 35.1-43.9 [facility] Erythrocyte distribution width (RBC) [Ratio] 15.0 % 11.6-14.6 [facility] Immature granulocytes/100 WBC (Bld) 0.600 % 0.0-0.9 [facility] Comment on above: IG% - Immature Granu locytes (promyelocytes, myelocytes and metamyelocytes) > 1% indicates that a LEFT SHIFT is Present. MCH (RBC) [Entitic mass] 27.8 pg 27.0-32.0 [facility] Nucleated RBC/100 WBC (Bld) [Ratio] 0 % 0-5 [facility] MCHC Auto (RBC) [Mass/Vol]Or dered By: Dr. Lomeli on 08-20-2022 MCHC (RBC) [Mass/Vol] 30.7 g/dL 32-36 [facility] No Panel InformationOrdered By: Dr. Lomeli on 08-20-2022 Estimated GFR (MDRD) Amer 128 mL/min >60 [facility] Comment on above: GFR Calc Estimated GFR (MDRD) Non-Af Amer 106 mL/min >60 [facility] Comment on above: Non- GFR Calc Thyroid Stimulating Hormone (TSH) 2.97 uIU/mL 0.358-3.74 [facility] Platelets bldOrdered By: Dr. Lomeli on 08-20-2022 Platelets (Bld) [#/Vol] 266 10*3/uL 150-450 [facility] Serum or plasma albumin rosibel urement (mass/volume)Ordered By: Dr. Lomeli on 08-20-2022 Albumin [Mass/Vol] 3.1 g/dL 3.2-5.0 [facility] Serum or plasma albumin/glob ulin mass ratioOrdered By: Dr. Lomeli on 08-20-2022 Albumin/Globulin [Mass ratio] 0.9 {ratio} 0.9-2.4 [facility] Serum or plasma calcium rosibel urement (mass/volume)Ordered By: Dr. Lomeli on 08-20-2022 Calcium [Mass/Vol] 9.0 mg/dL 8.5-10.1 [facility] Serum or plasma cholesterol in HDL measurement (mass/volume)Ordered By: Dr. Lomeli on 08-20-2022 Cholesterol in HDL [Mass/Vol] 32 mg/dL >40 [facility] Comment on above: The drugs N-Acetylcy steine and Metamizole may falsely depress this assay. Reference Range HDL <40 mg/dL Low HDL Cholesterol HDL >or= 60 mg/dL High HDL Cholesterol Serum or plasma cholesterol in VLDL measurement (mass/volume)Ordered By: Dr. Lomeli on 08-20-2022 Cholesterol in VLDL [Mass/Vol] 39 mg/dL 5-40 [facility] Serum or plasma creatinine m easurement (mass/volume)Ordered By: Dr. Lomeli on 08-20-2022 Creatinine [Mass/Vol] 0.79 mg/dL 0.70-1.30 [facility] Comment on above: The validity of the calculated GFR & GFRAA in patients over 70 years has not been determined. Clinical correlation is essential. Serum or plasma low density lipoprotein (LDL) cholesterol measurement (mass/volume)Ordered By: Dr. Lomeli on 08-20-2022 Cholesterol in LDL [Mass/Vol] 101 mg/dL 0-130 [facility] Serum or plasma urea nitroge n measurement (mass/volume)Ordered By: Dr. Lomeli on 08-20-2022 Urea nitrogen [Mass/Vol] 29 mg/dL 7-18 [facility] Thin prep Papanicolaou smear with manual screeningOrdered By: Dr. Lomeli on 08-20-2022 Thin prep Papanicolaou smear with manual screening 13 U/L 15-37 [facility] Thin prep Papanicolaou smear with manual screening 7 5-15 [facility] Absolute lymphocyte counton 02-12-2022 Lymphocytes Auto (Unsp spec) [#/Vol] 1.67 10*3/uL 0.83-4.51 [facility] Work Phone: Basophil percentageon 2021 Basophils/100 WBC (Bld) 0.5 % 0-[address] [facility] Work Phone: Bilirubin [Mass/Vol] 0.40 mg/dL 0.20-1.00 [facility] Work Phone: Comment on above: For patients on eltr ombopag therapy, use of Dimension [place] TBIL is not recommended. Chloride [Moles/Vol] 99 mmol/L 98-107 [facility] Work Phone: Eosinophils/100 WBC (Bld) 1.5 % 0-5 [facility] Work Phone: Glucose [Mass/Vol] 167 mg/dL 74-106 [facility] Work Phone: Comment on above: Fasting Glucose resu lt greater than or equal to 126 mg/dL suggests DIABETES MELLITUS per A.D.A. criteria. Neutrophils (Bld) [#/Vol] 8.1 10*3/uL 2.0-7.7 [facility] Work Phone: Neutrophils/100 WBC (Bld) 74.9 % 47-70 [facility] Work Phone: Potassium [Moles/Vol] 4.2 mmol/L 3.5-5.1 [facility] Work Phone: Protein [Mass/Vol] 7.7 g/dL 6.4-8.2 [facility] Work Phone: Sodium [Moles/Vol] 136 mmol/L 136-145 [facility] Work Phone: WBC (Bld) [#/Vol] 10.8 10*3/uL 4.4-11.0 [facility] Work Phone: Blood erythrocytes count (nu mber/volume)on 02-12-2022 RBC (Bld) [#/Vol] 5.28 10*6/uL 4.6-6.2 [facility] Work Phone: Blood hemoglobin measurement (mass/volume)on 02-12-2022 Hemoglobin (Bld) [Mass/Vol] 15.3 g/dL 13.0-16.5 [facility] Work Phone: Blood lymphocytes/100 leukoc yteson 02-12-2022 Lymphocytes/100 WBC (Bld) 15.4 % 19-41 [facility] Work Phone: Blood manual differential co mment interpretation (narrative result)on 02-12-2022 Manual differential comment Jorge (Bld) [Interp] SCANNED [facility] Work Phone: Blood monocytes/100 leukocyt eson 02-12-2022 Monocytes/100 WBC (Bld) 7.2 % 0-[address] [facility] Work Phone: Blood platelet mean volumeon 02-12-2022 Platelet mean volume (Bld) [Entitic vol] 10.0 fL 6.2-12.0 [facility] Work Phone: Determination of erythrocyte mean corpuscular volume (MCV)on 02-12-2022 MCV (RBC) [Entitic vol] 88.6 fL 80-[address] [facility] Work Phone: Hematocrit Auto (Bld) [Volum e fraction]on 02-12-2022 Hematocrit (Bld) [Volume fraction] 46.8 % 40-54 [facility] Work Phone: [phone] Laboratory - Chemistry and C hemistry - challengeon 02-12-2022 ALP [Catalytic activity/Vol] 90 U/L 45-117 [facility] Work Phone: [phone] ALT [Catalytic activity/Vol] 26 U/L 16-61 [facility] Work Phone: [phone] CO2 [Moles/Vol] 30.0 mmol/L 21.0-32.0 [facility] Work Phone: [phone] Globulin (S) [Mass/Vol] 4.5 g/dL 2.2-4.[address] [facility] Work Phone: [phone] Urea nitrogen/Creatinine [Mass ratio] 23.3 mg/mg 10-20 [facility] Work Phone: [phone] Laboratory - Hematology and Cell countson 02-12-2022 Erythrocyte distribution width (RBC) [Entitic vol] 49.3 fL 35.1-43.9 [facility] Work Phone: [phone] Erythrocyte distribution width (RBC) [Ratio] 15.2 % 11.6-14.6 [facility] Work Phone: [phone] Immature granulocytes/100 WBC (Bld) 0.500 % 0.0-0.9 [facility] Work Phone: [phone] Comment on above: IG% - Immature Granu locytes (promyelocytes, myelocytes and metamyelocytes) > 1% indicates that a LEFT SHIFT is Present. MCH (RBC) [Entitic mass] 29.0 pg 27.0-32.0 [facility] Work Phone: [phone] Nucleated RBC/100 WBC (Bld) [Ratio] 0 % 0-5 [facility] Work Phone: [phone] MCHC Auto (RBC) [Mass/Vol]on 02-12-2022 MCHC (RBC) [Mass/Vol] 32.7 g/dL 32-36 [facility] Work Phone: [phone] No Panel Informationon 02-12 Estimated GFR (MDRD) Amer 110 mL/min >60 [facility] Work Phone: Comment on above: GFR Calc Estimated GFR (MDRD) Non-Af Amer 91 mL/min >60 [facility] Work Phone: Comment on above: Non- GFR Calc Prostate Specific Antigen Screen 0.44 ng/mL 0.00-4.00 [facility] Work Phone: Comment on above: This test was perfor med using the TPSA assay method for [employer] chemistry system. Values obtained with differentassay methods cannot be used interchangably.When changing PSA assays in the course of monitoring apatient, additional sequential testing should be carriedout to confirm baseline values. Thyroid Stimulating Hormone (TSH) 3.60 uIU/mL 0.358-3.74 [facility] Work Phone: Vitamin D 25-Hydroxy 28.9 ng/mL [facility] Work Phone: Comment on above: Vitamin D 25(OH) Sta tus Range Deficiency <20 ng/mL (50nmol/L) Insufficiency 20 - 30 ng/mL (50 - 75 nmol/L) Sufficiency 30 - 100 ng/mL (75 - 250 nmol/L) Toxicity >100 ng/mL (>250 nmol/L) Platelets bldon 02-12-2022 Platelets (Bld) [#/Vol] 283 10*3/uL 150-450 [facility] Work Phone: [phone] Serum or plasma albumin rosibel urement (mass/volume)on 02-12-2022 Albumin [Mass/Vol] 3.2 g/dL 3.2-5.0 [facility] Work Phone: [phone] Serum or plasma albumin/glob ulin mass ratioon 02-12-2022 Albumin/Globulin [Mass ratio] 0.7 {ratio} 0.9-2.4 [facility] Work Phone: [phone] Serum or plasma calcium rosibel urement (mass/volume)on 02-12-2022 Calcium [Mass/Vol] 9.4 mg/dL 8.5-10.1 [facility] Work Phone: [phone] Serum or plasma creatinine m easurement (mass/volume)on 02-12-2022 Creatinine [Mass/Vol] 0.90 mg/dL 0.70-1.30 [facility] Work Phone: [phone] Comment on above: The validity of the calculated GFR & GFRAA in patients over 70 years has not been determined. Clinical correlation is essential. Serum or plasma urea nitroge n measurement (mass/volume)on 02-12-2022 Urea nitrogen [Mass/Vol] 21 mg/dL 7-18 [facility] Work Phone: [phone] Serum or plasma uric acid me asurement (mass/volume)on 02-12-2022 Urate [Mass/Vol] 5.7 mg/dL 3.5-7.2 [facility] Work Phone: Comment on above: The drugs N-Acetylcy steine and Metamizole may falsely depress this assay. Thin prep Papanicolaou smear with manual screeningon 02-12-2022 Thin prep Papanicolaou smear with manual screening 16 U/L 15-37 [facility] Work Phone: [phone] Thin prep Papanicolaou smear with manual screening 7 5-15 [facility] Work Phone: [phone] Absolute lymphocyte counton 08-14-2021 Lymphocytes Auto (Unsp spec) [#/Vol] 1.81 10*3/uL 0.83-4.51 [facility] Work Phone: [phone] Basophil percentageon 2021 Basophils/100 WBC (Bld) 0.5 % 0-[address] [facility] Work Phone: [phone] Bilirubin [Mass/Vol] 0.30 mg/dL 0.20-1.00 [facility] Work Phone: [phone] Comment on above: For patients on eltr ombopag therapy, use of Dimension [place] TBIL is not recommended. Chloride [Moles/Vol] 106 mmol/L 98-107 [facility] Work Phone: [phone] Eosinophils/100 WBC (Bld) 1.4 % 0-5 [facility] Work Phone: Glucose [Mass/Vol] 142 mg/dL 74-106 [facility] Work Phone: Comment on above: Fasting Glucose resu lt greater than or equal to 126 mg/dL suggests DIABETES MELLITUS per A.D.A. criteria. Neutrophils (Bld) [#/Vol] 7.2 10*3/uL 2.0-7.7 [facility] Work Phone: Neutrophils/100 WBC (Bld) 72.4 % 47-70 [facility] Work Phone: [phone] Potassium [Moles/Vol] 4.4 mmol/L 3.5-5.1 [facility] Work Phone: Comment on above: Slight Hemolysis, Re sult may be falsely increased. Protein [Mass/Vol] 6.8 g/dL 6.4-8.2 [facility] Work Phone: Sodium [Moles/Vol] 139 mmol/L 136-145 [facility] Work Phone: [phone] WBC (Bld) [#/Vol] 10.0 10*3/uL 4.4-11.0 [facility] Work Phone: Blood erythrocytes count (nu mber/volume)on 08-14-2021 RBC (Bld) [#/Vol] 4.81 10*6/uL 4.6-6.2 [facility] Work Phone: Blood hemoglobin measurement (mass/volume)on 08-14-2021 Hemoglobin (Bld) [Mass/Vol] 13.5 g/dL 13.0-16.5 [facility] Work Phone: Blood lymphocytes/100 leukoc yteson 08-14-2021 Lymphocytes/100 WBC (Bld) 18.1 % 19-41 [facility] Work Phone: Blood monocytes/100 leukocyt eson 08-14-2021 Monocytes/100 WBC (Bld) 7.3 % 0-[address] [facility] Work Phone: Blood platelet mean volumeon 08-14-2021 Platelet mean volume (Bld) [Entitic vol] 10.3 fL 6.2-12.0 [facility] Work Phone: [phone] Determination of erythrocyte mean corpuscular volume (MCV)on 08-14-2021 MCV (RBC) [Entitic vol] 86.7 fL 80-[address] [facility] Work Phone: [phone] Hematocrit Auto (Bld) [Volum e fraction]on 08-14-2021 Hematocrit (Bld) [Volume fraction] 41.7 % 40-54 [facility] Work Phone: [phone] Laboratory - Chemistry and C hemistry - challengeon 08-14-2021 ALP [Catalytic activity/Vol] 97 U/L 45-117 [facility] Work Phone: [phone] ALT [Catalytic activity/Vol] 27 U/L 16-61 [facility] Work Phone: [phone] CO2 [Moles/Vol] 28.0 mmol/L 21.0-32.0 [facility] Work Phone: [phone] Globulin (S) [Mass/Vol] 3.7 g/dL 2.2-4.[address] [facility] Work Phone: [phone] Urea nitrogen/Creatinine [Mass ratio] 30.5 mg/mg 10-20 [facility] Work Phone: [phone] Laboratory - Hematology and Cell countson 08-14-2021 Erythrocyte distribution width (RBC) [Entitic vol] 49.7 fL 35.1-43.9 [facility] Work Phone: [phone] Erythrocyte distribution width (RBC) [Ratio] 15.7 % 11.6-14.6 [facility] Work Phone: [phone] Immature granulocytes/100 WBC (Bld) 0.300 % 0.0-0.9 [facility] Work Phone: [phone] Comment on above: IG% - Immature Granu locytes (promyelocytes, myelocytes and metamyelocytes) > 1% indicates that a LEFT SHIFT is Present. MCH (RBC) [Entitic mass] 28.1 pg 27.0-32.0 [facility] Work Phone: [phone] Nucleated RBC/100 WBC (Bld) [Ratio] 0 % 0-5 [facility] Work Phone: MCHC Auto (RBC) [Mass/Vol]on 08-14-2021 MCHC (RBC) [Mass/Vol] 32.4 g/dL 32-36 [facility] Work Phone: No Panel Informationon 08-14 Estimated GFR (MDRD) Amer 129 mL/min >60 [facility] Work Phone: [phone] Comment on above: GFR Calc Estimated GFR (MDRD) Non-Af Amer 106 mL/min >60 [facility] Work Phone: Comment on above: Non- GFR Calc Thyroid Stimulating Hormone (TSH) 2.43 uIU/mL 0.358-3.74 [facility] Work Phone: [phone] Vitamin D 25-Hydroxy 29.8 ng/mL [facility] Work Phone: Comment on above: Vitamin D 25(OH) Sta tus Range Deficiency <20 ng/mL (50nmol/L) Insufficiency 20 - 30 ng/mL (50 - 75 nmol/L) Sufficiency 30 - 100 ng/mL (75 - 250 nmol/L) Toxicity >100 ng/mL (>250 nmol/L) Platelets bldon 08-14-2021 Platelets (Bld) [#/Vol] 271 10*3/uL 150-450 [facility] Work Phone: [phone] Serum or plasma albumin rosibel urement (mass/volume)on 08-14-2021 Albumin [Mass/Vol] 3.1 g/dL 3.2-5.0 [facility] Work Phone: [phone] Serum or plasma albumin/glob ulin mass ratioon 08-14-2021 Albumin/Globulin [Mass ratio] 0.8 {ratio} 0.9-2.4 [facility] Work Phone: [phone] Serum or plasma calcium rosibel urement (mass/volume)on 08-14-2021 Calcium [Mass/Vol] 9.4 mg/dL 8.5-10.1 [facility] Work Phone: Serum or plasma creatinine m easurement (mass/volume)on 08-14-2021 Creatinine [Mass/Vol] 0.79 mg/dL 0.70-1.30 [facility] Work Phone: Comment on above: The validity of the calculated GFR & GFRAA in patients over 70 years has not been determined. Clinical correlation is essential. Serum or plasma urea nitroge n measurement (mass/volume)on 08-14-2021 Urea nitrogen [Mass/Vol] 24 mg/dL 7-18 [facility] Work Phone: Thin prep Papanicolaou smear with manual screeningon 08-14-2021 Thin prep Papanicolaou smear with manual screening 18 U/L 15-37 [facility] Work Phone: Comment on above: Slight Hemolysis, Re sult may be falsely increased. Thin prep Papanicolaou smear with manual screening 5 5-15 [facility] Work Phone: OTARon 02-21-2019 OTAR Occupational Therapy [...] mobility 02/28/2019 Initial Evaluation Date: 02/17/19 Evaluators: Consuelo Fernandez, OT/L, CDRS, CDI/PD Type of Vehicle: 2011 [employer]. Assistive Equipment: Sure Director Of Compensation push/rock hand controls mounted for use with [...] Figure 8 Not tested Maneuverability Not tested [facility] PATIENT NAME: ALIYA SANDOVAL 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 He was able to fasten the seat belt on his own but did mention he may need to get seat belt superintendent of schools for own vehicle. Light (25mph) - Moderate Traffic(35mph) Ratings Skills Straight Aways Average Right Turns Average Left Turns Average Uses Turn Signals Average Stopsigns/Right away Average Speed Control Average 3 Point Turn/Backing Not tested Signs/Markings Average Curves/[place] Average Un/Protected Traffic Lights LTurn Average On [...] concerns observed with same Highway (55 mph) [facility] PATIENT NAME: ALIYA SANDOVAL Dr. [address] MEDICAL REC #: [id number] [place] [address] ADMIT DATE: SERVICE DATE: 02/21/19 Occupational Therapy Assessment ATTENDING PHY: Kristen Lomeli did not complete General Analysis [...] ongoing practice. Psychosocial: Within normal limits Interventions: Seed Cutter Training: refer to information in this report [...] no complaints or concerns observed or reported [facility] PAT[facility]: [facility] [address] MEDICAL REC #: [id number] [place] [address] ADMIT DATE: SERVICE DATE: 02/21/19 Occupational Therapy Assessment ATTENDING PHY: Kristen Lomeli PLAN Necessity: Patient does not [...] license exam as must demonstrate competency using [facility] for license. Will need to get current license transferred to [place] from [facility]. The patient has been instructed to contact the clinic if any questions or problems should arise. Visit Number: Today's visit is number 1 Services: Total Billed: 45 minutes (Timed: 45, Untimed: 0) 45.00 Timed: [48192] Seed Cutter Training EA 15 min. 0.00 Untimed: [08182] OT-EVALUATION MOD COMPLEX Annotated by: CONSUELO FERNANDEZ: Date of service was 02/21/19 and not 02/17/19. Signed by: CONSUELO FERNANDEZ, OT/L, CDRS, CDI/PD 02/28/2019 08:31:01 [facility] PATIENT NAME: ALIYA SANDOVAL 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 MEDICAL REC #: [id number] [place] [address] ADMIT DATE: SERVICE DATE: 02/21/19 Occupational Therapy Assessment ATTENDING KEYLA: Kristen Lomeli Nighttime [place] Reason for Driving is: [place] [employer] Social/Leisure Home management History of Accidents: [...] Both eyes have full range of motion [facility] PATIENT NAME: ALIYA SANDOVAL [address] MEDICAL REC #: [id number] [place] [address] ADMIT DATE: SERVICE DATE: 02/21/19 Occupational Therapy Assessment ATTENDING KEYLA: Kristen Lomeli DIPLOPIA ON GAZE TO: [place] CONVERGENCE: Normal (6-8) LEFT FIELD SACCADES: Direct Fixation RIGHT FIELD SACCADES: Direct Fixation PURSUITS: Sustained Fixation VISUAL SCANNING: . Motor Free Visual Perception Test: Raw Score: 32 /36. Processing Time: 2.7 seconds. Norms: 50 - 69, 3.0 - 5.4 sec. COGNITION Screening Orientation: No impairment detected (5/5 correct orientation reponses). Attention: [place] making test Part B: 53 seconds - intact attention. Safety/Judgment/Prob esha Solving: No impairment detected (identifies 3/3 appropriate solutions for emergency responses). Memory: score of 2 on Short Bleed Cognitive screen which is in normal to [...] by BLE's amputations; also limited for B chief medical technologist/pinch strengths based on observed atrophy in B [...] handicap placard. Is interested in obtaining one. [facility] PATIENT NAME: ALIYA SANDOVAL [address] MEDICAL REC #: [id number] [place] [address] ADMIT DATE: SERVICE DATE: 02/21/19 Occupational Therapy Assessment ATTENDING KIMY: Kristen Lomeli Road Sign Recognition/Rules of Driving: Not Tested. No need to complete same based on his level of function. Simulated Reaction - Braking Distance ([place] 60 ft): Reaction Distance: Average = N/A ft. Not tested. Did not test due to not having access to the hand controls expected for him for simulator. Projected Adaptive Equipment Needs: Sure Director Of Compensation push/rock hand controls for L hand use [...] patient. Has his parents who live in [place] and brother in [place] however limited in support they can provide. [...] the functional task portion of this assessment. [facility] PATIENT NAME: ALIYA SANDOVAL [address] [facility] [address] [address] MEDICAL REC #: [id number] [place] [address] ADMIT DATE: SERVICE DATE: 02/21/19 Occupational Therapy Assessment ATTENDING PHY: Kristen Lomeli The patient has been instructed to contact the clinic if any questions or problems should arise. Visit Number: Today's visit is number 1 Services: Total Billed: 90 minutes (Timed: 30, Untimed: 60) 30.00 Timed: [90770] ADL-HOME MANAGEMENT EA 15 MIN 60.00 Untimed: [87157] OT-EVALUATION HIGH COMPLEX Annotated by: CONSUELO FERNANDEZ: Date of service was 02/21/19 and not 02/17/19. Signed by: CONSUELO FERNANDEZ, OT/L, CDRS, CDI/PD 02/28/2019 07:53:45 [facility] PATIENT NAME: ALIYA SANDOVAL [address] MEDICAL REC #: [id number] [place] [address] ADMIT DATE: SERVICE DATE: 02/21/19 Occupational Therapy Assessment ATTENDING PHY: Kristen Lomeli [facility] Occupational Therapy Community Mobility and IADL Report [...] not gotten his [place] license transferred to [place] which is necessary before any of the process can be started regarding medical case section/self reporting need for hand controls/taking license exam to prove competence with same; clinically he demonstrated decreased L eye glare far acuity while he self reported issues related to diabetes and vision, decreased auditory attention skills, decreased B hand/chief medical technologist strength and coordination related to atrophy in B hands which he indicated started to become more apparent about 1 year ago; during the behind the wheel portion, he demonstrated no specific concerns related to using mechanical hand controls. Recommendations: On the road driving assessment. Gilberto will be required to take and pass the [facility] license exam using mechanical hand controls in the future in order to show competence and gain restriction on his license. Patient may resume driving with the following recommendations: Physician approval. Dr. Lomeli should continue to monitor Gilberto's overall medical status and assure that he maintains his current level of function for ongoing [facility] PATIENT NAME: ALIYA SANDOVAL [address] MEDICAL REC #: [id number] [place] [address] ADMIT DATE: SERVICE DATE: 02/21/19 Occupational Therapy Assessment ATTENDING KEYLA: Kristen Lomeli pursuit of safe operation of motor vehicle. If future concerns arise, recommend that he be seen at that time for reassessment of his skills. Restrictions. 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 Vehicle and Equipment Needs: 1.) Sure Director Of Compensation push/rock hand controls (mechanical version) mounted for [...] support and assist as needed including letting [facility] know of his need for driving adaptation once he has practice with his hand controls for some time as well as after he gets his [place] drivers licensed formally transferred to [place]. 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 If the patient's physical and mental status remains the same as during the evaluation period, the recommendations in the report should be considered valid for 6 months. Beyond that time, a re - evaluation may be necessary. [facility] PATIENT NAME: ALIYA SANDOVAL [address] [facility] REC #: [id number] [place] [address] ADMIT DATE: SERVICE DATE: 02/21/19 Occupational Therapy Assessment ATTENDING KEYLA: Kristen Lomeli Signed by: CONSUELO FERNANDEZ OT/Lester, CDRS, CDI/PD 02/28/2019 09:01:59 [facility] PATIENT NAME: ALIYA SANDOVAL [address] MEDICAL REC #: [id number] [place] [address] ADMIT DATE: SERVICE DATE: 02/21/19 Occupational Therapy Assessment [facility]ING [facility]-2019 OTPN Occupational Therapy Outpatient Missed Visit Note The patient did not attend the therapy appointment on 02/17/19 at 1300. Reason: Personal transportation issue Future Appointment: The patient has additional appointments. Signed by: NATANAEL MCLAUGHLIN CDRS, CDI/PD 02/17/2019 14:36:13 [facility] PATIENT NAME: ALIYA SANDOVAL [address] MEDICAL REC #: [id number] [place] [address] ADMIT DATE: SERVICE DATE: 02/17/19 Occupational Therapy Progress Note [facility]ENDING PH[facility]: [facility] OT Progress Note [facility] OTPN Occupational Therapy Outpatient Missed Visit Note The patient did not attend the therapy appointment on 02/17/19 at 1500. Reason: Personal transportation issue Future Appointment: The patient has additional appointments. Signed by: NATANAEL MCLAUGHLIN CDRS, CDI/PD 02/17/2019 14:36:55 [facility] PATIENT NAME: ALIYA SANDOVAL [address] MEDICAL REC #: [id number] [place] [address] ADMIT DATE: SERVICE DATE: 02/17/19 Occupational Therapy Progress Note ATTENDING PH[facility]: [facility] MRI Low Ext Non Jt w/ + w/o Contraston 03-04-2017 MRI Low Ext Non Jt w/ + w/o Contrast Patient Name: ALIYA SANDOVAL MRI Exam Date/Time 03/04/2017 09:36:45 EST Exam MRI Low Ext Non Jt w/ + w/o Contrast Ordering Physician DELGADO CROFT Accession Number [id number] CPT4 Codes 03723 () Reason For Exam abcess of leg [...] Transcribed Date and Time: 03/04/2017 10:26 Normal [facility] Encounters Encounter Date Encounter Type Care Provider Facility Start: 10-17-2024 End: 10-17-[address] Kelechi Lomeli MD Work Phone: -Laboratory Start: 10-17-2024 End: 10-17-[address] Kelechi Lomeli MD -Laboratory Work Phone: Start: 10-17-2024 End: 10-17-2024 ambulatory Kelechi Gordy Bakerok Facility:[facility] Start: 10-03-2024 End: 10-03-[address] Kelechi Lomeli MD Work Phone: [facility] Work Phone: Start: 10-03-2024 End: 10-03-[address] Kelechi Lomeli MD -Laboratory Work Phone: Start: 10-03-2024 End: 10-03-2024 ambulatory Kelechi Bakerok Facility:[facility] Start: 09-07-2024 End: 09-07-[address] Kelechi Lomeli MD Work Phone: [facility] Work Phone: Start: 09-07-2024 End: 09-07-[address] Kelechi Lomeli MD -Laboratory Work Phone: Start: 09-07-2024 End: 09-07-2024 ambulatory Kelechi Gordy Bakerok Facility:[facility] Start: 08-24-2024 End: 08-24-[address] Kelechi Lomeli MD Work Phone: [facility] Work Phone: Start: 08-24-2024 End: 08-24-[address] Kelechi Lomeli [facility] -[facility] Work Phone: Start: 08-24-2024 End: 08-24-2024 ambulatory Kelechi Lomeli Facility:[facility] Start: 07-15-2024 End: 07-15-[address] Kelechi Lomeli MD Work Phone: [facility] Work Phone: Start: 07-15-2024 End: 07-15-[address] Kelechi Lomeli MD -Laboratory, Specimen Work Phone: Start: 07-15-2024 End: 07-15-2024 ambulatory Kelechi Lomeli Facility:[facility] Start: 07-07-2024 End: 07-07-[address] Kelechi Lomeli MD Work Phone: [facility] Work Phone: Start: 07-07-2024 End: 07-07-[address] Kelechi Lomeli MD -Laboratory, Phy Office 3rd Flr Start: 07-07-2024 End: 07-07-2024 ambulatory Kelechi Lomeli Facility:[facility] Start: 06-06-2024 End: 06-06-[address] Kelechi Lomeli MD Work Phone: [facility] Work Phone: Start: 06-06-2024 End: 06-06-[address] Kelechi Lomeli MD -Laboratory Work Phone: Start: 06-06-2024 End: 06-06-2024 ambulatory Kelechi Lomeli Facility:[facility] Start: 02-23-2024 End: 02-23-[address] Kelechi Lomeli MD -Laboratory, Phy Office 3rd Flr Start: 02-22-2024 End: 02-22-[address] Kelechi Lomeli MD -Laboratory, Phy Office 3rd Flr Start: 02-22-2024 End: 02-23-2024 ambulatory Kelechi Gordy Lomeli Facility:[facility] Start: 11-10-2023 End: 11-10-2023 ambulatory Kelechi Gordy Lomeli Facility:[facility] Start: 08-17-2023 End: 08-17-2023 ambulatory [facility] Work Phone: Start: 08-17-2023 End: 08-17-2023 Patient encounter procedure [facility]-Laboratory Work Phone: Start: 05-27-2023 End: 05-27-2023 ambulatory [facility] Work Phone: Start: 05-27-2023 End: 05-27-2023 Patient encounter procedure [facility]-Laboratory Work Phone: Start: 02-25-2023 End: 02-25-2023 Patient encounter procedure [facility]-Ultrasound, [facility] Work Phone: Start: 02-18-2023 End: 02-18-2023 ambulatory [facility] Work Phone: Start: 02-18-2023 End: 02-18-2023 Patient encounter procedure [facility]-Laboratory, Phy Office 3rd Flr Start: 08-20-2022 End: 08-20-2022 ambulatory [facility] Work Phone: Start: 08-20-2022 End: 08-20-2022 Patient encounter procedure [facility]-Laboratory, Phy Office 3rd Flr Start: 07-08-2022 End: 07-08-2022 ambulatory [facility] Work Phone: Start: 07-08-2022 End: 07-08-2022 Discharged Recurring [facility]-Physical Therapy Work Phone: Start: 07-08-2022 Registered Recurring [facility] Start: 02-12-2022 End: 02-12-2022 ambulatory [facility] Work Phone: Start: 02-12-2022 End: 02-12-2022 [facility] Start: 08-14-2021 End: 08-14-2021 Patient encounter procedure [facility]-Laboratory, Phy Office 3rd Flr Start: 04-28-2017 Ambulatory [facility] Start: 04-23-2017 Ambulatory [facility]USA [facility] Start: 04-21-2017 Ambulatory [facility] Start: 03-04-2017 Ambulatory [place] [place] [facility] Start: 03-02-2017 Ambulatory UNKNOWN PROVIDER [facility] Start: 02-27-2017 Ambulatory [place]gado Croft [place] [facility] Procedures Date Procedure Procedure Detail Performing Clinician Start: 08-24-2024 MRI of abdomen with contrast Dr. Kelechi Lomeli MD Work Phone: Start: 07-15-[address] Kelechi Lomeli MD Work Phone: Comment on above: ACTH reference inter kun for samples collected between 7 and10 AM.Performed at: [facility] [employer] [id number] Director: Jong Metcalf PhD, Phone: [phone] Start: 07-15-2024 De[address]ero ne sulfate level Dr. Kelechi Lomeli MD Work Phone: Start: 02-22-[address] Kelechi chaves MD Work Phone: Start: 02-25-2023 Ultrasonography of t hyroid and parathyroid Start: 02-18-2023 Urine culture Plan of Treatment Date Care Activity Detail Author Start: 08-24-2024 MR Abdomen WO and W contrast IV [facility] Start: 08-24-2024 MRI of abdomen with contrast MRI Abd WITH and W/O Contrast [facility] Payers Date Payer Category Payer Unknown [id number] 2023 Self-pay [id number] 2023 Unknown [id number] 2023 Unknown [id number] Medicare Medicare [id number] Medicare [id number] Private Health Insurance Unknown [id number] 2.16.8 [id number] Unknown [id number] 2.16.8 [id number] Unknown [id number] 2.16.8 [id number] Unknown [id number] 2.16.8 [id number] Unknown [id number] 2.16.8 [id number] Unknown [id number] 2.16.8 [id number] Unknown [id number] 2.16.8 [id number] Unknown [id number] 2.16.8 [id number] Unknown [id number] 2.16.8 [id number] Unknown [id number] 2.16.8 [id number] Social History Date Type Detail Facility Start: 01-09-2019 End: 01-09-2019 Tobacco smoking status MNIS Unknown if ever smoked [facility] Start: 03-08-2018 None [facility] Start: 03-08-2018 Alone [facility] Start: 06-28-2018 Non-smoker [facility] Start: 1960 Sex Assigned At Male [facility] Start: 01-09-2019 End: 01-09-2019 Tobacco smoking status NHIS Never smoked tobacco (finding) [facility] Start: 06-16-2024 End: 07-19-2024 Sex Male (finding) [facility] Discharge summary 10-27-2022 Note Date & Type Note Facility 10-27-2022 Discharge summary Note Date/Time October 27, 2022 11:55am [facility] Physical Therapy [facility] [address] [place] [address] / REHABILITATION SERVICES DISCHARGE SUMMARY MR#: [id number] Acct: [id number] Name: ALIYA SANDOVAL Rep #: [id number] : 1960 62 From: Halie Bruner DP T Referring Dr.: Dr. Kelechi Lomeli MD Status: REG RCR Insurance: [facility] *IN NETWORK [facility] [employer] Discharge Summary D/C summary: [...] please feel free to call me at [phone]. Thank you for the referral of thispatient. Sincerely, Halie Bruner DPT <Electronically signed by Halie Bruner DPT> 10/27/22 1154 CC: Dr. Kelechi Lomeli MD ~ ELR Signed [facility] Work Phone: Evaluation note Note Date & Type Note Facility Evaluation note No assessment information availa ble [facility] Work Phone: Reason for referral (narrative) Note Date & Type Note Facility Reason for referral (narrative) No reason for referral information available [facility] Work Phone: Summary Purpose Family History Relationship Condition Age at Onset Recorded Date/T hamida Unknown Family History?- Unknown March 082017 4:41pm Family History?- Unknown June 28, 2018 2:36pm Relationship Condition Age at Onset Recorded Date/T hamida Unknown Family History?- Unknown March 082017 3:41pm Family History?- Unknown June 28, 2018 1:36pm Advance Directives Advance Directive Response Recorded Date/ Time Living Will No January 09, 2019 6:00pm 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 No December 6:00pm Advance Directive Response Recorded Date/ Time Living Will No January 09, 2019 5:00pm 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 No December 5:00pm Chief Complaint and Reason [...] 9:40am LABS September 07, 2024 10:57 am Chief Complaint Admit Date BILATERAL ADRENAL ADENOMAS August 24 9:40am LABS September 07, 2024 10:57 am LABS October 17, 2024 9:28a m Additional Source Comments (unrecognized sect ion and content) No Status Records FoundNo Status Records FoundNo Status Records FoundNo Status Records Found INFORMATION SOURCE (unrecogn ized section and content) DATE CREATED AUTHOR 10/05/2017 [facility] [employer] DATE CREATED AUTHOR AUTHOR'S ORGANIZ ATION 10/06/2017 [facility] [employer] DATE CREATED AUTHOR AUTHOR'S ORGANIZ ATION 03/08/2019 [facility] DATE CREATED AUTHOR AUTHOR'S ORGANIZ ATION [facility] Goals (unrecognized section and content) Goals may [...] Dates Dr. Kelechi Lomeli MD Primary Care Provbibi morrow, Attending Provider, Referring Provider Active Team Status: [...] September 07, 2024 End: September 07, 2024 Team Status: Inactive Member Role Status Dates Dr. Kelechi Lomeli MD Primary Care Provider Active Start: October 03, 2024 End: October 03, 2024 Dr. Kelechi Lomeli MD Attending Provider Active Start: October 03, 2024 End: October 03, 2024 Dr. Kelechi Lomeli MD Referring Provider Active Start: October 03, 2024 End: October 03, 2024 Team Status: Active Member Role/Relationship Status Dates Dr. Kelechi Lomeli MD Primary Care Provider Active Team Status: Inactive Member Role/Relationship Status Dates Dr. Kelechi Lomeli MD Primary Care Provider Active Start: July 07, 2024 End: July 07, 2024 Dr. Kelechi Lomeli MD Attending Provider Active Start: July 07, 2024 End: July 07, 2024 Team Status: Inactive Member Role/Relationship Status Dates Dr. Kelechi Lomeli MD Primary Care Provider Active Start: July 15, 2024 End: July 15, 2024 Dr. Kelechi Lomeli MD Attending Provider Active Start: July 15, 2024 End: July 15, 2024 Dr. Kelechi Lomeli MD Referring Provider Active Start: July 15, 2024 End: July 15, 2024 Team Status: Inactive Member Role/Relationship Status Dates Dr. Kelechi Lomeli MD Primary Care Provider Active Start: August 24, 2024 End: August 24, 2024 Dr. Kelechi Lomeli MD Attending Provider Active Start: August 24, 2024 End: August 24, 2024 Dr. Kelechi Lomeli MD Referring Provider Active Start: August 24, 2024 End: August 24, 2024 Team Status: Inactive Member Role/Relationship Status Dates Dr. Kelechi Lomeli MD Primary Care Provider Active Start: September 07, 2024 End: September 07, 2024 Dr. Kelechi Lomeli MD Attending Provider Active Start: September 07, 2024 End: September 07, 2024 Dr. Kelechi Lomeli MD Referring Provider Active Start: September 07, 2024 End: September 07, 2024 Team Status: Inactive Member Role/Relationship Status Dates Dr. Kelechi Lomeli MD Primary Care Provider Active Start: October 03, 2024 End: October 03, 2024 Dr. Kelechi Lomeli MD Attending Provider Active Start: October 03, 2024 End: October 03, 2024 Dr. Kelechi Lomeli MD Referring Provider Active Start: October 03, 2024 End: October 03, 2024 Team Status: Inactive Member Role/Relationship Status Dates Dr. Kelechi Lomeli MD Primary Care Provider Active Start: October 17, 2024 End: October 17, 2024 Dr. Kelechi Lomeli MD Attending Provider Active Start: October 17, 2024 End: October 17, 2024 FOR RECORDS PERTAINING TO PATIENTS WHO [...] BE BASED ON THE PRIMARY CLINICAL RECORDS. [employer] provides no warranty or guarantee of the accuracy or completeness of information in this document.
[2025-01-02 11:29] LABS: Cholesterol 189 mg/dL (<=200); Low Density Lipoprotein Calc. 106 mg/dL; Triglycerides 203 mg/dL; Very Low Density Lipoprotein 41 mg/dL (5-40); cholesterol:hdl ratio screen 4.48
[2025-01-02 11:31] LABS: AST(SGOT) 14 U/L (<=37); Alanine Aminotransfer ALT/SGPT 11 U/L (<=46); Albumin, Serum 3.7 g/dL (3.4-4.8); Alkaline Phosphatase 93 U/L (40-129); Anion Gap 12 (5-15); BUN 16 mg/dL (4-19); BUN/Creat Ratio 19.9 RATIO (10-20); Calcium,Total 9.6 mg/dL (7.6-11.0); Carbon Dioxide 26.7 mmol/L (21.0-32.0); Chloride 96 mmol/L (98-108); Globulin 2.8 g/dL (2.2-4.2); Glucose 362 mg/dL (70-99); Potassium 4.5 mmol/L (3.3-5.1)
[2025-01-02 18:33] LABS: Xtra Tube Kwok EXTRA TUBE
== END | disposition home or self-care (01) ==
LOC: LAB 10:07
PROVIDERS: PCP Family Medicine Geriatric Medicine; Referring Provider Family Medicine Geriatric Medicine; Visit Provider Family Medicine Geriatric Medicine
DX: E78.5 Hyperlipidemia, unspecified (principal); E11.65 Type 2 diabetes mellitus with hyperglycemia; I10 Essential (primary) hypertension; E03.9 Hypothyroidism, unspecified
CPT/HCPCS: 36415; 80053; 80061; 83036; 84443; 85025

== ENCOUNTER → 2025-02-24 | Outpatient (CLI) | payer MEDICARE, MEDICAID, SELFPAY ==
[2025-02-24 10:24] LABS: Hematocrit 48.0 % (40-54); Hemoglobin 15.2 g/dL (13.0-16.5); Immature Granulocytes Count 0.060 X10^3/uL (0.0-0.0); Mean Corp Hgb Conc 31.7 g/dL (32-36); Mean Corpuscular Volume 89.1 fL (80-94); Mean Platelet Vol. 8.8 fl (6.2-12.0); NRBC Flagged by Analyzer 0 % (0-5); Platelet Count 276 K/mm3 (150-450); RBC Distribution Width CV 14.7 % (11.6-14.6); RBC Distribution Width SD 47.9 fl (35.1-43.9); Red Blood Count 5.39 M/mm3 (4.6-6.2); White Blood Count 10.0 K/mm3 (4.4-11.0)
[2025-02-24 10:33] LABS: Color, Urine Yellow (Yellow); Glucose, Dipstick 1000 mg/dl (Normal); Ketone-Dipstick Negative (Negative); Leukocyte Esterase-Dipstick Negative /ul (Negative); Nitrite-Dipstick Negative (Negative); Occult Blood-Urine Negative /ul (Negative); Protein-Dipstick Negative (Negative); Specific Gravity, Urine 1.015 (1.002-1.030); Urine Bilirubin Dipstick Negative (Negative)
[2025-02-24 10:51] LABS: Creatinine, Urine (random) 24.50 mg/dL (39.00-259.00); Microalbumin,Random Urine 46.6 mg/L (<20 mg/L)
[2025-02-24 10:59] LABS: AST(SGOT) 15 U/L (<=37); Alanine Aminotransfer ALT/SGPT 8 U/L (<=46); Albumin, Serum 3.8 g/dL (3.4-4.8); Alkaline Phosphatase 75 U/L (40-129); Anion Gap 9 (5-15); BUN 27 mg/dL (4-19); BUN/Creat Ratio 31.9 RATIO (10-20); Calcium,Total 9.7 mg/dL (7.6-11.0); Carbon Dioxide 28.7 mmol/L (21.0-32.0); Chloride 102 mmol/L (98-108); Cholesterol 192 mg/dL (<=200); Globulin 3.0 g/dL (2.2-4.2); Glucose 95 mg/dL (70-99); Low Density Lipoprotein Calc. 121 mg/dL; PSA,Total - Annual Screen 0.35 ng/mL (0.02-4.00); Potassium 4.6 mmol/L (3.3-5.1); Triglycerides 166 mg/dL; Very Low Density Lipoprotein 33 mg/dL (5-40); cholesterol:hdl ratio screen 4.66
== END | disposition home or self-care (01) ==
LOC: LAB 09:44
PROVIDERS: PCP Family Medicine Geriatric Medicine; Referring Provider Family Medicine Geriatric Medicine; Visit Provider Family Medicine Geriatric Medicine
DX: Z12.5 Encounter for screening for malignant neoplasm of prostate (principal); E11.65 Type 2 diabetes mellitus with hyperglycemia; I10 Essential (primary) hypertension; N39.0 Urinary tract infection, site not specified; E78.5 Hyperlipidemia, unspecified
CPT/HCPCS: 36415; 80053; 80061; 81002; 82043; 82570; 83036; 84153; 84443; 85025; G0103